=== PATIENT | male | born 1980 | race Caucasian/White ===

== ENCOUNTER 2022-09-17 13:19 | Outpatient (OUT) | payer OTHER, SELFPAY ==
--- NOTE | 2022-09-17 13:37 | MR_ITS ---
The [place] [id number] Patient Name: ROWENA TORIBIO MRN: [id number] date: 1980 Sex: M Assigned Patient Location: MRI Current Patient Location: MRI Accession/Order Number: [id number] Exam Date: 09/17/2022 13:50 Report Date: 09/17/2022 16:08 At the request of: RAFFY NAVARRETE Procedure: MR knee LT wo con EXAMINATION: MR knee LT wo con HISTORY: Pain In Left Knee M25.562 , swelling COMPARISON: No relevant comparison available. TECHNIQUE: A complete multi-planar MRI was performed. FINDINGS: MEDIAL COMPARTMENT MEDIAL MENISCUS: No visible tear or significant degeneration. CARTILAGE: No visible defect. BONES: No marrow pathology, fracture, or significant arthropathy. MCL AND MEDIAL CAPSULE: Normal medial collateral ligament and medial capsule. LATERAL COMPARTMENT LATERAL MENISCUS: No visible tear or significant degeneration. CARTILAGE: No visible defect. BONES: No marrow pathology, fracture, or significant arthropathy. LCL/POSTEROLAT COMPLEX: Normal lateral collateral ligament, fascicles, lateral capsule and ligaments. ANTERIOR COMPARTMENT PATELLA: No marrow pathology, fracture, or significant arthropathy. CARTILAGE: No visible defect. TENDONS: Normal. EFFUSION: None. No synovitis or loose bodies. ACL: Normal appearing ligament. PCL: Normal appearing ligament. MENISCOFEMORAL: Normal meniscofemoral ligaments. OTHER: Fluid collection anterior to the patella 5.4 x 5.4 cm in diameter by 1.1 cm in thickness. IMPRESSION: 1. Prepatellar bursitis. 2. Otherwise unremarkable knee. Electronically authenticated by: JOSE FERRELL Date: 09/17/2022 16:08
== END 2022-09-17 13:20 ==
LOC: MRI 13:21
PROVIDERS: PCP Family Medicine; Visit Provider Family Medicine
DX: M25.562 Pain in left knee (principal); M70.42 Prepatellar bursitis, left knee
CPT/HCPCS: 73721

== ENCOUNTER 2023-08-05 07:44 | Emergency (ER) | payer OTHER, SELFPAY ==
[2023-08-05 07:48] VITALS: BP 148/89; PULSE 82; TEMP 36.5; O2SAT 97; BMI 52.6
--- NOTE | 2023-08-05 08:08 | XR_ITS ---
The [address] [address] Patient Name: ROWENA TORIBIO MRN: [id number] date: 1980 Sex: M Assigned Patient Location: ER Current Patient Location: ED.MAIN Accession/Order Number: [id number] Exam Date: 08/05/2023 08:19 Report Date: 08/05/2023 08:40 At the request of: JENS PLATT Procedure: XR lumbar spine 2-3V EXAMINATION: XR lumbar spine 2-3V HISTORY: fall, low back pain COMPARISON: XR L-spine 07/07/2021 FINDINGS: BONES: Mechanical fusion L5-S1 via bilateral pedicle screws and rods; no appreciable hardware fracture or loosening. Multilevel mild degenerative facet arthropathy. No fracture or significant spondylolisthesis. DISC SPACES: Multilevel mild narrowing. Intervertebral disc spacer L5-S1. PARASPINOUS: Negative. No paraspinous abnormality is seen. OTHER: Negative. XR/XR lumbar spine 2-3V IMPRESSION: 1. No appreciable acute abnormality. 2. Stable surgical changes and multilevel mild degenerative changes. Electronically authenticated by: JOSE FERRELL Date: 08/05/2023 08:40
--- NOTE | 2023-08-05 08:09 | ED.BACK1 ---
HPI HPI - Back Pain/Injury General Chief Complaint: Back Pain/Injury Stated Complaint: BACK PAIN/ FALL Time Seen by Provider: 08/05/23 07:55 Source: patient and family Mode of arrival: walk-in Limitations: no limitations History of Present Illness HPI Narrative: The patient fell yesterday, twisting and landing awkwardly and injuring the low back. he said that he felt a pop in the left lower back and pain radiated down into the left hip. He did not take anything for the pain today. No bowel or bladder dysfunction. No numbness or tingling in either leg now. No leg weakness or paralysis since the fall. He had previous low back/lumbar surgery. Related Data Home Medications ?Medication ?Instructions ?Recorded ?Confirmed cetirizine 10 mg tablet 10 mg PO DAILY 08/05/23 08/05/23 doxycycline monohydrate 100 mg 100 mg PO BID 08/05/23 08/05/23 capsule etodolac 500 mg tablet 500 mg PO TID 08/05/23 08/05/23 lisinopril 40 mg tablet 40 mg PO DAILY 08/05/23 08/05/23 metoprolol tartrate 50 mg tablet 50 mg PO BID 08/05/23 08/05/23 tizanidine 4 mg tablet 8 mg PO BEDTIME 08/05/23 08/05/23 Previous Rx's ?Medication ?Instructions ?Recorded methocarbamol 750 mg tablet 750 mg PO Q6H PRN pain #30 tabs 08/05/23 nabumetone 750 mg tablet 750 mg PO BID PRN pain #14 tabs 08/05/23 Allergies Allergy/AdvReac Type Severity Reaction Status Date / Time No Known Drug Allergies Allergy Verified 08/05/23 07:48 Opioid HPI Opioid Management Most Recent Opioid Data: Last Pain Scale 10 08/05/23 08:30 Last MAR Pain Assessment 08/05/23 08:30 Exam Narrative Exam Narrative: General: Alert, no acute distress, patient resting comfortably Skin: warm, intact, no pallor noted Head: Normocephalic, atraumatic Eye: Normal conjunctiva Respiratory: No acute distress Back: inspection of the back shows no obvious deformity, no swelling, no ecchymosis, contusion, abrasion, swelling, erythema, fluctuance or induration. Prior surgical incision without dehiscence or sign of infection. Tenderness noted throughout the lumbar region. Straight leg raise on left is positive. Straight leg raise on right is negative. No CVA tenderness noted bilaterally. Musculoskeletal: No deformity noted to bilateral lower extremities. no cyanosis or mottling noted. normal pulses at DP and PT 2+ bilaterally and symmetrically. Normal 5/5 strength at ankles with dorsiflexion and plantar flexion. Patient is able to ambulate. Normal sensation noted to both lower extremities. Neurological: AAOx4, normal sensory and motor observed. L5-S1 reflexes intact symmetrically. DTR 2+ at patellar bilaterally. Psychiatric: Cooperative and interactive. Constitutional Vital Signs, click to edit/add: Last Vital Signs Temp 97.7 F 08/05/23 07:48 Pulse 82 08/05/23 07:48 Resp 18 08/05/23 07:48 BP 148/89 H 08/05/23 07:48 Pulse Ox 97 08/05/23 07:48 O2 Del Method Room Air 08/05/23 07:48 Course Vital Signs Vital signs: Vital Signs Temperature 97.7 F 08/05/23 07:48 Pulse Rate 82 08/05/23 07:48 Respiratory Rate 18 08/05/23 07:48 Blood Pressure 148/89 H 08/05/23 07:48 Pulse Oximetry 97 08/05/23 07:48 Oxygen Delivery Method Room Air 08/05/23 07:48 Temperature 97.7 F 08/05/23 07:48 Pulse Rate 82 08/05/23 07:48 Respiratory Rate 18 08/05/23 07:48 Blood Pressure 148/89 H 08/05/23 07:48 Pulse Oximetry 97 08/05/23 07:48 Oxygen Delivery Method Room Air 08/05/23 07:48 MDM - Back Pain/Injury MDM Narrative Medical decision making narrative: Patient given ibuprofen and xrays of the lumbar spine, left hip and pelvis obtained. Xrays showed degenerative changes and stable surgical hardware but no subluxation or fracture. Patient informed of results and was discharged home with prescriptions for Relafen and Robaxin. PCP follow up recommended. Imaging Data xr lumbar, xr hip/pelvis: Radiologist's impression: ITS Impressions Lumbar Spine X-Ray 08/05/23 08:08 IMPRESSION: 1. No appreciable acute abnormality. 2. Stable surgical changes and multilevel mild degenerative changes. Electronically authenticated by: JOSE FERRELL Date: 08/05/2023 08:40 Hip/Pelvis X-Ray 08/05/23 08:10 IMPRESSION: 1. Mild degenerative joint disease of the hips, left greater than right. 2. No convincing acute bone abnormality. Electronically authenticated by: JOSE FERRELL Date: 08/05/2023 08:43 Discharge Plan Discharge Stand Alone Forms: Portal Instructions Chief Complaint: Back Pain/Injury Clinical Impression: Lumbar radiculopathy, Strain of lumbar region Patient Disposition: Home, Self-Care Time of Disposition Decision: 08:58 Prescriptions / Home Meds: New nabumetone 750 mg tablet 750 mg PO BID PRN (Reason: pain) Qty: 14 0RF methocarbamol 750 mg tablet 750 mg PO Q6H PRN (Reason: pain) Qty: 30 0RF No Action lisinopril 40 mg tablet 40 mg PO DAILY etodolac 500 mg tablet 500 mg PO TID metoprolol tartrate 50 mg tablet 50 mg PO BID cetirizine 10 mg tablet 10 mg PO DAILY tizanidine 4 mg tablet 8 mg PO BEDTIME doxycycline monohydrate 100 mg capsule 100 mg PO BID Print Language: Guatemalan Instructions: Low Back Strain (ED), Lumbar Radiculopathy (ED) Referrals: Shashi Talley MD [Primary Care Provider] - 1 week
--- NOTE | 2023-08-05 08:10 | XR_ITS ---
The [address] [address] Patient Name: ROWENA TORIBIO MRN: [id number] date: 1980 Sex: M Assigned Patient Location: ER Current Patient Location: ER Accession/Order Number: [id number] Exam Date: 08/05/2023 08:19 Report Date: 08/05/2023 08:43 At the request of: JENS PLATT Procedure: XR hip LT 2V w/ pelvis PROCEDURE: XR hip LT 2V w/ pelvis HISTORY: fall, left hip pain COMPARISON: XR L-spine 07/07/2021 FINDINGS: BONES:Slight narrowing of the superior aspect of the hip joint spaces bilaterally. Small degenerative osteophytes along the articular margin of the left femoral head and superior rim of the acetabulum. SOFT TISSUES:No visible soft tissue swelling. EFFUSION:None visible. OTHER: Prior mechanical fusion of L5-S1. XR/XR hip LT 2V w/ pelvis IMPRESSION: 1. Mild degenerative joint disease of the hips, left greater than right. 2. No convincing acute bone abnormality. Electronically authenticated by: JOSE FERRELL Date: 08/05/2023 08:43
[2023-08-05] MEDS: IBUPROFEN 400 MG TABLET 800 MG PO (08:30)
== END 2023-08-05 09:10 | disposition home or self-care (01) ==
PROVIDERS: Emergency Provider Emergency Medicine; PCP Family Medicine
DX: S39.012A Strain of muscle, fascia and tendon of lower back, initial encounter (principal); M54.16 Radiculopathy, lumbar region; W19.XXXA Unspecified fall, initial encounter; Z79.899 Other long term (current) drug therapy
CPT/HCPCS: 72100; 73502; 99284

== ENCOUNTER 2023-08-18 11:25 | Emergency (ER) | payer OTHER, SELFPAY ==
[2023-08-18 11:30] VITALS: BP 139/94; PULSE 94; TEMP 36.6; O2SAT 97; BMI 51.4
--- NOTE | 2023-08-18 11:59 | XR_ITS ---
The [address] [address] Patient Name: ROWENA TORIBIO MRN: [id number] date: 1980 Sex: M Assigned Patient Location: ER Current Patient Location: ER Accession/Order Number: [id number] Exam Date: 08/18/2023 11:50 Report Date: 08/18/2023 12:13 At the request of: RAMON PEREZ Procedure: XR foot RT min 3V PROCEDURE: XR ankle RT min 3V, XR foot RT min 3V HISTORY: pain ; acute right foot and ankle pain after falling COMPARISON: XR ankle bilateral 09/22/2018 XR foot right 06/09/2008 FINDINGS: BONES:Stable small corticated ossifications distal to the medial malleolus favoring sequela of remote injury. Irregular ossification at base of 5th metatarsal; nonspecific. Mild degenerative changes the midfoot. SOFT TISSUES:Moderate soft tissue swelling surrounding the ankle and proximal foot. EFFUSION:None visible. OTHER: Negative. XR/XR foot RT min 3V IMPRESSION: 1. Osseous changes at base of 5th metatarsal are suspected represent sequela of remote injury, however, acute avulsion fracture cannot be completely excluded. Finding is new since May 2008. 2. Degenerative changes the midfoot and ankle. No dislocation. Electronically authenticated by: JOSE FERRELL Date: 08/18/2023 12:13
--- NOTE | 2023-08-18 11:59 | XR_ITS ---
The [address] [address] Patient Name: ROWENA TORIBIO MRN: [id number] date: 1980 Sex: M Assigned Patient Location: ER Current Patient Location: ER Accession/Order Number: [id number] Exam Date: 08/18/2023 11:50 Report Date: 08/18/2023 12:13 At the request of: RAMON PEREZ Procedure: XR ankle RT min 3V PROCEDURE: XR ankle RT min 3V, XR foot RT min 3V HISTORY: pain ; acute right foot and ankle pain after falling COMPARISON: XR ankle bilateral 09/22/2018 XR foot right 06/09/2008 FINDINGS: BONES:Stable small corticated ossifications distal to the medial malleolus favoring sequela of remote injury. Irregular ossification at base of 5th metatarsal; nonspecific. Mild degenerative changes the midfoot. SOFT TISSUES:Moderate soft tissue swelling surrounding the ankle and proximal foot. EFFUSION:None visible. OTHER: Negative. XR/XR ankle RT min 3V IMPRESSION: 1. Osseous changes at base of 5th metatarsal are suspected represent sequela of remote injury, however, acute avulsion fracture cannot be completely excluded. Finding is new since May 2008. 2. Degenerative changes the midfoot and ankle. No dislocation. Electronically authenticated by: JOSE FERRELL Date: 08/18/2023 12:13
--- OUTSIDE RECORDS SUMMARY | 2023-08-18 12:03 | XMS_ITS | CCD ---
Author Organization [facility] Care Team Providers Care Vp Training Name Role Phone Cece Perera Unavailable [phone] ZHOU, DEAN H. Unavailable Unavailable RAFFY NAVARRETE M Unavailable Unavailable ZHOU, DEAN H. Unavailable Unavailable RAFFY NAVARRETE M Unavailable Unavailable HORAFFY Garduno M Unavailable Unavailable ZHOU, DEAN H. Unavailable Unavailable ZHOU, DEAN H. Unavailable Unavailable Fanello, Travon K Unavailable Unavailable Fanello Travon K Unavailable Unavailable JOJORHONDAI JORDANA Unavailable Unavailabl e ADRIANA TRAVON YAKOV Unavailable Unavailable JOJOAMBER MCLAUGHLINE Unavailable Unavailabl e CECE PERERA Unavailable Unavailab le FANTRAVON MCKINLEY YAKOV Unavailable Unavailable CECE PERERA Unavailable Unavailab le TRAVON WRIGHT Unavailable Unavailable CECE PERERA Unavailable Unavailab CECE Palma Unavailable Unavailable CECE PERERA Unavailable Unavailab le Unavailable Primary Care Provider UnavailCasper Alexandre Unavailable DR RAFFY FAROOQ Primary Care Unavailable MERVIN VIDAL Admitting Unavailable MERVIN VIDAL Attending Unavailable MERVIN VIDAL Consulting Unavailable LANDON ., DR AKBAR Admitting Unavailable LANDON ., DR AKBAR Attending Unavailable LANDON ., DR AKBAR Primary Care Unavailable DR RAFFY FAROOQ Consulting Unavailable LANDON ., DR AKBAR Admitting Unavailable LANDON ., DR AKBAR Attending Unavailable LANDON ., DR AKBAR Primary Care Unavailable LANDON Franco, DR AKBAR Consulting Unavailable Allergies Allergy Classification Reported Allergen(s) Allergy Type Date of Onset Reaction(s) Facility (10 sources) acetaminophen / HYDROcodone; Translations: [HYDROCODONE-ACET AMINOPHEN] Propensity to adverse reactions to drug 7 GI Intolerance [facility] Work Phone: (1 source) Acetaminophen / HYDROcodone Drug Allergy 5 [facility] Repository Medications Current Medications Medication Drug Class(es) Dates Sig (Normalized) Sig (Original) acetaminophen 300 mg / codeine phosphate 30 mg oral tablet (1 source) Opioid Agonist Start: 11-18-2016 End: 11-23-2016 take 1 tablet by mouth every six hours as needed for pain acetaminophen-cod eine (TYLENOL #3) 300-30 mg per tablet Indications: DDD (degenerative disc disease), lumbar Take 1 (one) tablet by mouth every 6 (six) hours as needed for pain. 15 tablet 0 11/18/2016 11/23/2016 Active amoxicillin 500 mg oral capsule (1 source) Penicillin-class Antibacterial Start: 08-16-2021 take 1 capsule by mouth every eight hours Amoxicillin 500 MG 1 capsule Orally every 8 hrs for 7 day(s) August, Active baclofen 10 mg oral tablet (4 sources) gamma-Aminobutyric Acid-ergic Agonist Start: 07-01-2017 baclofen (LIORESAL) 10 MG tablet Start: 11-20-2016 End: 02-19-2017 take 1 tablet by mouth three times daily as needed baclofen (LIORESAL) 20 MG tablet Take 1 (one) tablet (20 mg total) by mouth 3 (three) times a day as needed. 30 tablet 0 11/20/2016 02/19/2017 Discontinued Start: 11-05-2016 take 1 tablet by shavonne three times daily as needed baclofen (LIORESAL) 20 MG tablet Take 20 mg by mouth 3 (three) times a day as needed. 0 11/05/2016 Active diflunisal 500 mg oral tablet (8 sources) Nonsteroidal Anti-inflammatory Drug take 1 tablet by mouth twice daily as needed diflunisal (DOLOBID) 500 mg Tab Take 500 mg by mouth 2 (two) times a day as needed. Active gabapentin 300 mg oral capsule (3 sources) Anti-epileptic Agent Start: 07-02-19 18 gabapentin (NEURONTIN) 300 MG capsule Start: 11-07-2016 End: 11-22-2016 take 1 capsule by mouth every eight hours gabapentin (NEURONTIN) 100 MG capsule Indications: Acute back pain, unspecified back location, unspecified back pain laterality Take 1 (one) capsule (100 mg total) by mouth every 8 (eight) hours for 15 days. 45 capsule 0 11/07/2016 11/22/2016 Active ibuprofen 800 mg oral tablet (1 source) Nonsteroidal Anti-inflammatory Drug Start: 08-16-2021 take 1 tablet by mouth every eight hours at mealtime as needed Ibuprofen 800 MG 1 tablet with food or milk as needed Orally every 8 hrs for 5 days August, Active lidocaine hydrochloride 20 mg/ml mucous membrane topical solution (1 source) Antiarrhythmic, Amide Local Anesthetic Start: 08-16-2021 take 15 mL by mouth every three hours Lidocaine Viscous 2% 15 ml swish in mouth, gargle, and spit. DO NOT swallow every 3 hrs for 2 days August, Active Lisinopril (1 source) Angiotensin Converting Enzyme Inhibitor Lisinopril Active Metoprolol (1 source) beta-Adrenergic Leia Metoprol ol Succinate Active Omeprazole (1 source) Proton Pump Inhibitor Omeprazole Active Sertraline (1 source) Serotonin Reuptake Inhibitor Sertraline HCl Active tiZANidine 4 mg oral tablet (2 sources) Central alpha-2 Adrenergic Agonist Start: 07-11-2017 tiZANidine (ZANAFLEX) 4 MG tablet Completed/Discontinued Medications Medication Drug Class(es) Dates Sig (Normalized) Sig (Original) acetaminophen 325 mg / oxyCODONE hydrochloride 5 mg oral tablet (2 sources) Opioid Agonist Start: 11-12-2016 End: 02-19-2017 take 1-2 tablets by mouth every four hours oxyCODONE-acetamino phen (PERCOCET) 5-325 mg per tablet Take 1-2 tablets by mouth every 4 to 6 hours as needed for pain. 0 11/12/2016 02/19/2017 Discontinued methocarbamol 750 mg oral tablet (7 sources) Muscle Relaxant End: 07-22-2017 take 1 tablet by mouth every eight hours methocarbamol (ROBAXIN) 750 MG tablet Take 750 mg by mouth every 8 (eight) hours. 07/22/2017 Discontinued predniSONE 10 mg oral tablet (1 source) Corticosteroid Start: 11-24-2016 End: 02-19-2017 predniSONE (DELTASONE) 10 MG tablet Indications: Chronic midline low back pain without sciatica Take 4 tablets PO X 5 days then take 2 tablets PO X 5 days. 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] Onset: 07-22-2017 07-22-2017 Chronic Other nervous system disorders (1 source) Chronic pain; Translations: [Other chronic pain] Chronic Other screening for suspected conditions (not mental disorders or infectious disease) (1 source) Encounter for screening for malignant neoplasm of prostate; Translations: [ENC SCREEN MALIG NEOPLASM PROSTATE] Onset: 07-28-2022 Episodic Spondylosis; intervertebral disc disorders; other back problems (5 sources) Lumbar spondylosis; Translations: [Spondylosis without myelopathy or radiculopathy, lumbar region] Onset: 09-11-2017 Chronic Spondylosis; intervertebral disc disorders; other back problems (16 sources) Backache; Translations: [Lumbosacral radiculopathy] Onset: 02-19-2017 02-19-2017 Episodic Substance-related disorders (1 source) Nicotine dependence, cigarettes, uncomplicated; Translations: [NICOTINE DEPEND CIGARETTES UNCOMP] Onset: 09-25-2021 Chronic Unclassified (1 source) Unknown / UNK(Unknown) Onset: 03-18-2017 Past or Other Problems Problem Classification Problem Date Documented Da te Episodic/Chronic Disorders of teeth and jaw (5 sources) Periapical abscess without sinus; Translations: [Other specified disorders of teeth and supporting structures] Onset: 08-16-2021 Resolved: 08-16-2021 Episodic Unclassified (1 source) Results Onset: 03-18-2017 Results Test Name Value Interpretation Reference Range Facility OCC BLD IMMUNO SCREENon 07-12 OCCULT BLOOD Negative Normal NEGATIVE [facility] Comment on above: Performed By: #### O BSCRN #### [facility] [address] [place] [address] Dr. Isamar Betancourt INSULINon 07-23-2022 Insulin 42.3 uIU/mL Critically high 2.6-24.9 [facility] Comment on above: Performed By: #### I NSULIN #### [facility] [address] [address] [address] Isamar Betancourt CBC AUTO DIFFon 07-22-2022 BASO # 0.1 103/ul Normal 0.0-0.1 [facility] Comment on above: Performed By: #### C BC #### [facility] [address] [address] [address] Isamar Betancourt Basophils/100 WBC (Bld) 1.1 % Normal 0.2-2.0 [facility] Comment on above: Performed By: #### C BC #### [facility] [address] [place] [address] Dr. Isamar Betancourt EO # 0.2 103/ul Normal 0.0-0.7 [facility] Comment on above: Performed By: #### C BC #### [facility] [address] [place] [address] Dr. Isamar Betancourt Eosinophils/100 WBC (Bld) 2.5 % Normal 0.9-7.0 [facility] Comment on above: Performed By: #### C BC #### [facility] [address] [place] [address] Dr. Isamar Betancourt Erythrocyte distribution width (RBC) [Ratio] 14.4 % Normal 11.0-15.0 [facility] Comment on above: Performed By: #### C BC #### [facility] [address] [place] [address] Dr. Isamar Betancourt Hematocrit (Bld) [Volume fraction] 44.5 % Normal 42.0-54.0 [facility] Comment on above: Performed By: #### C BC #### [facility] [address] [place] [address] Dr. Isamar Betancourt Hemoglobin (Bld) [Mass/Vol] 15.0 g/dL Normal 14.0-18.0 [facility] Comment on above: Performed By: #### C BC #### [facility] [address] [place] [address] Dr. Isamar Betancourt IG # 0.14 10e3/ul Critically high 0.00-0.03 [facility] Comment on above: Performed By: #### C BC #### [facility] [address] [place] [address] Dr. Isamar Betancourt IG % 1.5 % Critically high 0.0-0.5 [facility] Comment on above: Performed By: #### C BC #### [facility] [address] [place] [address] Dr. Isamar Betancourt LYMPH # 3.0 103/ul Normal 1.2-3.8 [facility] Comment on above: Performed By: #### C BC #### [facility] [address] [place] [address] Dr. Isamar Betancourt Lymphocytes/100 WBC (Bld) 33.1 % Normal 20.5-60.0 [facility] Comment on above: Performed By: #### C BC #### [facility] [address] [place] [address] Dr. Isamar Betancourt MANUAL DIFF REQ NO Normal [facility] Comment on above: Performed By: #### C BC #### [facility] [address] [place] [address] Dr. Isamar Betancourt MCH (RBC) [Entitic mass] 29.7 pg Normal 25.9-34.0 [facility] Comment on above: Performed By: #### C BC #### [facility] [address] [place] [address] Dr. Isamar Betancourt MCHC (RBC) [Mass/Vol] 33.7 g/dL Normal 29.9-35.2 [facility] Comment on above: Performed By: #### C BC #### [facility] [address] [place] [address] Dr. Isamar Betancourt MCV (RBC) [Entitic vol] 88.1 fL Normal 80.0-94.0 [facility] Comment on above: Performed By: #### C BC #### [facility] [address] [place] [address] Dr. Isamar Betancourt MONO # 0.9 103/ul Critically high 0.3-0.8 [facility] Comment on above: Performed By: #### C BC #### [facility] [address] [place] [address] Dr. Isamar Betancourt Monocytes/100 WBC (Bld) 9.3 % Normal 1.7-12.0 [facility] Comment on above: Performed By: #### C BC #### [facility] [address] [place] [address] Dr. Isamar Betancourt NEUT # 4.8 103/ul Normal 1.4-6.5 [facility] Comment on above: Performed By: #### C BC #### [facility] [address] [place] [address] Dr. Isamar Betancourt Neutrophils/100 WBC (Bld) 52.5 % Normal 43.0-75.0 [facility] Comment on above: Performed By: #### C BC #### [facility] [address] [place] [address] Dr. Isamar Betancourt Platelet mean volume (Bld) [Entitic vol] 10.3 fL Normal 9.5-13.5 [facility] Comment on above: Performed By: #### C BC #### [facility] [address] [place] [address] Dr. Isamar Betancourt PLT 317 103/ul Normal 150-450 [facility] Comment on above: Performed By: #### C BC #### [facility] [address] [place] [address] Dr. Isamar Betancourt RBC 5.05 106/ul Normal 4.70-6.10 [facility] Comment on above: Performed By: #### C BC #### [facility] [address] [place] [address] Dr. Isamar Betancourt WBC 9.2 103/ul Normal 4.0-11.0 [facility] Comment on above: Performed By: #### C BC #### [facility] [address] [place] [address] Dr. Isamar Betancourt FREE THYROXINE INDEX T7on FTI 2.40 Normal 1.30-4.50 [facility] Comment on above: Performed By: #### V ITAD, PSASC #### [facility] [address] [place], [place] [id number] Dr. Isamar Betancourt T3U 30.0 % Critically low 33.0-40.0 [facility] [place] [facility] Comment on above: Performed By: #### V MYRTLE PSAFRANCOIS #### [facility] [address] [place] [address] Dr. Isamar Betancourt T4 [Mass/Vol] 8.00 ug/dL Normal 4.50-12.[address] [facility] Comment on above: Performed By: #### V MYRTLE PSASC #### [facility] [address] [place] [address] Dr. Isamar Betancourt GLYCOHEMOGLOBIN A1Con 2022 ADA RECOMMENDATION SEE BELOW Normal [facility] Comment on above: Result Comment: ADA RECOMMENDED LIMIT 4.0 - 6.0 ADA THERAPEUTIC TARGET < 7.0 ACTION SUGGESTED > 7.0 Performed By: #### A 1C #### [facility] [address] [place] [address] Dr. Isamar Betancourt Glucose [Mass/Vol] 103 mg/dL Normal [facility] Comment on above: Performed By: #### A 1C #### [facility] [address] [place] [address] Dr. Isamar Betancourt HbA1c (Bld) [Mass fraction] 5.2 % Normal 4.5-6.2 [facility] Comment on above: Performed By: #### A 1C #### [facility] [address] [place] [address] Dr. Isamar Betancourt LIPID PROFILEon 07-22-2022 CHOL-HDL RATIO NORM SEE BELOW Normal [facility] Comment on above: Result Comment: 3.3 - 4.4 LOW RISK 4.4 - 7.1 AVERAGE RISK 7.1 - 11.0 MODERATE RISK >11.0 HIGH RISK Performed By: #### T 7, CMP, LIPID, TSH, URIC #### [facility] [address] [place] [address] Dr. Isamar Betancourt Cholesterol [Mass/Vol] 208 mg/dL Critically high <=200 [facility] Comment on above: Performed By: #### T 7, CMP, LIPID, TSH, URIC #### [facility] [address] [address] [address] Isamar Betancourt Cholesterol in HDL [Mass/Vol] 28 mg/dL Critically low 40-60 [facility] Comment on above: Performed By: #### T 7, CMP, LIPID, TSH, URIC #### [facility] [address] [address] [address] Isamar Betancourt Cholesterol in LDL [Mass/Vol] 153.8 mg/dL Normal [facility] Comment on above: Performed By: #### T 7, CMP, LIPID, TSH, URIC #### [facility] [address] [address] [address] Isamar Betancourt Cholesterol.total/C holesterol in HDL [Mass ratio] 7.4 {ratio} Normal [facility] Comment on above: Performed By: #### T 7, CMP, LIPID, TSH, URIC #### [facility] [address] [address] [address] Isamar Betancourt HDL NORMAL > or = 60 mg/dl - LO W CARDIOVASCULAR RISK <40 mg/dl - HIGH CARDIOVASCULAR RISK Normal [facility] Comment on above: Performed By: #### T 7, CMP, LIPID, TSH, URIC #### [facility] [address] [address] [address] Isamar Betancourt LDL CALC NORMAL SEE BELOW Normal [facility] Comment on above: Result Comment: <100 mg/dl OPTIMAL 100 - 129 mg/dl NEAR OR ABOVE OPTIMAL 130 - 159 mg/dl BORDERLINE HIGH 160 - 189 mg/dl HIGH >190 mg/dl VERY HIGH Performed By: #### T 7, CMP, LIPID, TSH, URIC #### [facility] [address] [address] [address] Isamar Betancourt Triglyceride [Mass/Vol] 131 mg/dL Normal <=150 [facility] Comment on above: Performed By: #### T 7, CMP, LIPID, TSH, URIC #### [facility] [address] [address] [address] Isamar Betancourt VLDL CALC 26.2 mg/dL Normal [facility] Comment on above: Performed By: #### T 7, CMP, LIPID, TSH, URIC #### [facility] [address] [place] [address] Dr. Isamar Betancourt PROF 14(COMP METB)on 023 Albumin [Mass/Vol] 2.8 g/dL Critically low 3.4-5.0 [facility] Comment on above: Performed By: #### T 7, CMP, LIPID, TSH, URIC #### [facility] [address] [place] [address] Dr. Isamar Betancourt Albumin/Globulin [Mass ratio] 0.6 {ratio} Normal [facility] Comment on above: Performed By: #### T 7, CMP, LIPID, TSH, URIC #### [facility] [address] [place] [address] Dr. Isamar Betancourt ALP [Catalytic activity/Vol] 105 U/L Normal 46-116 [facility] Comment on above: Performed By: #### T 7, CMP, LIPID, TSH, URIC #### [facility] [address] [place] [address] Dr. Isamar Betancourt ALT [Catalytic activity/Vol] 23 U/L Normal 16-63 [facility] Comment on above: Performed By: #### T 7, CMP, LIPID, TSH, URIC #### [facility] [address] [place] [address] Dr. sIamar Betancourt Anion gap [Moles/Vol] 9.6 mmol/L Normal [facility] Comment on above: Performed By: #### T 7, CMP, LIPID, TSH, URIC #### [facility] [address] [place] [address] Dr. Isamar Betancourt AST [Catalytic activity/Vol] 15 U/L Normal 15-37 [facility] Comment on above: Performed By: #### T 7, CMP, LIPID, TSH, URIC #### [facility] [address] [place] [address] Dr. Isamar Betancourt Bilirubin [Mass/Vol] 0.5 mg/dL Normal 0.2-1.0 [facility] Comment on above: Performed By: #### T 7, CMP, LIPID, TSH, URIC #### [facility] [address] [place] [address] Dr. Isamar Betancourt Calcium [Mass/Vol] 8.9 mg/dL Normal 8.5-10.1 [facility] Comment on above: Performed By: #### T 7, CMP, LIPID, TSH, URIC #### [facility] [address] [address] [address] Isamar Betancourt Chloride [Moles/Vol] 106 mmol/L Normal 98-107 [facility] Comment on above: Performed By: #### T 7, CMP, LIPID, TSH, URIC #### [facility] [address] [address] [address] Isamar Betancourt CO2 [Moles/Vol] 30.7 mmol/L Normal 21.0-32.0 [facility] Comment on above: Performed By: #### T 7, CMP, LIPID, TSH, URIC #### [facility] [address] [address] [address] Isamar Betancourt Creatinine [Mass/Vol] 0.82 mg/dL Normal 0.70-1.30 [facility] Comment on above: Performed By: #### T 7, CMP, LIPID, TSH, URIC #### [facility] [address] [address] [address] Isamar Betancourt EGFR-AF ENGLISH >60 Normal >=60 [facility] Comment on above: Performed By: #### T 7, CMP, LIPID, TSH, URIC #### [facility] [address] [address] [address] Isamar Betancourt EGFR-NON AF ENGLISH >60 Normal >=60 [facility] Comment on above: Performed By: #### T 7, CMP, LIPID, TSH, URIC #### [facility] [address] [address] [address] Isamar Betancourt Globulin (S) [Mass/Vol] 4.4 g/dL Normal [facility] Comment on above: Performed By: #### T 7, CMP, LIPID, TSH, URIC #### [facility] [address] [address] [address] Isamar Betancourt Glucose [Mass/Vol] 89 mg/dL Normal 74-106 [facility] Comment on above: Performed By: #### T 7, CMP, LIPID, TSH, URIC #### [facility] [address] [place] [address] Dr. Isamar Betancourt Potassium [Moles/Vol] 4.3 mmol/L Normal 3.5-5.1 [facility] Comment on above: Performed By: #### T 7, CMP, LIPID, TSH, URIC #### [facility] [address] [place] [address] Dr. Isamar Betancourt Protein [Mass/Vol] 7.2 g/dL Normal 6.4-8.2 [facility] Comment on above: Performed By: #### T 7, CMP, LIPID, TSH, URIC #### [facility] [address] [place] [address] Dr. Isamar Betancourt Sodium [Moles/Vol] 142 mmol/L Normal 136-145 [facility] Comment on above: Performed By: #### T 7, CMP, LIPID, TSH, URIC #### [facility] [address] [place] [address] Dr. Isamar Betancourt Urea nitrogen [Mass/Vol] 13.0 mg/dL Normal 7.0-18.0 [facility] Comment on above: Performed By: #### T 7, CMP, LIPID, TSH, URIC #### [facility] [address] [place] [address] Dr. Isamar Betancourt Urea nitrogen/Creatinine [Mass ratio] 15.9 mg/mg Normal [facility] Comment on above: Performed By: #### T 7, CMP, LIPID, TSH, URIC #### [facility] [address] [place] [address] Dr. Isamar Betancourt TSHon 07-22-2022 TSH 1.732 uIU/mL Normal 0.358-3.740 [facility] Comment on above: Performed By: #### T 7, CMP, LIPID, TSH, URIC #### [facility] [address] [place] [address] Dr. Isamar Betancourt URIC ACID SERUMon 07-22-2022 Urate [Mass/Vol] 3.6 mg/dL Normal 3.5-7.2 [facility] Comment on above: Performed By: #### T 7, CMP, LIPID, TSH, URIC #### [facility] [address] [address] [address] Isamar Betancourt VITAMIN D 25 OHon 07-22-2022 VIT D 25-OH 8.0 ng/mL Normal [facility] Comment on above: Performed By: #### V ITAD, PSASC #### [facility] [address] [address] [address] Isamar Betancourt VIT D RANGES SEE BELOW Normal [facility] [facility] Comment on above: Result Comment: <20 ng/mL Vit D deficient 20 - <30 ng/mL Vit D insufficient 30 - 100 ng/mL Vit D sufficient >100 ng/mL Potential Toxicity Performed By: #### V ITAD, PSASC #### [facility] [address] LUMBAR SP WO CONon 2020 CT LUMBAR SP WO CON STUDY: CT LUMBAR SP WO CON 01/09/2021 12:44 pm INDICATION: NONUNION OF SPINAL FUSION COMPARISON: None. ACCESSION NUMBER(S): [id number] ORDERING CLINICIAN: Vic Pearson TECHNIQUE: Axial CT images of the lumbar spine are obtained. Axial, coronal and sagittal reconstructions are provided for review. FINDINGS: Exam is limited due to body habitus. There is also some motion artifact as well as beam hardening artifact from fusion hardware. Findings may be obscured. No definite fracture or subluxation of the lumbar spine. There is posterior metallic fusion hardware with incorporated interbody graft at L5-S1. Pedicle screws and interconnecting rods appear intact without periprosthetic lucency or fracture. Mild multilevel degenerative disc height loss with scattered endplate osteophytes. Multilevel facet arthropathy. No spondylolisthesis or spondylolysis identified. L1-2: Grossly patent canal and foramina. L2-3: Disc bulge may cause mild canal stenosis. Disc bulge causes mild left and mild right foraminal stenosis. L3-4: Disc bulge suspected. Canal stenosis difficult to quantitate. Osteophytes cause at least mild bilateral foraminal stenosis. L4-5: Probable canal stenosis difficult to quantitate. Osteophytes cause at least moderate left and left right foraminal stenosis. L5-S1: Fused level. Canal difficult to evaluate. Osteophytes cause at least mild left and mild right foraminal stenosis No abdominal aortic aneurysm is identified. IMPRESSION: Limited exam. Posterior L5-S1 fusion. No definite hardware complication. Mild degenerative changes of the lumbar spine. Normal [facility] LUMBAR SPINE 2 OR 3 VIEWSon 12-21-2020 LUMBAR SPINE 2 OR 3 VIEWS STUDY: LUMBAR SPINE 2 OR 3 VIEWS; 12/21/2020 10:38 am INDICATION: STENOSIS OF LATERAL RECESS OF LUMBAR SPINE. COMPARISON: No available comparisons. ACCESSION NUMBER(S): [id number] ORDERING CLINICIAN: Vic Pearson TECHNIQUE: 4 views of the lumbar spine. FINDINGS: No acute fracture dislocation. Status post posterior lumbar spine fusion at L5-S1 level with decompression laminectomy. The vertebral alignment is normal. The vertebral body heights and intervertebral disc spaces are maintained. Nonspecific bowel gas pattern. IMPRESSION: Stable postsurgical changes of lumbar spine. Normal [facility] OPERATIVE REPORTon OPERATIVE REPORT NAME: ROWENA PATRICIA MR#: [id number] SURGEON: Vic Pearson MD DATE OF SURGERY: 11/30/2020 OPERATIVE REPORT PREOPERATIVE DIAGNOSIS: Lateral recess stenosis, lumbar. POSTOPERATIVE DIAGNOSIS: Lateral recess stenosis, lumbar. OPERATIVE PROCEDURE: L4-L5 translaminar epidural injection with 80 mg of Depo- Medrol. DETAILS OF PROCEDURE: The patient was placed prone on the x-ray table and MAC anesthesia administered. The back was prepped and draped in usual fashion. Local anesthesia was infiltrated with 1% plain Xylocaine. Under C-arm guidance, a 20-gauge Tuohy epidural needle was placed down to the ligamentum flavum at L4-L5 and a glass syringe was fixed. Insufflation was performed, as the needle was advanced through the ligamentum flavum. With the loss of resistance, aspiration yielded no CSF or blood. The epidural space was injected with 8 mL of 1% plain Xylocaine and 80 mg of Depo-Medrol. The needle was withdrawn. Dressing applied. The patient awakened and taken to recovery room in excellent condition. There were no complications. MD AL SOLIZ/DIPTIL/[id number] E/S: Vic Pearson MD 01/07/21 0936 Electronically Signed [facility] PT NAME: ROWENA PATRICIA MR#: [id number] [address] [place] [address] ACCT: [id number] : 82 OPERATIVE REPORT Normal [facility] CORONAVIRUSon 11-28-2020 SARS-CoV-2 (COVID-19) RNA ONESIMO+probe Ql (Unsp spec) Methodology: PCR Negative results do not preclude SARS-CoV-2 infection and should not be used as the sole basis for patient management decisions. Negative results must be combined with clinical observations, patient history, and epidemiological information. False-negative results may occur if the viruses are present at a level that is below the analytical sensitivity of the assay or if the virus has genomic mutations, insertions, deletions, or rearrangements or if performed very early in the course of illness. Results may be affected by the quality of the sample collected. [employer] COVID-19 Direct is only for use under the Food and Drug Administration's Emergency Use Authorization. The [employer] COVID-19 Direct Letter of Authorization, along with the authorized Fact Sheet for Healthcare Providers, the authorized Fact Sheet for Patients, and authorized labeling are available on the FDA website: https://www.fda.gov/Medic alDevices/Safety/ EmergencySituations/ucm16 1496.htm COVID-19 Negative for COVID-19 (SARS-CoV-2 RNA) Normal [facility] Comment on above: Order Comment: CBN: YES Anton: MAIN COVID Testing: PRE-OP/PROCEDURE SCREEN Comment: 11/30 AGE at Spec EUGENIA 40 Report age at specimen EUGENIA? Y First test: UNKNOWN Employed in Healthcare: NO Symptomatic as defined by CDC: NO Hospitalized for COVID-19? NO ICU: NO Resident in a Congregated Care Setting: NO Order Date: 11/28/20 : Not Performed By: #### M [phone] #### Test performed at: [place] [address] [address] LUMB SP COMP W FLEX/EXT 6 VW S>on 10-12-2020 LUMB SP COMP W FLEX/EXT 6 VWS> STUDY: LUMB SP COMP W FLEX/EXT 6 VWS>; 10/12/2020 9:48 am INDICATION: LOW BACK PAIN. COMPARISON: None. ACCESSION NUMBER(S): [id number] ORDERING CLINICIAN: Vic Pearson TECHNIQUE: Standing AP, lateral, oblique and flexion and extension images of the spine were obtained. FINDINGS: The alignment of spine is unremarkable. The patient is status post fusion of L5-S1. A disc space graft is present. The hardware appears intact. There is no obvious spondylolisthesis or spondylolysis. There is mild vertebral body endplate spurring. There is no obvious fracture. COMPARISON OF FINDINGS: IMPRESSION: Post posterior spine fusion. No acute abnormalities. Normal [facility] RAD - Ultrasound Reporton RAD - Ultrasound Report [id number]:127 Normal [facility] Physician Referralon 020 Physician Referral [id number]:12 7 Normal [facility] Ambulatory Clinical Summaryo n 09-22-2019 Ambulatory Clinical Summary {[id number] Normal [facility] CBC With Platelet and Differ entialon 10-09-2017 Basophils Auto #/vol (Bld) 0.1 10*3/uL Normal 0.0-0.2 [facility] Basophils/100 WBC Auto (Bld) 1.0 % Normal [facility] Eosinophils 0.5 10*3/uL Normal 0.0-0.7 [facility] Eosinophils/100 leukocytes 8.5 % Normal [facility] Erythrocyte distribution width Auto Ratio (RBC) 12.5 % Normal 11.5-14.5 [facility] Erythrocytes (RBC) 5.00 10*6/uL Normal 4.70-6.10 [facility] Hematocrit (HCT) 45.4 % Normal 42.0-52.0 [facility] Hemoglobin mass conc (Bld) 14.5 g/dL Normal 14.0-18.0 [facility] Lymphocytes 1.5 10*3/uL Normal 1.0-4.8 [facility] Lymphocytes/100 leukocytes 28.4 % Normal [facility] MCH 28.9 pg Normal 27.0-31.3 [facility] MCHC mass conc (RBC) 31.8 % Low 33.0-37.0 [facility] MCV 90.8 fL Normal 80.0-100.0 [facility] Monocytes 0.5 10*3/uL Normal 0.2-0.8 [facility] Monocytes/100 leukocytes 8.4 % Normal [facility] Neutrophils 2.9 10*3/uL Normal 1.4-6.5 [facility] Neutrophils/100 leukocytes 53.7 % Normal [facility] Platelets 246 10*3/uL Normal 130-400 [facility] WBC (Leukocytes) 5.4 10*3/uL Normal 4.8-10.8 [facility] Comprehensive Metabolic Pane jesus 10-09-2017 Alanine aminotransferase (ALT) 12 U/L Normal 0-41 [facility] Albumin 4.4 g/dL Normal 3.9-4.9 [facility] Alkaline phosphatase (ALP) 66 U/L Normal 35-104 [facility] Anion gap 12 mmol/L Normal 7-13 [facility] Aspartate aminotransferase (AST) 20 U/L Normal 0-40 [facility] Bilirubin (total) 0.5 mg/dL Normal 0.0-1.2 [facility] Calcium 9.3 mg/dL Normal 8.6-10.2 [facility] Chloride 101 mmol/L Normal 98-107 [facility] CO2 28 mmol/L Normal 22-29 [facility] Creatinine 0.91 mg/dL Normal 0.70-1.20 [facility] eGFR (black) mL/min/{1.73_m2} Normal >60 [facility] Comment on above: Result Comment: >60 mL/min/1.73m2 EGFR, calc. for ages 18 and older using theMDRD formula (not corrected for weight), is valid for stablerenal function. eGFR (MDRD) mL/min/{1.73_m2} Normal >60 [facility] Comment on above: Result Comment: >60 mL/min/1.73m2 EGFR, calc. for ages 18 and older using theMDRD formula (not corrected for weight), is valid for stablerenal function. Globulin 2.9 g/dL Normal 2.3-3.5 [facility] Glucose mass conc 82 mg/dL Normal 74-109 [facility] Potassium molar conc 4.3 mmol/L Normal 3.5-5.1 [facility] Protein 7.3 g/dL Normal 6.4-8.1 [facility] Sodium 141 mmol/L Normal 132-144 [facility] Urea nitrogen 15 mg/dL Normal 6-20 [facility] Lipid Panelon 10-09-2017 Cholesterol 185 mg/dL Normal 0-199 [facility] Comment on above: Result Comment: ATP III Cholesterol classification is Desirable. HDL Cholesterol 47 mg/dL Normal 40-59 [facility] Comment on above: Result Comment: ATP III HDL Cholesterol Classification is Desirable.Expected Values:Males: >55 = No Risk 35-55 = Moderate Risk <35 = High RiskFemales: >65 = No Risk 45-65 = Moderate Risk <45 = High RiskNCEP Guidelines: Third Report August 2000>59 = negative risk factor for CHD<40 = major risk factor for CHD LDL Cholesterol 123 mg/dL Normal 0-129 [facility] Comment on above: Result Comment: ATP III LDL Classification is Near Optimal. Triglyceride 73 mg/dL Normal 0-200 [facility] Comment on above: Result Comment: ATP III Triglycerides Classification is Normal. Basic Metabolic Panel Reflex Mgon 09-16-2017 Anion gap 12 mmol/L Normal 7-13 [facility] Calcium 8.4 mg/dL Low 8.6-10.2 [facility] Chloride 99 mmol/L Normal 98-107 [facility] CO2 23 mmol/L Normal 22-29 [facility] Creatinine 0.64 mg/dL Low 0.70-1.20 [facility] eGFR (black) mL/min/{1.73_m2} Normal >60 [facility] Comment on above: Result Comment: >60 mL/min/1.73m2 EGFR, calc. for ages 18 and older using theMDRD formula (not corrected for weight), is valid for stablerenal function. eGFR (MDRD) mL/min/{1.73_m2} Normal >60 [facility] Comment on above: Result Comment: >60 mL/min/1.73m2 EGFR, calc. for ages 18 and older using theMDRD formula (not corrected for weight), is valid for stablerenal function. Glucose mass conc 115 mg/dL Critically high 74-109 [facility] Potassium molar conc 4.0 mmol/L Normal 3.5-5.1 [facility] Sodium 134 mmol/L Normal 132-144 [facility] Urea nitrogen 7 mg/dL Normal 6-20 [facility] CBC With Platelet and Differ entialon 09-16-2017 Slide Review see below Normal [facility] Comment on above: Result Comment: Slid e review agrees with reported results Basophils Auto #/vol (Bld) 0.1 10*3/uL Normal 0.0-0.2 [facility] Basophils/100 WBC Auto (Bld) 0.5 % Normal [facility] Eosinophils 0.0 10*3/uL Normal 0.0-0.7 [facility] Eosinophils/100 leukocytes 0.1 % Normal [facility] Erythrocyte distribution width Auto Ratio (RBC) 14.2 % Normal 11.5-14.5 [facility] Erythrocytes (RBC) 4.38 10*6/uL Low 4.70-6.10 [facility] Hematocrit (HCT) 39.9 % Low 42.0-52.0 [facility] Hemoglobin mass conc (Bld) 11.0 g/dL Low 14.0-18.0 [facility] Lymphocytes 0.7 10*3/uL Low 1.0-4.8 [facility] Lymphocytes/100 leukocytes 4.6 % Normal [facility] MCH 25.2 pg Low 27.0-31.3 [facility] MCHC mass conc (RBC) 27.6 % Low 33.0-37.0 [facility] MCV 91.2 fL Normal 80.0-100.0 [facility] Monocytes 0.4 10*3/uL Normal 0.2-0.8 [facility] Monocytes/100 leukocytes 3.0 % Normal [facility] Neutrophils 13.1 10*3/uL Critically high 1.4-6.5 [facility] Neutrophils/100 leukocytes 91.8 % Normal [facility] Platelets 313 10*3/uL Normal 130-400 [facility] WBC (Leukocytes) 14.3 10*3/uL Critically high 4.8-10.8 [facility] XR LUMBAR SPINE (2-3 VIEWS)o n 09-16-2017 XR LUMBAR SPINE (2-3 VIEWS) XR LUMBAR SPINE (2-3 VIEWS) : 09/16/2017CLINICAL HISTORY: post op L5-S1 fusion.COMPARISON: Complete spinal angiogram 09/11/2017, outside lumbar spine MRI 02/26/2017, and interoperative fluoroscopy 09/15/2017.TECHNIQUE: AP, lateral, and coned-down lateral radiographs of the lumbar spine were obtained.FINDINGS: Bilateral transpedicular screws, posterior fusion rods and intervertebral disc implants are noted at the L5-S1 level, which are otherwise unremarkable.There is no compression, fracture, subluxation, or other radiodense foreign bodies, worrisome bone destruction, or pathologic calcifications identified. Mild degenerative endplate changes are noted throughout; especially of the lower thoracic and upper lumbar levels. The sacroiliac joints are intact.IMPRESSION: EXPECTED POSTOPERATIVE CHANGES IN RELATION TO L5-S1 FUSION.SPONDYLOSIS.Interp reted by:NEELAM Knappigned by:Celestino Izaguirre MD09/16/18Final result Normal [facility] FLUORO FOR SURGICAL PROCEDUR ESon 09-15-2017 FLUORO FOR SURGICAL PROCEDURES EXAMINATION: FLUORO FOR SURGICAL PROCEDURESCLINICAL HISTORY: Lumbar Fusion COMPARISONS: None available.FINDINGS: Liver fluoroscopic images in series were saved before during and after intervertebral fusion with posterior stabilization at L4-5.X-RAY DOSE SUMMARY: 11 FLUOROSCOPIC IMAGES SAVED TO PACS. 0SPOT FILM WAS EXPOSED. 0:13 minutes FLUOROSCOPY TIME. 87.6MGY CUMULATIVE X-RAY DOSE.CONCLUSION: UNREMARKABLE INTERVERTEBRAL FUSION AT L4-5Interpreted by:NEELAM Crossigned by:Naveen Moctezuma MD6/18Final result Normal [facility] Basic Metabolic Panelon 06-0 Anion gap 16 mmol/L Critically high 7-13 [facility] Calcium 9.7 mg/dL Normal 8.6-10.2 [facility] Chloride 101 mmol/L Normal 98-107 [facility] CO2 26 mmol/L Normal 22-29 [facility] Creatinine 0.59 mg/dL Low 0.70-1.20 [facility] eGFR (black) mL/min/{1.73_m2} Normal >60 [facility] Comment on above: Result Comment: >60 mL/min/1.73m2 EGFR, calc. for ages 18 and older using theMDRD formula (not corrected for weight), is valid for stablerenal function. eGFR (MDRD) mL/min/{1.73_m2} Normal >60 [facility] Comment on above: Result Comment: >60 mL/min/1.73m2 EGFR, calc. for ages 18 and older using theMDRD formula (not corrected for weight), is valid for stablerenal function. Glucose mass conc 88 mg/dL Normal 74-109 [facility] Potassium molar conc 4.2 mmol/L Normal 3.5-5.1 [facility] Sodium 143 mmol/L Normal 132-144 [facility] Urea nitrogen 9 mg/dL Normal 6-20 [facility] CBC With Platelet No Differe ntialon 09-11-2017 Erythrocyte distribution width Auto Ratio (RBC) 14.5 % Normal 11.5-14.5 [facility] Erythrocytes (RBC) 4.84 10*6/uL Normal 4.70-6.10 [facility] Hematocrit (HCT) 44.1 % Normal 42.0-52.0 [facility] Hemoglobin mass conc (Bld) 15.0 g/dL Normal 14.0-18.0 [facility] MCH 31.1 pg Normal 27.0-31.3 [facility] MCHC mass conc (RBC) 34.1 % Normal 33.0-37.0 [facility] MCV 91.2 fL Normal 80.0-100.0 [facility] Platelets 308 10*3/uL Normal 130-400 [facility] WBC (Leukocytes) 9.4 10*3/uL Normal 4.8-10.8 [facility] Culture, MRSA Screenon 09-11 Culture, MRSA Screen ORDERED BY: RAFAEL HIGGINS: Nares Nose COLLECTED: 09/11/17 17:10ANTIBIOTICS AT EUGENIA.: RECEIVED : 09/11/17 17:10Culture, MRSA Screen FINAL 09/12/17 12:52 No MRSA isolated Normal [facility] Partial Thromboplastin Timeo n 09-11-2017 aPTT 27.1 s Normal 21.6-35.4 [facility] Comment on above: Result Comment: Hepa rin Therapeutic Range: 38.8 - 54.6 seconds. Prothrombin Timeon 8 INR Coag RelTime (PPP) 1.0 {INR} Normal [facility] Comment on above: Result Comment: Shane mmended INR therapeutic ranges for oral anticoagulanttherapyProphylaxis/treatment of: INR Venous Thrombosis, Pulmonary Embolism 2.0-3Prevention of Systemic Embolism from: Atrial Fibrillation 2.0-3.0 Myocardial Infarction 2.0-3.0 Mechanical Prosthetics Heart Valves 2.5-3.5 Recurrent Systemic Embolism 2.5-3.5Guidelines for patients with coagulopathy, e.g. liver disease:Use the Protime resulted in seconds. Mild 12.9-17.0 sec Moderate 17.1-22.6 sec Severe G.T. 22.6 sec Prothrombin time (PT) Coag time (PPP) 10.2 s Normal 9.6-12.3 [facility] Type and Screen Capture 3 sc rn cellon 09-11-2017 Bilirubin (total) PATIENT: MALU MCCORMICK LOC: [facility] BILL# : [id number] : 1980 SEX: MORDERED BY: GISELA PETERSEN ORDERED : 09/11/2017 16:39 COLLECTED: 09/11/2017 17:13ORDER : [id number] RECEIVED : 09/11/2017 17:13 --------TEST NAME RESULT UNITS RANGES ABN FL STABORH Capture B POS FAntibody 3 Cell Scrn Captu NEG F --- Normal [facility] Urinalysis, reflex to cultur alma 09-11-2017 Bilirubin Ql (U) MODERATE Abnormal Negative [facility] Urine Reflexed to Culture Not Indicated Normal [facility] Urine, clarity Clear Normal Clear [facility] Urine, color Yellow Normal Straw/[place] [facility] Urine, glucose presence Negative Normal Negative [facility] Urine, hemoglobin presence Negative Normal Negative [facility] Urine, ketones presence Negative Normal Negative [facility] Urine, leukocyte esterase presence Negative Normal Negative [facility] Urine, nitrite presence Negative Normal Negative [facility] Urine, pH 6.5 [pH] Normal 5.0-9.0 [facility] Urine, protein presence Negative Normal Negative [facility] Urine, specific gravity 1.013 Normal 1.005-1.03 [facility] Urine, urobilinogen 1.0 {Tanna'U}/dL Normal < 2.0 [facility] XR SPINE ENTIRE (2-3 VIEWS)o n 09-11-2017 XR SPINE ENTIRE (2-3 VIEWS) XR SPINE ENTIRE (2-3 VIEWS) : 09/11/2017CLINICAL HISTORY: Z01.818 Pre-op evaluation ICD10.COMPARISON: None available.TECHNIQUE: Standing AP and lateral radiographs of the entire spine were obtained.FINDINGS: There is no significant curvature, subluxation, compression fractures, worrisome bone destruction, or paraspinous soft tissue abnormalities identified.Mild to moderate degenerative endplate changes of the mid to lower thoracic, lumbosacral spine and to a lesser extent lower cervical spine are noted.IMPRESSION: SPONDYLOSIS.Interpreted by:NEELAM Knappigned by:Celestino Izaguirre MD6//18Final result Normal [facility] MRI LUMBAR SPINE W/O CONTon 02-26-2017 MRI LUMBAR SPINE W/O CONT Final ReportAccession No: [id number] Performed: Feb 26 2017 8:57AMExamination: MRI LUMBAR SPINE W/O [id number] male with low back and bilateral lower extremity pain.NONCONTRAST MRI LUMBAR SPINE 02/26/2017 8:57 AMCOMPARISON: None.TECHNIQUE: Following a three plane gradient echo localizer sequence,conventional spin echo T1 and FSE T2 sagittal along with gradient echoT2* and conventional spin echo T1 axial images were obtained through thelumbar spine. In addition, sagittal STIR images were obtained.FINDINGS: For the purposes of this dictation, five lumbar vertebralbodies are assumed. The lowest axial images were obtained through thepresumed L5-S1 disc space.The vertebral bodies are normal height and alignment. There are anteriormarginal osteophytes at the vertebral endplates. There are degenerativeendplate changes at T12-L1 and L5-S1.At L5-S1, there is moderate disc space narrowing. There iscircumferential disc bulge with small right paracentral disc protrusion.This abuts the right S1 nerve root which is mildly displaced posteriorly.There is mild narrowing of the lateral recesses and neural foramina.At L4-5, there is no disc herniation. The neuroforamina are widely patentbilaterally. No significant facet hypertrophy.At L3-4, there is moderate disc space narrowing with minimalcircumferential disc bulge. There is no significant narrowing of theneural foramina.There is mild disc space narrowing at T10-11, T11-12 and T12-L1 but nodisc herniation at those levels. The neuroforamina are widely patent atall visualized levels of the lower thoracic spine. Conus medullaris is atthe T12 level. There are no cord masses.IMPRESSION:1. Mild lumbar spondylosis with multilevel mild to moderate lowerthoracic and lumbar disc disease. There is a small right paracentral discprotrusion at L5-S1 as described.2. No significant facet arthropathy and no spinal stenosis.Interpreting Physician: ZA NUNEZ M.D.Trans: : cc: Normal [facility] Vital Signs Date Time Vital Sign Value Performing Clinician Facility 08-16-2021 13:45-0400 Body height 185.42 cm Casper Bellamy Other [email or web address] Other 08-16-2021 13:45-0400 Body mass index (BMI) [Ratio] 42.48 kg/m2 Casper Bellamy Other [email or web address] Other 08-16-2021 13:45-0400 Body temperature 98.9 [degF] Casper Bellamy Other [email or web address] Other 08-16-2021 13:45-0400 Body weight 146.06 kg Casper Bellamy Other [email or web address] Other 08-16-2021 13:45-0400 Diastolic blood pressure 90 mm[Hg] Casper Bellamy Other [email or web address] Other 08-16-2021 13:45-0400 Respiratory rate 18 /min Casper Bellamy Other [email or web address] Other 08-16-2021 13:45-0400 SaO2% (BldA) [Mass fraction] 99 % Casper Bellamy Other [email or web address] Other 08-16-2021 13:45-0400 Systolic blood pressure 147 mm[Hg] Casper Bellamy Other [email or web address] Other 07-22-2017 15:00-0400 BMI (Body Mass Index) 47.36 kg/m2 [facility] 07-22-2017 15:00-0400 Height 185.4 cm [facility] 07-22-2017 15:00-0400 Weight 162.84 kg [facility] 03-18-2017 08:20-0500 BMI (Body Mass Index) 47.36 kg/m2 [facility] Work Phone: 03-18-2017 08:20-0500 BP Diastolic 104 mm[Hg] Travon Wright [facility] Work Phone: 03-18-2017 08:20-0500 BP Systolic 151 mm[Hg] Travon Wright [facility] Work Phone: 03-18-2017 08:20-0500 Height 185.4 cm Travon Wright [facility] Work Phone: 03-18-2017 08:20-0500 Pulse (Heart Rate) 78 /min Travon Wright [facility] Work Phone: 03-18-2017 08:20-0500 Weight 162.84 kg Travon Wright [facility] Work Phone: 02-19-2017 14:24-0500 BMI (Body Mass Index) 43.93 kg/m2 Travon Wright [facility] Work Phone: 02-19-2017 14:24-0500 BP Diastolic 106 mm[Hg] Travon Wright [facility] Work Phone: 02-19-2017 14:24-0500 BP Systolic 148 mm[Hg] Travon Wright [facility] Work Phone: 02-19-2017 14:24-0500 Height 185.4 cm Travon Wright [facility] Work Phone: 02-19-2017 14:24-0500 Pulse (Heart Rate) 101 /min Travon Wright [facility] Work Phone: 02-19-2017 14:24-0500 Weight 151.05 kg Travon Wright [facility] Work Phone: 11-18-2016 14:46-0400 BMI (Body Mass Index) 44.01 kg/m2 Amber Uribe [facility] Work Phone: 11-18-2016 14:46-0400 Body Temperature 98.1 [degF] Amber Uribe [facility] Work Phone: 11-18-2016 14:46-0400 BP Diastolic 86 mm[Hg] Amber [facility] Work Phone: 11-18-2016 14:46-0400 BP Systolic 136 mm[Hg] Amber Uribe [facility] Work Phone: 11-18-2016 14:46-0400 Height 185.[address] [facility] Work Phone: 11-18-2016 14:46-0400 Pulse (Heart Rate) 78 /min [facility] Work Phone: 11-18-2016 14:46-0400 Weight 151.[address] [facility] Work Phone: Encounters Encounter Date Encounter Type Care Provider Facility Start: 07-28-2022 Encounter for genera l adult medical examination without abnormal findings DR RAFFY NAVARRETE . [facility] Start: 07-24-2022 End: 07-24-[address] RAFFY NAVARRETE . Facility: Start: 07-22-2022 End: 07-23-[address] RAFFY NAVARRETE . Facility:[facility] Start: 07-22-2022 End: 07-23-2022 Encounter for general adult medical examination without abnormal findings DR RAFFY NAVARRETE . Facility:[facility] Start: 09-23-2021 End: 09-24-[address] RAFFY NAVARRETE . Facility: Start: 08-16-2021 End: 08-16-2021 ambulatory Casper Bellamy Other [email or web address] Other Start: 08-16-2021 Office outpatient vi sit 15 minutes Casper Bellamy [facility] Start: 12-17-2017 Patient encounter CECE SCHAFER [facility] Amb[facility] Start: 09-15-2017 End: 09-17-2017 Evaluation and management of inpatient RAFFY NAVARRETE [facility] Start: 09-11-2017 End: 09-14-2017 Ambulatory [facility] [place] Start: 09-11-2017 End: 09-16-2017 Ambulatory [facility] Start: 07-22-2017 Office/outpatient visit, est, level 3 Travon Wright Work Phone: [facility] Start: 07-22-2017 End: 07-22-2017 Ambulatory Carly Hong [facility] Start: 03-24-2017 Ambulatory Sonia Young [facility] Start: 03-18-2017 Patient encounter TRAVON JOHNSONHumaira WRIGHT [facility] Ambulatory Start: 03-18-2017 Office outpatient vi sit 15 minutes Travon Wright Work Phone: [facility] Start: 02-26-2017 Ambulatory Travon Vazquez [facility] y[facility] Start: 02-26-2017 End: 02-26-2017 Ambulatory Travonkathya Wright Work Phone: [facility] Start: 02-20-2017 Ambulatory Carly Alexis [facility] Orthopedic and Sports Medicine Start: 02-19-2017 End: 02-19-2017 Patient encounter AMBER URIBE [facility] Ambul[facility]y Start: 02-19-2017 Office outpatient vi sit 15 minutes Amber Uribe Work Phone: [facility] Medicine Physicians Start: 11-18-2016 End: 11-18-2016 Office outpatient visit 15 minutes Amber Uribe Work Phone: [facility] Primary Care Physicians Comment on above: DDD (degenerative di sc disease), lumbar (Primary Dx) Procedures Date Procedure Procedure Detail Performing Clinician Start: 07-22-[address] ROMEO NAVARRETE . Comment on above: Performed By: #### V ITAD, PSASC #### [facility] [address] [place] [address] Dr. Isamar Betancourt Start: 09-17-2017 INCENTIVE SPIROMETRY RT DEAN ZHOU Start: 09-17-2017 END TIDAL CO2 CONTINUOUS DEAN ZHOU Start: 09-17-2017 INCENTIVE SPIROMETRY RT DEAN ZHOU Start: 09-17-2017 PULSE OXIMETRY, CONTINUOUS DEAN ZHOU Start: 09-17-2017 INCENTIVE SPIROMETRY RT DEAN ZHOU Start: 09-17-2017 END TIDAL CO2 CONTINUOUS DEAN ZHOU Start: 09-17-2017 INCENTIVE SPIROMETRY RT DEAN ZHOU Start: 09-17-2017 INITIATE OXYGEN THER APY PROTOCOL DENA ZHOU Start: 09-17-2017 PULSE OXIMETRY, CONTINUOUS DEAN ZHOU Start: 09-17-2017 INCENTIVE SPIROMETRY RT DEAN ZHOU Start: 09-17-2017 END TIDAL CO2 CONTINUOUS DEAN ZHOU Start: 09-17-2017 PULSE OXIMETRY, CONTINUOUS DEAN ZHOU Start: 09-17-2017 INTAKE AND OUTPUT DEAN YO O Start: 09-17-2017 END TIDAL CO2 CONTINUOUS DEAN ZHOU Start: 09-17-2017 PULSE OXIMETRY, CONTINUOUS DEAN ZHOU Start: 09-17-2017 INCENTIVE SPIROMETRY RT DEAN ZHOU Start: 09-16-2017 END TIDAL CO2 CONTINUOUS DEAN ZHOU Start: 09-16-2017 INCENTIVE SPIROMETRY RT DEAN ZHOU Start: 09-16-2017 PULSE OXIMETRY, CONTINUOUS DEAN ZHOU Start: 09-16-2017 INCENTIVE SPIROMETRY RT DEAN ZHOU Start: 09-16-2017 END TIDAL CO2 CONTINUOUS DEAN ZHOU Start: 09-16-2017 INCENTIVE SPIROMETRY RT DEAN ZHOU Start: 09-16-2017 PULSE OXIMETRY, CONTINUOUS DEAN ZHOU Start: 09-16-2017 DISCHARGE PATIENT DEAN YO O Start: 09-16-2017 ORDER WITH SMART PHRASE DEAN ZHOU Start: 09-16-2017 DME ORDER FOR WALKER OP DEAN ZHOU Start: 09-16-2017 INCENTIVE SPIROMETRY RT DEAN ZHOU Start: 09-16-2017 END TIDAL CO2 CONTINUOUS DEAN ZHOU Start: 09-16-2017 INCENTIVE SPIROMETRY RT DEAN ZHOU Start: 09-16-2017 PULSE OXIMETRY, CONTINUOUS DEAN ZHOU Start: 09-16-2017 INCENTIVE SPIROMETRY RT DEAN ZHOU Start: 09-16-2017 Radex spine lumbosac ral 2/3 views DEAN ZHOU Start: 09-16-2017 END TIDAL CO2 CONTINUOUS DEAN ZHOU Start: 09-16-2017 PULSE OXIMETRY, CONTINUOUS DEAN ZHOU Start: 09-16-2017 INCENTIVE SPIROMETRY RT DEAN ZHOU Start: 09-16-2017 INITIATE OXYGEN THER APY PROTOCOL DEAN ZHOU Start: 09-16-2017 INCENTIVE SPIROMETRY RT DEAN ZHOU Start: 09-16-2017 Blood count complete auto&auto difrntl wbc DEAN ZHOU Start: 09-16-2017 END TIDAL CO2 CONTINUOUS DEAN ZHOU Start: 09-16-2017 PULSE OXIMETRY, CONTINUOUS DEAN ZHOU Start: 09-16-2017 ELEVATE HEELS OFF OF BED DEAN ZHOU Start: 09-16-2017 HEAD OF BED 60 DEGRE ES OR LESS DEAN ZHOU Start: 09-16-2017 NURSING COMMUNICATION B O ZHOU Start: 09-16-2017 TURN PATIENT DEAN ZHOU Start: 09-16-2017 PT EVAL AND TREAT DEAN YO O Start: 09-16-2017 ACTIVITY TOLERATED B O ZHOU Start: 09-16-2017 AMBULATE PATIENT DEAN ZHOU Start: 09-16-2017 CATHETER REMOVAL DEAN ZHOU Start: 09-16-2017 DAILY WEIGHTS DEAN ZHOU Start: 09-16-2017 INTAKE AND OUTPUT DEAN YO O Start: 09-16-2017 OT EVAL AND TREAT DEAN YO O Start: 09-16-2017 END TIDAL CO2 CONTINUOUS DEAN ZHOU Start: 09-16-2017 PULSE OXIMETRY, CONTINUOUS DEAN ZHOU Start: 09-16-2017 BASIC METABOLIC PANE L W/ REFLEX TO MG FOR LOW K DEAN ZHOU Start: 09-16-2017 INCENTIVE SPIROMETRY RT DEAN ZHOU Start: 09-15-2017 END TIDAL CO2 CONTINUOUS DEAN ZHOU Start: 09-15-2017 INCENTIVE SPIROMETRY RT DEAN ZHOU Start: 09-15-2017 PULSE OXIMETRY, CONTINUOUS EDAN ZHOU Start: 09-15-2017 INCENTIVE SPIROMETRY RT DEAN ZHOU Start: 09-15-2017 END TIDAL CO2 CONTINUOUS DEAN ZHOU Start: 09-15-2017 INCENTIVE SPIROMETRY RT DEAN ZHOU Start: 09-15-2017 PULSE OXIMETRY, CONTINUOUS DEAN ZHOU Start: 09-15-2017 INCENTIVE SPIROMETRY RT DEAN ZHOU Start: 09-15-2017 ASSESS DEAN ZHOU Start: 09-15-2017 END TIDAL CO2 CONTINUOUS DEAN ZHOU Start: 09-15-2017 IP CONSULT TO SOCIAL WORK DEAN ZHOU Start: 09-15-2017 MAINTAIN IV ACCESS DEAN Y OO Start: 09-15-2017 NURSING COMMUNICATION B O ZHOU Start: 09-15-2017 PLACE INTERMITTENT P NEUMATIC COMPRESSION DEVICE DEAN ZHOU Start: 09-15-2017 ADVANCE DIET TOLE RATED (NURSING COMMUNICATION) DEAN ZHOU Start: 09-15-2017 CONTINUE INDWELLING CATHETHER DEAN ZHOU Start: 09-15-2017 ELEVATE HOB DEAN ZHOU Start: 09-15-2017 FULL CODE DEAN ZHOU Start: 09-15-2017 INCENTIVE SPIROMETRY RT DEAN ZHOU Start: 09-15-2017 INITIATE OXYGEN THER APY PROTOCOL DEAN ZHOU Start: 09-15-2017 INTAKE AND OUTPUT DEAN YO O Start: 09-15-2017 NEURO/VASCULAR CHECKS B O ZHOU Start: 09-15-2017 NOTIFY PHYSICIAN (SPECIFY) DEAN ZHOU Start: 09-15-2017 PULSE OXIMETRY, CONTINUOUS DEAN ZHOU Start: 09-15-2017 TELEMETRY MONITORING DEAN ZHOU Start: 09-15-2017 TOBACCO CESSATION EDUCATION DEAN ZHOU Start: 09-15-2017 VITAL SIGNS DEAN ZHOU Start: 09-15-2017 WOUND CARE DEAN ZHOU Start: 09-15-2017 DIET GENERAL DEAN ZHOU Start: 09-15-2017 FLUORO FOR SURGICAL PROCEDURES DEAN ZHOU Start: 09-15-2017 PATIENT STATUS (FROM ED OR OR/PROCEDURAL) DEAN ZHOU Start: 09-15-2017 TRANSFER PATIENT DEAN ZHOU Start: 09-11-2017 Radex entir thrc lmb r crv sac spi w/skull 2/3 vw DEAN ZHOU Start: 09-11-2017 Basic metabolic pane l calcium total DEAN ZHOU Start: 09-11-2017 URINE RT REFLEX TO CULTURE DEAN ZHOU Start: 09-11-2017 Blood count complete automated DEAN ZHOU Start: 09-11-2017 Prothrombin time DEAN ZHOU Start: 09-11-2017 Thromboplastin time partial plasma/whole blood DEAN ZHOU Start: 09-11-2017 TYPE AND SCREEN DEAN ZHOU Start: 09-11-2017 Cul prsmptv pthgnc o rganism scrn w/colony estimj DEAN ZHOU Start: 09-11-2017 Urnls dip stick/tabl et reagent auto microscopy DEAN ZHOU Start: 09-11-2017 EKG 12-LEAD DEAN ZHOU Plan of Treatment Date Care Activity Detail Author Start: 11-14-2021 Tetanus vaccination TETANUS EVERY 10 YR [facility] Work Phone: Start: 04-02-2017 Ambulatory 04/02/2017 Cli nical Support Orthopedic Surgery Viau, Cece Schafer MD [address] [place] [address] [facility] Start: 12-12-2016 Influenza vaccination SEQUENTI AL INFLUENZA VACCINE (#1) [facility] Work Phone: Start: 12-12-2016 SEQUENTIAL INFLUENZA VACCINE (#1) SEQUENTIAL INFLUENZA VACCINE (#1) [facility] Work Phone: Start: 1980 TETANUS EVERY 10 YR TETANUS EVERY 10 YR [facility] Work Phone: End: 02-19-2018 MR Lumbar Spine Without Contrast MR Lumbar Spine Without Contrast Routine Acute back pain, unspecified back location, unspecified back pain laterality 1 Occurrences starting 02/19/2017 until 02/19/2018 [facility] Work Phone: Payers Date Payer Category Payer Unknown [id number] 1980 Unknown [id number] 1980 Unknown [id number] 1980 Unknown [id number] 1958 Medicaid [id number] 2.1 [id number] 1958 Medicaid [id number] 2. [id number] Medicaid xxxxxxxxxxx 2.1 [id number] Social History Date Type Detail Facility Start: 11-18-2016 End: 07-22-2017 Tobacco smoking status IDIS Current every day smoker [facility] Work Phone: History of tobacco use Cigarette Smoker [facility] Work Phone: Start: 11-18-2016 End: 07-22-2017 Cigarettes smoked current (pack per day) - Reported [facility] Work Phone: History of tobacco use Snuff User [facility] Work Phone: Sex Assigned At Not on file [facility] Work Phone: History of tobacco use Chews Tobacco [facility] Work Phone: Sex Assigned At Sex Assigned At [facility] [email or web address] Other Evaluation note 08-16-2021 Note Date & Type Note Facility 08-16-2021 Evaluation note Encounter Date Diagnosis Assessment Notes August, Tooth infection (ICD-10 - K04.7) Take tylenol 1000mg every 8 hours for pain. Call the dentist to make an appointment. I considered more ominous diagnoses such as retropharyngeal abscess, [employer], Raheem's angina, and Lemierre's syndrome. However, pt does not have trismus, neck is supple, there is no pain on extension, and no neck swelling or erythema. It is also reassuring that is afebrile, not tachycardic, and sitting comfortably in the exam room. Thus these other ominous diagnoses are unlikely. Will treat iwth amoxicillin and will prescribe ibuprofen and lidocaine for his pain. Pt educated about red flag symptoms and if he does develop red flag symptoms, he is advised to go to the ER. Also advised to call dentist to schedule an appointment. He agrees with the plan. [email or web address] Other History general Narrative - Reported Note Date & Type Note Facility History general Narrative - Reported Type Hospitalization History cyst [email or web address] Other Assessments Diagnosis Pars defect of lumbar spine - Primary Radiculopathy of lumbosacral region Diagnosis Acute back pain, unspecified back location, unspecified back pain laterality - Primary Osteoarthritis of spine with radiculopathy, lumbar region Diagnosis Acute back pain, unspecified back location, unspecified back pain laterality Diagnosis DDD (degenerative disc disea se), lumbar - Primary Degeneration of lumbar or lumbosacral intervertebral disc Summary Purpose Family History No Family History Records FoundNo Family History Records FoundNo Family History Records FoundNo Family History Records FoundNo Family History Records FoundNo Family History Records FoundNo Family History Records Found Advance Directives No Advanced Directives Records FoundNo Advanced Directives Records FoundNo Advanced Directives Records FoundNo Advanced Directives Records FoundNo Advanced Directives Records FoundNo Advanced Directives Records FoundNo Advanced Directives Records Found Reason for Referral Status Reason Specialty Diagnoses / Procedures Referred By Contact Referred To Contact Pending Review Orthopedic Surgery Diagnoses DDD (degenerative disc disease), lumbar Amber Uribe, [employer]USEUM LIB[employer]ARIAN [address] [place] [address] Scheduling Instructions Pt would like to see Dr Almodovar in [place] Status Reason Specialty Diagnoses / Procedures Referred By Contact Referred To Contact Authorized Rehabilitation Diagnoses DDD (degenerative disc disease), lumbar Amber Uribe, MG [address] [place] [address] History of Present Illness * Amber Uribe, MG - 11/18/2016 2:53 PM EDT Formatting of this note may be different from the original. Subjective: Rowena Patricia is a 36 y.o. male here for Follow-up ([facility] for low back pain. PT states that DDD and is having so much pain that he is unable to sleep.) Pt states that he did have a fall from scaffolding 7 years ago but did not have his back evaluated at that time. He states that he will occasionally have flairs but this oe caused him to seek treat,ent at the on 11/07. He was given Prednisone & Baclofen 7 states that these are not helping. [place] Percocet & Neurontin does help as he was given this at the ED once. He does complain of f oot numbness occasionally. He states that he does have occasional foot numbness. His most recent UCfilms showed moderate disc space narrowing at L3-L4 & moderate-severe at L5-S1 The following portions of the patient's history were reviewed and updated as appropriate: allergies, current medications, past surgical history and problem list. Review of Systems Constitutional: Negative for fever. Respiratory: Negative for shortness of breath. Cardiovascular: Negative for chest pain. Genitourinary: Negative for difficulty urinating. Musculoskeletal: Positive for back pain. Negative for arthralgias, joint swelling and myalgias. Skin: Negative for rash and wound. Neurological: Negative for tremors, weakness, numbness and headaches. Psychiatric/Behavioral: Negative for agitation and confusion. Objective: BP 136/86 Pulse 78 Temp 98.1 F (36.7 C) Ht 6' 1 Wt (!) 151.3 kg (333 lb 9.6 oz) BMI 44.01 kg/m2 Physical Exam Constitutional: He is oriented to person, place, and time. He appears well- developed and well-nourished. Cardiovascular: Normal rate, regular rhythm and normal heart sounds. Pulmonary/Chest: Effort normal and breath sounds normal. Musculoskeletal: Lumbar back: He exhibits decreased range of motion, tenderness and pain. Neurological: He is alert and oriented to person, place, and time. Reflex Scores: Patellar reflexes are 2+ on the right side and 2+ on the left side. Skin: Skin is warm and dry. Psychiatric: He has a normal mood and affect. Judgment normal. Assessment/Plan: SNOMED CT(R) 1. DDD (degenerative disc disease), lumbar DEGENERATION OF LUMBAR INTERVERTEBRAL DISC acetaminophen-codeine (TYLENOL #3) 300-30 mg per tablet Ambulatory ref to Therapy (PT/OT/ST) Ambulatory referral to Orthopedic Surgery Plan as discussed w/ pt is to use Tylenol #3 as RX'd, start PT, referral t Dr Almodovar as discussed. [facility] verified Amber Uribe CNP 11/18/2016 in this encounter Additional Source Comments (unrecognized sect ion and content) No Status Records FoundNo Status Records FoundNo Status Records FoundNo Status Records FoundNo Status Records FoundNo Status Records FoundNo Status Records Found INFORMATION SOURCE (unrecogn ized section and content) DATE CREATED AUTHOR 09/29/2017 [facility] DATE CREATED AUTHOR AUTHOR'S ORGANIZ ATION 10/06/2017 [facility] DATE CREATED AUTHOR AUTHOR'S ORGANIZ ATION 10/09/2017 [facility] DATE CREATED AUTHOR AUTHOR'S ORGANIZ ATION 12/26/2017 [facility] DATE CREATED AUTHOR AUTHOR'S ORGANIZ ATION 09/07/2020 [facility] DATE CREATED AUTHOR AUTHOR'S ORGANIZ ATION 05/27/2021 [facility] DATE CREATED AUTHOR AUTHOR'S ORGANIZ ATION 07/28/2022 [facility] Reason for Visit (unrecogniz ed section and content) Reason Comments Follow-up [facility] for low back pain. PT states that DDD and is having so much pain that he is unable to sleep. FOR RECORDS PERTAINING TO PATIENTS WHO ARE OR HAVE BEEN ENROLLED IN A CHEMICAL DEPENDENCY/SUBSTANCEABUSE PROGRAM, SOME INFORMATION MAY BE OMITTED. This clinical summary was aggregated from multiple sources. Caution should be exercised in using it in the provision of clinical care. This summary normalizes information from multiple sources, and as a consequence, information in this document may materially change the coding, format and clinical context of patient data. In addition, data may be omitted in some cases. CLINICAL DECISIONS SHOULD BE BASED ON THE PRIMARY CLINICAL RECORDS. [facility]. provides no warranty or guarantee of the accuracy or completeness of information in this document.
--- NOTE | 2023-08-18 12:29 | ED_ITS ---
HPI HPI - Extremity Injury (Lower) General Chief Complaint: Extremity Injury, Lower Stated Complaint: LOWER EXTREMITY INJURY Time Seen by Provider: 08/18/23 11:39 Source: patient Mode of arrival: walk-in History of Present Illness HPI Narrative: The patient is coming to the ER after he has been having some right ankle pain. Should that he have a injury in his right foot before but this pain started after he rolled his ankle yesterday while he was walking, he has not been able to put any weight on it today because of the pain and the swelling Related Data Home Medications ?Medication ?Instructions ?Recorded ?Confirmed cetirizine 10 mg tablet 10 mg PO DAILY 08/05/23 08/05/23 doxycycline monohydrate 100 mg 100 mg PO BID 08/05/23 08/05/23 capsule etodolac 500 mg tablet 500 mg PO TID 08/05/23 08/05/23 lisinopril 40 mg tablet 40 mg PO DAILY 08/05/23 08/05/23 metoprolol tartrate 50 mg tablet 50 mg PO BID 08/05/23 08/05/23 tizanidine 4 mg tablet 8 mg PO BEDTIME 08/05/23 08/05/23 Previous Rx's ?Medication ?Instructions ?Recorded methocarbamol 750 mg tablet 750 mg PO Q6H PRN pain #30 tabs 08/05/23 nabumetone 750 mg tablet 750 mg PO BID PRN pain #14 tabs 08/05/23 Allergies Allergy/AdvReac Type Severity Reaction Status Date / Time No Known Drug Allergies Allergy Verified 08/05/23 07:48 Opioid HPI Opioid Management Most Recent Pain and Opioid Data: Last Pain Scale 10 08/05/23 08:30 Review of Systems ROS Status of ROS 10 or more systems reviewed and unremark able except as noted in history and below Exam Narrative Exam Narrative: Nurses notes and vital signs reviewed and patient is not hypoxic. General: Well-appearing and in no apparent distress. Skin: Warm, dry, no pallor noted. No rash. Head: Normocephalic, atraumatic. Neck: Supple, non-tender. Eye: Pupils are equal, round and EOMI. No scleral icterus. Ears, Nose, Mouth, and Throat: TM are clear, no nasal mucosal hypertrophy. Oral mucosa is moist, no posterior oropharynx erythema, uvula is mid-line Cardiovascular: Regular Rate and Rhythm without murmur, gallop or rub. Respiratory: No accessory muscle use or respiratory distress. Lungs are clear to auscultation, no wheezing, rales or rhonchi Chest Wall: no tenderness Back: No midline thoracic or lumbar vertebral tenderness. No CVA tenderness Musculoskeletal: normal ROM, no calf or popliteal tenderness, the patient have edema of the right ankle the tenderness is mostly toward the right lateral malleolus mildly going down the foot, GI: Abdomen is soft, non-distended. Normal bowel sounds. No masses appreciated. No tenderness to palpation. No rebound, guarding, or rigidity noted. Neurological: A&O x4. No cranial nerve dysfunction observed. No truncal ataxia. Moves all extremities. Sensation intact. Psychiatric: Cooperative and interactive. Normal mood and affect. Constitutional Vital Signs, click to edit/add: Last Vital Signs Temp 97.9 F 08/18/23 11:30 Pulse 94 H 08/18/23 11:30 Resp 16 08/18/23 11:30 BP 139/94 H 08/18/23 11:30 Pulse Ox 97 08/18/23 11:30 O2 Del Method Room Air 08/18/23 11:30 Course Vital Signs Vital signs: Vital Signs Temperature 97.9 F 08/18/23 11:30 Pulse Rate 94 H 08/18/23 11:30 Respiratory Rate 16 08/18/23 11:30 Blood Pressure 139/94 H 08/18/23 11:30 Pulse Oximetry 97 08/18/23 11:30 Oxygen Delivery Method Room Air 08/18/23 11:30 Temperature 97.9 F 08/18/23 11:30 Pulse Rate 94 H 08/18/23 11:30 Respiratory Rate 16 08/18/23 11:30 Blood Pressure 139/94 H 08/18/23 11:30 Pulse Oximetry 97 08/18/23 11:30 Oxygen Delivery Method Room Air 08/18/23 11:30 MDM - Extremity Injury (Lower) MDM Narrative Medical decision making narrative: The patient x-ray showed no acute significant pathology but there is a possibility of a mild avulsion fracture with a history of the patient previous injury but that is in the foot and the patient pain is in the ankle, right now will apply Johnny wrap and the patient will elevate and rest the ankle with the crutches. The patient referred to podiatry The patient is to follow up with primary care physician in next 2-3 days or to return to the emergency department should any of the signs or symptoms worsen or new symptoms develop. The patient agrees with the following Diagnosis and Treatment plan and the patient will be discharged home. Discharge Plan Discharge Stand Alone Forms: Portal Instructions Chief Complaint: Extremity Injury, Lower Clinical Impression: Ankle sprain and strain Patient Disposition: Home, Self-Care Time of Disposition Decision: 12:28 Condition: Good Prescriptions / Home Meds: No Action lisinopril 40 mg tablet 40 mg PO DAILY etodolac 500 mg tablet 500 mg PO TID metoprolol tartrate 50 mg tablet 50 mg PO BID cetirizine 10 mg tablet 10 mg PO DAILY tizanidine 4 mg tablet 8 mg PO BEDTIME doxycycline monohydrate 100 mg capsule 100 mg PO BID nabumetone 750 mg tablet 750 mg PO BID PRN (Reason: pain) Qty: 14 0RF methocarbamol 750 mg tablet 750 mg PO Q6H PRN (Reason: pain) Qty: 30 0RF Print Language: Czech Instructions: Ankle Sprain (DC), Swollen Joint (ED) Referrals: Shashi Talley MD [Primary Care Provider] - 1 week Raulito De Santiago DPM [Physician] - 1 week
[2023-08-18] MEDS: KETOROLAC TROMETHAMINE 60 MG/2 ML VIAL IM (12:39)
== END 2023-08-18 12:52 | disposition home or self-care (01) ==
PROVIDERS: Emergency Provider Emergency Medicine; PCP Family Medicine
DX: S93.401A Sprain of unspecified ligament of right ankle, initial encounter (principal); S96.911A Strain of unspecified muscle and tendon at ankle and foot level, right foot, initial encounter; X50.1XXA Overexertion from prolonged static or awkward postures, initial encounter
CPT/HCPCS: 73610; 73630; 96372; 99284

== ENCOUNTER 2023-08-20 08:04 | Outpatient (OUT) | payer OTHER, SELFPAY ==
--- NOTE | 2023-08-20 | XR_ITS ---
[address] [address] Patient Name: ROWENA TORIBIO MRN: [id number] date: 1980 Sex: M Assigned Patient Location: Current Patient Location: Accession/Order Number: [id number] Exam Date: 08/20/2023 11:40 Report Date: 08/23/2023 04:50 At the request of: SIENNA FRANKLIN Procedure: XR ankle RT min 3V PROCEDURE: XR ankle RT min 3V HISTORY: RIGHT ANKLE PAIN ; follow-up lateral ankle pain since injury COMPARISON: XR ankle right 08/18/2023 XR ankle bilateral 09/22/2018 FINDINGS: BONES:Stable separate corticated ossification distal to medial malleolus favoring sequela of remote injury. Subtle cortical irregularity at tip of lateral malleolus, unchanged since at least 2018. SOFT TISSUES:No visible soft tissue swelling. EFFUSION:Mild soft tissue swelling. OTHER: Negative. XR/XR ankle RT min 3V IMPRESSION: 1. No acute bone abnormality. Stable chronic changes. 2. Mild swelling suggesting soft tissue injury. Electronically authenticated by: JOSE FERRELL Date: 08/23/2023 04:50
--- OUTSIDE RECORDS SUMMARY | 2023-08-20 08:28 | XMS_ITS | CCD ---
Author Organization [facility] Care Team Providers Care Landscaping Specialist Name Role Phone Cece Perera Unavailable ZHOU, DEAN H. Unavailable Unavailable RAFFY [...] adverse reactions to drug 7 GI Intolerance [facility] Work Phone: (1 source) Acetaminophen / HYDROcodone Drug Allergy 5 [facility] Rep[facility] Medications Current Medications Medication Drug Class(es) [...] 07-12 OCCULT BLOOD Negative Normal NEGATIVE [facility] Comment on above: Performed By: #### O BSCRN #### [facility] [address] [place] [address] Dr. Isamar Betancourt INSULINon 07-23-2022 Insulin 42.3 uIU/mL Critically high 2.6-24.9 [facility] Comment on above: Performed By: #### I NSULIN #### [facility] [address] [address] [address] Isamar Betancourt CBC AUTO DIFFon 07-22-2022 BASO # 0.1 103/ul Normal 0.0-0.1 [facility] Comment on above: Performed By: #### C BC #### [facility] [address] [address] [address] Isamar Betancourt Basophils/100 WBC (Bld) 1.1 % Normal 0.2-2.0 [facility] Comment on above: Performed By: #### C BC #### [facility] [address] [place] [address] Dr. Isamar Betancourt EO # 0.2 103/ul Normal 0.0-0.7 [facility] Comment on above: Performed By: #### C BC #### [facility] [address] [place] [address] Dr. Isamar Betancourt Eosinophils/100 WBC (Bld) 2.5 % Normal 0.9-7.0 [facility] Comment on above: Performed By: #### C BC #### [facility] [address] [place] [address] Dr. Isamar Betancourt Erythrocyte distribution width (RBC) [Ratio] 14.4 % Normal 11.0-15.0 [facility] Comment on above: Performed By: #### C BC #### [facility] [address] [place] [address] Dr. Isamar Betancourt Hematocrit (Bld) [Volume fraction] 44.5 % Normal 42.0-54.0 [facility] Comment on above: Performed By: #### C BC #### [facility] [address] [place] [address] Dr. Isamar Betancourt Hemoglobin (Bld) [Mass/Vol] 15.0 g/dL Normal 14.0-18.0 [facility] Comment on above: Performed By: #### C BC #### [facility] [address] [place] [address] Dr. Isamar Betancourt IG # 0.14 10e3/ul Critically high 0.00-0.03 [facility] Comment on above: Performed By: #### C BC #### [facility] [address] [place] [address] Dr. Isamar Betancourt IG % 1.5 % Critically high 0.0-0.5 [facility] Comment on above: Performed By: #### C BC #### [facility] [address] [place] [address] Dr. Isamar Betancourt LYMPH # 3.0 103/ul Normal 1.2-3.8 [facility] Comment on above: Performed By: #### C BC #### [facility] [address] [place] [address] Dr. Isamar Betancourt Lymphocytes/100 WBC (Bld) 33.1 % Normal 20.5-60.0 [facility] Comment on above: Performed By: #### C BC #### [facility] [address] [place] [address] Dr. Isamar Betancourt MANUAL DIFF REQ NO Normal [facility] Comment on above: Performed By: #### C BC #### [facility] [address] [place] [address] Dr. Isamar Betancourt MCH (RBC) [Entitic mass] 29.7 pg Normal 25.9-34.0 [facility] Comment on above: Performed By: #### C BC #### [facility] [address] [place] [address] Dr. Isamar Betancourt MCHC (RBC) [Mass/Vol] 33.7 g/dL Normal 29.9-35.2 [facility] Comment on above: Performed By: #### C BC #### [facility] [address] [place] [address] Dr. Isamar Betancourt MCV (RBC) [Entitic vol] 88.1 fL Normal 80.0-94.0 [facility] Comment on above: Performed By: #### C BC #### [facility] [address] [place] [address] Dr. Isamar Betancourt MONO # 0.9 103/ul Critically high 0.3-0.8 [facility] Comment on above: Performed By: #### C BC #### [facility] [address] [place] [address] Dr. Isamar Betancourt Monocytes/100 WBC (Bld) 9.3 % Normal 1.7-12.0 [facility] Comment on above: Performed By: #### C BC #### [facility] [address] [place] [address] Dr. Isamar Betancourt NEUT # 4.8 103/ul Normal 1.4-6.5 [facility] Comment on above: Performed By: #### C BC #### [facility] [address] [place] [address] Dr. Isamar Betancourt Neutrophils/100 WBC (Bld) 52.5 % Normal 43.0-75.0 [facility] Comment on above: Performed By: #### C BC #### [facility] [address] [place] [address] Dr. Isamar Betancourt Platelet mean volume (Bld) [Entitic vol] 10.3 fL Normal 9.5-13.5 [facility] Comment on above: Performed By: #### C BC #### [facility] [address] [place] [address] Dr. Isamar Betancourt PLT 317 103/ul Normal 150-450 [facility] Comment on above: Performed By: #### C BC #### [facility] [address] [place] [address] Dr. Isamar Betancourt RBC 5.05 106/ul Normal 4.70-6.10 [facility] Comment on above: Performed By: #### C BC #### [facility] [address] [place] [address] Dr. Isamar Betancourt WBC 9.2 103/ul Normal 4.0-11.0 [facility] Comment on above: Performed By: #### C BC #### [facility] [address] [place] [address] Dr. Isamar Betancourt FREE THYROXINE INDEX T7on FTI 2.40 Normal 1.30-4.50 [facility] Comment on above: Performed By: #### V ITAD, PSASC #### [facility] [address] [place], [place] [id number] Dr. Isamar Betancourt T3U 30.0 % Critically low 33.0-40.0 [facility] Comment on above: Performed By: #### V MYRTLE PSAFRANCOIS #### [facility] [address] [place] [address] Dr. Isamar Betancourt T4 [Mass/Vol] 8.00 ug/dL Normal 4.50-12.10 [facility] Comment on above: Performed By: #### V MYRTLE PSASC #### [facility] [address] [place] [address] Dr. Isamar Betancourt GLYCOHEMOGLOBIN A1Con 2022 ADA RECOMMENDATION SEE BELOW Normal [facility] Comment on above: Result Comment: ADA RECOMMENDED LIMIT 4.0 - 6.0 ADA THERAPEUTIC TARGET < 7.0 ACTION SUGGESTED > 7.0 Performed By: #### A 1C #### [facility] [address] [place] [address] Dr. Isamar Betancourt Glucose [Mass/Vol] 103 mg/dL Normal [facility] Comment on above: Performed By: #### A 1C #### [facility] [address] [place] [address] Dr. Isamar Betancourt HbA1c (Bld) [Mass fraction] 5.2 % Normal 4.5-6.2 [facility] Comment on above: Performed By: #### A 1C #### [facility] [address] [place] [address] Dr. Isamar Betancourt LIPID PROFILEon 07-22-2022 CHOL-HDL RATIO NORM SEE BELOW Normal [facility] Comment on above: Result Comment: 3.3 - 4.4 LOW RISK 4.4 - 7.1 AVERAGE RISK 7.1 - 11.0 MODERATE RISK >11.0 HIGH RISK Performed By: #### T 7, CMP, LIPID, TSH, URIC #### [facility] [address] [place] [address] Dr. Isamar Betancourt Cholesterol [Mass/Vol] 208 mg/dL Critically high <=200 [facility] Comment on above: Performed By: #### T 7, CMP, LIPID, TSH, URIC #### [facility] [address] [address] [address] Isamar Betancourt Cholesterol in HDL [Mass/Vol] 28 mg/dL Critically low 40-60 [facility] Comment on above: Performed By: #### T 7, CMP, LIPID, TSH, URIC #### [facility] [address] [address] [address] Isamar Betancourt Cholesterol in LDL [Mass/Vol] 153.8 mg/dL Normal [facility] Comment on above: Performed By: #### T 7, CMP, LIPID, TSH, URIC #### [facility] [address] [address] [address] Isamar Betancourt Cholesterol.total/C holesterol in HDL [Mass ratio] 7.4 {ratio} Normal [facility] Comment on above: Performed By: #### T 7, CMP, LIPID, TSH, URIC #### [facility] [address] [address] [address] Isamar Betancourt HDL NORMAL > or = 60 mg/dl - LO W CARDIOVASCULAR RISK <40 mg/dl - HIGH CARDIOVASCULAR RISK Normal [facility] Comment on above: Performed By: #### T 7, CMP, LIPID, TSH, URIC #### [facility] [address] [address] [address] Isamar Betancourt LDL CALC NORMAL SEE BELOW Normal [facility] Comment on above: Result Comment: <100 mg/dl OPTIMAL 100 - 129 mg/dl NEAR OR ABOVE OPTIMAL 130 - 159 mg/dl BORDERLINE HIGH 160 - 189 mg/dl HIGH >190 mg/dl VERY HIGH Performed By: #### T 7, CMP, LIPID, TSH, URIC #### [facility] [address] [address] [address] Isamar Betancourt Triglyceride [Mass/Vol] 131 mg/dL Normal <=150 [facility] Comment on above: Performed By: #### T 7, CMP, LIPID, TSH, URIC #### [facility] [address] [address] [address] Isamar Betancourt VLDL CALC 26.2 mg/dL Normal [facility] Comment on above: Performed By: #### T 7, CMP, LIPID, TSH, URIC #### [facility] [address] [place] [address] Dr. Isamar Betancourt PROF 14(COMP METB)on 023 Albumin [Mass/Vol] 2.8 g/dL Critically low 3.4-5.0 [facility] Comment on above: Performed By: #### T 7, CMP, LIPID, TSH, URIC #### [facility] [address] [place] [address] Dr. Isamar Betancourt Albumin/Globulin [Mass ratio] 0.6 {ratio} Normal [facility] Comment on above: Performed By: #### T 7, CMP, LIPID, TSH, URIC #### [facility] [address] [place] [address] Dr. Isamar Betancourt ALP [Catalytic activity/Vol] 105 U/L Normal 46-116 [facility] Comment on above: Performed By: #### T 7, CMP, LIPID, TSH, URIC #### [facility] [address] [place] [address] Dr. Isamar Betancourt ALT [Catalytic activity/Vol] 23 U/L Normal 16-63 [facility] Comment on above: Performed By: #### T 7, CMP, LIPID, TSH, URIC #### [facility] [address] [place] [address] Dr. Isamar Betancourt Anion gap [Moles/Vol] 9.6 mmol/L Normal [facility] Comment on above: Performed By: #### T 7, CMP, LIPID, TSH, URIC #### [facility] [address] [place] [address] Dr. Isamar Betancourt AST [Catalytic activity/Vol] 15 U/L Normal 15-37 [facility] Comment on above: Performed By: #### T 7, CMP, LIPID, TSH, URIC #### [facility] [address] [place] [address] Dr. Isamar Betancourt Bilirubin [Mass/Vol] 0.5 mg/dL Normal 0.2-1.0 [facility] Comment on above: Performed By: #### T 7, CMP, LIPID, TSH, URIC #### [facility] [address] [place] [address] Dr. Isamar Betancourt Calcium [Mass/Vol] 8.9 mg/dL Normal 8.5-10.1 [facility] Comment on above: Performed By: #### T 7, CMP, LIPID, TSH, URIC #### [facility] [address] [address] [address] Isamar Betancourt Chloride [Moles/Vol] 106 mmol/L Normal 98-107 [facility] Comment on above: Performed By: #### T 7, CMP, LIPID, TSH, URIC #### [facility] [address] [address] [address] Isamar Betancourt CO2 [Moles/Vol] 30.7 mmol/L Normal 21.0-32.0 [facility] Comment on above: Performed By: #### T 7, CMP, LIPID, TSH, URIC #### [facility] [address] [address] [address] Isamar Betancourt Creatinine [Mass/Vol] 0.82 mg/dL Normal 0.70-1.30 [facility] Comment on above: Performed By: #### T 7, CMP, LIPID, TSH, URIC #### [facility] [address] [address] [address] Isamar Betancourt EGFR-AF ANGUILLAN >60 Normal >=60 [facility] Comment on above: Performed By: #### T 7, CMP, LIPID, TSH, URIC #### [facility] [address] [address] [address] Isamar Betancourt EGFR-NON AF ANGUILLAN >60 Normal >=60 [facility] Comment on above: Performed By: #### T 7, CMP, LIPID, TSH, URIC #### [facility] [address] [address] [address] Isamar Betancourt Globulin (S) [Mass/Vol] 4.4 g/dL Normal [facility] Comment on above: Performed By: #### T 7, CMP, LIPID, TSH, URIC #### [facility] [address] [address] [address] Isamar Betancourt Glucose [Mass/Vol] 89 mg/dL Normal 74-106 [facility] Comment on above: Performed By: #### T 7, CMP, LIPID, TSH, URIC #### [facility] [address] [place] [address] Dr. Isamar Betancourt Potassium [Moles/Vol] 4.3 mmol/L Normal 3.5-5.1 [facility] Comment on above: Performed By: #### T 7, CMP, LIPID, TSH, URIC #### [facility] [address] [place] [address] Dr. Isamar Betancourt Protein [Mass/Vol] 7.2 g/dL Normal 6.4-8.2 [facility] Comment on above: Performed By: #### T 7, CMP, LIPID, TSH, URIC #### [facility] [address] [place] [address] Dr. Isamar Betancourt Sodium [Moles/Vol] 142 mmol/L Normal 136-145 [facility] Comment on above: Performed By: #### T 7, CMP, LIPID, TSH, URIC #### [facility] [address] [place] [address] Dr. Isamar Betancourt Urea nitrogen [Mass/Vol] 13.0 mg/dL Normal 7.0-18.0 [facility] Comment on above: Performed By: #### T 7, CMP, LIPID, TSH, URIC #### [facility] [address] [place] [address] Dr. Isamar Betancourt Urea nitrogen/Creatinine [Mass ratio] 15.9 mg/mg Normal [facility] Comment on above: Performed By: #### T 7, CMP, LIPID, TSH, URIC #### [facility] [address] [place] [address] Dr. Isamar Betancourt TSHon 07-22-2022 TSH 1.732 uIU/mL Normal 0.358-3.740 [facility] Comment on above: Performed By: #### T 7, CMP, LIPID, TSH, URIC #### [facility] [address] [place] [address] Dr. Isamar Betancourt URIC ACID SERUMon 07-22-2022 Urate [Mass/Vol] 3.6 mg/dL Normal 3.5-7.2 [facility] Comment on above: Performed By: #### T 7, CMP, LIPID, TSH, URIC #### [facility] [address] [address] [address] Isamar Betancourt VITAMIN D 25 OHon 07-22-2022 VIT D 25-OH 8.0 ng/mL Normal [facility] Comment on above: Performed By: #### V ITAD, PSASC #### [facility] [address] [address] [address] Isamar Betancourt VIT D RANGES SEE BELOW Normal [facility] Comment on above: Result Comment: <20 ng/mL Vit D deficient 20 - <30 ng/mL Vit D insufficient 30 - 100 ng/mL Vit D sufficient >100 ng/mL Potential Toxicity Performed By: #### V ITAD, PSASC #### [facility] [address] [address] [address] LUMBAR SP WO CONon 2020 CT LUMBAR SP WO CON STUDY: CT LUMBAR SP WO CON 01/09/2021 12:44 pm INDICATION: NONUNION OF SPINAL FUSION COMPARISON: None. ACCESSION NUMBER(S): [id number] ORDERING CLINICIAN: Vic Pearson TECHNIQUE: Axial CT [...] degenerative changes of the lumbar spine. Normal [facility] LUMBAR SPINE 2 OR 3 VIEWSon 12-21-2020 LUMBAR SPINE 2 OR 3 VIEWS STUDY: LUMBAR SPINE 2 OR 3 VIEWS; 12/21/2020 10:38 am INDICATION: STENOSIS OF LATERAL RECESS OF LUMBAR SPINE. COMPARISON: No available comparisons. ACCESSION NUMBER(S): [id number] ORDERING CLINICIAN: Vic Pearson TECHNIQUE: 4 views of the lumbar spine. FINDINGS: No acute fracture dislocation. Status post posterior lumbar spine fusion at L5-S1 level with decompression laminectomy. The vertebral alignment is normal. The vertebral body heights and intervertebral disc spaces are maintained. Nonspecific bowel gas pattern. IMPRESSION: Stable postsurgical changes of lumbar spine. Normal [facility] OPERATIVE REPORTon OPERATIVE REPORT NAME: ORWENA PATRICIA MR#: [id number] SURGEON: Vic Pearson MD DATE OF SURGERY: [...] condition. There were no complications. MD AL SOLIZ/DIPTIL/[id number] E/S: Vic Pearson MD 01/07/21 0936 Electronically Signed [facility] PT NAME: ROWENA PATRICIA MR#: [id number] [address] [place] [address] ACCT: [id number] : 82 OPERATIVE REPORT Normal [facility] CORONAVIRUSon 11-28-2020 SARS-CoV-2 (COVID-19) RNA ONESIMO+probe Ql [...] COVID-19 Negative for COVID-19 (SARS-CoV-2 RNA) Normal [facility] Comment on above: Order Comment: CBN: YES [place]: MAIN COVID Testing: PRE-OP/PROCEDURE SCREEN Comment: 11/30 AGE at Spec EUGENIA 40 Report age at specimen EUGENIA? Y First test: UNKNOWN Employed in Healthcare: NO Symptomatic as defined by CDC: NO Hospitalized for COVID-19? NO ICU: NO Resident in a Congregated Care Setting: NO Order Date: 11/28/20 : Not Performed By: #### M [phone] #### Test performed at: [facility] [address] [address] LUMB SP COMP W FLEX/EXT 6 VW S>on 10-12-2020 LUMB SP COMP W FLEX/EXT 6 VWS> STUDY: LUMB SP COMP W FLEX/EXT 6 VWS>; 10/12/2020 9:48 am INDICATION: LOW BACK PAIN. COMPARISON: None. ACCESSION NUMBER(S): [id number] ORDERING CLINICIAN: Vic Pearson TECHNIQUE: Standing AP, [...] posterior spine fusion. No acute abnormalities. Normal [facility] RAD - Ultrasound Reporton RAD - Ultrasound Report [id number]:127 Normal [facility] Physician Referralon 020 Physician Referral [id number]:12 [id number] Normal [facility] Ambulatory Clinical Summaryo n 09-22-2019 Ambulatory Clinical Summary {[id number] Normal [facility] CBC With Platelet and Differ entialon 10-09-2017 Basophils Auto #/vol (Bld) 0.1 10*3/uL Normal 0.0-0.2 [facility] Basophils/100 WBC Auto (Bld) 1.0 % Normal [facility] Eosinophils 0.5 10*3/uL Normal 0.0-0.7 [facility] Eosinophils/100 leukocytes 8.5 % Normal [facility] Erythrocyte distribution width Auto Ratio (RBC) 12.5 % Normal 11.5-14.5 [facility] Erythrocytes (RBC) 5.00 10*6/uL Normal 4.70-6.10 [facility] Hematocrit (HCT) 45.4 % Normal 42.0-52.0 [facility] Hemoglobin mass conc (Bld) 14.5 g/dL Normal 14.0-18.0 [facility] Lymphocytes 1.5 10*3/uL Normal 1.0-4.8 [facility] Lymphocytes/100 leukocytes 28.4 % Normal [facility] MCH 28.9 pg Normal 27.0-31.3 [facility] MCHC mass conc (RBC) 31.8 % Low 33.0-37.0 [facility] MCV 90.8 fL Normal 80.0-100.0 [facility] Monocytes 0.5 10*3/uL Normal 0.2-0.8 [facility] Monocytes/100 leukocytes 8.4 % Normal [facility] Neutrophils 2.9 10*3/uL Normal 1.4-6.5 [facility] Neutrophils/100 leukocytes 53.7 % Normal [facility] Platelets 246 10*3/uL Normal 130-400 [facility] WBC (Leukocytes) 5.4 10*3/uL Normal 4.8-10.8 [facility] Comprehensive Metabolic Pane jesus 10-09-2017 Alanine aminotransferase (ALT) 12 U/L Normal 0-41 [facility] Albumin 4.4 g/dL Normal 3.9-4.9 [facility] Alkaline phosphatase (ALP) 66 U/L Normal 35-104 [facility] Anion gap 12 mmol/L Normal 7-13 [facility] Aspartate aminotransferase (AST) 20 U/L Normal 0-40 [facility] Bilirubin (total) 0.5 mg/dL Normal 0.0-1.2 [facility] Calcium 9.3 mg/dL Normal 8.6-10.2 [facility] Chloride 101 mmol/L Normal 98-107 [facility] CO2 28 mmol/L Normal 22-29 [facility] Creatinine 0.91 mg/dL Normal 0.70-1.20 [facility] eGFR (black) mL/min/{1.73_m2} Normal >60 [facility] Comment on above: Result Comment: >60 mL/min/1.73m2 EGFR, calc. for ages 18 and older using theMDRD formula (not corrected for weight), is valid for stablerenal function. eGFR (MDRD) mL/min/{1.73_m2} Normal >60 [facility] Comment on above: Result Comment: >60 mL/min/1.73m2 EGFR, calc. for ages 18 and older using theMDRD formula (not corrected for weight), is valid for stablerenal function. Globulin 2.9 g/dL Normal 2.3-3.5 [facility] Glucose mass conc 82 mg/dL Normal 74-109 [facility] Potassium molar conc 4.3 mmol/L Normal 3.5-5.1 [facility] Protein 7.3 g/dL Normal 6.4-8.1 [facility] Sodium 141 mmol/L Normal 132-144 [facility] Urea nitrogen 15 mg/dL Normal 6-20 [facility] Lipid Panelon 10-09-2017 Cholesterol 185 mg/dL Normal 0-199 [facility] Comment on above: Result Comment: ATP III Cholesterol classification is Desirable. HDL Cholesterol 47 mg/dL Normal 40-[address] [facility] Comment on above: Result Comment: ATP III HDL Cholesterol Classification is Desirable.Expected Values:Males: >55 = No Risk 35-55 = Moderate Risk <35 = High RiskFemales: >65 = No Risk 45-65 = Moderate Risk <45 = High RiskNCEP Guidelines: Third Report August 2000>59 = negative risk factor for CHD<40 = major risk factor for CHD LDL Cholesterol 123 mg/dL Normal 0-[address] [facility] Comment on above: Result Comment: ATP III LDL Classification is Near Optimal. Triglyceride 73 mg/dL Normal 0-200 [facility] Comment on above: Result Comment: ATP III Triglycerides Classification is Normal. Basic Metabolic Panel Reflex Mgon 09-16-2017 Anion gap 12 mmol/L Normal 7-13 [facility] Calcium 8.4 mg/dL Low 8.6-10.2 [facility] Chloride 99 mmol/L Normal 98-107 [facility] CO2 23 mmol/L Normal 22-29 [facility] Creatinine 0.64 mg/dL Low 0.70-1.20 [facility] eGFR (black) mL/min/{1.73_m2} Normal >60 [facility] Comment on above: Result Comment: >60 mL/min/1.73m2 EGFR, calc. for ages 18 and older using theMDRD formula (not corrected for weight), is valid for stablerenal function. eGFR (MDRD) mL/min/{1.73_m2} Normal >60 [facility] Comment on above: Result Comment: >60 mL/min/1.73m2 EGFR, calc. for ages 18 and older using theMDRD formula (not corrected for weight), is valid for stablerenal function. Glucose mass conc 115 mg/dL Critically high 74-109 [facility] Potassium molar conc 4.0 mmol/L Normal 3.5-5.1 [facility] Sodium 134 mmol/L Normal 132-144 [facility] Urea nitrogen 7 mg/dL Normal 6-20 [facility] CBC With Platelet and Differ entialon 09-16-2017 Slide Review see below Normal [facility] Comment on above: Result Comment: Slid e review agrees with reported results Basophils Auto #/vol (Bld) 0.1 10*3/uL Normal 0.0-0.2 [facility] Basophils/100 WBC Auto (Bld) 0.5 % Normal [facility] Eosinophils 0.0 10*3/uL Normal 0.0-0.7 [facility] Eosinophils/100 leukocytes 0.1 % Normal [facility] Erythrocyte distribution width Auto Ratio (RBC) 14.2 % Normal 11.5-14.5 [facility] Erythrocytes (RBC) 4.38 10*6/uL Low 4.70-6.10 [facility] Hematocrit (HCT) 39.9 % Low 42.0-52.0 [facility] Hemoglobin mass conc (Bld) 11.0 g/dL Low 14.0-18.0 [facility] Lymphocytes 0.7 10*3/uL Low 1.0-4.8 [facility] Lymphocytes/100 leukocytes 4.6 % Normal [facility] MCH 25.2 pg Low 27.0-31.3 [facility] MCHC mass conc (RBC) 27.6 % Low 33.0-37.0 [facility] MCV 91.2 fL Normal 80.0-100.0 [facility] Monocytes 0.4 10*3/uL Normal 0.2-0.8 [facility] Monocytes/100 leukocytes 3.0 % Normal [facility] Neutrophils 13.1 10*3/uL Critically high 1.4-6.5 [facility] Neutrophils/100 leukocytes 91.8 % Normal [facility] Platelets 313 10*3/uL Normal 130-400 [facility] WBC (Leukocytes) 14.3 10*3/uL Critically high 4.8-10.8 [facility] XR LUMBAR SPINE (2-3 VIEWS)o n [...] by:NEELAM Knappigned by:Celestino Izaguirre MD09/16/18Final result [facility] FLUORO FOR SURGICAL PROCEDUR ESon 09-15-2017 FLUORO [...] by:NEELAM Crossigned by:Naveen [place] MD6/18Final result [facility] Basic Metabolic Panelon 06-0 Anion gap 16 mmol/L Critically high 7-13 [facility] Calcium 9.7 mg/dL Normal 8.6-10.2 [facility] Chloride 101 mmol/L Normal 98-107 [facility] CO2 26 mmol/L Normal 22-29 [facility] Creatinine 0.59 mg/dL Low 0.70-1.20 [facility] eGFR (black) mL/min/{1.73_m2} Normal >60 [facility] Comment on above: Result Comment: >60 mL/min/1.73m2 EGFR, calc. for ages 18 and older using theMDRD formula (not corrected for weight), is valid for stablerenal function. eGFR (MDRD) mL/min/{1.73_m2} Normal >60 [facility] Comment on above: Result Comment: >60 mL/min/1.73m2 EGFR, calc. for ages 18 and older using theMDRD formula (not corrected for weight), is valid for stablerenal function. Glucose mass conc 88 mg/dL Normal 74-109 [facility] Potassium molar conc 4.2 mmol/L Normal 3.5-5.1 [facility] Sodium 143 mmol/L Normal 132-144 [facility] Urea nitrogen 9 mg/dL Normal 6-20 [facility] CBC With Platelet No Differe ntialon 09-11-2017 Erythrocyte distribution width Auto Ratio (RBC) 14.5 % Normal 11.5-14.5 [facility] Erythrocytes (RBC) 4.84 10*6/uL Normal 4.70-6.10 [place] Hematocrit (HCT) 44.1 % Normal 42.0-52.0 [facility] Hemoglobin mass conc (Bld) 15.0 g/dL Normal 14.0-18.0 [facility] MCH 31.1 pg Normal 27.0-31.3 [facility] MCHC mass conc (RBC) 34.1 % Normal 33.0-37.0 [facility] MCV 91.2 fL Normal 80.0-100.0 [facility] Platelets 308 10*3/uL Normal 130-400 [facility] WBC (Leukocytes) 9.4 10*3/uL Normal 4.8-10.8 [facility] Culture, MRSA Screenon 09-11 Culture, MRSA Screen ORDERED BY: RAFAEL HIGGINS: Nares Nose COLLECTED: 09/11/17 17:10ANTIBIOTICS AT EUGENIA.: RECEIVED : 09/11/17 17:10Culture, MRSA Screen FINAL 09/12/17 12:52 No MRSA isolated [facility] Partial Thromboplastin Timeo n 09-11-2017 aPTT 27.1 s Normal 21.6-35.4 [facility] Comment on above: Result Comment: Hepa rin Therapeutic Range: 38.8 - 54.6 seconds. Prothrombin Timeon 8 INR Coag RelTime (PPP) 1.0 {INR} [facility] Comment on above: Result Comment: Shane mmended [...] Coag time (PPP) 10.2 s Normal 9.6-12.3 [facility] Type and Screen Capture 3 sc rn cellon 09-11-2017 Bilirubin (total) PATIENT: MALU MCCORMICK LOC: [facility] BILL# : [id number] : 1980 SEX: MORDERED BY: GISELA PETERSEN ORDERED : 09/11/2017 16:39 COLLECTED: 09/11/2017 17:13ORDER : [id number] RECEIVED : 09/11/2017 17:13 --------TEST NAME RESULT UNITS RANGES ABN FL STABORH Capture B POS FAntibody 3 Cell Scrn Captu NEG F --- [facility] Urinalysis, reflex to cultur alma 09-11-2017 Bilirubin Ql (U) MODERATE Abnormal Negative [facility] Urine Reflexed to Culture Not Indicated [facility] Urine, clarity Clear Normal Clear [facility] Urine, color Yellow Normal [facility] Urine, glucose presence Negative Normal Negative [facility] Urine, hemoglobin presence Negative Normal Negative [facility] Urine, ketones presence Negative Normal Negative [facility] Urine, leukocyte esterase presence Negative Normal Negative [facility] Urine, nitrite presence Negative Normal Negative [facility] Urine, pH 6.5 [pH] Normal 5.0-9.0 [facility] Urine, protein presence Negative Normal Negative [facility] Urine, specific gravity 1.013 Normal 1.005-1.03 [facility] Urine, urobilinogen 1.0 {Tanna'U}/dL Normal < 2.0 [facility] XR SPINE ENTIRE (2-3 VIEWS)o n 09-11-2017 [...] by:NEELAM Knappigned by:Celestino Izaguirre [id number]//[id number] result [facility] MRI LUMBAR SPINE W/O CONTon 02-26-2017 MRI LUMBAR SPINE W/O CONT Final ReportAccession No: [id number] Performed: Feb 26 2017 8:57AMExamination: MRI LUMBAR SPINE W/O [id number] male with low back and bilateral lower [...] Physician: ZA NUNEZ M.D.Trans: : cc: Normal [facility] Vital Signs Date Time Vital Sign Value Performing Clinician Facility 08-16-2021 13:45-0400 Body height 185.42 cm Casper Bellamy Other [facility] Other 08-16-2021 13:45-0400 Body mass index (BMI) [Ratio] 42.48 kg/m2 Casper Bellamy Other [facility] Other 08-16-2021 13:45-0400 Body temperature 98.9 [degF] Casper Bellamy Other [facility] Other 08-16-2021 13:45-0400 Body weight 146.06 kg Casper Bellamy Other [facility] Other 08-16-2021 13:45-0400 Diastolic blood pressure 90 mm[Hg] Casper Bellamy Other [facility] Other 08-16-2021 13:45-0400 Respiratory rate 18 /min Casper Bellamy Other [facility] Other 08-16-2021 13:45-0400 SaO2% (BldA) [Mass fraction] 99 % Casper Bellamy Other [facility] Other 08-16-2021 13:45-0400 Systolic blood pressure 147 mm[Hg] Casper Bellamy Other [facility] Other 07-22-2017 15:00-0400 BMI (Body Mass Index) 47.36 kg/m2 [facility] 07-22-2017 15:00-0400 Height 185.[address] [facility] 07-22-2017 15:00-0400 Weight 162.[address] [facility] 03-18-2017 08:20-0500 BMI (Body Mass Index) 47.36 kg/m2 [facility] Work Phone: 03-18-2017 08:20-0500 BP Diastolic 104 mm[Hg] Travon Wright [facility] Work Phone: 03-18-2017 08:20-0500 BP Systolic 151 mm[Hg] Travon Wright [facility] Work Phone: 03-18-2017 08:20-0500 Height 185.4 cm Travon Wright [facility] Work Phone: 03-18-2017 08:20-0500 Pulse (Heart Rate) 78 /min Travon Wright [facility] Work Phone: 03-18-2017 08:20-0500 Weight 162.84 kg Travon Wright [facility] Work Phone: 02-19-2017 14:24-0500 BMI (Body Mass Index) 43.93 kg/m2 Travon Wright [facility] Work Phone: 02-19-2017 14:24-0500 BP Diastolic 106 mm[Hg] Travon Wright [facility] Work Phone: 02-19-2017 14:24-0500 BP Systolic 148 mm[Hg] Travon Wright [facility] Work Phone: 02-19-2017 14:24-0500 Height 185.4 cm Travon Wright [facility] Work Phone: 02-19-2017 14:24-0500 Pulse (Heart Rate) 101 /min Travon Wright [facility] Work Phone: 02-19-2017 14:24-0500 Weight 151.05 kg Travon Wright [facility] Work Phone: 11-18-2016 14:46-0400 BMI (Body Mass Index) 44.01 kg/m2 Amber Uribe [facility] Work Phone: 11-18-2016 14:46-0400 Body Temperature 98.1 [degF] Amber Uribe [facility] Work Phone: 11-18-2016 14:46-0400 BP Diastolic 86 mm[Hg] Amber [facility] Work Phone: 11-18-2016 14:46-0400 BP Systolic 136 mm[Hg] Amber Uribe [facility] Work Phone: 11-18-2016 14:46-0400 Height 185.4 cm [facility] Work Phone: 11-18-2016 14:46-0400 Pulse (Heart Rate) 78 /min [facility] Work Phone: 11-18-2016 14:46-0400 Weight 151.32 kg [facility] Work Phone: Encounters Encounter Date Encounter Type Care Provider Facility Start: 07-28-2022 Encounter for genera l adult medical examination without abnormal findings DR RAFFY NAVARRETE . [facility] Start: 07-24-2022 End: 07-24-[address] RAFFY NAVARRETE . Facility: Start: 07-22-2022 End: 07-23-[address] RAFFY NAVARRETE . Facility:[facility] Start: 07-22-2022 End: 07-23-2022 Encounter for general adult medical examination without abnormal findings DR RAFFY NAVARRETE . Facility:[facility] Start: 09-23-2021 End: 09-24-[address] RAFFY NAVARRETE . Facility: Start: 08-16-2021 End: 08-16-2021 ambulatory Casper Bellamy Other [facility] Other Start: 08-16-2021 Office outpatient vi sit 15 minutes Casper Bellamy [facility] Start: 12-17-2017 Patient encounter CECE SCHAFER [facility] Start: 09-15-2017 End: 09-17-2017 Evaluation and management of inpatient RAFFY NAVAR[facility] Start: 09-11-2017 End: 09-14-2017 Ambulatory [facility] [place] Start: 09-11-2017 End: 09-16-2017 Ambulatory [facility] Start: 07-22-2017 Office/outpatient visit, est, level 3 Travon Wright Work Phone: [facility] Start: 07-22-2017 End: 07-22-2017 Ambulatory Carly Hong [facility] Start: 03-24-2017 Ambulatory Sonia Young [facility] Start: 03-18-2017 Patient encounter TRAVON JOHNSONHumaira WRIGHT [facility] Start: 03-18-2017 Office outpatient vi sit 15 minutes Travon Wright Work Phone: [facility] Start: 02-26-2017 Ambulatory Travon Vazquez [facility] [place] Start: 02-26-2017 End: 02-26-2017 Ambulatory Travonkathya Wright Work Phone: [facility] Start: 02-20-2017 Ambulatory Carly Alexis [facility] Start: 02-19-2017 End: 02-19-2017 Patient encounter AMBER URIBE [facility] Start: 02-19-2017 Office outpatient vi sit 15 minutes Amber Uribe Work Phone: [facility] Start: 11-18-2016 End: 11-18-2016 Office outpatient visit 15 minutes Amber Uribe Work Phone: [facility] Comment on above: DDD (degenerative di sc disease), lumbar (Primary Dx) Procedures Date Procedure Procedure Detail Performing Clinician Start: 07-22-[address] ROMEO NAVARRETE . Comment on above: Performed By: #### V ITAD, PSASC #### [facility] [address] [place] [address] Dr. Isamar Betancourt Start: 09-17-2017 INCENTIVE SPIROMETRY RT DEAN ZHOU Start: 09-17-2017 END TIDAL CO2 CONTINUOUS DEAN ZHOU Start: 09-17-2017 INCENTIVE SPIROMETRY RT DEAN ZHOU Start: 09-17-2017 PULSE OXIMETRY, CONTINUOUS DEAN ZHOU Start: 09-17-2017 INCENTIVE SPIROMETRY RT DEAN ZHOU Start: 09-17-2017 END TIDAL CO2 CONTINUOUS DEAN ZHOU Start: 09-17-2017 INCENTIVE SPIROMETRY RT DEAN ZHOU Start: 09-17-2017 INITIATE OXYGEN THER APY PROTOCOL DEAN ZHOU Start: 09-17-2017 PULSE OXIMETRY, CONTINUOUS [...] 11-14-2021 Tetanus vaccination TETANUS EVERY 10 YR [facility] Work Phone: Start: 04-02-2017 Ambulatory 04/02/2017 Cli nical Support Orthopedic Surgery Via[facility], Cece Schafer MD [address] [place] [address] [facility] Start: 12-12-2016 Influenza vaccination SEQUENTI AL INFLUENZA VACCINE (#1) [facility] Work Phone: Start: 12-12-2016 SEQUENTIAL INFLUENZA VACCINE (#1) SEQUENTIAL INFLUENZA VACCINE (#1) [facility] Work Phone: Start: 1980 TETANUS EVERY 10 YR TETANUS EVERY 10 YR [facility] Work Phone: End: 02-19-2018 MR Lumbar Spine Without Contrast MR Lumbar Spine Without Contrast Routine Acute back pain, unspecified back location, unspecified back pain laterality 1 Occurrences starting 02/19/2017 until 02/19/2018 [facility] Work Phone: Payers Date Payer Category Payer Unknown [id number] 1980 Unknown [id number] 1980 Unknown [id number] 1980 Unknown [id number] 1958 Medicaid [id number] 2.1 [id number] 1958 Medicaid [id number] 2. [id number] Medicaid xxxxxxxxxxx 2.1 [id number] Social History Date Type Detail Facility Start: 11-18-2016 End: 07-22-2017 Tobacco smoking status FLIS Current every day smoker [facility] Work Phone: History of tobacco use Cigarette Smoker [facility] Work Phone: Start: 11-18-2016 End: 07-22-2017 Cigarettes smoked current (pack per day) - Reported [facility] Work Phone: History of tobacco use Snuff User [facility] Work Phone: Sex Assigned At Not on file [facility] Work Phone: History of tobacco use Chews Tobacco [facility] Work Phone: Sex Assigned At Sex Assigned At [facility] Other Evaluation note 08-16-2021 Note Date & Type Note Facility 08-16-2021 Evaluation note Encounter Date Diagnosis Assessment Notes August, Tooth infection (ICD-10 - K04.7) Take tylenol 1000mg every 8 hours for pain. Call the dentist to make an appointment. I considered more ominous diagnoses such as retropharyngeal abscess, [employer], Raheem's angina, and Lemierre's syndrome. However, pt [...] an appointment. He agrees with the plan. [facility] Other History general Narrative - Reported Note Date & Type Note Facility History general Narrative - Reported Type Hospitalization History cyst [facility] Other Assessments Diagnosis Pars defect of lumbar [...] DDD (degenerative disc disease), lumbar Amber Uribe, LEATHER TOOLER [address] [place] [address] Scheduling Instructions Pt would like to see Dr Almodovar in [place] Status Reason Specialty Diagnoses / Procedures Referred By Contact Referred To Contact Authorized Rehabilitation Diagnoses DDD (degenerative disc disease), lumbar Amber Uribe, MG [address] [place] [address] History of Present Illness * Amber Uribe, MG - 11/18/2016 2:53 PM EDT Formatting of this note may be different from the original. Subjective: Rowena Patricia is a 36 y.o. male here for Follow-up ([facility] for low back pain. PT [...] section and content) DATE CREATED AUTHOR 09/29/2017 [facility] DATE CREATED AUTHOR AUTHOR'S ORGANIZ ATION 10/06/2017 [facility] DATE CREATED AUTHOR AUTHOR'S ORGANIZ ATION 10/09/2017 [facility] DATE CREATED AUTHOR AUTHOR'S ORGANIZ ATION 12/26/2017 [facility] DATE CREATED AUTHOR AUTHOR'S ORGANIZ ATION 09/07/2020 [facility] DATE CREATED AUTHOR AUTHOR'S ORGANIZ ATION 05/27/2021 [facility] DATE CREATED AUTHOR AUTHOR'S ORGANIZ ATION 07/28/2022 [facility] Reason for Visit (unrecogniz ed section and content) Reason Comments Follow-up [facility] for low back pain. [...] BE BASED ON THE PRIMARY CLINICAL RECORDS. [employer] [facility]. provides no warranty or guarantee of the accuracy or completeness of information in this document.
== END 2023-08-20 08:05 | disposition home or self-care (01) ==
LOC: EC 08:05
PROVIDERS: PCP Family Medicine; Visit Provider Physician Assistant
DX: M25.571 Pain in right ankle and joints of right foot (principal)
CPT/HCPCS: 73610

== ENCOUNTER 2023-09-23 13:47 | Outpatient (OUT) | payer OTHER, SELFPAY ==
--- OUTSIDE RECORDS SUMMARY | 2023-09-23 14:07 | XMS_ITS | CCD ---
Author Organization [facility] Care Team Providers Care Global Director Air And Climate Change Name Role Phone Cece Perera Unavailable ZHOU, DEAN H. Unavailable Unavailable RAFFY NAVARRETE M Unavailable Unavailable ZHOU, DEAN H. Unavailable Unavailable RAFFY NAVARRETE Unavailable Unavailable RAFFY NAVARRETE Unavailable Unavailable ZHOU, DEAN H. Unavailable Unavailable ZHOU, DEAN H. Unavailable Unavailable Fanello Travon K Unavailable Unavailable Fanisis Travon K Unavailable Unavailable RHONDA URIBEI JORDANA Unavailable Unavailabl e TRAVON WRIGHTY Unavailable Unavailable JOJOAMBER MCLAUGHLINE Unavailable Unavailabl CECE Noonan Unavailable Unavailab le TRAVON WRIGHT Unavailable Unavailable CECE PERERA Unavailable Unavailab TRAVON Cuellar Unavailable Unavailable CECE PERERA Unavailable Unavailab CECE Palma Unavailable Unavailable CECE PERERA Unavailable Unavailab le Unavailable Primary Care Provider UnavailCasper Alexandre Unavailable DR RAFFY FAROOQ Primary Care Unavailable MERVIN VIDAL Admitting Unavailable MERVIN VIDAL Attending Unavailable MERVIN VIDAL Consulting Unavailable LANDON ., DR AKBAR Admitting Unavailable LANDON ., DR AKBAR Attending Unavailable LANDON ., DR AKBAR Primary Care Unavailable LANDON ., DR AKBAR Consulting Unavailable LANDON ., DR AKBAR Admitting Unavailable LANDON ., DR AKBAR Attending Unavailable LANDON ., DR AKBAR Primary Care Unavailable LANDON Franco, DR AKBAR Consulting Unavailable Allergies Allergy Classification Reported Allergen(s) Allergy Type Date of Onset Reaction(s) Facility (10 sources) acetaminophen / HYDROcodone; Translations: [HYDROCODONE-ACET AMINOPHEN] Propensity to adverse reactions to drug 7 GI Intolerance [facility] Work Phone: (1 source) Acetaminophen / HYDROcodone Drug Allergy 5 [facility] Medications Current Medications Medication Drug [...] 07-12 OCCULT BLOOD Negative Normal NEGATIVE [facility] Comment on above: Performed By: #### O BSCRN #### [facility] [address] [address] [address] Isamar Betancourt INSULINon 07-23-2022 Insulin 42.3 uIU/mL Critically high 2.6-24.9 [facility] Comment on above: Performed By: #### I NSULIN #### [facility] [address] [address] [address] Isamar Betancourt CBC AUTO DIFFon 07-22-2022 BASO # 0.1 103/ul Normal 0.0-0.1 [facility] Comment on above: Performed By: #### C BC #### [facility] [address] [address] [address] Isamar Betancourt Basophils/100 WBC (Bld) 1.1 % Normal 0.2-2.0 [facility] Comment on above: Performed By: #### C BC #### [facility] [address] [place] [address] Dr. Isamar Betancourt EO # 0.2 103/ul Normal 0.0-0.7 [facility] Comment on above: Performed By: #### C BC #### [facility] [address] [place] [address] Dr. Isamar Betancourt Eosinophils/100 WBC (Bld) 2.5 % Normal 0.9-7.0 [facility] Comment on above: Performed By: #### C BC #### [facility] [address] [place] [address] Dr. Isamar Betancourt Erythrocyte distribution width (RBC) [Ratio] 14.4 % Normal 11.0-15.0 [facility] Comment on above: Performed By: #### C BC #### [facility] [address] [place] [address] Dr. Isamar Betancourt Hematocrit (Bld) [Volume fraction] 44.5 % Normal 42.0-54.0 [facility] Comment on above: Performed By: #### C BC #### [facility] [address] [place] [address] Dr. Isamar Betancourt Hemoglobin (Bld) [Mass/Vol] 15.0 g/dL Normal 14.0-18.0 [facility] Comment on above: Performed By: #### C BC #### [facility] [address] [place] [address] Dr. Isamar Betancourt IG # 0.14 10e3/ul Critically high 0.00-0.03 [facility] Comment on above: Performed By: #### C BC #### [facility] [address] [address] [address] Isamar Betancourt IG % 1.5 % Critically high 0.0-0.5 [facility] Comment on above: Performed By: #### C BC #### [facility] [address] [place] [address] Dr. Isamar Betancourt LYMPH # 3.0 103/ul Normal 1.2-3.8 [facility] Comment on above: Performed By: #### C BC #### [facility] [address] [place] [address] Dr. Isamar Betancourt Lymphocytes/100 WBC (Bld) 33.1 % Normal 20.5-60.0 [facility] Comment on above: Performed By: #### C BC #### [facility] [address] [place] [address] Dr. Isamar Betancourt MANUAL DIFF REQ NO Normal [facility] Comment on above: Performed By: #### C BC #### [facility] [address] [place] [address] Dr. Isamar Betancourt MCH (RBC) [Entitic mass] 29.7 pg Normal 25.9-34.0 [facility] Comment on above: Performed By: #### C BC #### [facility] [address] [place] [address] Dr. Isamar Betancourt MCHC (RBC) [Mass/Vol] 33.7 g/dL Normal 29.9-35.2 [facility] Comment on above: Performed By: #### C BC #### [facility] [address] [place] [address] Dr. Isamar Betancourt MCV (RBC) [Entitic vol] 88.1 fL Normal 80.0-94.0 [facility] Comment on above: Performed By: #### C BC #### [facility] [address] [place] [address] Dr. Isamar Betancourt MONO # 0.9 103/ul Critically high 0.3-0.8 [facility] Comment on above: Performed By: #### C BC #### [facility] [address] [place] [address] Dr. Isamar Betancourt Monocytes/100 WBC (Bld) 9.3 % Normal 1.7-12.0 [facility] Comment on above: Performed By: #### C BC #### [facility] [address] [place] [address] Dr. Isamar Betancourt NEUT # 4.8 103/ul Normal 1.4-6.5 [facility] Comment on above: Performed By: #### C BC #### [facility] [address] [place] [address] Dr. Isamar Betancourt Neutrophils/100 WBC (Bld) 52.5 % Normal 43.0-75.0 [facility] Comment on above: Performed By: #### C BC #### [facility] [address] [place] [address] Dr. Isamar Betancourt Platelet mean volume (Bld) [Entitic vol] 10.3 fL Normal 9.5-13.5 [facility] Comment on above: Performed By: #### C BC #### [facility] [address] [place] [address] Dr. Isamar Betancourt PLT 317 103/ul Normal 150-450 [facility] Comment on above: Performed By: #### C BC #### [facility] [address] [place] [address] Dr. Isamar Betancourt RBC 5.05 106/ul Normal 4.70-6.10 [facility] Comment on above: Performed By: #### C BC #### [facility] [address] [place] [address] Dr. Isamar Betancourt WBC 9.2 103/ul Normal 4.0-11.0 [facility] Comment on above: Performed By: #### C BC #### [facility] [address] [place] [address] Dr. Isamar Betancourt FREE THYROXINE INDEX T7on FTI 2.40 Normal 1.30-4.50 [facility] Comment on above: Performed By: #### V ITAD, PSASC #### [facility] [address] [address] [address] Isamar Betancourt T3U 30.0 % Critically low 33.0-40.0 [facility] Comment on above: Performed By: #### V MYRTLE, PSASC #### [facility] [address] [address] [address] Isamar Betancourt T4 [Mass/Vol] 8.00 ug/dL Normal 4.50-12.10 [facility] Comment on above: Performed By: #### V MYRTLE, PSASC #### [facility] [address] [address] [address] Isamar Betancourt GLYCOHEMOGLOBIN A1Con 2022 ADA RECOMMENDATION SEE BELOW Normal [facility] Comment on above: Result Comment: ADA RECOMMENDED LIMIT 4.0 - 6.0 ADA THERAPEUTIC TARGET < 7.0 ACTION SUGGESTED > 7.0 Performed By: #### A 1C #### [facility] [address] [place] [address] Dr. Isamar Betancourt Glucose [Mass/Vol] 103 mg/dL Normal [facility] Comment on above: Performed By: #### A 1C #### [facility] [address] [address] [address] Isamar Betancourt HbA1c (Bld) [Mass fraction] 5.2 % Normal 4.5-6.2 [facility] Comment on above: Performed By: #### A 1C #### [facility] [address] [address] [address] Isamar Betancourt LIPID PROFILEon 07-22-2022 CHOL-HDL RATIO NORM SEE BELOW Normal [facility] Comment on above: Result Comment: 3.3 - 4.4 LOW RISK 4.4 - 7.1 AVERAGE RISK 7.1 - 11.0 MODERATE RISK >11.0 HIGH RISK Performed By: #### T 7, CMP, LIPID, TSH, URIC #### [facility] [address] [place] [address] Dr. Isamar Betancourt Cholesterol [Mass/Vol] 208 mg/dL Critically high <=200 [facility] Comment on above: Performed By: #### T 7, CMP, LIPID, TSH, URIC #### [facility] [address] [address] [address] Isamar Betancourt Cholesterol in HDL [Mass/Vol] 28 mg/dL Critically low 40-60 [facility] Comment on above: Performed By: #### T 7, CMP, LIPID, TSH, URIC #### [facility] [address] [address] [address] Isamar Betancourt Cholesterol in LDL [Mass/Vol] 153.8 mg/dL Normal [facility] Comment on above: Performed By: #### T 7, CMP, LIPID, TSH, URIC #### [facility] [address] [address] [address] Isamar Betancourt Cholesterol.total/C holesterol in HDL [Mass ratio] 7.4 {ratio} Normal [facility] Comment on above: Performed By: #### T 7, CMP, LIPID, TSH, URIC #### [facility] [address] [address] [address] Isamar Betancourt HDL NORMAL > or = 60 mg/dl - LO W CARDIOVASCULAR RISK <40 mg/dl - HIGH CARDIOVASCULAR RISK Normal [facility] Comment on above: Performed By: #### T 7, CMP, LIPID, TSH, URIC #### [facility] [address] [address] [address] Isamar Betancourt LDL CALC NORMAL SEE BELOW Normal [facility] Comment on above: Result Comment: <100 mg/dl OPTIMAL 100 - 129 mg/dl NEAR OR ABOVE OPTIMAL 130 - 159 mg/dl BORDERLINE HIGH 160 - 189 mg/dl HIGH >190 mg/dl VERY HIGH Performed By: #### T 7, CMP, LIPID, TSH, URIC #### [facility] [address] [address] [address] Isamar Betancourt Triglyceride [Mass/Vol] 131 mg/dL Normal <=150 [facility] Comment on above: Performed By: #### T 7, CMP, LIPID, TSH, URIC #### [facility] [address] [address] [address] Isamar Betancourt VLDL CALC 26.2 mg/dL Normal [facility] Comment on above: Performed By: #### T 7, CMP, LIPID, TSH, URIC #### [facility] [address] [place] [address] Dr. Isamar Betancourt PROF 14(COMP METB)on 023 Albumin [Mass/Vol] 2.8 g/dL Critically low 3.4-5.0 [facility] Comment on above: Performed By: #### T 7, CMP, LIPID, TSH, URIC #### [facility] [address] [place] [address] Dr. Isamar Betancourt Albumin/Globulin [Mass ratio] 0.6 {ratio} Normal [facility] Comment on above: Performed By: #### T 7, CMP, LIPID, TSH, URIC #### [facility] [address] [place] [address] Dr. Isamar Betancourt ALP [Catalytic activity/Vol] 105 U/L Normal 46-116 [facility] Comment on above: Performed By: #### T 7, CMP, LIPID, TSH, URIC #### [facility] [address] [place] [address] Dr. Isamar Betancourt ALT [Catalytic activity/Vol] 23 U/L Normal 16-63 [facility] Comment on above: Performed By: #### T 7, CMP, LIPID, TSH, URIC #### [facility] [address] [place] [address] Dr. Isamar Betancourt Anion gap [Moles/Vol] 9.6 mmol/L Normal [facility] Comment on above: Performed By: #### T 7, CMP, LIPID, TSH, URIC #### [facility] [address] [place] [address] Dr. Isamar Betancourt AST [Catalytic activity/Vol] 15 U/L Normal 15-37 [facility] Comment on above: Performed By: #### T 7, CMP, LIPID, TSH, URIC #### [facility] [address] [place] [address] Dr. Isamar Betancourt Bilirubin [Mass/Vol] 0.5 mg/dL Normal 0.2-1.0 [facility] Comment on above: Performed By: #### T 7, CMP, LIPID, TSH, URIC #### [facility] [address] [address] [address] Isamar Betancourt Calcium [Mass/Vol] 8.9 mg/dL Normal 8.5-10.1 [facility] Comment on above: Performed By: #### T 7, CMP, LIPID, TSH, URIC #### [facility] [address] [address] [address] Isamar Betancourt Chloride [Moles/Vol] 106 mmol/L Normal 98-107 [facility] Comment on above: Performed By: #### T 7, CMP, LIPID, TSH, URIC #### [facility] [address] [address] [address] Isamar Betancourt CO2 [Moles/Vol] 30.7 mmol/L Normal 21.0-32.0 [facility] Comment on above: Performed By: #### T 7, CMP, LIPID, TSH, URIC #### [facility] [address] [address] [address] Isamar Betancourt Creatinine [Mass/Vol] 0.82 mg/dL Normal 0.70-1.30 [facility] Comment on above: Performed By: #### T 7, CMP, LIPID, TSH, URIC #### [facility] [address] [address] [address] Isamar Betancourt EGFR-AF HAITIAN >60 Normal >=60 [facility] Comment on above: Performed By: #### T 7, CMP, LIPID, TSH, URIC #### [facility] [address] [address] [address] Isamar Betancourt EGFR-NON AF HAITIAN >60 Normal >=60 [facility] Comment on above: Performed By: #### T 7, CMP, LIPID, TSH, URIC #### [facility] [address] [address] [address] Isamar Betancourt Globulin (S) [Mass/Vol] 4.4 g/dL Normal [facility] Comment on above: Performed By: #### T 7, CMP, LIPID, TSH, URIC #### [facility] [address] [address] [address] Isamar Betancourt Glucose [Mass/Vol] 89 mg/dL Normal 74-106 [facility] Comment on above: Performed By: #### T 7, CMP, LIPID, TSH, URIC #### [facility] [address] [place] [address] Dr. Isamar Betancourt Potassium [Moles/Vol] 4.3 mmol/L Normal 3.5-5.1 [facility] Comment on above: Performed By: #### T 7, CMP, LIPID, TSH, URIC #### [facility] [address] [place] [address] Dr. Isamar Betancourt Protein [Mass/Vol] 7.2 g/dL Normal 6.4-8.2 [facility] Comment on above: Performed By: #### T 7, CMP, LIPID, TSH, URIC #### [facility] [address] [place] [address] Dr. Isamar Betancourt Sodium [Moles/Vol] 142 mmol/L Normal 136-145 [facility] Comment on above: Performed By: #### T 7, CMP, LIPID, TSH, URIC #### [facility] [address] [place] [address] Dr. Isamar Betancourt Urea nitrogen [Mass/Vol] 13.0 mg/dL Normal 7.0-18.0 [facility] Comment on above: Performed By: #### T 7, CMP, LIPID, TSH, URIC #### [facility] [address] [place] [address] Dr. Isamar Betancourt Urea nitrogen/Creatinine [Mass ratio] 15.9 mg/mg Normal [facility] Comment on above: Performed By: #### T 7, CMP, LIPID, TSH, URIC #### [facility] [address] [place] [address] Dr. Isamar Betancourt TSHon 07-22-2022 TSH 1.732 uIU/mL Normal 0.358-3.740 [facility] Comment on above: Performed By: #### T 7, CMP, LIPID, TSH, URIC #### [facility] [address] [place] [address] Dr. Isamar Betancourt URIC ACID SERUMon 07-22-2022 Urate [Mass/Vol] 3.6 mg/dL Normal 3.5-7.2 [facility] Comment on above: Performed By: #### T 7, CMP, LIPID, TSH, URIC #### [facility] [address] [place], [place] [address] Dr. Isamar Betancourt VITAMIN D 25 OHon 07-22-2022 VIT D 25-OH 8.0 ng/mL Normal [facility] Comment on above: Performed By: #### V ITAD, PSASC #### [facility] [address] [place], [place] [address] Dr. Isamar Betancourt VIT D RANGES SEE BELOW Normal [facility] Comment on above: Result Comment: <20 ng/mL Vit D deficient 20 - <30 ng/mL Vit D insufficient 30 - 100 ng/mL Vit D sufficient >100 ng/mL Potential Toxicity Performed By: #### V ITAD, PSASC #### [facility] [address] [address] [address] LUMBAR SP WO CONon 2020 CT LUMBAR SP WO CON STUDY: CT LUMBAR SP WO CON 01/09/2021 12:44 pm INDICATION: NONUNION OF SPINAL FUSION COMPARISON: None. ACCESSION NUMBER(S): [id number] ORDERING CLINICIAN: Hugo Mckeon TECHNIQUE: Axial CT images of the lumbar [...] degenerative changes of the lumbar spine. Normal [facility] LUMBAR SPINE 2 OR 3 VIEWSon 12-21-2020 LUMBAR SPINE 2 OR 3 VIEWS STUDY: LUMBAR SPINE 2 OR 3 VIEWS; 12/21/2020 10:38 am INDICATION: STENOSIS OF LATERAL RECESS OF LUMBAR SPINE. COMPARISON: No available comparisons. ACCESSION NUMBER(S): [id number] ORDERING CLINICIAN: Hugo Mckeon TECHNIQUE: 4 views of the lumbar spine. FINDINGS: No acute fracture dislocation. Status post posterior lumbar spine fusion at L5-S1 level with decompression laminectomy. The vertebral alignment is normal. The vertebral body heights and intervertebral disc spaces are maintained. Nonspecific bowel gas pattern. IMPRESSION: Stable postsurgical changes of lumbar spine. Normal [facility] OPERATIVE REPORTon OPERATIVE REPORT NAME: ROWENA PATRICIA MR#: [id number] SURGEON: Hugo Mckeon MD DATE OF SURGERY: 11/30/2020 OPERATIVE REPORT [...] in excellent condition. There were no complications. HUGO MCKEON MD JFS/MODL/[id number] E/S: Hugo Mckeon MD 01/07/21 0936 Electronically Signed [facility] PT NAME: ROWENA PATRICIA MR#: [id number] [address] [place] [address] ACCT: [id number] : 82 OPERATIVE REPORT Normal [facility] CORONAVIRUSon 11-28-2020 SARS-CoV-2 (COVID-19) RNA ONESIMO+probe Ql [...] COVID-19 Negative for COVID-19 (SARS-CoV-2 RNA) Normal [facility] Comment on above: Order Comment: CBN: YES [place]: MAIN COVID Testing: PRE-OP/PROCEDURE SCREEN Comment: 11/30 AGE at Spec EUGENIA 40 Report age at specimen EUGENIA? Y First test: UNKNOWN Employed in Healthcare: NO Symptomatic as defined by CDC: NO Hospitalized for COVID-19? NO ICU: NO Resident in a Congregated Care Setting: NO Order Date: 11/28/20 : Not Performed By: #### M [phone] #### Test performed at: [facility] [address] [address] LUMB SP COMP W FLEX/EXT 6 VW S>on 10-12-2020 LUMB SP COMP W FLEX/EXT 6 VWS> STUDY: LUMB SP COMP W FLEX/EXT 6 VWS>; 10/12/2020 9:48 am INDICATION: LOW BACK PAIN. COMPARISON: None. ACCESSION NUMBER(S): [id number] ORDERING CLINICIAN: Hugo Mckeon TECHNIQUE: Standing AP, lateral, oblique and flexion [...] posterior spine fusion. No acute abnormalities. Normal [facility] RAD - Ultrasound Reporton RAD - Ultrasound Report [id number]:[id number] Normal [facility] Physician Referralon 020 Physician Referral [id number]:[id number] Normal [facility] Ambulatory Clinical Summaryo n 09-22-2019 Ambulatory Clinical Summary {[id number] Normal [facility] CBC With Platelet and Differ entialon 10-09-2017 Basophils Auto #/vol (Bld) 0.1 10*3/uL Normal 0.0-0.2 [facility] Basophils/100 WBC Auto (Bld) 1.0 % Normal [facility] Eosinophils 0.5 10*3/uL Normal 0.0-0.7 [facility] Eosinophils/100 leukocytes 8.5 % Normal [facility] Erythrocyte distribution width Auto Ratio (RBC) 12.5 % Normal 11.5-14.5 [facility] Erythrocytes (RBC) 5.00 10*6/uL Normal 4.70-6.10 [facility] Hematocrit (HCT) 45.4 % Normal 42.0-52.0 [facility] Hemoglobin mass conc (Bld) 14.5 g/dL Normal 14.0-18.0 [facility] Lymphocytes 1.5 10*3/uL Normal 1.0-4.8 [facility] Lymphocytes/100 leukocytes 28.4 % Normal [facility] MCH 28.9 pg Normal 27.0-31.3 [facility] MCHC mass conc (RBC) 31.8 % Low 33.0-37.0 [facility] MCV 90.8 fL Normal 80.0-100.0 [facility] Monocytes 0.5 10*3/uL Normal 0.2-0.8 [facility] Monocytes/100 leukocytes 8.4 % Normal [facility] Neutrophils 2.9 10*3/uL Normal 1.4-6.5 [facility] Neutrophils/100 leukocytes 53.7 % Normal [facility] Platelets 246 10*3/uL Normal 130-400 [facility] WBC (Leukocytes) 5.4 10*3/uL Normal 4.8-10.8 [facility] Comprehensive Metabolic Pane jesus 10-09-2017 Alanine aminotransferase (ALT) 12 U/L Normal 0-41 [facility] Albumin 4.4 g/dL Normal 3.9-4.9 [facility] Alkaline phosphatase (ALP) 66 U/L Normal 35-104 [facility] Anion gap 12 mmol/L Normal 7-13 [facility] Aspartate aminotransferase (AST) 20 U/L Normal 0-40 [facility] Bilirubin (total) 0.5 mg/dL Normal 0.0-1.2 [facility] Calcium 9.3 mg/dL Normal 8.6-10.2 [facility] Chloride 101 mmol/L Normal 98-107 [facility] CO2 28 mmol/L Normal 22-29 [facility] Creatinine 0.91 mg/dL Normal 0.70-1.20 [facility] eGFR (black) mL/min/{1.73_m2} Normal >60 [facility] Comment on above: Result Comment: >60 mL/min/1.73m2 EGFR, calc. for ages 18 and older using theMDRD formula (not corrected for weight), is valid for stablerenal function. eGFR (MDRD) mL/min/{1.73_m2} Normal >60 [facility] Comment on above: Result Comment: >60 mL/min/1.73m2 EGFR, calc. for ages 18 and older using theMDRD formula (not corrected for weight), is valid for stablerenal function. Globulin 2.9 g/dL Normal 2.3-3.5 [facility] Glucose mass conc 82 mg/dL Normal 74-109 [facility] Potassium molar conc 4.3 mmol/L Normal 3.5-5.1 [facility] Protein 7.3 g/dL Normal 6.4-8.1 [facility] Sodium 141 mmol/L Normal 132-144 [facility] Urea nitrogen 15 mg/dL Normal 6-20 [facility] Lipid Panelon 10-09-2017 Cholesterol 185 mg/dL Normal 0-199 [facility] Comment on above: Result Comment: ATP III Cholesterol classification is Desirable. HDL Cholesterol 47 mg/dL Normal 40-59 [facility] Comment on above: Result Comment: ATP III HDL Cholesterol Classification is Desirable.Expected Values:Males: >55 = No Risk 35-55 = Moderate Risk <35 = High RiskFemales: >65 = No Risk 45-65 = Moderate Risk <45 = High RiskNCEP Guidelines: Third Report August 2000>59 = negative risk factor for CHD<40 = major risk factor for CHD LDL Cholesterol 123 mg/dL Normal 0-129 [facility] Comment on above: Result Comment: ATP III LDL Classification is Near Optimal. Triglyceride 73 mg/dL Normal 0-200 [facility] Comment on above: Result Comment: ATP III Triglycerides Classification is Normal. Basic Metabolic Panel Reflex Mgon 09-16-2017 Anion gap 12 mmol/L Normal 7-13 [facility] Calcium 8.4 mg/dL Low 8.6-10.2 [facility] Chloride 99 mmol/L Normal 98-107 [facility] CO2 23 mmol/L Normal 22-29 [facility] Creatinine 0.64 mg/dL Low 0.70-1.20 [facility] eGFR (black) mL/min/{1.73_m2} Normal >60 [facility] Comment on above: Result Comment: >60 mL/min/1.73m2 EGFR, calc. for ages 18 and older using theMDRD formula (not corrected for weight), is valid for stablerenal function. eGFR (MDRD) mL/min/{1.73_m2} Normal >60 [facility] Comment on above: Result Comment: >60 mL/min/1.73m2 EGFR, calc. for ages 18 and older using theMDRD formula (not corrected for weight), is valid for stablerenal function. Glucose mass conc 115 mg/dL Critically high 74-109 [facility] Potassium molar conc 4.0 mmol/L Normal 3.5-5.1 [facility] Sodium 134 mmol/L Normal 132-144 [facility] Urea nitrogen 7 mg/dL Normal 6-20 [facility] CBC With Platelet and Differ entialon 09-16-2017 Slide Review see below Normal [facility] Comment on above: Result Comment: Slid e review agrees with reported results Basophils Auto #/vol (Bld) 0.1 10*3/uL Normal 0.0-0.2 [facility] Basophils/100 WBC Auto (Bld) 0.5 % Normal [facility] Eosinophils 0.0 10*3/uL Normal 0.0-0.7 [facility] Eosinophils/100 leukocytes 0.1 % Normal [facility] Erythrocyte distribution width Auto Ratio (RBC) 14.2 % Normal 11.5-14.5 [facility] Erythrocytes (RBC) 4.38 10*6/uL Low 4.70-6.10 [facility] Hematocrit (HCT) 39.9 % Low 42.0-52.0 [facility] Hemoglobin mass conc (Bld) 11.0 g/dL Low 14.0-18.0 [facility] Lymphocytes 0.7 10*3/uL Low 1.0-4.8 [facility] Lymphocytes/100 leukocytes 4.6 % Normal [facility] MCH 25.2 pg Low 27.0-31.3 [facility] MCHC mass conc (RBC) 27.6 % Low 33.0-37.0 [facility] MCV 91.2 fL Normal 80.0-100.0 [facility] Monocytes 0.4 10*3/uL Normal 0.2-0.8 [facility] Monocytes/100 leukocytes 3.0 % Normal [facility] Neutrophils 13.1 10*3/uL Critically high 1.4-6.5 [facility] Neutrophils/100 leukocytes 91.8 % Normal [facility] Platelets 313 10*3/uL Normal 130-400 [facility] WBC (Leukocytes) 14.3 10*3/uL Critically high 4.8-10.8 [facility] XR LUMBAR SPINE (2-3 VIEWS)o n 09-16-2017 [...] by:NEELAM Knappigned by:Celestino Izaguirre MD09/16/18Final result Normal [facility] FLUORO FOR SURGICAL PROCEDUR ESon [...] FUSION AT L4-5Interpreted by:NEELAM Crossigned by:Naveen Moctezuma [id number] result Normal [facility] Basic Metabolic Panelon 06-0 Anion gap 16 mmol/L Critically high 7-13 [facility] Calcium 9.7 mg/dL Normal 8.6-10.2 [facility] Chloride 101 mmol/L Normal 98-107 [facility] CO2 26 mmol/L Normal 22-29 [facility] Creatinine 0.59 mg/dL Low 0.70-1.20 [facility] eGFR (black) mL/min/{1.73_m2} Normal >60 [facility] Comment on above: Result Comment: >60 mL/min/1.73m2 EGFR, calc. for ages 18 and older using theMDRD formula (not corrected for weight), is valid for stablerenal function. eGFR (MDRD) mL/min/{1.73_m2} Normal >60 [facility] Comment on above: Result Comment: >60 mL/min/1.73m2 EGFR, calc. for ages 18 and older using theMDRD formula (not corrected for weight), is valid for stablerenal function. Glucose mass conc 88 mg/dL Normal 74-109 [facility] Potassium molar conc 4.2 mmol/L Normal 3.5-5.1 [facility] Sodium 143 mmol/L Normal 132-144 [facility] Urea nitrogen 9 mg/dL Normal 6-20 [facility] CBC With Platelet No Differe ntialon 09-11-2017 Erythrocyte distribution width Auto Ratio (RBC) 14.5 % Normal 11.5-14.5 [facility] Erythrocytes (RBC) 4.84 10*6/uL Normal 4.70-6.10 [facility] Hematocrit (HCT) 44.1 % Normal 42.0-52.0 [facility] Hemoglobin mass conc (Bld) 15.0 g/dL Normal 14.0-18.0 [facility] MCH 31.1 pg Normal 27.0-31.3 [facility] MCHC mass conc (RBC) 34.1 % Normal 33.0-37.0 [facility] MCV 91.2 fL Normal 80.0-100.0 [facility] Platelets 308 10*3/uL Normal 130-400 [facility] WBC (Leukocytes) 9.4 10*3/uL Normal 4.8-10.8 [facility] Culture, MRSA Screenon 09-11 Culture, MRSA Screen ORDERED BY: RAFAEL HIGGINS: Nares Nose COLLECTED: 09/11/17 17:10ANTIBIOTICS AT EUGENIA.: RECEIVED : 09/11/17 17:10Culture, MRSA Screen FINAL 09/12/17 12:[address] No MRSA isolated Normal [facility] Partial Thromboplastin Timeo n 09-11-2017 aPTT 27.1 s Normal 21.6-35.4 [facility] Comment on above: Result Comment: Hepa rin Therapeutic Range: 38.8 - 54.6 seconds. Prothrombin Timeon 8 INR Coag RelTime (PPP) 1.0 {INR} Normal [facility] Comment on above: Result Comment: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
== END 2023-09-23 13:48 | disposition home or self-care (01) ==
LOC: MRI 13:47
PROVIDERS: PCP Family Medicine; Visit Provider Physician Assistant
DX: M25.371 Other instability, right ankle (principal); M76.71 Peroneal tendinitis, right leg
CPT/HCPCS: 73721

== ENCOUNTER 2024-02-25 16:21 | Emergency (ER) | payer OTHER, SELFPAY ==
[2024-02-25 16:23] VITALS: BP 158/100; PULSE 74; TEMP 37.3; O2SAT 95; BMI 51.5
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
--- OUTSIDE RECORDS SUMMARY | 2024-02-25 16:40 | XMS_ITS | CCD ---
Author Organization [facility] Care Team Providers Care Apparatus Engineering Technologist Name Role Phone Cece Perera Unavailable [phone] ZHOU, DEAN H. Unavailable Unavailable RAFFY NAVARRETE M Unavailable Unavailable ZHOU, DEAN H. Unavailable Unavailable RAFFY NAVARRETE M Unavailable Unavailable RAFFY NAVARRETE M Unavailable Unavailable ZHOU, EDAN H. Unavailable Unavailable ZHOU, DEAN H. Unavailable [...] adverse reactions to drug 7 GI Intolerance [facility] Work Phone: (1 source) Acetaminophen / HYDROcodone Drug Allergy 5 [facility] Repository Medications Current Medications Medication Drug [...] 07-12 OCCULT BLOOD Negative Normal NEGATIVE [facility] Comment on above: Performed By: #### O BSCRN #### [facility] [address] [address] [address] Isamar Betancourt INSULINon 07-23-2022 Insulin 42.3 uIU/mL Critically high 2.6-24.9 [facility] Comment on above: Performed By: #### I NSULIN #### [facility] [address] [address] [address] Isamar Betancourt CBC AUTO DIFFon 07-22-2022 BASO # 0.1 103/ul Normal 0.0-0.1 [facility] Comment on above: Performed By: #### C BC #### [facility] [address] [address] [address] Isamar Betancourt Basophils/100 WBC (Bld) 1.1 % Normal 0.2-2.0 [facility] Comment on above: Performed By: #### C BC #### [facility] [address] [place] [address] Dr. Isamar Betancourt EO # 0.2 103/ul Normal 0.0-0.7 [facility] Comment on above: Performed By: #### C BC #### [facility] [address] [place] [address] Dr. Isamar Betancourt Eosinophils/100 WBC (Bld) 2.5 % Normal 0.9-7.0 [facility] Comment on above: Performed By: #### C BC #### [facility] [address] [place] [address] Dr. Isamar Betancourt Erythrocyte distribution width (RBC) [Ratio] 14.4 % Normal 11.0-15.0 [facility] Comment on above: Performed By: #### C BC #### [facility] [address] [place] [address] Dr. Isamar Betancourt Hematocrit (Bld) [Volume fraction] 44.5 % Normal 42.0-54.0 [facility] Comment on above: Performed By: #### C BC #### [facility] [address] [place] [address] Dr. Isamar Betancourt Hemoglobin (Bld) [Mass/Vol] 15.0 g/dL Normal 14.0-18.0 [facility] Comment on above: Performed By: #### C BC #### [facility] [address] [place] [address] Dr. Isamar eBtancourt IG # 0.14 10e3/ul Critically high 0.00-0.03 [facility] Comment on above: Performed By: #### C BC #### [facility] [address] [address] [address] Isamar Betancourt IG % 1.5 % Critically high 0.0-0.5 [facility] Comment on above: Performed By: #### C BC #### [facility] [address] [place] [address] Dr. Isamar Betancourt LYMPH # 3.0 103/ul Normal 1.2-3.8 [facility] Comment on above: Performed By: #### C BC #### [facility] [address] [place] [address] Dr. Isamar Betancourt Lymphocytes/100 WBC (Bld) 33.1 % Normal 20.5-60.0 [facility] Comment on above: Performed By: #### C BC #### [facility] [address] [place] [address] Dr. Isamar Betancourt MANUAL DIFF REQ NO Normal [facility] Comment on above: Performed By: #### C BC #### [facility] [address] [place] [address] Dr. Isamar Betancourt MCH (RBC) [Entitic mass] 29.7 pg Normal 25.9-34.0 [facility] Comment on above: Performed By: #### C BC #### [facility] [address] [place] [address] Dr. Isamar Betancourt MCHC (RBC) [Mass/Vol] 33.7 g/dL Normal 29.9-35.2 [facility] Comment on above: Performed By: #### C BC #### [facility] [address] [place] [address] Dr. Isamar Betancourt MCV (RBC) [Entitic vol] 88.1 fL Normal 80.0-94.0 [facility] Comment on above: Performed By: #### C BC #### [facility] [address] [place] [address] Dr. Isamar Betancourt MONO # 0.9 103/ul Critically high 0.3-0.8 [facility] Comment on above: Performed By: #### C BC #### [facility] [address] [place] [address] Dr. Isamar Betancourt Monocytes/100 WBC (Bld) 9.3 % Normal 1.7-12.0 [facility] Comment on above: Performed By: #### C BC #### [facility] [address] [place] [address] Dr. Isamar Betancourt NEUT # 4.8 103/ul Normal 1.4-6.5 [facility] Comment on above: Performed By: #### C BC #### [facility] [address] [place] [address] Dr. Isamar Betancourt Neutrophils/100 WBC (Bld) 52.5 % Normal 43.0-75.0 [facility] Comment on above: Performed By: #### C BC #### [facility] [address] [place] [address] Dr. Isamar Betancourt Platelet mean volume (Bld) [Entitic vol] 10.3 fL Normal 9.5-13.5 [facility] Comment on above: Performed By: #### C BC #### [facility] [address] [place] [address] Dr. Isamar Betancourt PLT 317 103/ul Normal 150-450 [facility] Comment on above: Performed By: #### C BC #### [facility] [address] [place] [address] Dr. Isamar Betancourt RBC 5.05 106/ul Normal 4.70-6.10 [facility] Comment on above: Performed By: #### C BC #### [facility] [address] [place] [address] Dr. Isamar Betancourt WBC 9.2 103/ul Normal 4.0-11.0 [facility] Comment on above: Performed By: #### C BC #### [facility] [address] [place] [address] Dr. Isamar Betancourt FREE THYROXINE INDEX T7on FTI 2.40 Normal 1.30-4.50 [facility] Comment on above: Performed By: #### V ITAD, PSASC #### [facility] [address] [address] [address] Isamar Betancourt T3U 30.0 % Critically low 33.0-40.0 [facility] Comment on above: Performed By: #### V MYRTLE, PSASC #### [facility] [address] [address] [address] Isamar Betancourt T4 [Mass/Vol] 8.00 ug/dL Normal 4.50-12.10 [facility] Comment on above: Performed By: #### V MYRTLE, PSASC #### [facility] [address] [address] [address] Isamar Betancourt GLYCOHEMOGLOBIN A1Con 2022 ADA RECOMMENDATION SEE BELOW Normal [facility] Comment on above: Result Comment: ADA RECOMMENDED LIMIT 4.0 - 6.0 ADA THERAPEUTIC TARGET < 7.0 ACTION SUGGESTED > 7.0 Performed By: #### A 1C #### [facility] [address] [place] [address] Dr. Isamar Betancourt Glucose [Mass/Vol] 103 mg/dL Normal [facility] Comment on above: Performed By: #### A 1C #### [facility] [address] [address] [address] Isamar Betancourt HbA1c (Bld) [Mass fraction] 5.2 % Normal 4.5-6.2 [facility] Comment on above: Performed By: #### A 1C #### [facility] [address] [address] [address] Isamar Betancourt LIPID PROFILEon 07-22-2022 CHOL-HDL RATIO NORM SEE BELOW Normal [facility] Comment on above: Result Comment: 3.3 - 4.4 LOW RISK 4.4 - 7.1 AVERAGE RISK 7.1 - 11.0 MODERATE RISK >11.0 HIGH RISK Performed By: #### T 7, CMP, LIPID, TSH, URIC #### [facility] [address] [place] [address] Dr. Isamar Betancourt Cholesterol [Mass/Vol] 208 mg/dL Critically high <=200 [facility] Comment on above: Performed By: #### T 7, CMP, LIPID, TSH, URIC #### [facility] [address] [address] [address] Isamar Betancourt Cholesterol in HDL [Mass/Vol] 28 mg/dL Critically low 40-60 [facility] Comment on above: Performed By: #### T 7, CMP, LIPID, TSH, URIC #### [facility] [address] [address] [address] Isamar Betancourt Cholesterol in LDL [Mass/Vol] 153.8 mg/dL Normal [facility] Comment on above: Performed By: #### T 7, CMP, LIPID, TSH, URIC #### [facility] [address] [address] [address] Isamar Betancourt Cholesterol.total/C holesterol in HDL [Mass ratio] 7.4 {ratio} Normal [facility] Comment on above: Performed By: #### T 7, CMP, LIPID, TSH, URIC #### [facility] [address] [address] [address] Isamar Betancourt HDL NORMAL > or = 60 mg/dl - LO W CARDIOVASCULAR RISK <40 mg/dl - HIGH CARDIOVASCULAR RISK Normal [facility] Comment on above: Performed By: #### T 7, CMP, LIPID, TSH, URIC #### [facility] [address] [address] [address] Isamar Betancourt LDL CALC NORMAL SEE BELOW Normal [facility] Comment on above: Result Comment: <100 mg/dl OPTIMAL 100 - 129 mg/dl NEAR OR ABOVE OPTIMAL 130 - 159 mg/dl BORDERLINE HIGH 160 - 189 mg/dl HIGH >190 mg/dl VERY HIGH Performed By: #### T 7, CMP, LIPID, TSH, URIC #### [facility] [address] [address] [address] Isamar Betancourt Triglyceride [Mass/Vol] 131 mg/dL Normal <=150 [facility] Comment on above: Performed By: #### T 7, CMP, LIPID, TSH, URIC #### [facility] [address] [address] [address] Isamar Betancourt VLDL CALC 26.2 mg/dL Normal [facility] Comment on above: Performed By: #### T 7, CMP, LIPID, TSH, URIC #### [facility] [address] [place] [address] Dr. Isamar Betancourt PROF 14(COMP METB)on 023 Albumin [Mass/Vol] 2.8 g/dL Critically low 3.4-5.0 [facility] Comment on above: Performed By: #### T 7, CMP, LIPID, TSH, URIC #### [facility] [address] [place] [address] Dr. Isamra Betancourt Albumin/Globulin [Mass ratio] 0.6 {ratio} Normal [facility] Comment on above: Performed By: #### T 7, CMP, LIPID, TSH, URIC #### [facility] [address] [place] [address] Dr. Isamar Betancourt ALP [Catalytic activity/Vol] 105 U/L Normal 46-116 [facility] Comment on above: Performed By: #### T 7, CMP, LIPID, TSH, URIC #### [facility] [address] [place] [address] Dr. Isamar Betancourt ALT [Catalytic activity/Vol] 23 U/L Normal 16-63 [facility] Comment on above: Performed By: #### T 7, CMP, LIPID, TSH, URIC #### [facility] [address] [place] [address] Dr. Isamar Betancourt Anion gap [Moles/Vol] 9.6 mmol/L Normal [facility] Comment on above: Performed By: #### T 7, CMP, LIPID, TSH, URIC #### [facility] [address] [place] [address] Dr. Isamar Betancourt AST [Catalytic activity/Vol] 15 U/L Normal 15-37 [facility] Comment on above: Performed By: #### T 7, CMP, LIPID, TSH, URIC #### [facility] [address] [place] [address] Dr. Isamar Betancourt Bilirubin [Mass/Vol] 0.5 mg/dL Normal 0.2-1.0 [facility] Comment on above: Performed By: #### T 7, CMP, LIPID, TSH, URIC #### [facility] [address] [address] [address] Isamar Betancourt Calcium [Mass/Vol] 8.9 mg/dL Normal 8.5-10.1 [facility] Comment on above: Performed By: #### T 7, CMP, LIPID, TSH, URIC #### [facility] [address] [address] [address] Isamar Betancourt Chloride [Moles/Vol] 106 mmol/L Normal 98-107 [facility] Comment on above: Performed By: #### T 7, CMP, LIPID, TSH, URIC #### [facility] [address] [address] [address] Isamar Betancourt CO2 [Moles/Vol] 30.7 mmol/L Normal 21.0-32.0 [facility] Comment on above: Performed By: #### T 7, CMP, LIPID, TSH, URIC #### [facility] [address] [address] [address] Isamar Betancourt Creatinine [Mass/Vol] 0.82 mg/dL Normal 0.70-1.30 [facility] Comment on above: Performed By: #### T 7, CMP, LIPID, TSH, URIC #### [facility] [address] [address] [address] Isamar Betancourt EGFR-AF URUGUAYAN >60 Normal >=60 [facility] Comment on above: Performed By: #### T 7, CMP, LIPID, TSH, URIC #### [facility] [address] [address] [address] Isamar Betancourt EGFR-NON AF URUGUAYAN >60 Normal >=60 [facility] Comment on above: Performed By: #### T 7, CMP, LIPID, TSH, URIC #### [facility] [address] [address] [address] Isamar Betancourt Globulin (S) [Mass/Vol] 4.4 g/dL Normal [facility] Comment on above: Performed By: #### T 7, CMP, LIPID, TSH, URIC #### [facility] [address] [address] [address] Isamar Betancourt Glucose [Mass/Vol] 89 mg/dL Normal 74-106 [facility] Comment on above: Performed By: #### T 7, CMP, LIPID, TSH, URIC #### [facility] [address] [place] [address] Dr. Isamar Betancourt Potassium [Moles/Vol] 4.3 mmol/L Normal 3.5-5.1 [facility] Comment on above: Performed By: #### T 7, CMP, LIPID, TSH, URIC #### [facility] [address] [place] [address] Dr. Isamar Betancourt Protein [Mass/Vol] 7.2 g/dL Normal 6.4-8.2 [facility] Comment on above: Performed By: #### T 7, CMP, LIPID, TSH, URIC #### [facility] [address] [place] [address] Dr. Isamar Betancourt Sodium [Moles/Vol] 142 mmol/L Normal 136-145 [facility] Comment on above: Performed By: #### T 7, CMP, LIPID, TSH, URIC #### [facility] [address] [place] [address] Dr. Isamar Betancourt Urea nitrogen [Mass/Vol] 13.0 mg/dL Normal 7.0-18.0 [facility] Comment on above: Performed By: #### T 7, CMP, LIPID, TSH, URIC #### [facility] [address] [place] [address] Dr. Isamar Betancourt Urea nitrogen/Creatinine [Mass ratio] 15.9 mg/mg Normal [facility] Comment on above: Performed By: #### T 7, CMP, LIPID, TSH, URIC #### [facility] [address] [place] [address] Dr. Isamar Betancourt TSHon 07-22-2022 TSH 1.732 uIU/mL Normal 0.358-3.740 [facility] [place] [facility] Comment on above: Performed By: #### T 7, CMP, LIPID, TSH, URIC #### [facility] [address] [place] [address] Dr. Isamar Betancourt URIC ACID SERUMon 07-22-2022 Urate [Mass/Vol] 3.6 mg/dL Normal 3.5-7.2 [facility] Comment on above: Performed By: #### T 7, CMP, LIPID, TSH, URIC #### [facility] [address] [place], [place] [address] Dr. Isamar Betancourt VITAMIN D 25 OHon 07-22-2022 VIT D 25-OH 8.0 ng/mL Normal [facility] Comment on above: Performed By: #### V ITAD, PSASC #### [facility] [address] [place], [place] [address] Dr. Isamar Betancourt VIT D RANGES SEE BELOW Normal [facility] Comment on above: Result Comment: <20 ng/mL Vit D deficient 20 - <30 ng/mL Vit D insufficient 30 - 100 ng/mL Vit D sufficient >100 ng/mL Potential Toxicity Performed By: #### V ITAD, PSASC #### [facility] [address] [address] LUMBAR SP WO CONon 2020 CT LUMBAR SP WO CON STUDY: CT LUMBAR SP WO CON 01/09/2021 12:44 pm INDICATION: NONUNION OF SPINAL FUSION COMPARISON: None. ACCESSION NUMBER(S): [id number] ORDERING CLINICIAN: Hugo Mckeon TECHNIQUE: Axial CT [...] degenerative changes of the lumbar spine. Normal [facility] LUMBAR SPINE 2 OR 3 VIEWSon 12-21-2020 LUMBAR SPINE 2 OR 3 VIEWS STUDY: LUMBAR SPINE 2 OR 3 VIEWS; 12/21/2020 10:38 am INDICATION: STENOSIS OF LATERAL RECESS OF LUMBAR SPINE. COMPARISON: No available comparisons. ACCESSION NUMBER(S): [id number] ORDERING CLINICIAN: Hugo Mckeon TECHNIQUE: 4 views of the lumbar spine. FINDINGS: No acute fracture dislocation. Status post posterior lumbar spine fusion at L5-S1 level with decompression laminectomy. The vertebral alignment is normal. The vertebral body heights and intervertebral disc spaces are maintained. Nonspecific bowel gas pattern. IMPRESSION: Stable postsurgical changes of lumbar spine. Normal [facility] OPERATIVE REPORTon OPERATIVE REPORT NAME: ROWENA PATRICIA MR#: [id number] SURGEON: Hugo Mckeon MD DATE OF SURGERY: [...] There were no complications. HUGO MCKEON MD JFS/[id number] E/S: Hugo Mckeon MD 01/07/[address] [facility] PT NAME: ROWENA PATRICIA MR#: [id number] [address] [place] [address] ACCT: [id number] : 81 OPERATIVE REPORT Normal [facility] CORONAVIRUSon 11-28-2020 SARS-CoV-2 (COVID-19) RNA ONESIMO+probe Ql [...] COVID-19 Negative for COVID-19 (SARS-CoV-2 RNA) Normal [facility] Comment on above: Order Comment: CBN: YES [place]: MAIN COVID Testing: PRE-OP/PROCEDURE SCREEN Comment: 11/30 AGE at Spec EUGENIA 40 Report age at specimen EUGENIA? Y First test: UNKNOWN Employed in Healthcare: NO Symptomatic as defined by CDC: NO Hospitalized for COVID-19? NO ICU: NO Resident in a Congregated Care Setting: NO Order Date: 11/28/20 : Not Performed By: #### M [phone] #### Test performed at: [facility] [address] [address] LUMB SP COMP W FLEX/EXT 6 VW S>on 10-12-2020 LUMB SP COMP W FLEX/EXT 6 VWS> STUDY: LUMB SP COMP W FLEX/EXT 6 VWS>; 10/12/2020 9:48 am INDICATION: LOW BACK PAIN. COMPARISON: None. ACCESSION NUMBER(S): [id number] ORDERING CLINICIAN: Hugo Mckeon TECHNIQUE: Standing AP, [...] posterior spine fusion. No acute abnormalities. Normal [facility] RAD - Ultrasound Reporton RAD - Ultrasound Report [id number]:[id number] Normal [facility] Physician Referralon 020 Physician Referral [id number]:12 [id number] Normal [facility] Ambulatory Clinical Summaryo n 09-22-2019 Ambulatory Clinical Summary {[id number] Normal [facility] CBC With Platelet and Differ entialon 10-09-2017 Basophils Auto #/vol (Bld) 0.1 10*3/uL Normal 0.0-0.2 [facility] Basophils/100 WBC Auto (Bld) 1.0 % Normal [facility] Eosinophils 0.5 10*3/uL Normal 0.0-0.7 [facility] Eosinophils/100 leukocytes 8.5 % Normal [facility] Erythrocyte distribution width Auto Ratio (RBC) 12.5 % Normal 11.5-14.5 [facility] Erythrocytes (RBC) 5.00 10*6/uL Normal 4.70-6.[address] [facility] Hematocrit (HCT) 45.4 % Normal 42.0-52.0 [facility] Hemoglobin mass conc (Bld) 14.5 g/dL Normal 14.0-18.0 [facility] Lymphocytes 1.5 10*3/uL Normal 1.0-4.8 [facility] Lymphocytes/100 leukocytes 28.4 % Normal [facility] MCH 28.9 pg Normal 27.0-31.3 [facility] MCHC mass conc (RBC) 31.8 % Low 33.0-37.0 [facility] MCV 90.8 fL Normal 80.0-100.0 [facility] Monocytes 0.5 10*3/uL Normal 0.2-0.8 [facility] Monocytes/100 leukocytes 8.4 % Normal [facility] Neutrophils 2.9 10*3/uL Normal 1.4-6.5 [facility] Neutrophils/100 leukocytes 53.7 % Normal [facility] Platelets 246 10*3/uL Normal 130-400 [facility] WBC (Leukocytes) 5.4 10*3/uL Normal 4.8-10.8 [facility] Comprehensive Metabolic Pane jesus 10-09-2017 Alanine aminotransferase (ALT) 12 U/L Normal 0-41 [facility] Albumin 4.4 g/dL Normal 3.9-4.9 [facility] Alkaline phosphatase (ALP) 66 U/L Normal 35-104 [facility] Anion gap 12 mmol/L Normal 7-13 [facility] Aspartate aminotransferase (AST) 20 U/L Normal 0-40 [facility] Bilirubin (total) 0.5 mg/dL Normal 0.0-1.2 [facility] Calcium 9.3 mg/dL Normal 8.6-10.2 [facility] Chloride 101 mmol/L Normal 98-107 [facility] CO2 28 mmol/L Normal 22-29 [facility] Creatinine 0.91 mg/dL Normal 0.70-1.20 [facility] eGFR (black) mL/min/{1.73_m2} Normal >60 [facility] Comment on above: Result Comment: >60 mL/min/1.73m2 EGFR, calc. for ages 18 and older using theMDRD formula (not corrected for weight), is valid for stablerenal function. eGFR (MDRD) mL/min/{1.73_m2} Normal >60 [facility] Comment on above: Result Comment: >60 mL/min/1.73m2 EGFR, calc. for ages 18 and older using theMDRD formula (not corrected for weight), is valid for stablerenal function. Globulin 2.9 g/dL Normal 2.3-3.5 [facility] Glucose mass conc 82 mg/dL Normal 74-109 [facility] Potassium molar conc 4.3 mmol/L Normal 3.5-5.1 [facility] Protein 7.3 g/dL Normal 6.4-8.1 [facility] Sodium 141 mmol/L Normal 132-144 [facility] Urea nitrogen 15 mg/dL Normal 6-20 [facility] Lipid Panelon 10-09-2017 Cholesterol 185 mg/dL Normal 0-199 [facility] Comment on above: Result Comment: ATP III Cholesterol classification is Desirable. HDL Cholesterol 47 mg/dL Normal 40-59 [facility] Comment on above: Result Comment: ATP III HDL Cholesterol Classification is Desirable.Expected Values:Males: >55 = No Risk 35-55 = Moderate Risk <35 = High RiskFemales: >65 = No Risk 45-65 = Moderate Risk <45 = High RiskNCEP Guidelines: Third Report August 2000>59 = negative risk factor for CHD<40 = major risk factor for CHD LDL Cholesterol 123 mg/dL Normal 0-129 [facility] Comment on above: Result Comment: ATP III LDL Classification is Near Optimal. Triglyceride 73 mg/dL Normal 0-200 [facility] Comment on above: Result Comment: ATP III Triglycerides Classification is Normal. Basic Metabolic Panel Reflex Mgon 09-16-2017 Anion gap 12 mmol/L Normal 7-13 [facility] Calcium 8.4 mg/dL Low 8.6-10.2 [facility] Chloride 99 mmol/L Normal 98-107 [facility] CO2 23 mmol/L Normal 22-29 [facility] Creatinine 0.64 mg/dL Low 0.70-1.20 [facility] eGFR (black) mL/min/{1.73_m2} Normal >60 [facility] Comment on above: Result Comment: >60 mL/min/1.73m2 EGFR, calc. for ages 18 and older using theMDRD formula (not corrected for weight), is valid for stablerenal function. eGFR (MDRD) mL/min/{1.73_m2} Normal >60 [facility] Comment on above: Result Comment: >60 mL/min/1.73m2 EGFR, calc. for ages 18 and older using theMDRD formula (not corrected for weight), is valid for stablerenal function. Glucose mass conc 115 mg/dL Critically high 74-109 [facility] Potassium molar conc 4.0 mmol/L Normal 3.5-5.1 [facility] Sodium 134 mmol/L Normal 132-144 [facility] Urea nitrogen 7 mg/dL Normal 6-20 [facility] CBC With Platelet and Differ entialon 09-16-2017 Slide Review see below Normal [facility] Comment on above: Result Comment: Slid e review agrees with reported results Basophils Auto #/vol (Bld) 0.1 10*3/uL Normal 0.0-0.2 [facility] Basophils/100 WBC Auto (Bld) 0.5 % Normal [facility] Eosinophils 0.0 10*3/uL Normal 0.0-0.7 [facility] Eosinophils/100 leukocytes 0.1 % Normal [facility] Erythrocyte distribution width Auto Ratio (RBC) 14.2 % Normal 11.5-14.5 [facility] Erythrocytes (RBC) 4.38 10*6/uL Low 4.70-6.10 [facility] Hematocrit (HCT) 39.9 % Low 42.0-52.0 [facility] Hemoglobin mass conc (Bld) 11.0 g/dL Low 14.0-18.0 [facility] Lymphocytes 0.7 10*3/uL Low 1.0-4.8 [facility] Lymphocytes/100 leukocytes 4.6 % Normal [facility] MCH 25.2 pg Low 27.0-31.3 [facility] MCHC mass conc (RBC) 27.6 % Low 33.0-37.0 [facility] MCV 91.2 fL Normal 80.0-100.0 [facility] Monocytes 0.4 10*3/uL Normal 0.2-0.8 [facility] Monocytes/100 leukocytes 3.0 % Normal [facility] Neutrophils 13.1 10*3/uL Critically high 1.4-6.5 [facility] Neutrophils/100 leukocytes 91.8 % Normal [facility] Platelets 313 10*3/uL Normal 130-400 [facility] WBC (Leukocytes) 14.3 10*3/uL Critically high 4.8-10.8 [facility] XR LUMBAR SPINE (2-3 VIEWS)o n 09-16-2017 [...] by:NEELAM Knappigned by:Celestino Izaguirre MD09/16/18Final result Normal [facility] FLUORO FOR SURGICAL PROCEDUR ESon 09-15-2017 FLUORO [...] by:NEELAM Crossigned by:Naveen Moctezuma [id number] result Normal [facility] Basic Metabolic Panelon 06-0 Anion gap 16 mmol/L Critically high 7-13 [facility] Calcium 9.7 mg/dL Normal 8.6-10.2 [facility] Chloride 101 mmol/L Normal 98-107 [facility] CO2 26 mmol/L Normal 22-29 [facility] Creatinine 0.59 mg/dL Low 0.70-1.20 [facility] eGFR (black) mL/min/{1.73_m2} Normal >60 [facility] Comment on above: Result Comment: >60 mL/min/1.73m2 EGFR, calc. for ages 18 and older using theMDRD formula (not corrected for weight), is valid for stablerenal function. eGFR (MDRD) mL/min/{1.73_m2} Normal >60 [facility] Comment on above: Result Comment: >60 mL/min/1.73m2 EGFR, calc. for ages 18 and older using theMDRD formula (not corrected for weight), is valid for stablerenal function. Glucose mass conc 88 mg/dL Normal 74-109 [facility] Potassium molar conc 4.2 mmol/L Normal 3.5-5.1 [facility] Sodium 143 mmol/L Normal 132-144 [facility] Urea nitrogen 9 mg/dL Normal 6-20 [facility] CBC With Platelet No Differe ntialon 09-11-2017 Erythrocyte distribution width Auto Ratio (RBC) 14.5 % Normal 11.5-14.5 [facility] Erythrocytes (RBC) 4.84 10*6/uL Normal 4.70-6.10 [facility] Hematocrit (HCT) 44.1 % Normal 42.0-52.0 [facility] Hemoglobin mass conc (Bld) 15.0 g/dL Normal 14.0-18.0 [facility] MCH 31.1 pg Normal 27.0-31.3 [facility] MCHC mass conc (RBC) 34.1 % Normal 33.0-37.0 [facility] MCV 91.2 fL Normal 80.0-100.0 [facility] Platelets 308 10*3/uL Normal 130-400 [facility] WBC (Leukocytes) 9.4 10*3/uL Normal 4.8-10.8 [facility] Culture, MRSA Screenon 09-11 Culture, MRSA Screen ORDERED BY: RAFAEL HIGGINS: Nares Nose COLLECTED: 09/11/17 17:10ANTIBIOTICS AT EUGENIA.: RECEIVED : 09/11/17 17:10Culture, MRSA Screen FINAL 09/12/17 12:52 No MRSA isolated Normal [facility] Partial Thromboplastin Timeo n 09-11-2017 aPTT 27.1 s Normal 21.6-35.4 [facility] Comment on above: Result Comment: Hepa rin Therapeutic Range: 38.8 - 54.6 seconds. Prothrombin Timeon 8 INR Coag RelTime (PPP) 1.0 {INR} Normal [facility] Comment on above: Result Comment: Shane mmended [...] Coag time (PPP) 10.2 s Normal 9.6-12.3 [facility] Type and Screen Capture 3 sc rn cellon 09-11-2017 Bilirubin (total) PATIENT: MALU MCCORMICK LOC: [facility] BILL# : [id number] : 1980 SEX: MORDERED BY: GISELA PETERSEN ORDERED : 09/11/2017 16:39 COLLECTED: 09/11/2017 17:13ORDER : [id number] RECEIVED : 09/11/2017 17:13 --------TEST NAME RESULT UNITS RANGES ABN FL STABORH Capture B POS FAntibody 3 Cell Scrn Captu NEG F --- Normal [facility] Urinalysis, reflex to cultur [place] 09-11-2017 Bilirubin Ql (U) MODERATE Abnormal Negative [facility] Urine Reflexed to Culture Not Indicated Normal [facility] Urine, clarity Clear Normal Clear [facility] Urine, color Yellow Normal Straw/Oceana [facility] Urine, glucose presence Negative Normal Negative [facility] Urine, hemoglobin presence Negative Normal Negative [facility] Urine, ketones presence Negative Normal Negative [facility] Urine, leukocyte esterase presence Negative Normal Negative [facility] Urine, nitrite presence Negative Normal Negative [facility] Urine, pH 6.5 [pH] Normal 5.0-9.0 [facility] Urine, protein presence Negative Normal Negative [facility] Urine, specific gravity 1.013 Normal 1.005-1.03 [facility] Urine, urobilinogen 1.0 {Tanna'U}/dL Normal < 2.0 [facility] XR SPINE ENTIRE (2-3 VIEWS)o n 09-11-2017 [...] by:NEELAM Knappigned by:Celestino Izaguirre MD//18Final result Normal [facility] MRI LUMBAR SPINE W/O CONTon 02-26-2017 MRI LUMBAR SPINE W/O CONT Final ReportAccession No: [id number] Performed: Feb 26 2017 8:57AMExamination: MRI LUMBAR SPINE W/O [id number] male with low back and bilateral lower [...] Physician: ZA NUNEZ M.D.Trans: : cc: Normal [facility] Vital Signs Date Time Vital Sign Value Performing Clinician Facility 08-16-2021 13:45-0400 Body height 185.42 cm Casper Bellamy Other [facility] Other 08-16-2021 13:45-0400 Body mass index (BMI) [Ratio] 42.48 kg/m2 Casper Bellamy Other [facility] Other 08-16-2021 13:45-0400 Body temperature 98.9 [degF] Casper Bellamy Other [facility] Other 08-16-2021 13:45-0400 Body weight 146.06 kg Casper Bellamy Other [facility] Other 08-16-2021 13:45-0400 Diastolic blood pressure 90 mm[Hg] Casper Bellamy Other [facility] Other 08-16-2021 13:45-0400 Respiratory rate 18 /min Casper Bellamy Other [facility] Other 08-16-2021 13:45-0400 SaO2% (BldA) [Mass fraction] 99 % Casper Bellamy Other [facility] Other 08-16-2021 13:45-0400 Systolic blood pressure 147 mm[Hg] Casper Bellamy Other [facility] Other 07-22-2017 15:00-0400 BMI (Body Mass Index) 47.36 kg/m2 [facility]-2017 15:00-0400 Height 185.4 [facility] 07-22-2017 15:00-0400 Weight 162.84 kg [facility] 03-18-2017 08:20-0500 BMI (Body Mass Index) 47.36 kg/m2 [facility] Work Phone: 03-18-2017 08:20-0500 BP Diastolic 104 mm[Hg] Travon Wright [facility] Work Phone: 03-18-2017 08:20-0500 BP Systolic 151 mm[Hg] [facility]: 03-18-2017 08:20-0500 Height 185.4 cm Travon Wright [facility] Work Phone: 03-18-2017 08:20-0500 Pulse (Heart Rate) 78 /min Travon Wright [employer] Work Phone: 03-18-2017 08:20-0500 Weight 162.84 kg Travon Wright [employer] Work Phone: 02-19-2017 14:24-0500 BMI (Body Mass Index) 43.93 kg/m2 Travon Wright [facility] Work Phone: 02-19-2017 14:24-0500 BP Diastolic 106 mm[Hg] Travon Wright [facility] Work Phone: 02-19-2017 14:24-0500 BP Systolic 148 mm[Hg] Travon Wright [facility] Work Phone: 02-19-2017 14:24-0500 Height 185.4 cm Travon Wright [employer] Work Phone: 02-19-2017 14:24-0500 Pulse (Heart Rate) 101 /min Travon Wright [facility] Work Phone: 02-19-2017 14:24-0500 Weight 151.05 kg Travon Wright [facility] Work Phone: 11-18-2016 14:46-0400 BMI (Body Mass Index) 44.01 kg/m2 Amber Uribe [employer] Work Phone: 11-18-2016 14:46-0400 Body Temperature 98.1 [degF] Amber Uribe [facility] Work Phone: 11-18-2016 14:46-0400 BP Diastolic 86 mm[Hg] [facility] Work Phone: 11-18-2016 14:46-0400 BP Systolic 136 mm[Hg] Amber [facility] Work Phone: 11-18-2016 14:46-0400 Height 185.4 cm [facility] Work Phone: 11-18-2016 14:46-0400 Pulse (Heart Rate) 78 /min [facility] Work Phone: 11-18-2016 14:46-0400 Weight 151.32 kg [facility] Work Phone: Encounters Encounter Date Encounter Type Care Provider Facility Start: 07-28-2022 Encounter for genera l adult medical examination without abnormal findings DR RAFFY NAVARRETE . [facility] Start: 07-24-2022 End: 07-24-[address] RAFFY NAVARRETE . Facility:[facility] Start: 07-22-2022 End: 07-23-[address] RAFFY NAVARRETE . Facility:[facility] Start: 07-22-2022 End: 07-23-2022 Encounter for general adult medical examination without abnormal findings DR RAFFY NAVARRETE . Facility:[facility] Start: 09-23-2021 End: 09-24-[address] RAFFY NAVARRETE . Facility:[facility] Start: 08-16-2021 End: 08-16-2021 ambulatory Casper Bellamy Other [facility] Other Start: 08-16-2021 Office outpatient vi sit 15 minutes Casper Bellamy [facility] Start: 12-17-2017 Patient encounter CECE SCHAFER [facility] Start: 09-15-2017 End: 09-17-2017 Evaluation and management of inpatient RAFFY NAVARRETE [facility] Start: 09-11-2017 End: 09-14-2017 Ambulatory [facility] Start: 09-11-2017 End: 09-16-2017 Ambulatory [facility] Start: 07-22-2017 Office/outpatient visit, est, level 3 Travon Wright Work Phone: [facility] Start: 07-22-2017 End: 07-22-2017 Ambulatory Carly Hong [facility] Start: 03-24-2017 Ambulatory Sonia Young [facility] Start: 03-18-2017 Patient encounter TRAVON WRIGHT [facility] Start: 03-18-2017 Office outpatient vi sit 15 minutes Travon Wright Work Phone: [facility] Start: 02-26-2017 Ambulatory Travon Wright [facility] y:[place] Start: 02-26-2017 End: 02-26-2017 Ambulatory Travon Wright Work Phone: [facility] Start: 02-20-2017 Ambulatory Carly Alexis [facility] Start: 02-19-2017 End: 02-19-2017 Patient encounter AMBER URIBE [facility] Start: 02-19-2017 Office outpatient vi sit 15 minutes Amber Uribe Work Phone: [facility] Start: 11-18-2016 End: 11-18-2016 Office outpatient visit 15 minutes Amber Uribe Work Phone: [facility] Comment on above: DDD (degenerative di sc disease), lumbar (Primary Dx) Procedures Date Procedure Procedure Detail Performing Clinician Start: 07-22-[address] ROMEO NAVARRETE . Comment on above: Performed By: #### V ITAD, PSASC #### [facility] [address] [place] [address] Dr. Isamar Betancourt Start: 09-17-2017 INCENTIVE SPIROMETRY [...] 11-14-2021 Tetanus vaccination TETANUS EVERY 10 YR [facility] Work Phone: Start: 04-02-2017 Ambulatory 04/02/2017 Cli nical Support Orthopedic Surgery Viau, Cece Schafer MD [address] [place] [id number] [facility] Start: 12-12-2016 Influenza vaccination SEQUENTI AL INFLUENZA VACCINE (#1) [facility] Work Phone: Start: 12-12-2016 SEQUENTIAL INFLUENZA VACCINE (#1) SEQUENTIAL INFLUENZA VACCINE (#1) [facility] Work Phone: Start: 1980 TETANUS EVERY 10 YR TETANUS EVERY 10 YR [facility] Work Phone: End: 02-19-2018 MR Lumbar Spine Without Contrast MR Lumbar Spine Without Contrast Routine Acute back pain, unspecified back location, unspecified back pain laterality 1 Occurrences starting 02/19/2017 until 02/19/2018 [facility] Work Phone: Payers Date Payer Category Payer Unknown [id number] [id number] 1980 Unknown [id number] [id number] 1980 Unknown [id number] 1980 Unknown [id number] 1958 Medicaid [id number] 2.1 [id number] 1958 Medicaid [id number] 2. [id number] Medicaid xxxxxxxxxxx 2.1 [id number] Social History Date Type Detail Facility Start: 11-18-2016 End: 07-22-2017 Tobacco smoking status [facility] Current every day smoker [facility] Work Phone: History of tobacco use Cigarette Smoker [facility] Work Phone: Start: 11-18-2016 End: 07-22-2017 Cigarettes smoked current (pack per day) - Reported [facility] Work Phone: History of tobacco use Snuff User [facility] Work Phone: Sex Assigned At Not on file [facility] Work Phone: History of tobacco use Chews Tobacco [facility] Work Phone: Sex Assigned At Sex Assigned At Bir th [facility] Other Evaluation note 08-16-2021 Note Date & Type Note Facility 08-16-2021 Evaluation note Encounter Date Diagnosis Assessment Notes August, Tooth infection (ICD-10 - K04.7) Take tylenol 1000mg every 8 hours for pain. Call the dentist to make an appointment. I considered more ominous diagnoses such as retropharyngeal abscess, API ARCHITECT, Raheem's angina, and Lemierre's syndrome. However, pt [...] an appointment. He agrees with the plan. [facility] Other History general Narrative - Reported Note Date & Type Note Facility History general Narrative - Reported Type Hospitalization History cyst [facility] Other Assessments Diagnosis Pars defect of lumbar [...] DDD (degenerative disc disease), lumbar Amber Uribe, [employer] OPERATOR [address] [place] [id number] Scheduling Instructions Pt would like to see Dr Almodovar in [place] Status Reason Specialty Diagnoses / Procedures Referred By Contact Referred To Contact Authorized Rehabilitation Diagnoses DDD (degenerative disc disease), lumbar Amber Uribe, MG [address] [place] [address] History of Present Illness * Amber Uribe, MG - 11/18/2016 2:53 PM EDT Formatting of this note may be different from the original. Subjective: Rowena Patricia is a 36 y.o. male here for Follow-up ([facility] for [facility]. PT [...] section and content) DATE CREATED AUTHOR 09/29/2017 [facility] DATE CREATED AUTHOR AUTHOR'S ORGANIZ ATION 10/06/2017 [facility] DATE CREATED AUTHOR AUTHOR'S ORGANIZ ATION 10/09/2017 [facility] DATE CREATED AUTHOR AUTHOR'S ORGANIZ ATION 12/26/2017 [facility] DATE CREATED AUTHOR AUTHOR'S ORGANIZ ATION 09/07/2020 [facility] DATE CREATED AUTHOR AUTHOR'S ORGANIZ ATION 05/27/2021 [facility] DATE CREATED AUTHOR AUTHOR'S ORGANIZ ATION 07/28/2022 [facility] Reason for Visit (unrecogniz ed section and content) Reason Comments Follow-up [facility]. [...] BE BASED ON THE PRIMARY CLINICAL RECORDS. [facility] [employer] [facility]. provides no warranty or guarantee of the accuracy or completeness of information in this document.
[2024-02-25 16:47] LABS: Basophils Absolute Auto 0.1 10^3/uL (0.0-0.1); Basophils Percent Auto 0.9 % (0.2-2.0); Eosinophils Absolute Auto 0.3 10^3/uL (0.0-0.7); Eosinophils Percent Auto 2.1 % (0.9-7.0); Hematocrit 45.3 % (42.0-54.0); Immature Granulocytes Pct Auto 1.6 % (0.0-0.5); Lymphocytes Absolute Auto 5.2 10^3/uL (1.2-3.8); Lymphocytes Percent Auto 42.3 % (20.5-60.0); Mean Corpuscular HGB Conc 35.3 g/dL (29.9-35.2); Mean Corpuscular Hemoglobin 31.6 pg (25.9-34.0); Mean Corpuscular Volume 89.3 fL (80.0-94.0); Mean Platelet Volume 10.2 fL (9.5-13.5); Monocytes Percent Auto 8.4 % (1.7-12.0); Neutrophils Absolute Auto 5.5 10^3/uL (1.4-6.5); Neutrophils Percent Auto 44.7 % (43.0-75.0); Platelet Count 340 10^3/uL (150-450); Red Blood Count 5.07 10^6/uL (4.70-6.10); Red Cell Distribution Width 13.7 % (11.0-15.0); White Blood Count 12.4 10^3/uL (4.0-11.0)
[2024-02-25 17:00] LABS: Amphetamine Screen Urine NEGATIVE (NEGATIVE); Barbiturates Screen Urine NEGATIVE (NEGATIVE); Benzodiazepines Screen Urine NEGATIVE (NEGATIVE); Buprenorphine Screen Urine NEGATIVE (NEGATIVE); Cannabinoid Screen Urine POSITIVE (NEGATIVE); Cocaine Screen Urine NEGATIVE (NEGATIVE); Methadone Screen Urine NEGATIVE (NEGATIVE); Methamphetamines Screen Urine NEGATIVE (NEGATIVE); Opiate Screen Urine NEGATIVE (NEGATIVE); Oxycodone Screen Urine NEGATIVE (NEGATIVE); Phencyclidine Screen Urine NEGATIVE (NEGATIVE); Tricyclic Antidepressant Urine POSITIVE (NEGATIVE)
[2024-02-25 17:04] LABS: Alanine Aminotransferase 31 U/L (16-63); Albumin Globulin Ratio 0.7; Albumin Level 3.2 g/dL (3.4-5.0); Alkaline Phosphatase 112 U/L (46-116); Anion Gap 17.1; Aspartate Amino Transferase 24 U/L (15-37); BUN Creatinine Ratio 10.8; Bilirubin Total 0.6 mg/dL (0.2-1.0); Calcium 9.3 mg/dL (8.5-10.1); Carbon Dioxide 22.7 mmol/L (21.0-32.0); Chloride 104 mmol/L (98-107); Estimated GFR (African America >60 (>=60 mL/min/1.73m^2); Estimated GFR (Non-African Ame >60 (>=60 mL/min/1.73m^2); Globulin 4.6 g/dL; Glucose 98 mg/dL (74-106); Potassium 3.8 mmol/L (3.5-5.1); Salicylate <2.8 mg/dL (<=19.9); Sodium 140 mmol/L (136-145); Total Protein 7.8 g/dL (6.4-8.2)
[2024-02-25 17:05] LABS: Acetaminophen <2.0 ug/mL (10.0-30.0)
[2024-02-25 17:06] LABS: Ethanol <3 mg/dL
--- NOTE | 2024-02-25 17:08 | ECG_ITS ---
[facility] Test Date: 2024-02-25 Pat Name: ROWENA TORIBIO Department: Room: - Gender: Male Co Founder And Director: : 1980 Requested By: RAFFY NAVARRETE Order Number: [id number] Reading MD: RAFFY NAVARRETE Measurements Intervals [place] Rate: 83 P: 43 TN: 150 QRS: 38 QRSD: 88 T: 21 QT: 370 QTc: 410 Interpretive Statements 1100 Sinus rhythm Non-Specific T wave inversion in III 8102 Low QRS voltage in chest leads 9130 borderline ECG Compared to ECG 01/10/2019 07:07:02 ST (T wave) deviation now present Low QRS voltage now present Electronically Signed On 02-26-2024 5:03:02 EST by RAFFY NAVARRETE
[2024-02-25] MEDS: LORAZEPAM 0.5 MG TABLET 1 MG PO (19:25)
--- NOTE | 2024-02-25 21:07 | ED_ITS ---
HPI - Psych General Chief Complaint: Psychiatric Symptoms Stated Complaint: SI Time Seen by Provider: 02/25/24 16:22 Source: Reports patient and other Source comment: ems Mode of arrival: ambulance Limitations: Reports no limitations History of Present Illness HPI Narrative: 43-year-old male presented to the emergency department and was initially seen by Dr. Cheng and signed out to me after discussing the case with him thoroughly. Please see his full history and physical exam. Related Data Home Medications ?Medication ?Instructions ?Recorded ?Confirmed cetirizine 10 mg tablet 10 mg PO DAILY 08/05/23 08/05/23 doxycycline monohydrate 100 mg 100 mg PO BID 08/05/23 08/05/23 capsule etodolac 500 mg tablet 500 mg PO TID 08/05/23 08/05/23 lisinopril 40 mg tablet 40 mg PO DAILY 08/05/23 08/05/23 metoprolol tartrate 50 mg tablet 50 mg PO BID 08/05/23 08/05/23 tizanidine 4 mg tablet 8 mg PO BEDTIME 08/05/23 08/05/23 Previous Rx's ?Medication ?Instructions ?Recorded methocarbamol 750 mg tablet 750 mg PO Q6H PRN pain #30 tabs 08/05/23 nabumetone 750 mg tablet 750 mg PO BID PRN pain #14 tabs 08/05/23 Allergies Allergy/AdvReac Type Severity Reaction Status Date / Time No Known Drug Allergies Allergy Verified 02/25/24 16:23 PFSH PFSH Social History Little interest or pleasure in doing things: nearly every day Feeling down, depressed, or hopeless: nearly every day Exam Constitutional Vital Signs, click to edit/add: Last Vital Signs Temp 99.1 F 02/25/24 16:23 Pulse 74 02/25/24 16:23 Resp 20 02/25/24 16:23 BP 158/100 H 02/25/24 16:23 Pulse Ox 95 02/25/24 16:23 O2 Del Method Room Air 02/25/24 16:23 Course Vital Signs Vital signs: Vital Signs Temperature 99.1 F 02/25/24 16:23 Pulse Rate 74 02/25/24 16:23 Respiratory Rate 20 02/25/24 16:23 Blood Pressure 158/100 H 02/25/24 16:23 Pulse Oximetry 95 02/25/24 16:23 Oxygen Delivery Method Room Air 02/25/24 16:23 Temperature 99.1 F 02/25/24 16:23 Pulse Rate 74 02/25/24 16:23 Respiratory Rate 20 02/25/24 16:23 Blood Pressure 158/100 H 02/25/24 16:23 Pulse Oximetry 95 02/25/24 16:23 Oxygen Delivery Method Room Air 02/25/24 16:23 MDM - Psych MDM Narrative Medical decision making narrative: The patient is medically cleared. He has been seen by mental health services and will go home with a safety plan. Differential Diagnosis Differential diagnosis: Likely suicidal ideation, depression and acute anxiety Lab Data Attestation: I reviewed the patient's lab results. Labs: Lab Results 02/25/24 02/25/24 Range/Units 16:30 16:39 WBC 12.4 H (4.0-11.0) 10^3/uL RBC 5.07 (4.70-6.10) 10^6/uL Hgb 16.0 (14.0-18.0) g/dL Hct 45.3 (42.0-54.0) % MCV 89.3 (80.0-94.0) fL MCH 31.6 (25.9-34.0) pg MCHC 35.3 H (29.9-35.2) g/dL RDW 13.7 (11.0-15.0) % Plt Count 340 (150-450) 10^3/uL MPV 10.2 (9.5-13.5) fL Neut % (Auto) 44.7 (43.0-75.0) % Lymph % (Auto) 42.3 (20.5-60.0) % [place] % (Auto) 8.4 (1.7-12.0) % Eos % (Auto) 2.1 (0.9-7.0) % Baso % (Auto) 0.9 (0.2-2.0) % Neut # (Auto) 5.5 (1.4-6.5) 10^3/uL Lymph # (Auto) 5.2 H (1.2-3.8) 10^3/uL [place] # (Auto) 1.0 H (0.3-0.8) 10^3/uL Eos # (Auto) 0.3 (0.0-0.7) 10^3/uL Baso # (Auto) 0.1 (0.0-0.1) 10^3/uL Abs Immat Gran (auto) 0.20 H (0.00-0.03) 10^3/uL Imm/Tot Granulo (auto) 1.6 H (0.0-0.5) % Sodium 140 (136-145) mmol/L Potassium 3.8 (3.5-5.1) mmol/L Chloride 104 (98-107) mmol/L Carbon Dioxide 22.7 (21.0-32.0) mmol/L Anion Gap 17.1 BUN 12.0 (7.0-18.0) mg/dL Creatinine 1.11 (0.70-1.30) mg/dL Est GFR ( Amer) >60 (>=60 mL/min/1.73m^2) Est GFR (Non-Af Amer) >60 (>=60 mL/min/1.73m^2) BUN/Creatinine Ratio 10.8 Glucose 98 (74-106) mg/dL Calcium 9.3 (8.5-10.1) mg/dL Magnesium 2.0 (1.8-2.4) mg/dL Total Bilirubin 0.6 (0.2-1.0) mg/dL AST 24 (15-37) U/L ALT 31 (16-63) U/L Alkaline Phosphatase 112 (46-116) U/L Total Protein 7.8 (6.4-8.2) g/dL Albumin 3.2 L (3.4-5.0) g/dL Globulin 4.6 g/dL Albumin/Globulin Ratio 0.7 Salicylates <2.8 (<=19.9) mg/dL Urine Opiates Screen Negative (NEGATIVE) Ur Buprenorphine Scrn Negative (NEGATIVE) Ur Oxycodone Screen Negative (NEGATIVE) Urine Methadone Screen Negative (NEGATIVE) Acetaminophen <2.0 L (10.0-30.0) ug/mL Ur Barbiturates Screen Negative (NEGATIVE) U Tricyclic Antidepress Positive A (NEGATIVE) Ur Phencyclidine Scrn Negative (NEGATIVE) Ur Amphetamines Screen Negative (NEGATIVE) U Methamphetamines Scrn Negative (NEGATIVE) U Benzodiazepines Scrn Negative (NEGATIVE) Urine Cocaine Screen Negative (NEGATIVE) U Cannabinoids Screen Positive A (NEGATIVE) Ethanol Quant <3 mg/dL Discharge Plan Discharge Chief Complaint: Psychiatric Symptoms Clinical Impression: Depression Patient Disposition: Home, Self-Care Time of Disposition Decision: 21:07 Condition: Good Mode of Transportation: Private Vehicle Prescriptions / Home Meds: No Action lisinopril 40 mg tablet 40 mg PO DAILY etodolac 500 mg tablet 500 mg PO TID metoprolol tartrate 50 mg tablet 50 mg PO BID cetirizine 10 mg tablet 10 mg PO DAILY tizanidine 4 mg tablet 8 mg PO BEDTIME doxycycline monohydrate 100 mg capsule 100 mg PO BID nabumetone 750 mg tablet 750 mg PO BID PRN (Reason: pain) Qty: 14 0RF methocarbamol 750 mg tablet 750 mg PO Q6H PRN (Reason: pain) Qty: 30 0RF Print Language: Peruvian Instructions: Depression (ED) Referrals: Shashi Talley MD [Primary Care Provider] - 1 week
== END 2024-02-25 21:27 | disposition home or self-care (01) ==
PROVIDERS: Emergency Medicine; Emergency Provider Emergency Medicine; PCP Family Medicine
DX: F32.A Depression, unspecified (principal); Z62.810 Personal history of physical and sexual abuse in childhood
CPT/HCPCS: 36415; 80053; 80179; 80307; 80320; 80329; 83735; 85025; 93005; 99285

== ENCOUNTER 2024-08-02 20:52 | Emergency (ER) | payer OTHER, SELFPAY ==
[2024-08-02 21:02] VITALS: BP 127/89; PULSE 78; TEMP 36.7; O2SAT 99; BMI 51.5
--- NOTE | 2024-08-02 21:16 | PC.NURSE ---
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
--- NOTE | 2024-08-02 21:24 | ED_ITS ---
HPI HPI - Extremity Injury (Upper) General Chief Complaint: Extremity Injury, Upper Stated Complaint: Extremity Injury, Upper Time Seen by Provider: 08/02/24 21:19 Source: patient Mode of arrival: walk-in Limitations: no limitations History of Present Illness HPI narrative: right shoulder injury earlier today. states he was mowing the lawn. Was pouring gasoline into the mower when his shoulder popped. Burning pain ever since. No weakness or numbness. has pain with use of the shoulder. Related Data Home Medications ?Medication ?Instructions ?Recorded ?Confirmed cetirizine 10 mg tablet 10 mg PO DAILY 08/05/23 08/02/24 etodolac 500 mg tablet 500 mg PO TID 08/05/23 08/02/24 lisinopril 40 mg tablet 40 mg PO DAILY 08/05/23 08/02/24 metoprolol tartrate 50 mg tablet 50 mg PO BID 08/05/23 08/02/24 omeprazole 40 mg capsule,delayed mg 08/02/24 release quetiapine 50 mg tablet mg 08/02/24 venlafaxine 75 mg capsule,extended mg PO 08/02/24 release 24 hr Allergies Allergy/AdvReac Type Severity Reaction Status Date / Time No Known Drug Allergies Allergy Verified 08/02/24 21:06 Opioid HPI Opioid Management Most Recent Pain and Opioid Data: Last Pain Scale 10 08/05/23 08:30 08/05/23 Ur Phencyclidine Scrn Negative (NEGATIVE) 02/25/24 16:30 02/11 08/04 Review of Systems ROS Status of ROS 10 or more systems reviewed and unremark able except as noted in history and below PFSH PFSH Social History Little interest or pleasure in doing things: nearly every day Feeling down, depressed, or hopeless: nearly every day Exam Constitutional Vital Signs, click to edit/add: Last Vital Signs Temp 98.0 F 08/02/24 21:02 Pulse 78 08/02/24 21:02 Resp 18 08/02/24 21:02 BP 127/89 08/02/24 21:02 Pulse Ox 99 08/02/24 21:02 O2 Del Method Room Air 08/02/24 21:02 Common normals: no apparent distress, oriented x3, no limitations, healthy appearing, alert and well nourished [facility] Common normals: normocephalic and head/scalp atraumatic Eye Common normals: PERRL, EOMs intact bilaterally and conjunctivae normal Respiratory Common normals: normal respiratory effort, no retractions, no use of accessory muscles and clear to auscultation bilaterally Cardio Common normals: regular rate, regular rhythm, S1 normal heart sound and S2 normal heart sound Extremity Other: right clavicle nontender has focal tenderness at the shoulder nathalie. glenoid humeral joint Passive ROM shoulder WNL Neuro Common normals: oriented x3, CN's II-XII intact bilaterally, moves all extremities, no focal motor deficits and no sensory deficits noted Psych Appearance: grossly normal Course Vital Signs Vital signs: Vital Signs Temperature 98.0 F 08/02/24 21:02 Pulse Rate 78 08/02/24 21:02 Respiratory Rate 18 08/02/24 21:02 Blood Pressure 127/89 08/02/24 21:02 Pulse Oximetry 99 08/02/24 21:02 Oxygen Delivery Method Room Air 08/02/24 21:02 Temperature 98.0 F 08/02/24 21:02 Pulse Rate 78 08/02/24 21:02 Respiratory Rate 18 08/02/24 21:02 Blood Pressure 127/89 08/02/24 21:02 Pulse Oximetry 99 08/02/24 21:02 Oxygen Delivery Method Room Air 08/02/24 21:02 MDM - Extremity Injury (Upper) MDM Narrative Medical decision making narrative: patient presents with right shoulder pain. [place] a pop right shoulder while pouring gasoline into the lawnmower. Has focal tenderness right shoulder that is mild. No deformity. xray unremarkable per my preliminary review. patient advised of diagnosis of strain. Shoulder may have subluxed . Patient advised to use NSAIDs for pain and to follow up with the family doctor Discharge Plan Discharge Chief Complaint: Extremity Injury, Upper Clinical Impression: Right shoulder strain Patient Disposition: Home, Self-Care Prescriptions / Home Meds: No Action lisinopril 40 mg tablet 40 mg PO DAILY etodolac 500 mg tablet 500 mg PO TID metoprolol tartrate 50 mg tablet 50 mg PO BID cetirizine 10 mg tablet 10 mg PO DAILY venlafaxine 75 mg capsule,extended release 24hr PO omeprazole 40 mg capsule,delayed release(DR/EC) quetiapine 50 mg tablet Print Language: Icelandic Instructions: Muscle Strain (ED) Additional Instructions: use motrin or similar for pain and followup with Dr Talley this week for recheck Referrals: Shashi Talley MD [Primary Care Provider] - 1 week
[2024-08-02] MEDS: IBUPROFEN 400 MG TABLET 800 MG PO (22:05)
--- NOTE | 2024-08-02 22:08 | PC.NURSE ---
i gave this patient verbal and written discharge orders and this patient voices yes to understanding these. at time of discharge this patient voices no concerns and shows no signs of distress
== END 2024-08-02 22:08 | disposition home or self-care (01) ==
PROVIDERS: Emergency Provider Internal Medicine; PCP Family Medicine
DX: S46.911A Strain of unspecified muscle, fascia and tendon at shoulder and upper arm level, right arm, initial encounter (principal); X58.XXXA Exposure to other specified factors, initial encounter
CPT/HCPCS: 73030; 99283

== ENCOUNTER 2024-12-14 14:54 | Outpatient (OUT) | payer OTHER, SELFPAY ==
[2024-12-14 16:00] LABS: Hematocrit 42.9 % (42.0-54.0); Hemoglobin 14.7 g/dL (14.0-18.0); Mean Corpuscular HGB Conc 34.3 g/dL (29.9-35.2); Mean Corpuscular Hemoglobin 32.3 pg (25.9-34.0); Mean Corpuscular Volume 94.3 fL (80.0-94.0); Platelet Count 308 10^3/uL (150-450); Red Blood Count 4.55 10^6/uL (4.70-6.10); White Blood Count 10.3 10^3/uL (4.0-11.0)
[2024-12-14 16:21] LABS: Alanine Aminotransferase 34 U/L (16-63); Albumin Globulin Ratio 0.7; Albumin Level 3.2 g/dL (3.4-5.0); Alkaline Phosphatase 95 U/L (46-116); Anion Gap 12.5; Aspartate Amino Transferase 18 U/L (15-37); Blood Urea Nitrogen 12.0 mg/dL (7.0-18.0); Calcium 8.8 mg/dL (8.5-10.1); Carbon Dioxide 27.5 mmol/L (21.0-32.0); Chloride 104 mmol/L (98-107); Cholesterol 190 mg/dL (<=200); Estimated GFR (African America >60 (>=60 mL/min/1.73m^2); Estimated GFR (Non-African Ame >60 (>=60 mL/min/1.73m^2); Free T3 2.78 pg/mL (2.18-3.98); Globulin 4.5 g/dL; Glucose 81 mg/dL (74-106); HDL Cholesterol 18 mg/dL (40-60); Potassium 4.0 mmol/L (3.5-5.1); Sodium 140 mmol/L (136-145); Thyroid Stimulating Hormone 0.383 uIU/mL (0.358-3.740); Total Protein 7.7 g/dL (6.4-8.2); Triglycerides 271 mg/dL (<=150); VLDL CHOLESTEROL 54.2 mg/dL
[2024-12-14 17:45] LABS: Atypical Lymphocytes % Manual 2.0 %; Atypical Lymphocytes Abs Man 0.20; Basophils Abs Manual 0.00 10^3/uL (0.00-0.10); Basophils Percent Manual 0.0 % (0.2-2.0); Eosinophils Absolute Manual 0.00 10^3/uL (0.00-0.70); Eosinophils Percent Manual 0.0 % (0.9-7.0); Lymphocytes Absolute Manual 6.79 10^3/uL (1.20-3.80); Lymphocytes Percent Manual 66.0 % (20.5-60.0); Monocytes Absolute Manual 0.72 10^3/uL (0.30-0.80); Monocytes Percent Manual 7.0 % (1.7-12.0); Segmented Neut Absolute Manual 2.57 10^3/uL (1.4-6.5); Segmented Neutrophils % Manual 25.0 (43.0-75.0)
--- OUTSIDE RECORDS SUMMARY | 2024-12-14 19:00 | XMS_ITS | CCD ---
Demographics Address [address] [place] [address] Home Phone Home Phone [phone] Preferred Language en Marital Status Single Sabianist Affiliation Unknown Race Unknown Ethnic Group Not or Lati no Author Organization [facility] Care Team Providers Care Pot Maker Name Role Phone Cece Perera Unavailable ZHOU, DEAN H. Unavailable Unavailable RAFFY NAVARRETE Unavailable Unavailable ZHOU, DEAN H. Unavailable Unavailable RAFFY NAVARRETE Unavailable Unavailable RAFFY NAVARRETE Unavailable Unavailable ZHOU, DEAN H. Unavailable Unavailable ZHOU, DEAN H. Unavailable Unavailable Fanello Travon K Unavailable Unavailable Fanisis Travon K Unavailable Unavailable RHONDA URIBEI JORDANA Unavailable Unavailabl e SAJAN TRAVON YAKOV Unavailable Unavailable JOJORHONDA MCLAUGHLINI JORDANA Unavailable Unavailabl CECE Noonan Unavailable Unavailab TRAVON Cuellar Unavailable Unavailable CECE PERERA Unavailable Unavailab TRAVON [...] Unavailable LANDON ., DR AKBAR Consulting Unavailable Wing Norris Admitting Unavailab Wing Coulter Attending Unavailab R[facility] Unavailable Allergies Allergy Classification Reported Allergen(s) Allergy Type Date of Onset Reaction(s) Facility (10 sources) acetaminophen / HYDROcodone; Translations: [HYDROCODONE-ACET AMINOPHEN] Propensity to adverse reactions to drug 7 GI Intolerance [facility] Work Phone: (1 source) Acetaminophen / HYDROcodone Drug Allergy 5 [facility] Repository (1 source) Acetaminophen Drug Allergy 3 [facility] Repository (1 source) HYDROcodone Drug Allergy 3 [facility] Repository Medications Current Medications Medication [...] Test Name Value Interpretation Reference Range Facility [facility] BLD IMMUNO SCREENon 07-12 OCCULT BLOOD Negative Normal NEGATIVE [facility] Comment on above: Performed By: #### O BSCRN #### [facility] [address] [place] [address] Dr. Isamar Betancourt INSULINon 07-23-2022 Insulin 42.3 uIU/mL Critically high 2.6-24.9 [facility] Comment on above: Performed By: #### I NSULIN #### [facility] [address] [place] [address] Dr. Isamar Betancourt CBC AUTO DIFFon 07-22-2022 BASO # 0.1 103/ul Normal 0.0-0.1 [facility] Comment on above: Performed By: #### C BC #### [facility] [address] [place] [address] Dr. Isamar Betancourt Basophils/100 WBC (Bld) 1.1 % Normal 0.2-2.0 [facility] Comment on above: Performed By: #### C BC #### [facility] [address] [place] [address] Dr. Isamar Betancourt EO # 0.2 103/ul Normal 0.0-0.7 [facility] Comment on above: Performed By: #### C BC #### [facility] [address] [place] [address] Dr. Isamar Betancourt Eosinophils/100 WBC (Bld) 2.5 % Normal 0.9-7.0 [facility] Comment on above: Performed By: #### C BC #### [facility] [address] [place] [address] Dr. Isamar Betancourt Erythrocyte distribution width (RBC) [Ratio] 14.4 % Normal 11.0-15.0 [facility] Comment on above: Performed By: #### C BC #### [facility] [address] [place] [address] Dr. Isamar Betancourt Hematocrit (Bld) [Volume fraction] 44.5 % Normal 42.0-54.0 [facility] Comment on above: Performed By: #### C BC #### [facility] [address] [place] [address] Dr. Isamar Betancourt Hemoglobin (Bld) [Mass/Vol] 15.0 g/dL Normal 14.0-18.0 [facility] Comment on above: Performed By: #### C BC #### [facility] [address] [place] [address] Dr. Isamar Betancourt IG # 0.14 10e3/ul Critically high 0.00-0.03 [facility] Comment on above: Performed By: #### C BC #### [facility] [address] [place] [address] Dr. Isamar Betancourt IG % 1.5 % Critically high 0.0-0.5 [facility] Comment on above: Performed By: #### C BC #### [facility] [address] [place] [address] Dr. Isamar Betancourt LYMPH # 3.0 103/ul Normal 1.2-3.8 [facility] Comment on above: Performed By: #### C BC #### [facility] [address] [place] [address] Dr. Isamar Betancourt Lymphocytes/100 WBC (Bld) 33.1 % Normal 20.5-60.0 [facility] Comment on above: Performed By: #### C BC #### [facility] [address] [place] [address] Dr. Isamar Betancourt MANUAL DIFF REQ NO Normal [facility] Comment on above: Performed By: #### C BC #### [facility] [address] [place] [address] Dr. Isamar Betancourt MCH (RBC) [Entitic mass] 29.7 pg Normal 25.9-34.0 [facility] Comment on above: Performed By: #### C BC #### [facility] [address] [place] [address] Dr. Isamar Betancourt MCHC (RBC) [Mass/Vol] 33.7 g/dL Normal 29.9-35.2 [facility] Comment on above: Performed By: #### C BC #### [facility] [address] [place] [address] Dr. Isamar Betancourt MCV (RBC) [Entitic vol] 88.1 fL Normal 80.0-94.0 [facility] Comment on above: Performed By: #### C BC #### [facility] [address] [address] [address] Isamar Betancourt MONO # 0.9 103/ul Critically high 0.3-0.8 [facility] Comment on above: Performed By: #### C BC #### [facility] [address] [address] [address] Isamar Betancourt Monocytes/100 WBC (Bld) 9.3 % Normal 1.7-12.0 [facility] Comment on above: Performed By: #### C BC #### [facility] [address] [place] [address] Dr. Isamar Betancourt NEUT # 4.8 103/ul Normal 1.4-6.5 [facility] Comment on above: Performed By: #### C BC #### [facility] [address] [place] [address] Dr. Isamar Betancourt Neutrophils/100 WBC (Bld) 52.5 % Normal 43.0-75.0 [facility] Comment on above: Performed By: #### C BC #### [facility] [address] [place] [address] Dr. Isamar Betancourt Platelet mean volume (Bld) [Entitic vol] 10.3 fL Normal 9.5-13.5 [facility] Comment on above: Performed By: #### C BC #### [facility] [address] [place] [address] Dr. Isamar Betancourt PLT 317 103/ul Normal 150-450 [facility] Comment on above: Performed By: #### C BC #### [facility] [address] [place] [address] Dr. Isamar Betancourt RBC 5.05 106/ul Normal 4.70-6.10 [facility] Comment on above: Performed By: #### C BC #### [facility] [address] [place] [address] Dr. Isamar Betancourt WBC 9.2 103/ul Normal 4.0-11.0 [facility] Comment on above: Performed By: #### C BC #### [facility] [address] [address] [address] Isamar Betancourt FREE THYROXINE INDEX T7on FTI 2.40 Normal 1.30-4.50 [facility] Comment on above: Performed By: #### V ITAD, PSASC #### [facility] [address] [place] [address] Dr. Isamar Betancourt T3U 30.0 % Critically low 33.0-40.0 [facility] Comment on above: Performed By: #### V ITAD, PSASC #### [facility] [address] [place] [address] Dr. Isamar Betancourt T4 [Mass/Vol] 8.00 ug/dL Normal 4.50-12.10 [facility] Comment on above: Performed By: #### V ITDEVAN, PSASC #### [facility] [address] [place] [address] Dr. Isamar Betancourt GLYCOHEMOGLOBIN A1Con 2022 ADA RECOMMENDATION SEE BELOW Normal [facility] Comment on above: Result Comment: ADA RECOMMENDED LIMIT 4.0 - 6.0 ADA THERAPEUTIC TARGET < 7.0 ACTION SUGGESTED > 7.0 Performed By: #### A 1C #### [facility] [address] [place] [address] Dr. Isamar Betancourt Glucose [Mass/Vol] 103 mg/dL Normal [facility] Comment on above: Performed By: #### A 1C #### [facility] [address] [place] [address] Dr. Isamar Betancourt HbA1c (Bld) [Mass fraction] 5.2 % Normal 4.5-6.2 [facility] Comment on above: Performed By: #### A 1C #### [facility] [address] [place] [address] Dr. Isamar Betancourt LIPID PROFILEon 07-22-2022 CHOL-HDL RATIO NORM SEE BELOW Normal [facility] Comment on above: Result Comment: 3.3 - 4.4 LOW RISK 4.4 - 7.1 AVERAGE RISK 7.1 - 11.0 MODERATE RISK >11.0 HIGH RISK Performed By: #### T 7, CMP, LIPID, TSH, URIC #### [facility] [address] [address] [address] Isamar Betancourt Cholesterol [Mass/Vol] 208 mg/dL Critically high <=200 [facility] Comment on above: Performed By: #### T 7, CMP, LIPID, TSH, URIC #### [facility] [address] [address] [address] Isamar Betancourt Cholesterol in HDL [Mass/Vol] 28 mg/dL Critically low 40-60 [facility] Comment on above: Performed By: #### T 7, CMP, LIPID, TSH, URIC #### [facility] [address] [address] [address] Isamar Betancourt Cholesterol in LDL [Mass/Vol] 153.8 mg/dL Normal [facility] Comment on above: Performed By: #### T 7, CMP, LIPID, TSH, URIC #### [facility] [address] [address] [address] Isamar Betancourt Cholesterol.total/C holesterol in HDL [Mass ratio] 7.4 {ratio} Normal [facility] Comment on above: Performed By: #### T 7, CMP, LIPID, TSH, URIC #### [facility] [address] [address] [address] Isamar Betancourt HDL NORMAL > or = 60 mg/dl - LO W CARDIOVASCULAR RISK <40 mg/dl - HIGH CARDIOVASCULAR RISK Normal [facility] Comment on above: Performed By: #### T 7, CMP, LIPID, TSH, URIC #### [facility] [address] [address] [address] Isamar Betancourt LDL CALC NORMAL SEE BELOW Normal [facility] Comment on above: Result Comment: <100 mg/dl OPTIMAL 100 - 129 mg/dl NEAR OR ABOVE OPTIMAL 130 - 159 mg/dl BORDERLINE HIGH 160 - 189 mg/dl HIGH >190 mg/dl VERY HIGH Performed By: #### T 7, CMP, LIPID, TSH, URIC #### [facility] [address] [address] [address] Isamar Betancourt Triglyceride [Mass/Vol] 131 mg/dL Normal <=150 [facility] Comment on above: Performed By: #### T 7, CMP, LIPID, TSH, URIC #### [facility] [address] [address] [address] Isamar Betancourt VLDL CALC 26.2 mg/dL Normal [facility] Comment on above: Performed By: #### T 7, CMP, LIPID, TSH, URIC #### [facility] [address] [address] [address] Isamar Betancourt PROF 14(COMP METB)on 023 Albumin [Mass/Vol] 2.8 g/dL Critically low 3.4-5.0 [facility] Comment on above: Performed By: #### T 7, CMP, LIPID, TSH, URIC #### [facility] [address] [place] [address] Dr. Isamar Betancourt Albumin/Globulin [Mass ratio] 0.6 {ratio} Normal [facility] Comment on above: Performed By: #### T 7, CMP, LIPID, TSH, URIC #### [facility] [address] [place] [address] Dr. Isamar Betancourt ALP [Catalytic activity/Vol] 105 U/L Normal 46-116 [facility] Comment on above: Performed By: #### T 7, CMP, LIPID, TSH, URIC #### [facility] [address] [place] [address] Dr. Isamar Betancourt ALT [Catalytic activity/Vol] 23 U/L Normal 16-63 [facility] Comment on above: Performed By: #### T 7, CMP, LIPID, TSH, URIC #### [facility] [address] [place] [address] Dr. Ismaar Betancourt Anion gap [Moles/Vol] 9.6 mmol/L Normal [facility] Comment on above: Performed By: #### T 7, CMP, LIPID, TSH, URIC #### [facility] [address] [place] [address] Dr. Isamar Betancourt AST [Catalytic activity/Vol] 15 U/L Normal 15-37 [facility] Comment on above: Performed By: #### T 7, CMP, LIPID, TSH, URIC #### [facility] [address] [address] [address] Isamar Betancourt Bilirubin [Mass/Vol] 0.5 mg/dL Normal 0.2-1.0 [facility] Comment on above: Performed By: #### T 7, CMP, LIPID, TSH, URIC #### [facility] [address] [place] [address] Dr. Isamar Betancourt Calcium [Mass/Vol] 8.9 mg/dL Normal 8.5-10.1 [facility] Comment on above: Performed By: #### T 7, CMP, LIPID, TSH, URIC #### [facility] [address] [place] [address] Dr. Isamar Betancourt Chloride [Moles/Vol] 106 mmol/L Normal 98-107 [facility] Comment on above: Performed By: #### T 7, CMP, LIPID, TSH, URIC #### [facility] [address] [place] [address] Dr. Isamar Betancourt CO2 [Moles/Vol] 30.7 mmol/L Normal 21.0-32.0 [facility] Comment on above: Performed By: #### T 7, CMP, LIPID, TSH, URIC #### [facility] [address] [place] [address] Dr. Isamar Betancourt Creatinine [Mass/Vol] 0.82 mg/dL Normal 0.70-1.30 [facility] Comment on above: Performed By: #### T 7, CMP, LIPID, TSH, URIC #### [facility] [address] [place] [address] Dr. Isamar Betancourt EGFR-AF SAO TOMEAN >60 Normal >=60 [facility] Comment on above: Performed By: #### T 7, CMP, LIPID, TSH, URIC #### [facility] [address] [place] [address] Dr. Isamar Betancourt EGFR-NON AF SAO TOMEAN >60 Normal >=60 [facility] Comment on above: Performed By: #### T 7, CMP, LIPID, TSH, URIC #### [facility] [address] [place] [address] Dr. Isamar Betancourt Globulin (S) [Mass/Vol] 4.4 g/dL Normal [facility] Comment on above: Performed By: #### T 7, CMP, LIPID, TSH, URIC #### [facility] [address] [address] [address] Isamar Betancourt Glucose [Mass/Vol] 89 mg/dL Normal 74-106 [facility] Comment on above: Performed By: #### T 7, CMP, LIPID, TSH, URIC #### [facility] [address] [address] [address] Isamar Betancourt Potassium [Moles/Vol] 4.3 mmol/L Normal 3.5-5.1 [facility] Comment on above: Performed By: #### T 7, CMP, LIPID, TSH, URIC #### [facility] [address] [place] [address] Dr. Isamar Betancourt Protein [Mass/Vol] 7.2 g/dL Normal 6.4-8.2 [facility] Comment on above: Performed By: #### T 7, CMP, LIPID, TSH, URIC #### [facility] [address] [place] [address] Dr. Isamar Betancourt Sodium [Moles/Vol] 142 mmol/L Normal 136-145 [facility] Comment on above: Performed By: #### T 7, CMP, LIPID, TSH, URIC #### [facility] [address] [place] [address] Dr. Isamar Betancourt Urea nitrogen [Mass/Vol] 13.0 mg/dL Normal 7.0-18.0 [facility] Comment on above: Performed By: #### T 7, CMP, LIPID, TSH, URIC #### [facility] [address] [address] [address] Isamar Betancourt Urea nitrogen/Creatinine [Mass ratio] 15.9 mg/mg Normal [facility] Comment on above: Performed By: #### T 7, CMP, LIPID, TSH, URIC #### [facility] [address] [place] [address] Dr. Isamar Betancourt TSHon 07-22-2022 TSH 1.732 uIU/mL Normal 0.358-3.[address] [facility] Comment on above: Performed By: #### T 7, CMP, LIPID, TSH, URIC #### [facility] [address] [place] [address] Dr. Isamar Betancourt URIC ACID SERUMon 07-22-2022 Urate [Mass/Vol] 3.6 mg/dL Normal 3.5-7.2 [facility] Comment on above: Performed By: #### T 7, CMP, LIPID, TSH, URIC #### [facility] [address] [address] [address] Isamar Betancourt VITAMIN D 25 OHon 07-22-2022 VIT D 25-OH 8.0 ng/mL Normal [facility] Comment on above: Performed By: #### V ITAD, PSASC #### [facility] [address] [place] [address] Dr. Isamar Betancourt VIT D RANGES SEE BELOW Normal [facility] Comment on above: Result Comment: <20 ng/mL Vit D deficient 20 - <30 ng/mL Vit D insufficient 30 - 100 ng/mL Vit D sufficient >100 ng/mL Potential Toxicity Performed By: #### V ITAD, PSASC #### [facility] [address] [place] [address] LUMBAR SP WO CONon 2020 CT LUMBAR SP WO CON STUDY: CT LUMBAR SP WO CON 01/09/2021 12:44 pm INDICATION: NONUNION OF SPINAL FUSION COMPARISON: None. ACCESSION NUMBER(S): [id number] ORDERING CLINICIAN: Hugo Mckeon TECHNIQUE: Axial CT [...] degenerative changes of the lumbar spine. Normal [facility] LUMBAR SPINE 2 OR 3 VIEWSon 12-21-2020 LUMBAR SPINE 2 OR 3 VIEWS STUDY: LUMBAR SPINE 2 OR 3 VIEWS; 12/21/2020 10:38 am INDICATION: STENOSIS OF LATERAL RECESS OF LUMBAR SPINE. COMPARISON: No available comparisons. ACCESSION NUMBER(S): [id number] ORDERING CLINICIAN: Hugo Mckeon TECHNIQUE: 4 views of the lumbar spine. FINDINGS: No acute fracture dislocation. Status post posterior lumbar spine fusion at L5-S1 level with decompression laminectomy. The vertebral alignment is normal. The vertebral body heights and intervertebral disc spaces are maintained. Nonspecific bowel gas pattern. IMPRESSION: Stable postsurgical changes of lumbar spine. Normal [facility] OPERATIVE REPORTon OPERATIVE REPORT NAME: ROWENA PATRICIA MR#: [id number] SURGEON: Hugo Mckeon MD DATE OF SURGERY: [...] There were no complications. HUGO MCKEON MD JFMunir/[id number] E/S: Hugo Mckeon MD 01/07/21 0936 Electronically Signed [facility] PT NAME: ROWENA PATRICIA MR#: [id number] [address] [place] [address] ACCT: [id number] : 82 OPERATIVE REPORT Normal [facility] CORONAVIRUSon 11-28-2020 SARS-CoV-2 (COVID-19) RNA ONESIMO+probe [...] COVID-19 Negative for COVID-19 (SARS-CoV-2 RNA) Normal [facility] Comment on above: Order Comment: CBN: YES [place]: MAIN COVID Testing: PRE-OP/PROCEDURE SCREEN Comment: 8/20 AGE at Spec EUGENIA 40 Report age at specimen EUGENIA? Y First test: UNKNOWN Employed in Healthcare: NO Symptomatic as defined by CDC: NO Hospitalized for COVID-19? NO ICU: NO Resident in a Congregated Care Setting: NO Order Date: 11/28/20 : Not Performed By: #### M [id number] #### Test performed at: [place] [address] LUMB SP COMP W FLEX/EXT 6 VW S>on 10-12-2020 LUMB SP COMP W FLEX/EXT 6 VWS> STUDY: LUMB SP COMP W FLEX/EXT 6 VWS>; 10/12/2020 9:48 am INDICATION: LOW BACK PAIN. COMPARISON: None. ACCESSION NUMBER(S): [id number] ORDERING CLINICIAN: Hugo Mckeon TECHNIQUE: Standing AP, [...] posterior spine fusion. No acute abnormalities. Normal [facility] RAD - Ultrasound Reporton RAD - Ultrasound Report [id number]:127 Normal [facility] Physician Referralon 020 Physician Referral [id number]:12 7 Normal [facility] Ambulatory Clinical Summaryo n 09-22-2019 Ambulatory Clinical Summary {[id number] Normal [facility] CBC With Platelet and Differ entialon 10-09-2017 Basophils Auto #/vol (Bld) 0.1 10*3/uL Normal 0.0-0.2 [facility] Basophils/100 WBC Auto (Bld) 1.0 % Normal [facility] Eosinophils 0.5 10*3/uL Normal 0.0-0.7 [facility] Eosinophils/100 leukocytes 8.5 % Normal [facility] Erythrocyte distribution width Auto Ratio (RBC) 12.5 % Normal 11.5-14.5 [facility] Erythrocytes (RBC) 5.00 10*6/uL Normal 4.70-6.10 [facility] Hematocrit (HCT) 45.4 % Normal 42.0-52.0 [facility] Hemoglobin mass conc (Bld) 14.5 g/dL Normal 14.0-18.0 [facility] Lymphocytes 1.5 10*3/uL Normal 1.0-4.8 [facility] Lymphocytes/100 leukocytes 28.4 % Normal [facility] MCH 28.9 pg Normal 27.0-31.3 [facility] MCHC mass conc (RBC) 31.8 % Low 33.0-37.0 [facility] MCV 90.8 fL Normal 80.0-100.0 [facility] Monocytes 0.5 10*3/uL Normal 0.2-0.8 [facility] Monocytes/100 leukocytes 8.4 % Normal [facility] Neutrophils 2.9 10*3/uL Normal 1.4-6.5 [facility] Neutrophils/100 leukocytes 53.7 % Normal [facility] Platelets 246 10*3/uL Normal 130-400 [facility] WBC (Leukocytes) 5.4 10*3/uL Normal 4.8-10.8 [facility] Comprehensive Metabolic Pane jesus 10-09-2017 Alanine aminotransferase (ALT) 12 U/L Normal 0-41 [facility] Albumin 4.4 g/dL Normal 3.9-4.9 [facility] Alkaline phosphatase (ALP) 66 U/L Normal 35-104 [facility] Anion gap 12 mmol/L Normal 7-13 [facility] Aspartate aminotransferase (AST) 20 U/L Normal 0-40 [facility] Bilirubin (total) 0.5 mg/dL Normal 0.0-1.2 [facility] Calcium 9.3 mg/dL Normal 8.6-10.2 [facility] Chloride 101 mmol/L Normal 98-107 [facility] CO2 28 mmol/L Normal 22-29 [facility] Creatinine 0.91 mg/dL Normal 0.70-1.20 [facility] eGFR (black) mL/min/{1.73_m2} Normal >60 [facility] Comment on above: Result Comment: >60 mL/min/1.73m2 EGFR, calc. for ages 18 and older using theMDRD formula (not corrected for weight), is valid for stablerenal function. eGFR (MDRD) mL/min/{1.73_m2} Normal >60 [facility] Comment on above: Result Comment: >60 mL/min/1.73m2 EGFR, calc. for ages 18 and older using theMDRD formula (not corrected for weight), is valid for stablerenal function. Globulin 2.9 g/dL Normal 2.3-3.5 [facility] Glucose mass conc 82 mg/dL Normal 74-109 [facility] Potassium molar conc 4.3 mmol/L Normal 3.5-5.1 [facility] Protein 7.3 g/dL Normal 6.4-8.1 [facility] Sodium 141 mmol/L Normal 132-144 [facility] Urea nitrogen 15 mg/dL Normal 6-20 [facility] Lipid Panelon 10-09-2017 Cholesterol 185 mg/dL Normal 0-199 [facility] Comment on above: Result Comment: ATP III Cholesterol classification is Desirable. HDL Cholesterol 47 mg/dL Normal 40-59 [facility] Comment on above: Result Comment: ATP III HDL Cholesterol Classification is Desirable.Expected Values:Males: >55 = No Risk 35-55 = Moderate Risk <35 = High RiskFemales: >65 = No Risk 45-65 = Moderate Risk <45 = High RiskNCEP Guidelines: Third Report August 2000>59 = negative risk factor for CHD<40 = major risk factor for CHD LDL Cholesterol 123 mg/dL Normal 0-129 [facility] Comment on above: Result Comment: ATP III LDL Classification is Near Optimal. Triglyceride 73 mg/dL Normal 0-200 [facility] Comment on above: Result Comment: ATP III Triglycerides Classification is Normal. Basic Metabolic Panel Reflex Mgon 09-16-2017 Anion gap 12 mmol/L Normal 7-13 [facility] Calcium 8.4 mg/dL Low 8.6-10.2 [facility] Chloride 99 mmol/L Normal 98-107 [facility] CO2 23 mmol/L Normal 22-29 [facility] Creatinine 0.64 mg/dL Low 0.70-1.20 [facility] eGFR (black) mL/min/{1.73_m2} Normal >60 [facility] Comment on above: Result Comment: >60 mL/min/1.73m2 EGFR, calc. for ages 18 and older using theMDRD formula (not corrected for weight), is valid for stablerenal function. eGFR (MDRD) mL/min/{1.73_m2} Normal >60 [facility] Comment on above: Result Comment: >60 mL/min/1.73m2 EGFR, calc. for ages 18 and older using theMDRD formula (not corrected for weight), is valid for stablerenal function. Glucose mass conc 115 mg/dL Critically high 74-109 [facility] Potassium molar conc 4.0 mmol/L Normal 3.5-5.1 [facility] Sodium 134 mmol/L Normal 132-144 [facility] Urea nitrogen 7 mg/dL Normal 6-20 [facility] CBC With Platelet and Differ entialon 09-16-2017 Slide Review see below Normal [facility] Comment on above: Result Comment: Slid e review agrees with reported results Basophils Auto #/vol (Bld) 0.1 10*3/uL Normal 0.0-0.2 [facility] Basophils/100 WBC Auto (Bld) 0.5 % Normal [facility] Eosinophils 0.0 10*3/uL Normal 0.0-0.7 [facility] Eosinophils/100 leukocytes 0.1 % Normal [facility] Erythrocyte distribution width Auto Ratio (RBC) 14.2 % Normal 11.5-14.5 [facility] Erythrocytes (RBC) 4.38 10*6/uL Low 4.70-6.10 [facility] Hematocrit (HCT) 39.9 % Low 42.0-52.0 [facility] Hemoglobin mass conc (Bld) 11.0 g/dL Low 14.0-18.0 [facility] Lymphocytes 0.7 10*3/uL Low 1.0-4.8 [facility] Lymphocytes/100 leukocytes 4.6 % Normal [facility] MCH 25.2 pg Low 27.0-31.3 [facility] MCHC mass conc (RBC) 27.6 % Low 33.0-37.0 [facility] MCV 91.2 fL Normal 80.0-100.0 [facility] Monocytes 0.4 10*3/uL Normal 0.2-0.8 [facility] Monocytes/100 leukocytes 3.0 % Normal [facility] Neutrophils 13.1 10*3/uL Critically high 1.4-6.5 [facility] Neutrophils/100 leukocytes 91.8 % Normal [facility] Platelets 313 10*3/uL Normal 130-400 [facility] WBC (Leukocytes) 14.3 10*3/uL Critically high 4.8-10.8 [facility] XR LUMBAR SPINE (2-3 VIEWS)o n 09-16-2017 [...] L5-S1 FUSION.SPONDYLOSIS.Interp reted by:NEELAM Knappigned by:Celestino Izaguirre MD09/16/17inal result Normal [facility] FLUORO FOR SURGICAL PROCEDUR ESon 09-15-2017 [...] FUSION AT L4-5Interpreted by:NEELAM Crossigned by:Naveen Moctezuma MD//18Final result Normal [facility] Basic Metabolic Panelon 06- Anion gap 16 mmol/L Critically high 7-13 [facility] Calcium 9.7 mg/dL Normal 8.6-10.2 [facility] Chloride 101 mmol/L Normal 98-107 [facility] CO2 26 mmol/L Normal 22-29 [facility] Creatinine 0.59 mg/dL Low 0.70-1.20 [facility] eGFR (black) mL/min/{1.73_m2} Normal >60 [facility] Comment on above: Result Comment: >60 mL/min/1.73m2 EGFR, calc. for ages 18 and older using theMDRD formula (not corrected for weight), is valid for stablerenal function. eGFR (MDRD) mL/min/{1.73_m2} Normal >60 [facility] Comment on above: Result Comment: >60 mL/min/1.73m2 EGFR, calc. for ages 18 and older using theMDRD formula (not corrected for weight), is valid for stablerenal function. Glucose mass conc 88 mg/dL Normal 74-109 [facility] Potassium molar conc 4.2 mmol/L Normal 3.5-5.1 [facility] Sodium 143 mmol/L Normal 132-144 [facility] Urea nitrogen 9 mg/dL Normal 6-20 [facility] CBC With Platelet No Differe ntialon 09-11-2017 Erythrocyte distribution width Auto Ratio (RBC) 14.5 % Normal 11.5-14.5 [facility] Erythrocytes (RBC) 4.84 10*6/uL Normal 4.70-6.10 [facility] Hematocrit (HCT) 44.1 % Normal 42.0-52.0 [facility] Hemoglobin mass conc (Bld) 15.0 g/dL Normal 14.0-18.0 [facility] MCH 31.1 pg Normal 27.0-31.3 [facility] MCHC mass conc (RBC) 34.1 % Normal 33.0-37.0 [facility] MCV 91.2 fL Normal 80.0-100.0 [facility] Platelets 308 10*3/uL Normal 130-400 [facility] WBC (Leukocytes) 9.4 10*3/uL Normal 4.8-10.8 [facility] Culture, MRSA Screenon 09-11 Culture, MRSA Screen ORDERED BY: RAFAEL HIGGINS: Nares Nose COLLECTED: 09/11/17 17:10ANTIBIOTICS AT EUGENIA.: RECEIVED : 09/11/17 17:10Culture, MRSA Screen FINAL 09/12/17 12:52 No MRSA isolated Normal [facility] Partial Thromboplastin Timeo n 09-11-2017 aPTT 27.1 s Normal 21.6-35.4 [facility] Comment on above: Result Comment: Hepa rin Therapeutic Range: 38.8 - 54.6 seconds. Prothrombin Timeon 8 INR Coag RelTime (PPP) 1.0 {INR} Normal [facility] Comment on above: Result Comment: Shane [...] Coag time (PPP) 10.2 s Normal 9.6-12.3 [facility] Type and Screen Capture 3 sc rn cellon 09-11-2017 Bilirubin (total) PATIENT: MALU MCCORMICK LOC: [facility] BILL# : [id number] : 1980 SEX: MORDERED BY: GISELA PETERSEN ORDERED : 09/11/2017 16:39 COLLECTED: 09/11/2017 17:13ORDER : [id number] RECEIVED : 09/11/2017 17:13 --------TEST NAME RESULT UNITS RANGES ABN FL STABORH Capture B POS FAntibody 3 Cell Scrn Captu NEG F --- Normal [facility] Urinalysis, reflex to cultur alma 09-11-2017 Bilirubin Ql (U) MODERATE Abnormal Negative [facility] Urine Reflexed to Culture Not Indicated Normal [facility] Urine, clarity Clear Normal Clear [facility] Urine, color Yellow Normal Straw/[place] [facility] Urine, glucose presence Negative Normal Negative [facility] Urine, hemoglobin presence Negative Normal Negative [facility] Urine, ketones presence Negative Normal Negative [facility] Urine, leukocyte esterase presence Negative Normal Negative [facility] Urine, nitrite presence Negative Normal Negative [facility] Urine, pH 6.5 [pH] Normal 5.0-9.0 [facility] Urine, protein presence Negative Normal Negative [facility] Urine, specific gravity 1.013 Normal 1.005-1.03 [facility] Urine, urobilinogen 1.0 {Tanna'U}/dL Normal < 2.0 [facility] XR SPINE ENTIRE (2-3 VIEWS)o n [...] are noted.IMPRESSION: SPONDYLOSIS.Interpreted by:NEELAM Knappigned by:Celestino Izaguirre MD09/14/18Final result Normal [facility] MRI LUMBAR SPINE W/O CONTon 02-26-2017 MRI LUMBAR SPINE W/O CONT Final ReportAccession No: [id number] Performed: Feb 26 2017 8:57AMExamination: MRI LUMBAR SPINE W/O [id number] male with low back and bilateral lower [...] Physician: ZA NUNEZ M.D.Trans: : cc: Normal [facility] Vital Signs Date Time Vital Sign Value Performing Clinician Facility 08-16-2021 13:45-0400 Body height 185.42 cm Casper Bellamy Other [facility] Other 08-16-2021 13:45-0400 Body mass index (BMI) [Ratio] 42.48 kg/m2 Casper Bellamy Other [facility] Other 08-16-2021 13:45-0400 Body temperature 98.9 [degF] Casper Bellamy Other [facility] Other 08-16-2021 13:45-0400 Body weight 146.06 kg Casper Bellamy Other [facility] Other 08-16-2021 13:45-0400 Diastolic blood pressure 90 mm[Hg] Casper Bellamy Other [facility] Other 08-16-2021 13:45-0400 Respiratory rate 18 /min Casper Bellamy Other [facility] Other 08-16-2021 13:45-0400 SaO2% (BldA) [Mass fraction] 99 % Casper Bellamy Other [facility] Other 08-16-2021 13:45-0400 Systolic blood pressure 147 mm[Hg] Casper Bellamy Other [facility] Other 07-22-2017 15:00-0400 BMI (Body Mass Index) 47.36 kg/m2 Travon Wright [facility] 07-22-2017 15:00-0400 Height 185.4 cm Travon Wright [facility] 07-22-2017 15:00-0400 [facility] 08:20-0500 BMI (Body Mass Index) 47.36 kg/m2 Travon Wright [facility] Work Phone: 03-18-2017 08:20-0500 BP Diastolic 104 mm[Hg] Travon Wright [facility] Work Phone: 03-18-2017 08:20-0500 BP Systolic 151 mm[Hg] Travon Wright [facility] Work Phone: 03-18-2017 08:20-0500 Height 185.4 cm Travon Wright [facility] Work Phone: 03-18-2017 08:20-0500 Pulse (Heart Rate) 78 /min Travon Wright [facility] Work Phone: 03-18-2017 08:20-0500 Weight 162.84 kg Travon Wright [facility] Work Phone: 02-19-2017 14:24-0500 BMI (Body Mass Index) 43.93 kg/m2 Travon Wright [facility] Work Phone: 02-19-2017 14:24-0500 BP Diastolic 106 mm[Hg] Travon Wright [facility] Work Phone: 02-19-2017 14:24-0500 BP Systolic 148 mm[Hg] Travon Wright [facility] Work Phone: 02-19-2017 14:24-0500 Height 185.4 cm Travon Wright [facility] Work Phone: 02-19-2017 14:24-0500 Pulse (Heart Rate) 101 /min Travon Wright [facility] Work Phone: 02-19-2017 14:24-0500 Weight 151.05 kg Travon Wright [facility] Work Phone: 11-18-2016 14:46-0400 BMI (Body Mass Index) 44.01 kg/m2 Amber Jojo [facility] Work Phone: 11-18-2016 14:46-0400 Body Temperature 98.1 [degF] Amber Jojo [facility] Work Phone: 11-18-2016 14:46-0400 BP Diastolic 86 mm[Hg] Amber Jojo [facility] Work Phone: 11-18-2016 14:46-0400 BP Systolic 136 mm[Hg] Amber Jojo [facility] Work Phone: 11-18-2016 14:46-0400 Height 185.4 cm Amber Jojo [facility] Work Phone: 11-18-2016 14:46-0400 Pulse (Heart Rate) 78 /min Amber Jojo [facility] Work Phone: 11-18-2016 14:46-0400 Weight 151.32 kg Amber Jojo [facility] Work Phone: Encounters Encounter Date Encounter Type Care Provider Facility Start: 02-26-2024 ambulatory Wing Joe acility:[facility] Start: 07-28-2022 Encounter for genera l adult medical examination without abnormal findings DR RAFFY NAVARRETE . [facility] Start: 07-24-2022 End: 07-24-[address] RAFFY NAVARRETE . Facility:[facility] Start: 07-22-2022 End: 07-23-[address] RAFFY NAVARRETE . Facility:[facility] Start: 07-22-2022 End: 07-23-2022 Encounter for general adult medical examination without abnormal findings DR RAFFY NAVARRETE . Facility:[facility] Start: 09-23-2021 End: 09-24-[address] RAFFY NAVARRETE . Facility:[facility] Start: 08-16-2021 End: 08-16-2021 ambulatory Casper Bellamy Other [facility] Other Start: 08-16-2021 Office outpatient visit 15 minutes Casper Bellamy [facility] Start: 12-17-2017 Patient encounter CECE ZAVALA [facility] Ambulatory Start: 09-15-2017 End: 09-17-2017 Evaluation and management of inpatient RAFFY Alexis Laureen [facility] Start: 09-11-2017 End: 09-14-2017 Ambulatory [facility] Start: 09-11-2017 End: 09-16-2017 Ambulatory [facility] Start: 07-22-2017 Office/outpatient visit, est, level 3 Travon Wright Work Phone: [facility] Start: 07-22-2017 End: 07-22-2017 Ambulatory Carly Reuben Hong [facility] Start: 03-24-2017 Ambulatory Sonia Young [facility] Start: 03-18-2017 Patient encounter TRAVON WRIGHT [facility] Ambulatory Start: 03-18-2017 Office outpatient visit 15 minutes Travon Wright Work Phone: [facility] Start: 02-26-2017 Ambulatory Travon Wright Facilit y:[place] Start: 02-26-2017 End: 02-26-2017 Ambulatory Travon Wright Work Phone: [facility] Start: 02-20-2017 [facility] Start: 02-19-2017 End: 02-19-2017 Patient encounter AMBER URIBE [facility] Ambul[facility]y Start: 02-19-2017 Office outpatient visit 15 minutes Amber Uribe Work Phone: [facility] Start: 11-18-2016 End: 11-18-2016 Office outpatient visit 15 minutes Amber Uribe Work Phone: [facility] Comment on above: DDD (degenerative di sc disease), lumbar (Primary Dx) Procedures Date Procedure Procedure Detail Performing Clinician Start: 07-22-[address] ROMEO NAVARRETE . Comment on above: Performed By: #### V ITAD, PSASC #### [facility] [address] [place] [address] Dr. Isamar Betancourt Start: 09-17-2017 INCENTIVE SPIROMETRY [...] 11-14-2021 Tetanus vaccination TETANUS EVERY 10 YR [facility] Work Phone: Start: 04-02-2017 Ambulatory 04/02/2017 Cli nical Support Orthopedic Surgery ViauCece MD [address] [place] [address] [phone] [facility] Start: 12-12-2016 Influenza vaccination SEQUENTI AL INFLUENZA VACCINE (#1) [facility] Work Phone: Start: 12-12-2016 SEQUENTIAL INFLUENZA VACCINE (#1) SEQUENTIAL INFLUENZA VACCINE (#1) [facility] Work Phone: Start: 1980 TETANUS EVERY 10 YR TETANUS EVERY 10 YR [facility] Work Phone: End: 02-19-2018 MR Lumbar Spine Without Contrast MR Lumbar Spine Without Contrast Routine Acute back pain, unspecified back location, unspecified back pain laterality 1 Occurrences starting 02/19/2017 until 02/19/2018 [facility] Work Phone: Payers Date Payer Category Payer Self-pay 2016 Unknown [id number] [id number] 1980 Unknown [id number] [id number] 1980 Unknown [id number] [id number] [id number] 1980 Unknown [id number] [id number] [id number] 1958 Medicaid [id number] 2.1 [id number] 1958 Medicaid [id number] 2. [id number] Medicaid xxxxxxxxxxx 2.1 [id number] Unknown [id number] 2.16.8 [id number] Social History Date Type Detail Facility Start: 11-18-2016 End: 07-22-2017 Tobacco smoking status NHIS Current every day smoker [facility] Work Phone: History of tobacco use Cigarette Smoker [facility] Work Phone: Start: 11-18-2016 End: 07-22-2017 Cigarettes smoked current (pack per day) - Reported [facility] Work Phone: History of tobacco use Snuff User [facility] Work Phone: Sex Assigned At Not on file [facility] Work Phone: History of tobacco use Chews Tobacco [facility] Work Phone: Sex Assigned At Sex Assigned At Bir [facility] Other Evaluation note 08-16-2021 Note Date & Type Note Facility 08-16-2021 Evaluation note Encounter Date Diagnosis Assessment Notes August, Tooth infection (ICD-10 - K04.7) Take tylenol 1000mg every 8 hours for pain. Call the dentist to make an appointment. I considered more ominous diagnoses such as retropharyngeal abscess, HEALTH UNIT CLERK, Raheem's angina, and Lemierre's syndrome. However, pt [...] an appointment. He agrees with the plan. [facility] Other History general Narrative - Reported Note Date & Type Note Facility History general Narrative - Reported Type Hospitalization History cyst [facility] Other Assessments Diagnosis Pars defect of lumbar [...] DDD (degenerative disc disease), lumbar Amber Uribe, CERAMICS TEST ENGINEER [address] [place] [address] Scheduling Instructions Pt would like to see Dr Almodovar in [place] Status Reason Specialty Diagnoses / Procedures Referred By Contact Referred To Contact Authorized Rehabilitation Diagnoses DDD (degenerative disc disease), lumbar Amber Uribe, CERAMICS TEST ENGINEER [address] [place] [address] History of Present Illness * Amber Uribe, CERAMICS TEST ENGINEER - 11/18/2016 2:53 PM EDT Formatting of this note may be different from the original. Subjective: Rowena Patricia is a 36 y.o. male here for Follow-up ([facility] for low back [...] section and content) DATE CREATED AUTHOR 09/29/2017 [facility] DATE CREATED AUTHOR AUTHOR'S ORGANIZ ATION 10/06/2017 [facility] DATE CREATED AUTHOR AUTHOR'S ORGANIZ ATION 10/09/2017 [facility] DATE CREATED AUTHOR AUTHOR[facility]S ORGANIZ ATION [facility] DATE CREATED AUTHOR AUTHOR'S ORGANIZ ATION 09/07/2020 [facility] DATE CREATED AUTHOR AUTHOR'S ORGANIZ ATION 05/27/2021 [facility] DATE CREATED AUTHOR AUTHOR'S ORGANIZ ATION 07/28/2022 [facility] DATE CREATED AUTHOR AUTHOR'S ORGANIZ ATION 03/27/2024 [facility] Reason for Visit (unrecogniz ed section and content) Reason Comments Follow-up [facility] for low [...] BE BASED ON THE PRIMARY CLINICAL RECORDS. [email or web address] [facility]. provides no warranty or guarantee of the accuracy or completeness of information in this document.
== END 2024-12-14 14:55 | disposition home or self-care (01) ==
LOC: LAB 14:55
PROVIDERS: PCP Family Medicine; Visit Provider Family Medicine
DX: Z00.00 Encounter for general adult medical examination without abnormal findings (principal); I10 Essential (primary) hypertension; N40.0 Benign prostatic hyperplasia without lower urinary tract symptoms; N41.9 Inflammatory disease of prostate, unspecified; E78.5 Hyperlipidemia, unspecified; R73.09 Other abnormal glucose; Z12.12 Encounter for screening for malignant neoplasm of rectum; E03.9 Hypothyroidism, unspecified; Z12.5 Encounter for screening for malignant neoplasm of prostate; R53.83 Other fatigue
CPT/HCPCS: 36415; 80053; 80061; 83036; 83525; 84436; 84443; 84481; 85007; 85027; G0103; G0328

== ENCOUNTER 2024-12-18 21:31 | Emergency (ER) | payer OTHER, SELFPAY ==
--- OUTSIDE RECORDS SUMMARY | 2024-05-18 04:30 | XMS_ITS ---
Author Organization [facility] in [place] Address [address] [place] [address] Care Team Providers Care Customer Success Director Name Role Phone Jose Talley Primary Care Provider Allergies Allergen (clinical drug ingredient) Drug/Non Drug Allergy documented on EMR Reaction Allergy Type Onset Date Status Vicodin GI issues/vomiting Drug Allergy Active Results Component Value Reference Range Notes UA DIP NONAUTO WO MICRO (810 02) - IN OFFICE Reviewed date:12/14/2024 06:04:46 PM Interpretation: Performing Lab: Notes/Report: COLOR dark yellow CLARITY clear GLUCOSE neg BILIRUBIN neg KETONE neh SPECIFIC GRAVITY 1.020 BLOOD neg PH 5 PROTEIN trace UROBILINOGEN neg NITRITE neg LEUKOCYTE ESTERASE neg REASON FOR VISIT Burning when urinates, urgency, frequency, Has tried OTC meds for UTI- still feels like has more tocome out than what does when uses the restroom Medications Medication SIG (Take, Route, Frequency, Duration) Notes Start Date End Date Status Metoprolol Tartrate 50 MG 1 tablet with food Orally Twice a day for 30 days Active Omeprazole 40 MG TAKE 1 CAPSULE BY [facility] 30 MINUTES BEFORE MORNING MEAL EVERY DAY FOR 30 DAYS Orally Once a day for 30 days Active SEROquel 50 MG 1 tablet at bedtime Orally Once a day for 30 days 03/02/2024 Active Venlafaxine HCl ER 75 MG TAKE 1 CAPSULE BY MOUTH EVERY DAY WITH FOOD FOR 30 DAYS for 30 Active Ciprofloxacin HCl 500 MG 1 tablet Orally every 12 hrs for 21 days 05/18/2024 Active Lisinopril 40 MG TAKE 1 TABLET BY J[facility] EVERY DAY for 30 Active Cetirizine HCl 10 MG TAKE 1 TABLET BY [facility] EVERY DAY for 30 Active Etodolac 500 MG TAKE 1 TABLET TWO TO THREE TIMES A DAY NEEDED for 30 days Active Social History Tobacco Use: Social History Observation Description Date Details (start date - stop date) Unknown Tobacco Use/Smoking Question Answer Notes Patient is a Uses tobacco in other forms Additional Findings: Tobacco User Chews tobacco Vital Signs Weight 387.2 lbs 05/18/2024 Height 72 in 05/18/2024 Blood pressure systolic 122 mm Hg 05/18/19 25 Blood pressure diastolic 80 mm Hg 025 BMI 52.51 kg/m2 05/18/2024 Encounters Encounter Location Date Provider Diagnosis [facility] [address] [place] [address] 05/18/2024 Jose Hoy Burning with urinati on R30.0 Assessments Encounter Date Diagnosis (ICD Code) Assessment Notes Treatment Notes Treatment Clinical Notes Section Notes 05/18/2024 Burning with urination (ICD-10 - R30.0) Plan Of Treatment Medication Medication Name Sig Start Date Stop Date Notes Ciprofloxacin HCl 500 MG 1 tablet Orally every 12 hrs for 21 days 05/18/2024 Progress Notes * Fernie PATRICIA PDOB:[birth year] (43 yo M)Acc No.[id number]:05/18/2024 Progress Note Patient: Fernie HELM Provider: Dong Talley ([facility])MD :1980 A ge:43 Y S ex:Male Date:05/18/2024 Address:[facility] [address], [id number] Check In:08:12 AM ESTCheck O ut:08:48 AM EST Subjective: * Chief Complaints: * B urning when urinates, urgency, frequencyHas tried OTC meds for UTI- still feels like has more to come out than what does when uses the restroom * HPI: G eneral: uti symptoms - tried AZO - not much. * ROS: E ENT: hearing changes d enies. v isual changes d enies.?non-healing mouth sores d enies. s wollen glands or neck lumps d enies. h oarseness d enies. s ore throat d enies. d ifficulty swallowing d enies. n ose bleeds d enies. n alejandro congestion d enies. e ar ache d enies. e ar discharge?denies. r inging in ears d enies. l ight sensitivity d enies. e ye pain d enies. b lurring d enies. e ye irritation d enies. d ouble vision d enies.?vision loss d enies. G eneral/Constitutional: Sweats: D enies. F atigue d enies. S leep problems d enies. A norexia d enies. M alaise d enies. W eight loss d enies.?Fatigue or Weakness d enies. F ever or Chills d enies. C ardiovascular: Shortness of Breath w/lying flat d enies. L ightheadedness/dizziness d enies. C hest tightness/ heavy pressure d enies. S welling of legs, ankles, or feet d enies. W aking up with shortness of breath d enies. C hest pain denies. P alpitations d enies. W eight gain d enies. R espiratory: Chronic or frequent cough d enies. C oughing up blood?denies. D ifficulty breathing d enies. P roductive cough d enies. S noring?denies. S hortness of breath that awakens from sleep (PND) d enies. C hest pain d enies. S putum production d enies. W heezing d enies. M usculoskeletal: Joint pain d enies. J oint Fluid d enies. B ack pain d enies. K nee pain d enies. N lili pain d enies. J oint Stiffness d enies. M uscle cramps d enies. W eakness of muscles d enies. A rthritis d enies. M uscle aches d enies. P ain in shoulder(s) d enies. S wollen joints d enies. * Active Problem List M48.56XA Collapsed vertebra, not elsewhere classified, lumbar region, initial encounter for fracture Modified On:08/28/2022W/U Status:confirmed S22.000A Wedge compression fr acture of unspecified thoracic vertebra, initial encounter for closed fracture Modified On:08/28/2022 Status:confirmed I10 Hypertension Modified On:08/28/2022 Status:confirmed K21.9 GERD (gastroesophage al reflux disease) Modified On:08/28/2022 Status:confirmed L72.3 Sebaceous cyst Modified On:08/28/2022 Status:confirmed M54.16 Lumbar radiculopathy Modified On:08/28/2022 Status:confirmed J01.90 Acute sinusitis Modified On:08/28/2022 Status:confirmed H66.90 Otitis media Modified On:08/28/2022 Status:confirmed Z00.00 Well adult Modified On:08/28/2022 Status:confirmed L91.8 Skin tag Modified On:08/28/2022 Status:confirmed M47.816 Lumbar spondylosis Modified On:08/28/2022 Status:confirmed D22.9 Nevus Modified On:08/28/2022 Status:confirmed 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, left Modified On:08/28/2022 Status:confirmed L72.3 Inflamed sebaceous c yst Modified On:08/28/2022 Status:confirmed M51.06 Lumbar disc disorder with myelopathy Modified On:08/28/2022 Status:confirmed R93.89 Abnormal finding on ultrasound Modified On:08/28/2022 Status:confirmed U07.1 COVID-19 Modified On:08/28/2022 Status:confirmed M76.50 Patellar tendonitis Modified On:09/22/2022 Status:confirmed R07.89 Chest wall pain Modified On:04/10/2023 Status:confirmed * Medical History: * Surgical History: B ack Surgery Left Foot Surgery * Hospitalization/Major Diagno stic Procedure: D enies Past Hospitalization * Family History: F ather: , diagnosed with Unspecified essential hypertension, Unspecified heart disease. M other: alive, diagnosed with Unspecified essential hypertension, Unspecified heart disease.?Brother(s): alive. 2 brother(s) . . * Social History: T obacco Use: T obacco Use/Smoking P atient is a U ses tobacco in other forms A dditional Findings: Tobacco User C hews tobacco * Medications: T akingCetirizine HCl 10 MG Tablet TAKE 1 TABLET BY MOUTH EVERY DAY Etodolac 500 MG Tablet TAKE 1 TABLET TWO TO THREE TIMES A DAY NEEDED Lisinopril 40 MG Tablet TAKE 1 TABLET BY MOUTH EVERY DAY Metoprolol Tartrate 50 MG Tablet 1 tablet with food Orally Twice a day Omeprazole 40 MG Capsule Delayed Release TAKE 1 CAPSULE BY MOUTH 30 MINUTES BEFORE MORNING MEAL EVERY DAY FOR 30 DAYS Orally Once a day SEROquel(QUEtiapine Fumarate) 50 MG Tablet 1 tablet at bedtime Orally Once a day Venlafaxine HCl ER 75 MG Capsule Extended Release 24 Hour TAKE 1 CAPSULE BY MOUTH EVERY DAY WITH FOOD FOR 30 DAYS Medication List reviewed and reconciled with the patientTaking Cetirizine HCl 10 MG Tablet TAKE 1 TABLET BY MOUTH EVERY DAY Taking Etodolac 500 MG Tablet TAKE 1 TABLET TWO TO THREE TIMES A DAY NEEDED Taking Lisinopril 40 MG Tablet TAKE 1 TABLET BY MOUTH EVERY DAY Taking Metoprolol Tartrate 50 MG Tablet 1 tablet with food Orally Twice a day Taking Omeprazole 40 MG Capsule Delayed Release TAKE 1 CAPSULE BY MOUTH 30 MINUTES BEFORE MORNING MEAL EVERY DAY FOR 30 DAYS Orally Once a day Taking SEROquel(QUEtiapine Fumarate) 50 MG Tablet 1 tablet at bedtime Orally Once a day Taking Venlafaxine HCl ER 75 MG Capsule Extended Release 24 Hour TAKE 1 CAPSULE BY MOUTH EVERY DAY WITH FOOD FOR 30 DAYS Medication List reviewed and reconciled with the patient * Allergies: V icodin: GI issues/vomiting - Allergyno[Allergies Verified] Objective: * Vitals: W t:387.2lbs, Ht: 72 in, BP:122/80mm Hg, BMI:52.51Index, Ht-cm: 182.88 cm, Wt-k.63 kg. * Examination: P hysical Exam: GENERAL: w ell developed, well nourished, in no acute distress. HEAD: n ormocephalic/atraumatic. EYES: p upils equal, round and reactive to light, conjunctivae and sclerae normal. EARS: n o deformity or lesion of external ear, canals and TM appear normal bilaterally, TM's intact, not inflamed with normal light reflex, hearing grossly normal to conversational speech. NOSE: n o deformity, discharge, inflammation, or lesions.? MOUTH: m ucous membranes moist, normal oropharynx and posterior pharynx without lesions or exudates, tongue normal, dentition normal. NECK: n lili supple, no masses or palpable cervical nodes, trachea midline, thyroid without nodules, masses, tenderness, or enlargement. CHEST: n o chest wall deformity, no chest wall tenderness.? LUNGS: n ormal respiratory effort and clear to auscultation, no wheezes, rales, or rhonchi, good air exchange. CARDIO: r egular rate and rhythm, normal S1 and S2, nor murmur, rub, or gallop. PULSES: n ormal capillary refill. ABDOMEN: s oft, non-distended, non-tender, no masses. MUSCULOSKELETAL: n o deformity or scoliosis noted, normal range of motion, joints normal, no erythema, edema, effusion, or ecchymosis. EXTREMITY: n o clubbing, cyanosis, edema, or deformity with normal ROM in both upper and lower bilateral extremities. NEUROLOGIC: g rossly normal. SKIN: n o rashes, ulcerations, or suspicious lesions. LYMPH NODES: n o cervical adenopathy, nodes normal. MENTAL STATUS: a lert and oriented x3, normal mood and affect. Assessment: * Assessment: 1. B urning with urination - R30.0 (Primary) Plan: * Treatment: * Labs: * L ab: UA DIP NONAUTO WO MICRO (58093) - IN OFFICE (Collection Date & Time - 05/18/2024) Value Reference Range C OLOR dark yellow * C LARITY clear * G LUCOSE neg * B ILIRUBIN neg * K ETONE neh * S PECIFIC GRAVITY 1.020 * B LOOD neg * P H 5 * P ROTEIN trace * U ROBILINOGEN neg * N ITRITE neg * L EUKOCYTE ESTERASE neg * Procedure Codes: 8 1002 URINALYSIS WO MICRO * * Sign off status: Completed Visit Status: C HK (Check Out) true * Provider: Dong Talley ([facility])MD Date: 0 05/18/2024 Generated for Osmin holman/Lidia/eTransmitting on: 0 12/18/2024 09:39 PM EDT History and Physical Notes * HPI (History of Present Illness) Category Sub-Category Detail Notes Category Not es General uti symptoms - tried AZO - not much Examination Category Sub-Category Detail Notes Category Not es Physical Exam GENERAL: well developed, well nourished, in no acute distress HEAD: normocephalic/atraum atic EYES: pupils equal, round and reactive to light, conjunctivae and sclerae normal EARS: no deformity or lesi on of external ear, canals and TM appear normal bilaterally, TM's intact, not inflamed with normal light reflex, hearing grossly normal to conversational speech NOSE: no deformity, discha rge, inflammation, or lesions MOUTH: mucous membranes razia st, normal oropharynx and posterior pharynx without lesions or exudates, tongue normal, dentition normal NECK: neck supple, no mass es or palpable cervical nodes, trachea midline, thyroid without nodules, masses, tenderness, or enlargement CHEST: no chest wall deform ity, no chest wall tenderness LUNGS: normal respiratory e ffort and clear to auscultation, no wheezes, rales, or rhonchi, good air exchange CARDIO: regular rate and rhy thm, normal S1 and S2, nor murmur, rub, or gallop PULSES: normal capillary ref ill ABDOMEN: soft, non-distended, non-tender, no masses RECTAL: MUSCULOSKELETAL: no deformity or scol iosis noted, normal range of motion, joints normal, no erythema, edema, effusion, or ecchymosis EXTREMITY: no clubbing, cyanosi s, edema, or deformity with normal ROM in both upper and lower bilateral extremities NEUROLOGIC: grossly normal SKIN: no rashes, ulceratio ns, or suspicious lesions LYMPH NODES: no cervical adenopat hy, nodes normal MENTAL STATUS: alert and oriented x 3, normal mood and affect
--- OUTSIDE RECORDS SUMMARY | 2024-12-07 10:30 | XMS_ITS ---
Author Organization [facility] in [place] Address [address] [place] [address] Care Team Providers Care Mold Sprayer Name Role Phone VigneshJose gerardo Primary Care Provider Allergies Allergen (clinical drug ingredient) Drug/Non Drug Allergy documented on EMR Reaction Allergy Type Onset Date Status Vicodin GI issues/vomiting Drug Allergy Active REASON FOR VISIT congested, terrible cough, sore throat- coughing up yellow phlegm, Has taken 3 COVID tests and all negative, Was on zanaflex in the past for his back- wants to know if can get a script for that again Medications Medication SIG (Take, Route, Frequency, Duration) Notes Start Date End Date Status tiZANidine HCl 4 MG 2 tabs Orally qhs fo r 30 days 12/07/2024 Active Venlafaxine HCl ER 75 MG TAKE 1 CAPSULE BY MOUTH EVERY DAY WITH FOOD FOR 30 DAYS for 30 Active Benzonatate 200 MG 1 capsule Orally Thr ee times a day for 7 days 12/07/2024 Active Amoxicillin-Pot Clavulanate 875-125 MG 1 tablet Orally every 12 hrs for 10 days 12/07/2024 Active Cetirizine HCl 10 MG TAKE 1 TABLET BY MO UTH EVERY DAY for 30 days Active SEROquel 50 MG 1 tablet at bedtime Orally Once a day for 30 days 03/02/2024 Active Etodolac 500 MG TAKE 1 TABLET TWO TO THREE TIMES A DAY NEEDED for 30 days Active Lisinopril 40 MG TAKE 1 TABLET BY JOSH TH EVERY DAY for 30 Active Metoprolol Tartrate 50 MG TAKE 1 TABLET BY MOUTH TWICE A DAY WITH FOOD FOR 30 DAYS for 30 Active Omeprazole 40 MG TAKE 1 CAPSULE 30 AK NUTES BEFORE MORNING MEAL ONCE A DAY for 30 Active Social History Tobacco Use: Social History Observation Description Date Details (start date - stop date) Unknown Tobacco Use/Smoking Question Answer Notes Patient is a Uses tobacco in other forms Additional Findings: Tobacco User Chews tobacco Vital Signs Weight 381.4 lbs 12/07/2024 Height 72 in 12/07/2024 Blood pressure systolic 124 mm Hg 12/08/19 25 Blood pressure diastolic 90 mm Hg 025 Temperature 96.5 degrees Fahrenheit 12/08/19 25 BMI 51.72 kg/m2 12/07/2024 Encounters Encounter Location Date Provider Diagnosis [facility] [address] [place] [address] 12/07/2024 Jose Talley Acute bronchitis, unspecified organism J20.9 Assessments Encounter Date Diagnosis (ICD Code) Assessment Notes Treatment Notes Treatment Clinical Notes Section Notes 12/07/2024 Acute bronchitis, unspecified organism (ICD-10 - J20.9) Rest and drink more liquids, especially water. You may use a humidifier or vaporizer to help keep the drainage moist. Hzkr-ndq-xmnibly Nasal Saline may help the stuffy and runny nose. Use Ibuprofen and or Tylenol as needed for fever, chills, body aches or pain. Children 5 years old should not be given ueye-atu-lghchnw cough and cold medications such as guaifenesin and dextromethorphan. If you're over age 5, you may try udod-uor-szopadu cold medications such as guaifenesin and dextromethorphan, or multi-symptom cold reliever such as Dayquil to help reduce the symptoms. Antibiotics have been prescribed. You should take these until completed and follow the directions. Antibiotics can sometimes cause upset stomach, and in rare cases, serious allergic reactions or serious gastrointestinal problems. If you start having severe abdominal pain, severe vomiting, or bloody diarrhea, you should be reevaluated by your physician or urgent care immediately. Follow up with your Primary Care Provider or return to clinic if symptoms do not improve within 3-5 days. If you develop severe symptoms such as shortness of breath, repeated vomiting, coughing up blood, or chest pain you should go to the emergency room or call 911 Plan Of Treatment Medication Medication Name Sig Start Date Stop Date Notes tiZANidine HCl 4 MG 2 tabs Orally qhs fo r 30 days 12/07/2024 Benzonatate 200 MG 1 capsule Orally Thr ee times a day for 7 days 12/07/2024 Amoxicillin-Pot Clavulanate 875-125 MG 1 tablet Orally every 12 hrs for 10 days 12/07/2024 Treatment Notes Assessment Notes Acute bronchitis, unspecified organism R est and drink more liquids, especially water. You may use a humidifier or vaporizer to help keep the drainage moist. Idxs-qbb-dsgaasf Nasal Saline may help the stuffy and runny nose. Use Ibuprofen and or Tylenol as needed for fever, chills, body aches or pain. Children 5 years old should not be given erva-mgn-unotvpi cough and cold medications such as guaifenesin and dextromethorphan. If you're over age 5, you may try tkdn-ciz-dnvrayw cold medications such as guaifenesin and dextromethorphan, or multi-symptom cold reliever such as Dayquil to help reduce the symptoms. Antibiotics have been prescribed. You should take these until completed and follow the directions. Antibiotics can sometimes cause upset stomach, and in rare cases, serious allergic reactions or serious gastrointestinal problems. If you start having severe abdominal pain, severe vomiting, or bloody diarrhea, you should be reevaluated by your physician or urgent care immediately. Follow up with your Primary Care Provider or return to clinic if symptoms do not improve within 3-5 days. If you develop severe symptoms such as shortness of breath, repeated vomiting, coughing up blood, or chest pain you should go to the emergency room or call 911 Next Appt Details Follow Up: 3-5 days if not i mproving, Reason: Progress Notes * Fernie PATRICIA PDOB:[birth year] (44 yo M)Acc No.[id number]:12/07/2024 Progress Note Patient: Fernie HELM Provider: Dong Talley ([facility])MD :1980 A ge:44 Y S ex:Male Date:12/07/2024 Address:[facility] [address] [facility], [id number] Check In:02:24 PM Luis Santos ut:03:30 PM EST Subjective: * Chief Complaints: * C ongested, terrible cough, sore throat- coughing up yellow phlegmHas taken 3 COVID tests and all negativeWas on zanaflex in the past for his back- wants to know if can get a script for that again * HPI: B ronchitis: The patient complains of symptoms of bronchitis. The symptoms have been present for 1-2 days. The symptoms are moderate. The patient has not been exposed to sick contacts. Symptomatic treatment has included OTC medication. Associated symptoms include nasal congestion, postnasal drainage, congested ears, cough, fever, chills, body aches. * ROS: E NT: Ear pain d enies. H oarseness d enies. ? C ardiovascular: Edema d enies. P alpitations d enies. ? R espiratory: Comments S HPI for details. G astrointestinal: Abdominal pain d enies. D iarrhea d enies. N ausea d enies. S kin: Rash d enies. * Active Problem List M48.56XA Collapsed vertebra, not elsewhere classified, lumbar region, initial encounter for fracture Modified On:08/28/2022 Status:confirmed S22.000A Wedge compression fr acture of [...] History: F ather: , diagnosed with Unspecified heart disease, Unspecified essential hypertension. M other: alive, diagnosed with Unspecified essential [...] EVERY DAY Metoprolol Tartrate 50 MG Tablet TAKE 1 TABLET BY MOUTH TWICE A DAY WITH FOOD FOR 30 DAYS Omeprazole 40 MG Capsule Delayed Release TAKE 1 CAPSULE 30 MINUTES BEFORE MORNING MEAL ONCE A DAY SEROquel(QUEtiapine Fumarate) 50 MG Tablet 1 tablet at bedtime Orally Once a day Venlafaxine HCl ER 75 MG Capsule Extended Release 24 Hour TAKE 1 CAPSULE BY MOUTH EVERY DAY WITH FOOD FOR 30 DAYS Taking Cetirizine HCl 10 MG Tablet TAKE 1 TABLET BY MOUTH EVERY DAY Taking Etodolac 500 MG Tablet TAKE 1 TABLET TWO TO THREE TIMES A DAY NEEDED Taking Lisinopril 40 MG Tablet TAKE 1 TABLET BY MOUTH EVERY DAY Taking Metoprolol Tartrate 50 MG Tablet TAKE 1 TABLET BY MOUTH TWICE A DAY WITH FOOD FOR 30 DAYS Taking Omeprazole 40 MG Capsule Delayed Release TAKE 1 CAPSULE 30 MINUTES BEFORE MORNING MEAL ONCE A DAY Taking SEROquel(QUEtiapine Fumarate) 50 MG Tablet 1 tablet at bedtime Orally Once a day Taking Venlafaxine HCl ER 75 MG Capsule Extended Release 24 Hour TAKE 1 CAPSULE BY MOUTH EVERY DAY WITH FOOD FOR 30 DAYS DiscontinuedCiprofloxacin HCl 500 MG Tablet 1 tablet Orally every 12 hrs Medication List reviewed and reconciled with the patientDiscontinued Ciprofloxacin HCl 500 MG Tablet 1 tablet Orally every 12 hrs Medication List reviewed and reconciled with the patient * Allergies: V icodin: GI issues/vomiting - Allergyno[Allergies Verified] Objective: * Vitals: W t:381.4lbs, Ht: 72 in, BP:124/90mm Hg, Temp:96.5F, BMI:51.72Index, Ht-cm: 182.88 cm, Wt-k kg. * Examination: G eneral Examination: GENERAL APPEARANCE: in no acute distress. EYES: EOMI. EARS: auditory canal clear, middle ear effusion noted.? NOSE: clear discharge, turbinates pale and swollen. ORAL CAVITY: mucosa moist. THROAT: no erythema, post-nasal drainage noted. NECK: neck supple, no thyromegaly. LYMPH NODES: n o cervical adenopathy. LUNGS: unlabored, clear to auscultation bilaterally. CARDIO: n o murmurs, regular rate and rhythm. ABDOMEN: bowel sounds present, no organomegaly . ? Assessment: * Assessment: 1. A cute bronchitis, unspecified organism - J20.9 (Primary) Plan: * Treatment: * Procedure Codes: * Preventive Medicine: Screenings/Counseling: B AK ACTION PLAN Above Normal BMI Follow-up D ietary management education, guidance, and counseling * Follow Up: 3 -5 days if not improving * * Sign off status: Completed Visit Status: C HK (Check Out) true * Provider: Dong Talley ([facility])MD Date: 0 12/07/2024 Generated for Osmin holman/Lidia/eTransmitting on: 0 12/18/2024 09:39 PM EDT History and Physical Notes * Examination Category Sub-Category Detail Notes Category Not es General Examination GENERAL APPEARANCE: in no acute di stress EYES: EOMI EARS: auditory canal clear , middle ear effusion noted NOSE: clear discharge, tur binates pale and swollen THROAT: no erythema, post-na girma drainage noted NECK: neck supple, no thyr omegaly CARDIO: no murmurs, regular rate and rhythm LUNGS: unlabored, clear to auscultation bilaterally ABDOMEN: bowel sounds present , no organomegaly LYMPH NODES: no cervical adenopat hy ORAL CAVITY: mucosa moist
--- OUTSIDE RECORDS SUMMARY | 2024-12-14 10:00 | XMS_ITS ---
Author Organization [facility] in [place] Address [address] [place] [address] Care Team Providers Care Multigrapher Name Role Phone Jose Talley Primary Care Provider Allergies Allergen (clinical drug ingredient) Drug/Non Drug Allergy documented on EMR Reaction Allergy Type Onset Date Status Vicodin GI issues/vomiting Drug Allergy Active REASON FOR VISIT urinary issues- said he has been having trouble urinating, Also doesn't feel like his ATB and coughpills are working for that, Left hand has herlinda going numb from the wrist down into the fingers, Patient states I know how to fix it all but everyone tells me its not good to do, but it would end allthis pain - PLEASE ADDRESS Medications Medication SIG (Take, Route, Frequency, Duration) Notes Start Date End Date Status Tamsulosin HCl 0.4 MG 1 capsule Orally O nce a day for 30 day(s) 12/14/2024 Active Omeprazole 40 MG TAKE 1 CAPSULE 30 CO NUTES BEFORE MORNING MEAL ONCE A DAY for 30 Active Venlafaxine HCl ER 75 MG TAKE 1 CAPSULE BY MOUTH EVERY DAY WITH FOOD FOR 30 DAYS for 30 Active tiZANidine HCl 4 MG 2 tabs Orally qhs fo r 30 days 12/07/2024 Active SEROquel 100 MG 1 tablet at bedtime Orally Once a day for 30 days 03/02/2024 Active Metoprolol Tartrate 50 MG TAKE 1 TABLET BY MOUTH TWICE A DAY WITH FOOD FOR 30 DAYS for 30 Active Lisinopril 40 MG TAKE 1 TABLET BY JOSH TH EVERY DAY for 30 Active levoFLOXacin 750 MG 1 tablet Orally Once a day for 10 day(s) 12/14/2024 Active Etodolac 500 MG TAKE 1 TABLET TWO TO THREE TIMES A DAY NEEDED for 30 days Active Cetirizine HCl 10 MG TAKE 1 TABLET BY [facility] EVERY DAY for 30 days Active Benzonatate 200 MG 1 capsule Orally Thr ee times a day for 7 days 12/07/2024 Active Amoxicillin-Pot Clavulanate 875-125 MG 1 tablet Orally every 12 hrs for 10 days 12/07/2024 Active Social History Tobacco Use: Social History Observation Description Date Details (start date - stop date) Unknown Tobacco Use/Smoking Question Answer Notes Patient is a Uses tobacco in other forms Additional Findings: Tobacco User Chews tobacco Problems Problem Type SNOMED Code ICD Code Onset Dates Problem Status W/U Status Risk Notes Problem Benign prostatic hyperplasia (898679567) BPH (benign prostatic hyperplasia) (N40.0) Active confirmed Problem Prostatitis (7417388) Prostatitis (N41.9) Active confirmed Vital Signs Weight 384.6 lbs 12/14/2024 Height 72 in 12/14/2024 Blood pressure systolic 118 mm Hg 12/15/19 25 Blood pressure diastolic 80 mm Hg 025 BMI 52.16 kg/m2 12/14/2024 Encounters Encounter Location Date Provider Diagnosis [facility] [address] [place] [address] 12/14/2024 Jose Hoy Hypertension I10 ; B PH (benign prostatic hyperplasia) N40.0 ; Prostatitis N41.9 and Well adult Z00.00 Assessments Encounter Date Diagnosis (ICD Code) Assessment Notes Treatment Notes Treatment Clinical Notes Section Notes 12/14/2024 Hypertension (ICD-10 - I10) 12/14/2024 BPH (benign prostatic hyperplasia) (ICD-10 - N40.0) 12/14/2024 Prostatitis (ICD-10 - N41.9) 12/14/2024 Well adult (ICD-10 - Z00.00) Plan Of Treatment Medication Medication Name Sig Start Date Stop Date Notes Tamsulosin HCl 0.4 MG 1 capsule Orally O nce a day for 30 day(s) 12/14/2024 SEROquel 100 MG 1 tablet at bedtime Orally Once a day for 30 days 03/02/2024 levoFLOXacin 750 MG 1 tablet Orally Once a day for 10 day(s) 12/14/2024 Pending Test Test Name Order Date HEMOGLOBIN A1C (GLYCO) 12/14/2024 INSULIN, TOTAL 12/14/2024 LIPID PANEL (CHOL/TRIG/HDL/LDL) 12/15/19 STOOL OCCULT BLOOD 12/14/2024 THYROID PANEL (T4/TSH/FREE T3) PSA, SCREENING 12/14/2024 CMP (COMP MET BARILLAS) w/eGFR CKD-EPI 2024 CBC WITH DIFF 12/14/2024 Progress Notes * Fernie PATRICIA PDOB:[birth year] (44 yo M)Acc No.[id number]:12/14/2024 Progress Note Patient: Fernie HELM Provider: Dong Talley ([facility])MD :1980 A ge:44 Y S ex:Male Date:12/14/2024 Address:[facility] [address], [id number] Check In:01:57 PM ESTCheck O ut:02:50 PM EST Subjective: * Chief Complaints: * U rinary issues- said he has been having trouble urinatingAlso doesn't feel like his ATB and cough pills are working for thatLeft hand has herlinda going numb from the wrist down into the fingersPatient states I know how to fix it all but everyone tells me its not good to do, but it would end all this pain - PLEASE ADDRESS * HPI: G eneral: Difcultyi uriniatingt - getting starte tehn feels like not done gerd on meds - stable Anxiety an ddepresstion - needs med adjusted. * ROS: E ENT: hearing changes d [...] lumbar region, initial encounter for fracture Modified On:08/28/2022U Status:confirmed S22.000A Wedge compression fr acture of unspecified thoracic vertebra, initial encounter for closed fracture Modified On:08/28/2022U Status:confirmed I10 Hypertension Modified On:08/28/2022 Status:confirmed K21.9 GERD (gastroesophage al reflux disease) Modified On:08/28/2022U Status:confirmed L72.3 Sebaceous cyst Modified On:08/28/2022 Status:confirmed M54.16 Lumbar radiculopathy Modified On:08/28/2022 Status:confirmed J01.90 Acute sinusitis Modified On:08/28/2022 Status:confirmed H66.90 Otitis media Modified On:08/28/2022 Status:confirmed Z00.00 Well adult Modified On:08/28/2022 Status:confirmed L91.8 Skin tag Modified On:08/28/2022 Status:confirmed 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, left Modified On:08/28/2022 Status:confirmed L72.3 Inflamed sebaceous c yst Modified On:08/28/2022 Status:confirmed M47.816 Lumbar spondylosis Modified On:08/28/2022 Status:confirmed D22.9 Nevus Modified On:08/28/2022 Status:confirmed M51.06 Lumbar disc disorder with myelopathy Modified On:08/28/2022 Status:confirmed R93.89 Abnormal finding on ultrasound Modified On:08/28/2022 Status:confirmed U07.1 COVID-19 Modified On:08/28/2022 Status:confirmed M76.50 Patellar tendonitis Modified On:09/22/2022 Status:confirmed R07.89 Chest wall pain Modified On:04/10/2023 Status:confirmed N40.0 BPH (benign prostati c hyperplasia) Modified On:12/14/2024 Status:confirmed N41.9 Prostatitis Modified On:12/14/2024 Status:confirmed E78.00 Hypercholesteremia Modified On:12/15/2024 Status:confirmed R73.09 Prediabetes Modified On:12/15/2024 Status:confirmed * Medical History: * Surgical History: [...] User C hews tobacco * Medications: T akingAmoxicillin-Pot Clavulanate 875-125 MG Tablet 1 tablet Orally every 12 hrs Benzonatate 200 MG Capsule 1 capsule Orally Three times a day Cetirizine HCl 10 MG Tablet TAKE 1 [...] tablet at bedtime Orally Once a day tiZANidine HCl 4 MG Tablet 2 tabs Orally qhs Venlafaxine HCl ER 75 MG Capsule Extended Release 24 Hour TAKE 1 CAPSULE BY MOUTH EVERY DAY WITH FOOD FOR 30 DAYS Medication List reviewed and reconciled with the patientTaking Amoxicillin-Pot Clavulanate 875-125 MG Tablet 1 tablet Orally every 12 hrs Taking Benzonatate 200 MG Capsule 1 capsule Orally Three times a day Taking Cetirizine HCl 10 MG Tablet TAKE [...] at bedtime Orally Once a day Taking tiZANidine HCl 4 MG Tablet 2 tabs Orally qhs Taking Venlafaxine HCl ER 75 MG Capsule Extended Release 24 Hour TAKE 1 CAPSULE BY MOUTH EVERY DAY WITH FOOD FOR 30 DAYS Medication List reviewed and reconciled with the patient * Allergies: V icodin: GI issues/vomiting - Allergyno[Allergies Verified] Objective: * Vitals: W t:384.6lbs, Ht: 72 in, BP:118/80mm Hg, BMI:52.16Index, Ht-cm: 182.88 cm, Wt-k.45 kg. * Examination: P hysical Exam: GENERAL: [...] mood and affect. Assessment: * Assessment: 1. H ypertension - I10 (Primary) 2 . B PH (benign prostatic hyperplasia) - N40.0 3 . P rostatitis - N41.9 4 . W ell adult - Z00.00 Plan: * Treatment: 2. B PH (benign prostatic hyperplasia) L AB: HEMOGLOBIN A1C (GLYCO) L AB: INSULIN, TOTAL L AB: LIPID PANEL (CHOL/TRIG/HDL/LDL) L AB: STOOL OCCULT BLOOD L AB: THYROID PANEL (T4/TSH/FREE T3) L AB: PSA, SCREENING L AB: CMP (COMP MET BARILLAS) w/eGFR CKD-EPI L AB: CBC WITH DIFF 3. P rostatitis L AB: HEMOGLOBIN A1C (GLYCO) L AB: INSULIN, TOTAL L AB: LIPID PANEL (CHOL/TRIG/HDL/LDL) L AB: STOOL OCCULT BLOOD L AB: THYROID PANEL (T4/TSH/FREE T3) L AB: PSA, SCREENING L AB: CMP (COMP MET BARILLAS) w/eGFR CKD-EPI L AB: CBC WITH DIFF 4. W ell adult L AB: HEMOGLOBIN A1C (GLYCO) L AB: INSULIN, TOTAL L AB: LIPID PANEL (CHOL/TRIG/HDL/LDL) L AB: STOOL OCCULT BLOOD L AB: THYROID PANEL (T4/TSH/FREE T3) L AB: PSA, SCREENING L AB: CMP (COMP MET BARILLAS) w/eGFR CKD-EPI L AB: CBC WITH DIFF * Procedure Codes: * Preventive Medicine: Screenings/Counseling: B CO ACTION PLAN Above Normal BMI Follow-up D ietary management education, guidance, and counseling * * Sign off status: Completed Visit Status: C HK (Check Out) true * Provider: Dong Talley ([facility])MD Date: 0 12/14/2024 Generated for Printi ng/Faxing/eTransmitting on: 0 12/18/2024 09:39 PM EDT History and Physical Notes * HPI (History of Present Illness) Category Sub-Category Detail Notes Category Not es General Difcultyi uriniatingt - getting starte tehn feels like not done gerd on meds - stable Anxiety an ddepresstion - needs med adjusted Examination Category Sub-Category Detail Notes Category Not [...]
--- OUTSIDE RECORDS SUMMARY | 2024-12-14 14:04 | XMS_ITS ---
Author Organization [facility] in [place] Address [address] [place] [address] Care Team Providers Care Molded Frames Assembler Name Role Phone Jose Talley Primary Care Provider REASON FOR VISIT review labs- Problems Problem Type SNOMED Code ICD Code Onset Dates Problem Status W/U Status Risk Notes Problem hypercholesterolemia (disorder) (59930669) Hypercholesteremia (E78.00) Active confirmed Encounters Encounter Location Date Provider Diagnosis [facility] [address] [place] [address] 12/14/2024 Jose Talley Hypercholesteremia E 78.00 Assessments Encounter Date Diagnosis (ICD Code) Assessment Notes Treatment Notes Treatment Clinical Notes Section Notes 12/14/2024 Hypercholesteremia (ICD-10 - E78.00) Plan Of Treatment Pending Test Test Name Order Date LIPID PROFILE 12/14/2024 Progress Notes * Fernie PATRICIA PDOB:[birth year] (44 yo M)Acc No.[id number]:12/14/2024 Patient: Marcel MARTIFernie :1980 A ge:44 Y S ex:Male Address:[place] [address] Subjective: * Chief Complaints: * R eview labs- * Medical History: * Surgical History: * Hospitalization/Major Diagno stic Procedure: * Medications: Objective: * Vitals: * Physical Examination: Assessment: * Assessment: 1. H ypercholesteremia - E78.00 (Primary) Plan: * Treatment: * Procedure Codes: * true * Date: Generated for Osmin holman/Lidia/Danelle on: 0 12/18/2024 09:39 PM EDT
--- OUTSIDE RECORDS SUMMARY | 2024-12-15 08:47 | XMS_ITS ---
Author Organization [facility] in [place] Address [address] [place] [address] Care Team Providers Care Director Financial Planning Name Role Phone Jose Talley Primary Care Provider REASON FOR VISIT Lab results Problems Problem Type SNOMED Code ICD Code Onset Dates Problem Status W/U Status Risk Notes Problem Prediabetes (579511775) Prediabetes (R73.09) Active confirmed Encounters Encounter Location Date Provider Diagnosis [facility] [address] [place] [address] 12/15/2024 Jose Gerri Plan Of Treatment No Information Progress Notes * Fernie PATRICIA PDOB:[birth year] (44 yo M)Acc No.[id number]:12/15/2024 Patient: Marcel MARTIFernie :1980 A ge:44 Y S ex:Male Address:[place] [address] * true * Date: Generated for Printi ng/Fayanig/eTransmitting on: 0 12/18/2024 09:39 PM EDT
[2024-12-18 21:36] VITALS: BP 129/88; PULSE 97; TEMP 36.9; O2SAT 97; BMI 51.5
--- OUTSIDE RECORDS SUMMARY | 2024-12-18 21:39 | XMS_ITS | Patient Health Record ---
Demographics Address [address] [place] [address] Preferred Language en Marital Status Unknown Yarsani Affiliation Unknown Race White Ethnic Group Not or Lati no Author Organization [facility] [place], [facility] Address [address] [place] [address] Care Team Providers Care Gore Cutter Name Role Phone Dr Jonathan Menchaca Unavailable [phone] Vic Pearson M.D. Unavailable Reason For Referral No Information Problems Problem Type SNOMED Code ICD Code Onset Dates Problem Status W/U Status Risk Notes Problem Lumbosacral plexus lesion (9785307) Lumbosacral plexus disorders (G54.1) Active confirmed Plan Of Treatment No Information Insurance Providers Payer Name Payer Address Payer Phone Subscriber Number Group Number Insured Name Patient Relationship to Insured Coverage Start Date Coverage End Date Monie Gonzalez.[employer]alvador [address] [place] [address] [id number] Fernie Patricia Self - patient is the insured
--- OUTSIDE RECORDS SUMMARY | 2024-12-18 21:40 | XMS_ITS | CCD ---
Demographics Address [address] [place] [address] Home Phone Home Phone [phone] Preferred Language en Marital Status Single Uatsdin Affiliation Unknown Race Unknown Ethnic Group Not or Lati no Author Organization [facility] Care Team Providers Care [facility] Police Sergeant Name Role Phone Cece Perera Unavailable [phone] ZHOU, DEAN H. Unavailable Unavailable [employer] [...] adverse reactions to drug 7 GI Intolerance [facility] Work Phone: (1 source) Acetaminophen / HYDROcodone Drug Allergy 5 [facility] Repository (1 source) Acetaminophen Drug Allergy 3 [facility] Repository (1 source) HYDROcodone Drug Allergy 3 [facility] Repository Medications Current Medications Medication Drug [...] Test Name Value Interpretation Reference Range Facility [facility] BLD IMMUNO SCREENon 07-12 OCCULT BLOOD Negative Normal NEGATIVE [facility] Comment on above: Performed By: #### O BSCRN #### [facility] [address] [place] [address] Dr. Isamar Betancourt INSULINon 07-23-2022 Insulin 42.3 uIU/mL Critically high 2.6-24.9 [facility] Comment on above: Performed By: #### I NSULIN #### [facility] [address] [place] [address] Dr. Isamar Betancourt CBC AUTO DIFFon 07-22-2022 BASO # 0.1 103/ul Normal 0.0-0.1 [facility] Comment on above: Performed By: #### C BC #### [facility] [address] [place] [address] Dr. Isamar Betancourt Basophils/100 WBC (Bld) 1.1 % Normal 0.2-2.0 [facility] Comment on above: Performed By: #### C BC #### [facility] [address] [place] [address] Dr. Isamar Betancourt EO # 0.2 103/ul Normal 0.0-0.7 [facility] Comment on above: Performed By: #### C BC #### [facility] [address] [place] [address] Dr. Isamar Betancourt Eosinophils/100 WBC (Bld) 2.5 % Normal 0.9-7.0 [facility] Comment on above: Performed By: #### C BC #### [facility] [address] [place] [address] Dr. Isamar Betancourt Erythrocyte distribution width (RBC) [Ratio] 14.4 % Normal 11.0-15.0 [facility] Comment on above: Performed By: #### C BC #### [facility] [address] [place] [address] Dr. Isamar Betancourt Hematocrit (Bld) [Volume fraction] 44.5 % Normal 42.0-54.0 [facility] Comment on above: Performed By: #### C BC #### [facility] [address] [place] [address] Dr. Isamar Betancourt Hemoglobin (Bld) [Mass/Vol] 15.0 g/dL Normal 14.0-18.0 [facility] Comment on above: Performed By: #### C BC #### [facility] [address] [place] [address] Dr. Isamar Betancourt IG # 0.14 10e3/ul Critically high 0.00-0.03 [facility] Comment on above: Performed By: #### C BC #### [facility] [address] [place] [address] Dr. Isamar Betancourt IG % 1.5 % Critically high 0.0-0.5 [facility] Comment on above: Performed By: #### C BC #### [facility] [address] [place] [address] Dr. Isamar Betancourt LYMPH # 3.0 103/ul Normal 1.2-3.8 [facility] Comment on above: Performed By: #### C BC #### [facility] [address] [place] [address] Dr. Isamar Betancourt Lymphocytes/100 WBC (Bld) 33.1 % Normal 20.5-60.0 [facility] Comment on above: Performed By: #### C BC #### [facility] [address] [place] [address] Dr. Isamar Betancourt MANUAL DIFF REQ NO Normal [facility] Comment on above: Performed By: #### C BC #### [facility] [address] [place] [address] Dr. Isamar Betancourt MCH (RBC) [Entitic mass] 29.7 pg Normal 25.9-34.0 [facility] Comment on above: Performed By: #### C BC #### [facility] [address] [place] [address] Dr. Isamar Betancourt MCHC (RBC) [Mass/Vol] 33.7 g/dL Normal 29.9-35.2 [facility] Comment on above: Performed By: #### C BC #### [facility] [address] [place] [address] Dr. Isamar Betancourt MCV (RBC) [Entitic vol] 88.1 fL Normal 80.0-94.0 [facility] Comment on above: Performed By: #### C BC #### [facility] [address] [address] [address] Isamar Betancourt MONO # 0.9 103/ul Critically high 0.3-0.8 [facility] Comment on above: Performed By: #### C BC #### [facility] [address] [address] [address] Isamar Betancourt Monocytes/100 WBC (Bld) 9.3 % Normal 1.7-12.0 [facility] Comment on above: Performed By: #### C BC #### [facility] [address] [place] [address] Dr. Isamar Betancourt NEUT # 4.8 103/ul Normal 1.4-6.5 [facility] Comment on above: Performed By: #### C BC #### [facility] [address] [place] [address] Dr. Isamar Betancourt Neutrophils/100 WBC (Bld) 52.5 % Normal 43.0-75.0 [facility] Comment on above: Performed By: #### C BC #### [facility] [address] [place] [address] Dr. Isamar Betancourt Platelet mean volume (Bld) [Entitic vol] 10.3 fL Normal 9.5-13.5 [facility] Comment on above: Performed By: #### C BC #### [facility] [address] [place] [address] Dr. Isamar Betancourt PLT 317 103/ul Normal 150-450 [facility] Comment on above: Performed By: #### C BC #### [facility] [address] [place] [address] Dr. Isamar Betancourt RBC 5.05 106/ul Normal 4.70-6.10 [facility] Comment on above: Performed By: #### C BC #### [facility] [address] [place] [address] Dr. Isamar Betancourt WBC 9.2 103/ul Normal 4.0-11.0 [facility] Comment on above: Performed By: #### C BC #### [facility] [address] [address] [address] Isamar Betancourt FREE THYROXINE INDEX T7on FTI 2.40 Normal 1.30-4.50 [facility] Comment on above: Performed By: #### V ITAD, PSASC #### [facility] [address] [place] [address] Dr. Isamar Betancourt T3U 30.0 % Critically low 33.0-40.0 [facility] Comment on above: Performed By: #### V ITAD, PSASC #### [facility] [address] [place] [address] Dr. Isamar Betancourt T4 [Mass/Vol] 8.00 ug/dL Normal 4.50-12.10 [facility] Comment on above: Performed By: #### V ITDEVAN, PSASC #### [facility] [address] [place] [address] Dr. Isamar Betancourt GLYCOHEMOGLOBIN A1Con 2022 ADA RECOMMENDATION SEE BELOW Normal [facility] Comment on above: Result Comment: ADA RECOMMENDED LIMIT 4.0 - 6.0 ADA THERAPEUTIC TARGET < 7.0 ACTION SUGGESTED > 7.0 Performed By: #### A 1C #### [facility] [address] [place] [address] Dr. Isamar Betancourt Glucose [Mass/Vol] 103 mg/dL Normal [facility] Comment on above: Performed By: #### A 1C #### [facility] [address] [place] [address] Dr. Isamar Betancourt HbA1c (Bld) [Mass fraction] 5.2 % Normal 4.5-6.2 [facility] Comment on above: Performed By: #### A 1C #### [facility] [address] [place] [address] Dr. Isamar Betancourt LIPID PROFILEon 07-22-2022 CHOL-HDL RATIO NORM SEE BELOW Normal [facility] Comment on above: Result Comment: 3.3 - 4.4 LOW RISK 4.4 - 7.1 AVERAGE RISK 7.1 - 11.0 MODERATE RISK >11.0 HIGH RISK Performed By: #### T 7, CMP, LIPID, TSH, URIC #### [facility] [address] [address] [address] Isamar Betancourt Cholesterol [Mass/Vol] 208 mg/dL Critically high <=200 [facility] Comment on above: Performed By: #### T 7, CMP, LIPID, TSH, URIC #### [facility] [address] [address] [address] Isamar Betancourt Cholesterol in HDL [Mass/Vol] 28 mg/dL Critically low 40-60 [facility] Comment on above: Performed By: #### T 7, CMP, LIPID, TSH, URIC #### [facility] [address] [address] [address] Isamar Betancourt Cholesterol in LDL [Mass/Vol] 153.8 mg/dL Normal [facility] Comment on above: Performed By: #### T 7, CMP, LIPID, TSH, URIC #### [facility] [address] [address] [address] Isamar Betancourt Cholesterol.total/C holesterol in HDL [Mass ratio] 7.4 {ratio} Normal [facility] Comment on above: Performed By: #### T 7, CMP, LIPID, TSH, URIC #### [facility] [address] [address] [address] Isamar Betancourt HDL NORMAL > or = 60 mg/dl - LO W CARDIOVASCULAR RISK <40 mg/dl - HIGH CARDIOVASCULAR RISK Normal [facility] Comment on above: Performed By: #### T 7, CMP, LIPID, TSH, URIC #### [facility] [address] [address] [address] Isamar Betancourt LDL CALC NORMAL SEE BELOW Normal [facility] Comment on above: Result Comment: <100 mg/dl OPTIMAL 100 - 129 mg/dl NEAR OR ABOVE OPTIMAL 130 - 159 mg/dl BORDERLINE HIGH 160 - 189 mg/dl HIGH >190 mg/dl VERY HIGH Performed By: #### T 7, CMP, LIPID, TSH, URIC #### [facility] [address] [address] [address] Isamar Betancourt Triglyceride [Mass/Vol] 131 mg/dL Normal <=150 [facility] Comment on above: Performed By: #### T 7, CMP, LIPID, TSH, URIC #### [facility] [address] [address] [address] Isamar Betancourt VLDL CALC 26.2 mg/dL Normal [facility] Comment on above: Performed By: #### T 7, CMP, LIPID, TSH, URIC #### [facility] [address] [address] [address] Isamar Betancourt PROF 14(COMP METB)on 023 Albumin [Mass/Vol] 2.8 g/dL Critically low 3.4-5.0 [facility] Comment on above: Performed By: #### T 7, CMP, LIPID, TSH, URIC #### [facility] [address] [place] [address] Dr. Isamar Betancourt Albumin/Globulin [Mass ratio] 0.6 {ratio} Normal [facility] Comment on above: Performed By: #### T 7, CMP, LIPID, TSH, URIC #### [facility] [address] [place] [address] Dr. Isamar Betancourt ALP [Catalytic activity/Vol] 105 U/L Normal 46-116 [facility] Comment on above: Performed By: #### T 7, CMP, LIPID, TSH, URIC #### [facility] [address] [place] [address] Dr. Isamar Betancourt ALT [Catalytic activity/Vol] 23 U/L Normal 16-63 [facility] Comment on above: Performed By: #### T 7, CMP, LIPID, TSH, URIC #### [facility] [address] [place] [address] Dr. Isamar Betancourt Anion gap [Moles/Vol] 9.6 mmol/L Normal [facility] Comment on above: Performed By: #### T 7, CMP, LIPID, TSH, URIC #### [facility] [address] [place] [address] Dr. Isamar Betancourt AST [Catalytic activity/Vol] 15 U/L Normal 15-37 [facility] Comment on above: Performed By: #### T 7, CMP, LIPID, TSH, URIC #### [facility] [address] [address] [address] Isamar Betancourt Bilirubin [Mass/Vol] 0.5 mg/dL Normal 0.2-1.0 [facility] Comment on above: Performed By: #### T 7, CMP, LIPID, TSH, URIC #### [facility] [address] [place] [address] Dr. Isamar Betancourt Calcium [Mass/Vol] 8.9 mg/dL Normal 8.5-10.1 [facility] Comment on above: Performed By: #### T 7, CMP, LIPID, TSH, URIC #### [facility] [address] [place] [address] Dr. Isamar Betancourt Chloride [Moles/Vol] 106 mmol/L Normal 98-107 [facility] Comment on above: Performed By: #### T 7, CMP, LIPID, TSH, URIC #### [facility] [address] [place] [address] Dr. Isamar Betancourt CO2 [Moles/Vol] 30.7 mmol/L Normal 21.0-32.0 [facility] Comment on above: Performed By: #### T 7, CMP, LIPID, TSH, URIC #### [facility] [address] [place] [address] Dr. Isamar Betancourt Creatinine [Mass/Vol] 0.82 mg/dL Normal 0.70-1.30 [facility] Comment on above: Performed By: #### T 7, CMP, LIPID, TSH, URIC #### [facility] [address] [place] [address] Dr. Isamar Betancourt EGFR-AF SLOVAK >60 Normal >=60 [facility] Comment on above: Performed By: #### T 7, CMP, LIPID, TSH, URIC #### [facility] [address] [place] [address] Dr. Isamar Betancourt EGFR-NON AF SLOVAK >60 Normal >=60 [facility] Comment on above: Performed By: #### T 7, CMP, LIPID, TSH, URIC #### [facility] [address] [place] [address] Dr. Isamar Betancourt Globulin (S) [Mass/Vol] 4.4 g/dL Normal [facility] Comment on above: Performed By: #### T 7, CMP, LIPID, TSH, URIC #### [facility] [address] [address] [address] Isamar Betancourt Glucose [Mass/Vol] 89 mg/dL Normal 74-106 [facility] Comment on above: Performed By: #### T 7, CMP, LIPID, TSH, URIC #### [facility] [address] [address] [address] Isamar Betancourt Potassium [Moles/Vol] 4.3 mmol/L Normal 3.5-5.1 [facility] Comment on above: Performed By: #### T 7, CMP, LIPID, TSH, URIC #### [facility] [address] [place] [address] Dr. Isamar Betancourt Protein [Mass/Vol] 7.2 g/dL Normal 6.4-8.2 [facility] Comment on above: Performed By: #### T 7, CMP, LIPID, TSH, URIC #### [facility] [address] [place] [address] Dr. Isamar Betancourt Sodium [Moles/Vol] 142 mmol/L Normal 136-145 [facility] Comment on above: Performed By: #### T 7, CMP, LIPID, TSH, URIC #### [facility] [address] [place] [address] Dr. Isamar Betancourt Urea nitrogen [Mass/Vol] 13.0 mg/dL Normal 7.0-18.0 [facility] Comment on above: Performed By: #### T 7, CMP, LIPID, TSH, URIC #### [facility] [address] [address] [address] Isamar Betancourt Urea nitrogen/Creatinine [Mass ratio] 15.9 mg/mg Normal [facility] Comment on above: Performed By: #### T 7, CMP, LIPID, TSH, URIC #### [facility] [address] [place] [address] Dr. Isamar Betancourt TSHon 07-22-2022 TSH 1.732 uIU/mL Normal 0.358-3.740 [facility] Comment on above: Performed By: #### T 7, CMP, LIPID, TSH, URIC #### [facility] [address] [place] [address] Dr. Isamar Betancourt URIC ACID SERUMon 07-22-2022 Urate [Mass/Vol] 3.6 mg/dL Normal 3.5-7.2 [facility] Comment on above: Performed By: #### T 7, CMP, LIPID, TSH, URIC #### [facility] [address] [address] [address] Isamar Betancourt VITAMIN D 25 OHon 07-22-2022 VIT D 25-OH 8.0 ng/mL Normal [facility] Comment on above: Performed By: #### V ITAD, PSASC #### [facility] [address] [place] [address] Dr. Isamar Betancourt VIT D RANGES SEE BELOW Normal [facility] Comment on above: Result Comment: <20 ng/mL Vit D deficient 20 - <30 ng/mL Vit D insufficient 30 - 100 ng/mL Vit D sufficient >100 ng/mL Potential Toxicity Performed By: #### V ITAD, PSASC #### [facility] [address] [place] [address] LUMBAR SP WO CONon 2020 CT LUMBAR SP WO CON STUDY: CT LUMBAR SP WO CON 01/09/2021 12:44 pm INDICATION: NONUNION OF SPINAL FUSION COMPARISON: None. ACCESSION NUMBER(S): [id number] ORDERING CLINICIAN: Hugo Mckeon TECHNIQUE: Axial CT [...] degenerative changes of the lumbar spine. Normal [facility] LUMBAR SPINE 2 OR 3 VIEWSon 12-21-2020 LUMBAR SPINE 2 OR 3 VIEWS STUDY: LUMBAR SPINE 2 OR 3 VIEWS; 12/21/2020 10:38 am INDICATION: STENOSIS OF LATERAL RECESS OF LUMBAR SPINE. COMPARISON: No available comparisons. ACCESSION NUMBER(S): [id number] ORDERING CLINICIAN: Hugo Mckeon TECHNIQUE: 4 views of the lumbar spine. FINDINGS: No acute fracture dislocation. Status post posterior lumbar spine fusion at L5-S1 level with decompression laminectomy. The vertebral alignment is normal. The vertebral body heights and intervertebral disc spaces are maintained. Nonspecific bowel gas pattern. IMPRESSION: Stable postsurgical changes of lumbar spine. Normal [facility] OPERATIVE REPORTon OPERATIVE REPORT NAME: ROWENA PATRICIA MR#: [id number] SURGEON: Hugo Mckeon MD DATE OF SURGERY: [...] There were no complications. HUGO MCKEON MD JFMunir/[id number] E/S: Hugo Mckeon MD 01/07/[address] [facility] PT NAME: ROWENA PATRICIA MR#: [id number] [address] [place] [address] ACCT: [id number] : 82 OPERATIVE REPORT Normal [facility] CORONAVIRUSon 11-28-2020 SARS-CoV-2 (COVID-19) RNA ONESIMO+probe [...] COVID-19 Negative for COVID-19 (SARS-CoV-2 RNA) Normal [facility] Comment on above: Order Comment: CBN: YES [place]: MAIN COVID Testing: PRE-OP/PROCEDURE SCREEN Comment: 8/20 AGE at Spec EUGENIA 40 Report age at specimen EUGENIA? Y First test: UNKNOWN Employed in Healthcare: NO Symptomatic as defined by CDC: NO Hospitalized for COVID-19? NO ICU: NO Resident in a Congregated Care Setting: NO Order Date: 11/28/20 : Not Performed By: #### M [phone] #### Test performed at: [place] [address] LUMB SP COMP W FLEX/EXT 6 VW S>on 10-12-2020 LUMB SP COMP W FLEX/EXT 6 VWS> STUDY: LUMB SP COMP W FLEX/EXT 6 VWS>; 10/12/2020 9:48 am INDICATION: LOW BACK PAIN. COMPARISON: None. ACCESSION NUMBER(S): [id number] ORDERING CLINICIAN: Hugo Mckeon TECHNIQUE: Standing AP, [...] posterior spine fusion. No acute abnormalities. Normal [facility] RAD - Ultrasound Reporton RAD - Ultrasound Report [id number]:127 Normal [facility] Physician Referralon 020 Physician Referral [id number]:12 [id number] Normal [facility] Ambulatory Clinical Summaryo n 09-22-2019 Ambulatory Clinical Summary {[id number] Normal [facility] CBC With Platelet and Differ entialon 10-09-2017 Basophils Auto #/vol (Bld) 0.1 10*3/uL Normal 0.0-0.2 [facility] Basophils/100 WBC Auto (Bld) 1.0 % Normal [facility] Eosinophils 0.5 10*3/uL Normal 0.0-0.7 [facility] Eosinophils/100 leukocytes 8.5 % Normal [facility] Erythrocyte distribution width Auto Ratio (RBC) 12.5 % Normal 11.5-14.5 [facility] Erythrocytes (RBC) 5.00 10*6/uL Normal 4.70-6.10 [facility] Hematocrit (HCT) 45.4 % Normal 42.0-52.0 [facility] Hemoglobin mass conc (Bld) 14.5 g/dL Normal 14.0-18.0 [facility] Lymphocytes 1.5 10*3/uL Normal 1.0-4.8 [facility] Lymphocytes/100 leukocytes 28.4 % Normal [facility] MCH 28.9 pg Normal 27.0-31.3 [facility] MCHC mass conc (RBC) 31.8 % Low 33.0-37.0 [facility] MCV 90.8 fL Normal 80.0-100.0 [facility] Monocytes 0.5 10*3/uL Normal 0.2-0.8 [facility] Monocytes/100 leukocytes 8.4 % Normal [facility] Neutrophils 2.9 10*3/uL Normal 1.4-6.5 [facility] Neutrophils/100 leukocytes 53.7 % Normal [facility] Platelets 246 10*3/uL Normal 130-400 [facility] WBC (Leukocytes) 5.4 10*3/uL Normal 4.8-10.8 [facility] Comprehensive Metabolic Pane jesus 10-09-2017 Alanine aminotransferase (ALT) 12 U/L Normal 0-41 [facility] Albumin 4.4 g/dL Normal 3.9-4.9 [facility] Alkaline phosphatase (ALP) 66 U/L Normal 35-104 [facility] Anion gap 12 mmol/L Normal 7-13 [facility] Aspartate aminotransferase (AST) 20 U/L Normal 0-40 [facility] Bilirubin (total) 0.5 mg/dL Normal 0.0-1.2 [facility] Calcium 9.3 mg/dL Normal 8.6-10.2 [facility] Chloride 101 mmol/L Normal 98-107 [facility] CO2 28 mmol/L Normal 22-29 [facility] Creatinine 0.91 mg/dL Normal 0.70-1.20 [facility] eGFR (black) mL/min/{1.73_m2} Normal >60 [facility] Comment on above: Result Comment: >60 mL/min/1.73m2 EGFR, calc. for ages 18 and older using theMDRD formula (not corrected for weight), is valid for stablerenal function. eGFR (MDRD) mL/min/{1.73_m2} Normal >60 [facility] Comment on above: Result Comment: >60 mL/min/1.73m2 EGFR, calc. for ages 18 and older using theMDRD formula (not corrected for weight), is valid for stablerenal function. Globulin 2.9 g/dL Normal 2.3-3.5 [facility] Glucose mass conc 82 mg/dL Normal 74-109 [facility] Potassium molar conc 4.3 mmol/L Normal 3.5-5.1 [facility] Protein 7.3 g/dL Normal 6.4-8.1 [facility] Sodium 141 mmol/L Normal 132-144 [facility] Urea nitrogen 15 mg/dL Normal 6-20 [facility] Lipid Panelon 10-09-2017 Cholesterol 185 mg/dL Normal 0-199 [facility] Comment on above: Result Comment: ATP III Cholesterol classification is Desirable. HDL Cholesterol 47 mg/dL Normal 40-59 [facility] Comment on above: Result Comment: ATP III HDL Cholesterol Classification is Desirable.Expected Values:Males: >55 = No Risk 35-55 = Moderate Risk <35 = High RiskFemales: >65 = No Risk 45-65 = Moderate Risk <45 = High RiskNCEP Guidelines: Third Report August 2000>59 = negative risk factor for CHD<40 = major risk factor for CHD LDL Cholesterol 123 mg/dL Normal 0-129 [facility] Comment on above: Result Comment: ATP III LDL Classification is Near Optimal. Triglyceride 73 mg/dL Normal 0-200 [facility] Comment on above: Result Comment: ATP III Triglycerides Classification is Normal. Basic Metabolic Panel Reflex Mgon 09-16-2017 Anion gap 12 mmol/L Normal 7-13 [facility] Calcium 8.4 mg/dL Low 8.6-10.2 [facility] Chloride 99 mmol/L Normal 98-107 [facility] CO2 23 mmol/L Normal 22-29 [facility] Creatinine 0.64 mg/dL Low 0.70-1.20 [facility] eGFR (black) mL/min/{1.73_m2} Normal >60 [facility] Comment on above: Result Comment: >60 mL/min/1.73m2 EGFR, calc. for ages 18 and older using theMDRD formula (not corrected for weight), is valid for stablerenal function. eGFR (MDRD) mL/min/{1.73_m2} Normal >60 [facility] Comment on above: Result Comment: >60 mL/min/1.73m2 EGFR, calc. for ages 18 and older using theMDRD formula (not corrected for weight), is valid for stablerenal function. Glucose mass conc 115 mg/dL Critically high 74-109 [facility] Potassium molar conc 4.0 mmol/L Normal 3.5-5.1 [facility] Sodium 134 mmol/L Normal 132-144 [facility] Urea nitrogen 7 mg/dL Normal 6-20 [facility] CBC With Platelet and Differ entialon 09-16-2017 Slide Review see below Normal [facility] Comment on above: Result Comment: Slid e review agrees with reported results Basophils Auto #/vol (Bld) 0.1 10*3/uL Normal 0.0-0.2 [facility] Basophils/100 WBC Auto (Bld) 0.5 % Normal [facility] Eosinophils 0.0 10*3/uL Normal 0.0-0.7 [facility] Eosinophils/100 leukocytes 0.1 % Normal [facility] Erythrocyte distribution width Auto Ratio (RBC) 14.2 % Normal 11.5-14.5 [facility] Erythrocytes (RBC) 4.38 10*6/uL Low 4.70-6.10 [facility] Hematocrit (HCT) 39.9 % Low 42.0-52.0 [facility] Hemoglobin mass conc (Bld) 11.0 g/dL Low 14.0-18.0 [facility] Lymphocytes 0.7 10*3/uL Low 1.0-4.8 [facility] Lymphocytes/100 leukocytes 4.6 % Normal [facility] MCH 25.2 pg Low 27.0-31.3 [facility] MCHC mass conc (RBC) 27.6 % Low 33.0-37.0 [facility] MCV 91.2 fL Normal 80.0-100.0 [facility] Monocytes 0.4 10*3/uL Normal 0.2-0.8 [facility] Monocytes/100 leukocytes 3.0 % Normal [facility] Neutrophils 13.1 10*3/uL Critically high 1.4-6.5 [facility] Neutrophils/100 leukocytes 91.8 % Normal [facility] Platelets 313 10*3/uL Normal 130-400 [facility] WBC (Leukocytes) 14.3 10*3/uL Critically high 4.8-10.8 [facility] XR LUMBAR SPINE (2-3 VIEWS)o [...] by:NEELAM Knappigned by:Celestino Izaguirre MD09/16/17inal result Normal [facility] FLUORO FOR SURGICAL PROCEDUR ESon [...] by:NEELAM Crossigned by:Naveen Moctezuma MD//18Final result Normal [facility] Basic Metabolic Panelon 06- Anion gap 16 mmol/L Critically high 7-13 [facility] Calcium 9.7 mg/dL Normal 8.6-10.2 [facility] Chloride 101 mmol/L Normal 98-107 [facility] CO2 26 mmol/L Normal 22-29 [facility] Creatinine 0.59 mg/dL Low 0.70-1.20 [facility] eGFR (black) mL/min/{1.73_m2} Normal >60 [facility] Comment on above: Result Comment: >60 mL/min/1.73m2 EGFR, calc. for ages 18 and older using theMDRD formula (not corrected for weight), is valid for stablerenal function. eGFR (MDRD) mL/min/{1.73_m2} Normal >60 [facility] Comment on above: Result Comment: >60 mL/min/1.73m2 EGFR, calc. for ages 18 and older using theMDRD formula (not corrected for weight), is valid for stablerenal function. Glucose mass conc 88 mg/dL Normal 74-109 [facility] Potassium molar conc 4.2 mmol/L Normal 3.5-5.1 [facility] Sodium 143 mmol/L Normal 132-144 [facility] Urea nitrogen 9 mg/dL Normal 6-20 [facility] CBC With Platelet No Differe ntialon 09-11-2017 Erythrocyte distribution width Auto Ratio (RBC) 14.5 % Normal 11.5-14.5 [facility] Erythrocytes (RBC) 4.84 10*6/uL Normal 4.70-6.10 [facility] Hematocrit (HCT) 44.1 % Normal 42.0-52.0 [facility] Hemoglobin mass conc (Bld) 15.0 g/dL Normal 14.0-18.0 [facility] MCH 31.1 pg Normal 27.0-31.3 [facility] MCHC mass conc (RBC) 34.1 % Normal 33.0-37.0 [facility] MCV 91.2 fL Normal 80.0-100.0 [facility] Platelets 308 10*3/uL Normal 130-400 [facility] WBC (Leukocytes) 9.4 10*3/uL Normal 4.8-10.8 [facility] Culture, MRSA Screenon 09-11 Culture, MRSA Screen ORDERED BY: RAFAEL HIGGINS: Nares Nose COLLECTED: 09/11/17 17:10ANTIBIOTICS AT EUGENIA.: RECEIVED : 09/11/17 17:10Culture, MRSA Screen FINAL 09/12/17 12:52 No MRSA isolated Normal [facility] Partial Thromboplastin Timeo n 09-11-2017 aPTT 27.1 s Normal 21.6-35.4 [facility] Comment on above: Result Comment: Hepa rin Therapeutic Range: 38.8 - 54.6 seconds. Prothrombin Timeon 8 INR Coag RelTime (PPP) 1.0 {INR} Normal [facility] Comment on above: Result Comment: [...] Coag time (PPP) 10.2 s Normal 9.6-12.3 [facility] Type and Screen Capture 3 sc rn cellon 09-11-2017 Bilirubin (total) PATIENT: MALU MCCORMICK LOC: [facility] BILL# : [id number] : 1980 SEX: MORDERED BY: GISELA PETERSEN ORDERED : 09/11/2017 16:39 COLLECTED: 09/11/2017 17:13ORDER : [id number] RECEIVED : 09/11/2017 17:13 --------TEST NAME RESULT UNITS RANGES ABN FL STABORH Capture B POS FAntibody 3 Cell Scrn Captu NEG F --- Normal [facility] Urinalysis, reflex to cultur alma 09-11-2017 Bilirubin Ql (U) MODERATE Abnormal Negative [facility] Urine Reflexed to Culture Not Indicated Normal [facility] Urine, clarity Clear Normal Clear [facility] Urine, color Yellow Normal Straw/[place] [facility] Urine, glucose presence Negative Normal Negative [facility] Urine, hemoglobin presence Negative Normal Negative [facility] Urine, ketones presence Negative Normal Negative [facility] Urine, leukocyte esterase presence Negative Normal Negative [facility] Urine, nitrite presence Negative Normal Negative [facility] Urine, pH 6.5 [pH] Normal 5.0-9.0 [facility] Urine, protein presence Negative Normal Negative [facility] Urine, specific gravity 1.013 Normal 1.005-1.03 [facility] Urine, urobilinogen 1.0 {Tanna'U}/dL Normal < 2.0 [facility] XR SPINE ENTIRE (2-3 VIEWS)o [...] by:NEELAM Knappigned by:Celestino Izaguirre MD09/14/18Final result Normal [facility] MRI LUMBAR SPINE W/O CONTon 02-26-2017 MRI LUMBAR SPINE W/O CONT Final ReportAccession No: [id number] Performed: Feb 26 2017 8:57AMExamination: MRI LUMBAR SPINE W/O [id number] male with low back and bilateral lower [...] NUNEZ M.D.Trans: : cc: Normal [facility] Vital Signs Date Time Vital Sign Value Performing Clinician Facility 08-16-2021 13:45-0400 Body height 185.42 cm Casper Bellamy Other [employer] Other 08-16-2021 13:45-0400 Body mass index (BMI) [Ratio] 42.48 kg/m2 Casper Bellamy Other [employer] Other 08-16-2021 13:45-0400 Body temperature 98.9 [degF] Casper Bellamy Other [employer] Other 08-16-2021 13:45-0400 Body weight 146.06 kg Casper Bellamy Other [employer] Other 08-16-2021 13:45-0400 Diastolic blood pressure 90 mm[Hg] Casper Bellamy Other [employer] Other 08-16-2021 13:45-0400 Respiratory rate 18 /min Casper Bellamy Other [employer] Other 08-16-2021 13:45-0400 SaO2% (BldA) [Mass fraction] 99 % Casper Bellamy Other [employer] Other 08-16-2021 13:45-0400 Systolic blood pressure 147 mm[Hg] Casper Bellamy Other [employer] Other 07-22-2017 15:00-0400 BMI (Body Mass Index) 47.36 kg/m2 Travon Wright [facility] 07-22-2017 15:00-0400 Height 185.4 cm Travon Wright [facility] 07-22-2017 15:00-0400 [facility] 162.[facility] 08:20-0500 BMI (Body Mass Index) 47.36 kg/m2 Travon Wright [facility] Work Phone: 03-18-2017 08:20-0500 BP Diastolic 104 mm[Hg] Travon Wright [facility] Work Phone: 03-18-2017 08:20-0500 BP Systolic 151 mm[Hg] Travon Wright [facility] Work Phone: 03-18-2017 08:20-0500 Height 185.4 cm Travon Wright [facility] Work Phone: 03-18-2017 08:20-0500 Pulse (Heart Rate) 78 /min Travon Wright [facility] Work Phone: 03-18-2017 08:20-0500 Weight 162.84 kg Travon Wright [facility] Work Phone: 02-19-2017 14:24-0500 BMI (Body Mass Index) 43.93 kg/m2 Travon Wright [facility] Work Phone: 02-19-2017 14:24-0500 BP Diastolic 106 mm[Hg] Travon Wright [facility] Work Phone: 02-19-2017 14:24-0500 BP Systolic 148 mm[Hg] Travon Wright [facility] Work Phone: 02-19-2017 14:24-0500 Height 185.4 cm Travon Wright [facility] Work Phone: 02-19-2017 14:24-0500 Pulse (Heart Rate) 101 /min Travon Wright [facility] Work Phone: 02-19-2017 14:24-0500 Weight 151.05 kg Travon Wright [facility] Work Phone: 11-18-2016 14:46-0400 BMI (Body Mass Index) 44.01 kg/m2 Amber [facility] [employer] Work Phone: 11-18-2016 14:46-0400 Body Temperature 98.1 [degF] Amber [facility] [employer] Work Phone: 11-18-2016 14:46-0400 BP Diastolic 86 mm[Hg] Amber [facility] [employer] Work Phone: 11-18-2016 14:46-0400 BP Systolic 136 mm[Hg] Amber [facility] [employer] Work Phone: 11-18-2016 14:46-0400 Height 185.4 cm Amber [facility] [employer] Work Phone: 11-18-2016 14:46-0400 Pulse (Heart Rate) 78 /min Amber [facility] [employer] Work Phone: 11-18-2016 14:46-0400 Weight 151.32 kg Amber [facility] [employer] Work Phone: Encounters Encounter Date Encounter Type Care Provider Facility Start: 02-26-2024 ambulatory Wing Joe acility:[facility] Start: 07-28-2022 Encounter for genera l adult medical examination without abnormal findings DR RAFFY NAVARRETE . [facility] Start: 07-24-2022 End: 07-24-[address] RAFFY NAVARRETE . Facility:[facility] Start: 07-22-2022 End: 07-23-[address] RAFFY NAVARRETE . Facility:[facility] Start: 07-22-2022 End: 07-23-2022 Encounter for general adult medical examination without abnormal findings DR RAFFY NAVARRETE . Facility:[facility] Start: 09-23-2021 End: 09-24-[address] RAFFY NAVARRETE . Facility:[facility] Start: 08-16-2021 End: 08-16-2021 ambulatory Casper Bellamy Other [employer] Other Start: 08-16-2021 Office outpatient visit 15 minutes Casper Bellamy [facility] Start: 12-17-2017 Patient encounter CECE ZAVALA [facility] Start: 09-15-2017 End: 09-17-2017 Evaluation and management of inpatient RAFFY Alexis Laureen [facility] Start: 09-11-2017 End: 09-14-2017 Ambulatory [facility] Start: 09-11-2017 End: 09-16-2017 Ambulatory [facility] Start: 07-22-2017 Office/outpatient visit, est, level 3 Travon Wright Work Phone: [facility] Start: 07-22-2017 End: 07-22-2017 Ambulatory Carly Reuben Hong [facility] Start: 03-24-2017 Ambulatory Sonia Young [facility] Start: 03-18-2017 Patient encounter TRAVON WRIGHT [facility] Start: 03-18-2017 Office outpatient visit 15 minutes Travon Wright Work Phone: [facility] Start: 02-26-2017 Ambulatory Travon Wright Facilit y:[facility] Start: 02-26-2017 End: 02-26-2017 Ambulatory Travon Wright Work Phone: [facility] Start: 02-20-2017 [facility] Start: 02-19-2017 End: 02-19-2017 Patient encounter AMBER URIBE [facility] Start: 02-19-2017 Office outpatient visit 15 minutes Amber Uribe Work Phone: [facility] Start: 11-18-2016 End: 11-18-2016 Office outpatient visit 15 minutes Amber Uribe Work Phone: [facility] Comment on above: DDD (degenerative di sc disease), lumbar (Primary Dx) Procedures Date Procedure Procedure Detail Performing Clinician Start: 07-22-[address] ROMEO NAVARRETE . Comment on above: Performed By: #### V ITAD, PSASC #### [facility] [address] [place] [address] Dr. Isamar Betancourt Start: 09-17-2017 INCENTIVE SPIROMETRY [...] 11-14-2021 Tetanus vaccination TETANUS EVERY 10 YR [facility] Work Phone: Start: 04-02-2017 Ambulatory 04/02/2017 Cli nical Support Orthopedic Surgery ViauCece MD [address] [place] [address] [phone] [facility] Start: 12-12-2016 Influenza vaccination SEQUENTI AL INFLUENZA VACCINE (#1) [facility] Work Phone: Start: 12-12-2016 SEQUENTIAL INFLUENZA VACCINE (#1) SEQUENTIAL INFLUENZA VACCINE (#1) [facility] Work Phone: Start: 1980 TETANUS EVERY 10 YR TETANUS EVERY 10 YR [facility] Work Phone: End: 02-19-2018 MR Lumbar Spine Without Contrast MR Lumbar Spine Without Contrast Routine Acute back pain, unspecified back location, unspecified back pain laterality 1 Occurrences starting 02/19/2017 until 02/19/2018 [facility] Work Phone: Payers Date Payer Category Payer Self-pay 2016 Unknown [id number] [id number] 1980 Unknown [id number] [id number] 1980 Unknown [id number] [id number] [id number] 1980 Unknown [id number] [id number] [id number] 1958 Medicaid [id number] 2.1 [id number] 1958 Medicaid [id number] 2. [id number] Medicaid xxxxxxxxxxx 2.1 [id number] Unknown [id number] [id number] Social History Date Type Detail Facility Start: 11-18-2016 End: 07-22-2017 Tobacco smoking status NHIS Current every day smoker [facility] Work Phone: History of tobacco use Cigarette Smoker [facility] Work Phone: Start: 11-18-2016 End: 07-22-2017 Cigarettes smoked current (pack per day) - Reported [facility] Work Phone: History of tobacco use Snuff User [facility] Work Phone: Sex Assigned At Not on file [facility] Work Phone: History of tobacco use Chews Tobacco [facility] Work Phone: Sex Assigned At Sex Assigned At Bir [employer] Other Evaluation note 08-16-2021 Note Date & Type Note Facility 08-16-2021 Evaluation note Encounter Date Diagnosis Assessment Notes August, Tooth infection (ICD-10 - K04.7) Take tylenol 1000mg every 8 hours for pain. Call the dentist to make an appointment. I considered more ominous diagnoses such as retropharyngeal abscess, ENGINE LATHE SET UP OPERATOR, Raheem's angina, and Lemierre's syndrome. However, pt [...] an appointment. He agrees with the plan. [employer] Other History general Narrative - Reported Note Date & Type Note Facility History general Narrative - Reported Type Hospitalization History cyst [employer] Other Assessments Diagnosis Pars defect of lumbar [...] DDD (degenerative disc disease), lumbar Amber Uribe, CIVIL ENGINEERING PROJECT DESIGNER [address] [place] [address] Scheduling Instructions Pt would like to see Dr Almodovar in [place] Status Reason Specialty Diagnoses / Procedures Referred By Contact Referred To Contact Authorized Rehabilitation Diagnoses DDD (degenerative disc disease), lumbar Amber Uribe, CIVIL ENGINEERING PROJECT DESIGNER [address] [place] [address] History of Present Illness * Amber Uribe, CIVIL ENGINEERING PROJECT DESIGNER - 11/18/2016 2:53 PM EDT Formatting of this note may be different from the original. Subjective: Rowena Patricia is a 36 y.o. male here for Follow-up ([facility] for low back pain. [...] section and content) DATE CREATED AUTHOR 09/29/2017 [facility] DATE CREATED AUTHOR AUTHOR'S ORGANIZ ATION 10/06/2017 [facility] DATE CREATED AUTHOR AUTHOR'S ORGANIZ ATION 10/09/2017 [facility] DATE CREATED AUTHOR [facility] DATE CREATED AUTHOR AUTHOR'S ORGANIZ ATION 09/07/[address] [facility] DATE CREATED AUTHOR AUTHOR'S ORGANIZ ATION 05/27/2021 [facility] DATE CREATED AUTHOR AUTHOR'S ORGANIZ ATION 07/28/2022 [facility] DATE CREATED AUTHOR AUTHOR'S ORGANIZ ATION 03/27/2024 [facility] Reason for Visit (unrecogniz ed section and content) Reason Comments Follow-up [facility] for low back [...] BE BASED ON THE PRIMARY CLINICAL RECORDS. [facility]. provides no warranty or guarantee of the accuracy or completeness of information in this document.
--- OUTSIDE RECORDS SUMMARY | 2024-12-18 21:40 | XMS_ITS | Clinical Summary ---
Demographics Address [address] [place] [address] Home Phone Preferred Language Unknown Marital Status Unknown [employer] Affiliation Unknown Race Unknown Ethnic Group Unknown Author Organization [facility] Address [address] [place] [address] Phone Care Team Providers Care Engineering Scientist Name Role Phone Unavailable Primary Care Provider Unavailabl e Social History Tobacco Use Types Packs/Day Years Used Date Smoking Tobacco: Never Assessed Sex and Gender Information Value Date Recorded Sex Assigned at Not on file Legal Sex Male 3:42 PM EST Gender Identity Not on file Sexual Orientation Not on file Plan of Treatment Not on file
--- NOTE | 2024-12-18 22:47 | ECG_ITS ---
[facility] Test Date: 2024-12-18 Pat Name: ROWENA TORIBIO Department: Room: - Gender: Male Pediatric Intensive Physician: : 1980 Requested By: Yvon Freeman Order Number: [id number] Reading MD: SENTHIL BARRETO Measurements Intervals [place] Rate: 84 P: 60 MI: 156 QRS: 75 QRSD: 90 T: 25 QT: 372 QTc: 413 Interpretive Statements 1100 Sinus rhythm 8102 Low QRS voltage in chest leads 9120 atypical ECG Compared to ECG 02/25/2024 16:26:57 T-wave abnormality no longer present Electronically Signed On 12-19-2024 19:09:18 EDT by SENTHIL BARRETO
[2024-12-18 23:04] LABS: Hematocrit 46.1 % (42.0-54.0); Hemoglobin 16.2 g/dL (14.0-18.0); Immature Granulocytes Abs Auto 0.17 10^3/uL (0.00-0.03); Immature Granulocytes Pct Auto 1.4 % (0.0-0.5); Lymphocytes Absolute Auto 2.2 10^3/uL (1.2-3.8); Mean Corpuscular HGB Conc 35.1 g/dL (29.9-35.2); Mean Corpuscular Hemoglobin 32.7 pg (25.9-34.0); Mean Corpuscular Volume 93.1 fL (80.0-94.0); Platelet Count 339 10^3/uL (150-450); Red Blood Count 4.95 10^6/uL (4.70-6.10); White Blood Count 12.3 10^3/uL (4.0-11.0)
[2024-12-18 23:18] LABS: Anion Gap 14.3; Blood Urea Nitrogen 15.0 mg/dL (7.0-18.0); Calcium 9.4 mg/dL (8.5-10.1); Carbon Dioxide 27.8 mmol/L (21.0-32.0); Chloride 101 mmol/L (98-107); Estimated GFR (African America >60 (>=60 mL/min/1.73m^2); Estimated GFR (Non-African Ame >60 (>=60 mL/min/1.73m^2); Glucose 109 mg/dL (74-106); Potassium 4.1 mmol/L (3.5-5.1); Salicylate 3.1 mg/dL (<=19.9); Sodium 139 mmol/L (136-145)
[2024-12-18 23:22] LABS: Acetaminophen <2.0 ug/mL (10.0-30.0)
--- NOTE | 2024-12-18 23:22 | ED.PSYCH1 ---
HPI - Psych General Chief Complaint: Psychiatric Symptoms Stated Complaint: SUICIDAL Time Seen by Provider: 12/18/24 21:33 Source: Reports patient Mode of arrival: Wheelchair History of Present Illness HPI Narrative: cc -suicidal threat Apparently the patient was in an argument with his mother, who he was talking with by phone, and at some point he made threats about hurting himself or talking about killing himself -the exact details are unclear as the patient tells us that he has no intention of hurting himself or killing himself. Someone called 911 and the patient was brought here by ambulance for evaluation. He continues to maintain to us that he does not plan on hurting himself. He denies any recent alcohol use but admits to using cannabis tonight. He denies any self-injury, toxic ingestion or other attempt to hurt himself Related Data Home Medications ?Medication ?Instructions ?Recorded ?Confirmed cetirizine 10 mg tablet 10 mg PO DAILY 08/05/23 12/18/24 etodolac 500 mg tablet 500 mg PO TID 08/05/23 12/18/24 lisinopril 40 mg tablet 40 mg PO DAILY 08/05/23 12/18/24 metoprolol tartrate 50 mg tablet 50 mg PO BID 08/05/23 12/18/24 omeprazole 40 mg capsule,delayed 40 mg PO DAILY 08/02/24 12/18/24 release quetiapine 50 mg tablet 50 mg PO DAILY 08/02/24 12/18/24 venlafaxine 75 mg capsule,extended 75 mg PO DAILY 08/02/24 12/18/24 release 24 hr Allergies Allergy/AdvReac Type Severity Reaction Status Date / Time No Known Drug Allergies Allergy Verified 12/18/24 21:42 PFSH PFSH Social History Little interest or pleasure in doing things: not at all Feeling down, depressed, or hopeless: not at all Exam Narrative Exam Narrative: Nurses notes and vital signs reviewed and patient is not hypoxic. afebrile General: Well-appearing and in no apparent distress. Skin: Warm, dry, no pallor noted. Head: Normocephalic, atraumatic. Neck: Supple, non-tender. Eye: Pupils are equal, round and EOMI. No scleral icterus. Ears, Nose, Mouth, and Throat: Oral mucosa is moist Cardiovascular: Regular Rate and Rhythm without murmur, gallop or rub. Respiratory: No accessory muscle use or respiratory distress. Lungs are clear to auscultation, no wheezing, rales or rhonchi Back: No CVA tenderness Musculoskeletal: normal ROM, no calf or popliteal tenderness, no lower extremity edema/swelling, no sign of self-harm/cutting GI: Abdomen is soft, non-distended. Normal bowel sounds. No tenderness to palpation. No rebound, guarding, or rigidity noted. Neurological: A&O x4. No cranial nerve dysfunction observed. No truncal ataxia. Moves all extremities. Sensation intact. Psychiatric: Cooperative and interactive. Normal mood and affect. Constitutional Vital Signs, click to edit/add: Last Vital Signs Temp 98.4 F 12/18/24 21:36 Pulse 97 H 12/18/24 21:36 Resp 18 12/18/24 21:36 BP 129/88 12/18/24 21:36 Pulse Ox 97 12/18/24 21:36 O2 Del Method Room Air 12/18/24 21:36 Course Vital Signs Vital signs: Vital Signs Temperature 98.4 F 12/18/24 21:36 Pulse Rate 97 H 12/18/24 21:36 Respiratory Rate 18 12/18/24 21:36 Blood Pressure 129/88 12/18/24 21:36 Pulse Oximetry 97 12/18/24 21:36 Oxygen Delivery Method Room Air 12/18/24 21:36 Temperature 98.4 F 12/18/24 21:36 Pulse Rate 97 H 12/18/24 21:36 Respiratory Rate 18 12/18/24 21:36 Blood Pressure 129/88 12/18/24 21:36 Pulse Oximetry 97 12/18/24 21:36 Oxygen Delivery Method Room Air 12/18/24 21:36 MDM - Psych MDM Narrative Medical decision making narrative: The patient did not qualify for a sitter, based on answers to the suicidality assessment questionnaire. However we placed him in room 4 and kept the door open for closer evaluation and monitoring Call was placed to [facility] to discuss this patient's evaluation and disposition. They asked that blood and urine be sent for testing. EKG was also obtained. All results are detailed below. Blood testing and EKG were unremarkable and did not reveal any worrisome pathology. The patient is medically cleared for psychiatric evaluation. The patient's came from work to sit with him. [facility] knew this patient well and that he had previously threatened suicide, apparently holding a gun to his head. They interviewed the patient and recommended that he be admitted to a psychiatric facility for further evaluation and testing. Arrangements made for the patient to be transferred to [facility] for psychiatric admission. Psych car should come to pick him up around 7am. Lab Data Attestation: I reviewed the patient's lab results. Labs: Lab Results 12/18/24 12/18/24 Range/Units 22:50 23:00 WBC 12.3 H (4.0-11.0) 10^3/uL RBC 4.95 (4.70-6.10) 10^6/uL Hgb 16.2 (14.0-18.0) g/dL Hct 46.1 (42.0-54.0) % MCV 93.1 (80.0-94.0) fL MCH 32.7 (25.9-34.0) pg MCHC 35.1 (29.9-35.2) g/dL RDW 13.3 (11.0-15.0) % Plt Count 339 (150-450) 10^3/uL MPV 10.4 (9.5-13.5) fL Neut % (Auto) 71.7 (43.0-75.0) % Lymph % (Auto) 17.8 L (20.5-60.0) % Meigs % (Auto) 7.2 (1.7-12.0) % Eos % (Auto) 1.1 (0.9-7.0) % Baso % (Auto) 0.8 (0.2-2.0) % Neut # (Auto) 8.8 H (1.4-6.5) 10^3/uL Lymph # (Auto) 2.2 (1.2-3.8) 10^3/uL Meigs # (Auto) 0.9 H (0.3-0.8) 10^3/uL Eos # (Auto) 0.1 (0.0-0.7) 10^3/uL Baso # (Auto) 0.1 (0.0-0.1) 10^3/uL Abs Immat Gran (auto) 0.17 H (0.00-0.03) 10^3/uL Imm/Tot Granulo (auto) 1.4 H (0.0-0.5) % Sodium 139 (136-145) mmol/L Potassium 4.1 (3.5-5.1) mmol/L Chloride 101 (98-107) mmol/L Carbon Dioxide 27.8 (21.0-32.0) mmol/L Anion Gap 14.3 BUN 15.0 (7.0-18.0) mg/dL Creatinine 0.93 (0.70-1.30) mg/dL Est GFR ( Amer) >60 (>=60 mL/min/1.73m^2) Est GFR (Non-Af Amer) >60 (>=60 mL/min/1.73m^2) BUN/Creatinine Ratio 16.1 Glucose 109 H (74-106) mg/dL Calcium 9.4 (8.5-10.1) mg/dL Salicylates 3.1 (<=19.9) mg/dL Urine Opiates Screen Positive A (NEGATIVE) Ur Buprenorphine Scrn Negative (NEGATIVE) Ur Oxycodone Screen Negative (NEGATIVE) Urine Methadone Screen Negative (NEGATIVE) Acetaminophen <2.0 L (10.0-30.0) ug/mL Ur Barbiturates Screen Negative (NEGATIVE) U Tricyclic Antidepress Positive A (NEGATIVE) Ur Phencyclidine Scrn Negative (NEGATIVE) Ur Amphetamines Screen Negative (NEGATIVE) U Methamphetamines Scrn Negative (NEGATIVE) U Benzodiazepines Scrn Negative (NEGATIVE) Urine Cocaine Screen Negative (NEGATIVE) U Cannabinoids Screen Positive A (NEGATIVE) Ethanol Quant <3 mg/dL ECG Data Attestation: I personally reviewed and interpreted this ECG as follows: Interpretation: EKG interpretation: Emergency Department physician interpretation. Normal sinus rhythm at 84bpm. Normal axis, normal intervals and no ST segment elevation or depression. Discharge Plan Discharge Chief Complaint: Psychiatric Symptoms Clinical Impression: Depression, Impairing emotional outbursts Patient Disposition: [facility] Time of Disposition Decision: 02:59 Discharge location: [place] - PSYCH ADMISSION
[2024-12-18 23:23] LABS: Cannabinoid Screen Urine POSITIVE (NEGATIVE); Methamphetamines Screen Urine NEGATIVE (NEGATIVE); Tricyclic Antidepressant Urine POSITIVE (NEGATIVE)
--- NOTE | 2024-12-19 09:23 | PC.NURSE ---
pt updated on plan of care, given warm blankets for comfort, pt denies needs at this time
== END 2024-12-19 11:37 ==
PROVIDERS: Emergency Provider Emergency Medicine; PCP Family Medicine
DX: F32.9 Major depressive disorder, single episode, unspecified (principal); F34.89 Other specified persistent mood disorders
CPT/HCPCS: 36415; 80048; 80179; 80307; 80320; 80329; 85025; 93005; 99285

== ENCOUNTER 2024-12-29 13:54 | Outpatient (OUT) | payer OTHER, SELFPAY ==
--- OUTSIDE RECORDS SUMMARY | 2024-12-29 14:02 | XMS_ITS | CCD ---
Demographics Address [address] [place] [address] Home Phone Home Phone [phone] Preferred Language en Marital Status Single Faith Affiliation Unknown Race Unknown Ethnic Group Not or Lati no Author Organization [facility] Care Team Providers Care Teacher Advisor Name Role Phone Cece Perera Unavailable [phone] ZHOU DEAN H. Unavailable Unavailable RAFFY NAVARRETE Unavailable Unavailable ZHOU, DEAN H. Unavailable Unavailable RAFFY NAVARRETE Unavailable Unavailable RAFFY NAVARRETE Unavailable Unavailable ZHOU, DEAN H. Unavailable Unavailable ZHOU, DEAN H. Unavailable Unavailable Fanisis Travon K Unavailable Unavailable Fanisis Travon K Unavailable Unavailable JOJORHONDA MCLAUGHLINI JORDANA Unavailable Unavailabl e SAJAN TRAVON YAKOV Unavailable Unavailable JOJORHONDA MCLAUGHLINI JORDANA Unavailable Unavailabl e CECE PERERA Unavailable Unavailab TRAVON Cuellar Unavailable [...] ., DR AKBAR Consulting Unavailable Wing Norris Attending Unavailab Wing Coulter Admitting Unavailab [facility] Unavailable Allergies Allergy Classification Reported Allergen(s) Allergy Type Date of Onset Reaction(s) Facility (10 sources) acetaminophen / HYDROcodone; Translations: [HYDROCODONE-ACET AMINOPHEN] Propensity to adverse reactions to drug 7 GI Intolerance [facility] Work Phone: (1 source) Acetaminophen / HYDROcodone Drug Allergy 5 [facility] Repository (1 source) Acetaminophen Drug Allergy 3 [facility] Repository (1 source) HYDROcodone Drug Allergy 3 [facility] Repository Medications Current Medications Medication Drug Class(es) [...] Test Name Value Interpretation Reference Range Facility [facility] B[facility] IMMUNO SCREENon 07-12 OCCULT BLOOD Negative Normal NEGATIVE [facility] Comment on above: Performed By: #### O BSCRN #### [facility] [address] [place] [address] Dr. Isamar Betancourt INSULINon 07-23-2022 Insulin 42.3 uIU/mL Critically high 2.6-24.9 [facility] Comment on above: Performed By: #### I NSULIN #### [facility] [address] [place] [address] Dr. Isamar Betancourt CBC AUTO DIFFon 07-22-2022 BASO # 0.1 103/ul Normal 0.0-0.1 [facility] Comment on above: Performed By: #### C BC #### [facility] [address] [place] [address] Dr. Isamar Betancourt Basophils/100 WBC (Bld) 1.1 % Normal 0.2-2.0 [facility] Comment on above: Performed By: #### C BC #### [facility] [address] [place] [address] Dr. Isamar Betancourt EO # 0.2 103/ul Normal 0.0-0.7 [facility] Comment on above: Performed By: #### C BC #### [facility] [address] [place] [address] Dr. Isamar Betancourt Eosinophils/100 WBC (Bld) 2.5 % Normal 0.9-7.0 [facility] Comment on above: Performed By: #### C BC #### [facility] [address] [place] [address] Dr. Isamar Betancourt Erythrocyte distribution width (RBC) [Ratio] 14.4 % Normal 11.0-15.0 [facility] Comment on above: Performed By: #### C BC #### [facility] [address] [place] [address] Dr. Isamar Betancourt Hematocrit (Bld) [Volume fraction] 44.5 % Normal 42.0-54.0 [facility] Comment on above: Performed By: #### C BC #### [facility] [address] [place] [address] Dr. Isamar Betancourt Hemoglobin (Bld) [Mass/Vol] 15.0 g/dL Normal 14.0-18.0 [facility] Comment on above: Performed By: #### C BC #### [facility] [address] [place] [address] Dr. Isamar Betancourt IG # 0.14 10e3/ul Critically high 0.00-0.[address] [facility] Comment on above: Performed By: #### C BC #### [facility] [address] [address] [address] Isamar Betancourt IG % 1.5 % Critically high 0.0-0.5 [facility] Comment on above: Performed By: #### C BC #### [facility] [address] [place] [address] Dr. Isamar Betancourt LYMPH # 3.0 103/ul Normal 1.2-3.8 [facility] Comment on above: Performed By: #### C BC #### [facility] [address] [place] [address] Dr. Isamar Betancourt Lymphocytes/100 WBC (Bld) 33.1 % Normal 20.5-60.0 [facility] Comment on above: Performed By: #### C BC #### [facility] [address] [place] [address] Dr. Isamar Betancourt MANUAL DIFF REQ NO Normal [facility] Comment on above: Performed By: #### C BC #### [facility] [address] [place] [address] Dr. Isamar Betancourt MCH (RBC) [Entitic mass] 29.7 pg Normal 25.9-34.0 [facility] Comment on above: Performed By: #### C BC #### [facility] [address] [place] [address] Dr. Isamar Betancourt MCHC (RBC) [Mass/Vol] 33.7 g/dL Normal 29.9-35.2 [facility] Comment on above: Performed By: #### C BC #### [facility] [address] [place] [address] Dr. Isamar Betancourt MCV (RBC) [Entitic vol] 88.1 fL Normal 80.0-94.0 [facility] Comment on above: Performed By: #### C BC #### [facility] [address] [place] [address] Dr. Isamar Betancourt MONO # 0.9 103/ul Critically high 0.3-0.8 [facility] Comment on above: Performed By: #### C BC #### [facility] [address] [place] [address] Dr. Isamar Betancourt Monocytes/100 WBC (Bld) 9.3 % Normal 1.7-12.0 [facility] Comment on above: Performed By: #### C BC #### [facility] [address] [place] [address] Dr. Isamar Betancourt NEUT # 4.8 103/ul Normal 1.4-6.5 [facility] Comment on above: Performed By: #### C BC #### [facility] [address] [place] [address] Dr. Isamar Bteancourt Neutrophils/100 WBC (Bld) 52.5 % Normal 43.0-75.0 [facility] Comment on above: Performed By: #### C BC #### [facility] [address] [place] [address] Dr. Isamar Betancourt Platelet mean volume (Bld) [Entitic vol] 10.3 fL Normal 9.5-13.5 [facility] Comment on above: Performed By: #### C BC #### [facility] [address] [place] [address] Dr. Isamar Betancourt PLT 317 103/ul Normal 150-450 [facility] Comment on above: Performed By: #### C BC #### [facility] [address] [place] [address] Dr. Isamar Betancourt RBC 5.05 106/ul Normal 4.70-6.10 [facility] Comment on above: Performed By: #### C BC #### [facility] [address] [place] [address] Dr. Isamar Betancourt WBC 9.2 103/ul Normal 4.0-11.0 [facility] Comment on above: Performed By: #### C BC #### [facility] [address] [address] [address] Isamar Betancourt FREE THYROXINE INDEX T7on FTI 2.40 Normal 1.30-4.50 [facility] Comment on above: Performed By: #### V ITDEVAN, PSASC #### [facility] [address] [place] [address] Dr. Isamar Betancourt T3U 30.0 % Critically low 33.0-40.0 [facility] Comment on above: Performed By: #### V ITDEVAN, PSASC #### [facility] [address] [place] [address] Dr. Isamar Betancourt T4 [Mass/Vol] 8.00 ug/dL Normal 4.50-12.10 [facility] Comment on above: Performed By: #### V ITDEVAN, PSASC #### [facility] [address] [place] [address] Dr. Isamar Betancourt GLYCOHEMOGLOBIN A1Con 2022 ADA RECOMMENDATION SEE BELOW Normal [facility] Comment on above: Result Comment: ADA RECOMMENDED LIMIT 4.0 - 6.0 ADA THERAPEUTIC TARGET < 7.0 ACTION SUGGESTED > 7.0 Performed By: #### A 1C #### [facility] [address] [place] [address] Dr. Isamar Betancourt Glucose [Mass/Vol] 103 mg/dL Normal [facility] Comment on above: Performed By: #### A 1C #### [facility] [address] [place] [address] Dr. Isamar Betancourt HbA1c (Bld) [Mass fraction] 5.2 % Normal 4.5-6.2 [facility] Comment on above: Performed By: #### A 1C #### [facility] [address] [place] [address] Dr. Isamar Betancourt LIPID PROFILEon 07-22-2022 CHOL-HDL RATIO NORM SEE BELOW Normal [facility] Comment on above: Result Comment: 3.3 - 4.4 LOW RISK 4.4 - 7.1 AVERAGE RISK 7.1 - 11.0 MODERATE RISK >11.0 HIGH RISK Performed By: #### T 7, CMP, LIPID, TSH, URIC #### [facility] [address] [address] [address] Isamar Betancourt Cholesterol [Mass/Vol] 208 mg/dL Critically high <=200 [facility] Comment on above: Performed By: #### T 7, CMP, LIPID, TSH, URIC #### [facility] [address] [address] [address] Isamar Betancourt Cholesterol in HDL [Mass/Vol] 28 mg/dL Critically low 40-60 [facility] Comment on above: Performed By: #### T 7, CMP, LIPID, TSH, URIC #### [facility] [address] [address] [address] Isamar Betancourt Cholesterol in LDL [Mass/Vol] 153.8 mg/dL Normal [facility] Comment on above: Performed By: #### T 7, CMP, LIPID, TSH, URIC #### [facility] [address] [address] [address] Isamar Betancourt Cholesterol.total/C holesterol in HDL [Mass ratio] 7.4 {ratio} Normal [facility] Comment on above: Performed By: #### T 7, CMP, LIPID, TSH, URIC #### [facility] [address] [address] [address] Isamar Betancourt HDL NORMAL > or = 60 mg/dl - LO W CARDIOVASCULAR RISK <40 mg/dl - HIGH CARDIOVASCULAR RISK Normal [facility] Comment on above: Performed By: #### T 7, CMP, LIPID, TSH, URIC #### [facility] [address] [address] [address] Isamar Betancourt LDL CALC NORMAL SEE BELOW Normal [facility] Comment on above: Result Comment: <100 mg/dl OPTIMAL 100 - 129 mg/dl NEAR OR ABOVE OPTIMAL 130 - 159 mg/dl BORDERLINE HIGH 160 - 189 mg/dl HIGH >190 mg/dl VERY HIGH Performed By: #### T 7, CMP, LIPID, TSH, URIC #### [facility] [address] [address] [address] Isamar Betancourt Triglyceride [Mass/Vol] 131 mg/dL Normal <=150 [facility] Comment on above: Performed By: #### T 7, CMP, LIPID, TSH, URIC #### [facility] [address] [address] [address] Isamar Betancourt VLDL CALC 26.2 mg/dL Normal [facility] Comment on above: Performed By: #### T 7, CMP, LIPID, TSH, URIC #### [facility] [address] [place] [address] Dr. Isamar Betancourt PROF 14(COMP METB)on 023 Albumin [Mass/Vol] 2.8 g/dL Critically low 3.4-5.0 [facility] Comment on above: Performed By: #### T 7, CMP, LIPID, TSH, URIC #### [facility] [address] [place] [address] Dr. Isamar Betancourt Albumin/Globulin [Mass ratio] 0.6 {ratio} Normal [facility] Comment on above: Performed By: #### T 7, CMP, LIPID, TSH, URIC #### [facility] [address] [place] [address] Dr. Isamar Betancourt ALP [Catalytic activity/Vol] 105 U/L Normal 46-116 [facility] Comment on above: Performed By: #### T 7, CMP, LIPID, TSH, URIC #### [facility] [address] [place] [address] Dr. Isamar Betancourt ALT [Catalytic activity/Vol] 23 U/L Normal 16-63 [facility] Comment on above: Performed By: #### T 7, CMP, LIPID, TSH, URIC #### [facility] [address] [place] [address] Dr. Isamar Betancourt Anion gap [Moles/Vol] 9.6 mmol/L Normal [facility] Comment on above: Performed By: #### T 7, CMP, LIPID, TSH, URIC #### [facility] [address] [place] [address] Dr. Isamar Betancourt AST [Catalytic activity/Vol] 15 U/L Normal 15-37 [facility] Comment on above: Performed By: #### T 7, CMP, LIPID, TSH, URIC #### [facility] [address] [place] [address] Dr. Isamar Betancourt Bilirubin [Mass/Vol] 0.5 mg/dL Normal 0.2-1.0 [facility] Comment on above: Performed By: #### T 7, CMP, LIPID, TSH, URIC #### [facility] [address] [place] [address] Dr. Isamar Betancourt Calcium [Mass/Vol] 8.9 mg/dL Normal 8.5-10.1 [facility] Comment on above: Performed By: #### T 7, CMP, LIPID, TSH, URIC #### [facility] [address] [place] [address] Dr. Isamar Betancourt Chloride [Moles/Vol] 106 mmol/L Normal 98-107 [facility] Comment on above: Performed By: #### T 7, CMP, LIPID, TSH, URIC #### [facility] [address] [place] [address] Dr. Isamar Betancourt CO2 [Moles/Vol] 30.7 mmol/L Normal 21.0-32.[address] [facility] Comment on above: Performed By: #### T 7, CMP, LIPID, TSH, URIC #### [facility] [address] [place] [address] Dr. Isamar Betancourt Creatinine [Mass/Vol] 0.82 mg/dL Normal 0.70-1.30 [facility] Comment on above: Performed By: #### T 7, CMP, LIPID, TSH, URIC #### [facility] [address] [place] [address] Dr. Isamar Betancourt EGFR-AF ANDORRAN >60 Normal >=[address] [facility] Comment on above: Performed By: #### T 7, CMP, LIPID, TSH, URIC #### [facility] [address] [place] [address] Dr. Isamar Betancourt EGFR-NON AF ANDORRAN >60 Normal >=60 [facility] Comment on above: Performed By: #### T 7, CMP, LIPID, TSH, URIC #### [facility] [address] [place] [address] Dr. Isamar Betancourt Globulin (S) [Mass/Vol] 4.4 g/dL Normal [facility] Comment on above: Performed By: #### T 7, CMP, LIPID, TSH, URIC #### [facility] [address] [address] [address] Isamar Betancourt Glucose [Mass/Vol] 89 mg/dL Normal 74-106 [facility] Comment on above: Performed By: #### T 7, CMP, LIPID, TSH, URIC #### [facility] [address] [place] [address] Dr. Isamar Betancourt Potassium [Moles/Vol] 4.3 mmol/L Normal 3.5-5.1 [facility] Comment on above: Performed By: #### T 7, CMP, LIPID, TSH, URIC #### [facility] [address] [place] [address] Dr. Isamar Betancourt Protein [Mass/Vol] 7.2 g/dL Normal 6.4-8.2 [facility] Comment on above: Performed By: #### T 7, CMP, LIPID, TSH, URIC #### [facility] [address] [place] [address] Dr. Isamar Betancourt Sodium [Moles/Vol] 142 mmol/L Normal 136-145 [facility] Comment on above: Performed By: #### T 7, CMP, LIPID, TSH, URIC #### [facility] [address] [address] [address] Isamar Betancourt Urea nitrogen [Mass/Vol] 13.0 mg/dL Normal 7.0-18.0 [facility] Comment on above: Performed By: #### T 7, CMP, LIPID, TSH, URIC #### [facility] [address] [address] [address] Isamar Betancourt Urea nitrogen/Creatinine [Mass ratio] 15.9 mg/mg Normal [facility] Comment on above: Performed By: #### T 7, CMP, LIPID, TSH, URIC #### [facility] [address] [address] [address] Isamar Betancourt TSHon 07-22-2022 TSH 1.732 uIU/mL Normal 0.358-3.740 [facility] Comment on above: Performed By: #### T 7, CMP, LIPID, TSH, URIC #### [facility] [address] [address] [address] Isamar Betancourt URIC ACID SERUMon 07-22-2022 Urate [Mass/Vol] 3.6 mg/dL Normal 3.5-7.2 [facility] Comment on above: Performed By: #### T 7, CMP, LIPID, TSH, URIC #### [facility] [address] [address] [address] Isamar Betancourt VITAMIN D 25 OHon 07-22-2022 VIT D 25-OH 8.0 ng/mL Normal [facility] Comment on above: Performed By: #### V ITAD, PSASC #### [facility] [address] [address] [address] Isamar Betancourt VIT D RANGES SEE BELOW Normal [facility] Comment on above: Result Comment: <20 ng/mL Vit D deficient 20 - <30 ng/mL Vit D insufficient 30 - 100 ng/mL Vit D sufficient >100 ng/mL Potential Toxicity Performed By: #### V ITAD, PSASC #### [facility] [address] [address] LUMBAR SP WO CONon 2020 CT LUMBAR SP WO CON STUDY: CT LUMBAR SP WO CON 01/09/2021 12:44 pm INDICATION: NONUNION OF SPINAL FUSION COMPARISON: None. ACCESSION NUMBER(S): [id number] ORDERING CLINICIAN: Hugo Mckeon TECHNIQUE: Axial CT [...] degenerative changes of the lumbar spine. Normal [facility] LUMBAR SPINE 2 OR 3 VIEWSon 12-21-2020 LUMBAR SPINE 2 OR 3 VIEWS STUDY: LUMBAR SPINE 2 OR 3 VIEWS; 12/21/2020 10:38 am INDICATION: STENOSIS OF LATERAL RECESS OF LUMBAR SPINE. COMPARISON: No available comparisons. ACCESSION NUMBER(S): [id number] ORDERING CLINICIAN: Hugo Mckeon TECHNIQUE: 4 views of the lumbar spine. FINDINGS: No acute fracture dislocation. Status post posterior lumbar spine fusion at L5-S1 level with decompression laminectomy. The vertebral alignment is normal. The vertebral body heights and intervertebral disc spaces are maintained. Nonspecific bowel gas pattern. IMPRESSION: Stable postsurgical changes of lumbar spine. Normal [facility] OPERATIVE REPORTon OPERATIVE REPORT NAME: ROWENA PATRICIA MR#: [id number] SURGEON: Hugo Mckeon MD DATE OF SURGERY: [...] There were no complications. HUGO MCKEON MD JFMunir/MODL/[id number] E/S: Hugo Mckeon MD 01/07/21 0936 Electronically Signed [facility] PT NAME: ROWENA PATRICIA MR#: [id number] [address] [place] [address] ACCT: [id number] : 82 OPERATIVE REPORT Normal [facility] CORONAVIRUSon 11-28-2020 SARS-CoV-2 (COVID-19) RNA ONESIMO+probe Ql [...] COVID-19 Negative for COVID-19 (SARS-CoV-2 RNA) Normal [facility] Comment on above: Order Comment: CBN: YES [place]: MAIN COVID Testing: PRE-OP/PROCEDURE SCREEN Comment: 11/30 AGE at Spec EUGENIA 40 Report age at specimen EUGENIA? Y First test: UNKNOWN Employed in Healthcare: NO Symptomatic as defined by CDC: NO Hospitalized for COVID-19? NO ICU: NO Resident in a Congregated Care Setting: NO Order Date: 11/28/20 : Not Performed By: #### M [phone] #### Test performed at: [address] [address] LUMB SP COMP W FLEX/EXT 6 VW S>on 10-12-2020 LUMB SP COMP W FLEX/EXT 6 VWS> STUDY: LUMB SP COMP W FLEX/EXT 6 VWS>; 10/12/2020 9:48 am INDICATION: LOW BACK PAIN. COMPARISON: None. ACCESSION NUMBER(S): [id number] ORDERING CLINICIAN: Hugo Mckeon TECHNIQUE: Standing AP, [...] posterior spine fusion. No acute abnormalities. Normal [facility] RAD - Ultrasound Reporton RAD - Ultrasound Report [id number]:[id number] Normal [facility] Physician Referralon 020 Physician Referral [id number]:[id number] Normal [facility] Ambulatory Clinical Summaryo n 09-22-2019 Ambulatory Clinical Summary {[id number] Normal [facility] CBC With Platelet and Differ entialon 10-09-2017 Basophils Auto #/vol (Bld) 0.1 10*3/uL Normal 0.0-0.2 [facility] Basophils/100 WBC Auto (Bld) 1.0 % Normal [facility] Eosinophils 0.5 10*3/uL Normal 0.0-0.7 [facility] Eosinophils/100 leukocytes 8.5 % Normal [facility] Erythrocyte distribution width Auto Ratio (RBC) 12.5 % Normal 11.5-14.5 [facility] Erythrocytes (RBC) 5.00 10*6/uL Normal 4.70-6.10 [facility] Hematocrit (HCT) 45.4 % Normal 42.0-52.0 [facility] Hemoglobin mass conc (Bld) 14.5 g/dL Normal 14.0-18.0 [facility] Lymphocytes 1.5 10*3/uL Normal 1.0-4.8 [facility] Lymphocytes/100 leukocytes 28.4 % Normal [facility] MCH 28.9 pg Normal 27.0-31.3 [facility] MCHC mass conc (RBC) 31.8 % Low 33.0-37.0 [facility] MCV 90.8 fL Normal 80.0-100.0 [facility] Monocytes 0.5 10*3/uL Normal 0.2-0.8 [facility] Monocytes/100 leukocytes 8.4 % Normal [facility] Neutrophils 2.9 10*3/uL Normal 1.4-6.5 [facility] Neutrophils/100 leukocytes 53.7 % Normal [facility] Platelets 246 10*3/uL Normal 130-400 [facility] WBC (Leukocytes) 5.4 10*3/uL Normal 4.8-10.8 [facility] [place] [facility] Comprehensive Metabolic Pane jesus 10-09-2017 Alanine aminotransferase (ALT) 12 U/L Normal 0-41 [facility] Albumin 4.4 g/dL Normal 3.9-4.9 [facility] Alkaline phosphatase (ALP) 66 U/L Normal 35-104 [facility] Anion gap 12 mmol/L Normal 7-13 [facility] Aspartate aminotransferase (AST) 20 U/L Normal 0-40 [facility] Bilirubin (total) 0.5 mg/dL Normal 0.0-1.2 [facility] Calcium 9.3 mg/dL Normal 8.6-10.2 [facility] Chloride 101 mmol/L Normal 98-107 [facility] CO2 28 mmol/L Normal 22-29 [facility] Creatinine 0.91 mg/dL Normal 0.70-1.20 [facility] eGFR (black) mL/min/{1.73_m2} Normal >60 [facility] Comment on above: Result Comment: >60 mL/min/1.73m2 EGFR, calc. for ages 18 and older using theMDRD formula (not corrected for weight), is valid for stablerenal function. eGFR (MDRD) mL/min/{1.73_m2} Normal >60 [facility] Comment on above: Result Comment: >60 mL/min/1.73m2 EGFR, calc. for ages 18 and older using theMDRD formula (not corrected for weight), is valid for stablerenal function. Globulin 2.9 g/dL Normal 2.3-3.5 [facility] Glucose mass conc 82 mg/dL Normal 74-109 [facility] Potassium molar conc 4.3 mmol/L Normal 3.5-5.1 [facility] Protein 7.3 g/dL Normal 6.4-8.1 [facility] Sodium 141 mmol/L Normal 132-144 [facility] [facility] Urea nitrogen 15 mg/dL Normal 6-20 [facility] Lipid Panelon 10-09-2017 Cholesterol 185 mg/dL Normal 0-199 [facility] Comment on above: Result Comment: ATP III Cholesterol classification is Desirable. HDL Cholesterol 47 mg/dL Normal 40-59 [facility] Comment on above: Result Comment: ATP III HDL Cholesterol Classification is Desirable.Expected Values:Males: >55 = No Risk 35-55 = Moderate Risk <35 = High RiskFemales: >65 = No Risk 45-65 = Moderate Risk <45 = High RiskNCEP Guidelines: Third Report August 2000>59 = negative risk factor for CHD<40 = major risk factor for CHD LDL Cholesterol 123 mg/dL Normal 0-129 [facility] Comment on above: Result Comment: ATP III LDL Classification is Near Optimal. Triglyceride 73 mg/dL Normal 0-200 [facility] Comment on above: Result Comment: ATP III Triglycerides Classification is Normal. Basic Metabolic Panel Reflex Mgon 09-16-2017 Anion gap 12 mmol/L Normal 7-13 [facility] Calcium 8.4 mg/dL Low 8.6-10.2 [facility] Chloride 99 mmol/L Normal 98-107 [facility] CO2 23 mmol/L Normal 22-29 [facility] Creatinine 0.64 mg/dL Low 0.70-1.20 [facility] eGFR (black) mL/min/{1.73_m2} Normal >60 [facility] Comment on above: Result Comment: >60 mL/min/1.73m2 EGFR, calc. for ages 18 and older using theMDRD formula (not corrected for weight), is valid for stablerenal function. eGFR (MDRD) mL/min/{1.73_m2} Normal >60 [facility] Comment on above: Result Comment: >60 mL/min/1.73m2 EGFR, calc. for ages 18 and older using theMDRD formula (not corrected for weight), is valid for stablerenal function. Glucose mass conc 115 mg/dL Critically high 74-109 [facility] Potassium molar conc 4.0 mmol/L Normal 3.5-5.1 [facility] Sodium 134 mmol/L Normal 132-144 [facility] Urea nitrogen 7 mg/dL Normal 6-20 [facility] CBC With Platelet and Differ entialon 09-16-2017 Slide Review see below Normal [facility] Comment on above: Result Comment: Slid e review agrees with reported results Basophils Auto #/vol (Bld) 0.1 10*3/uL Normal 0.0-0.2 [facility] Basophils/100 WBC Auto (Bld) 0.5 % Normal [facility] Eosinophils 0.0 10*3/uL Normal 0.0-0.7 [facility] Eosinophils/100 leukocytes 0.1 % Normal [facility] Erythrocyte distribution width Auto Ratio (RBC) 14.2 % Normal 11.5-14.5 [facility] Erythrocytes (RBC) 4.38 10*6/uL Low 4.70-6.10 [facility] Hematocrit (HCT) 39.9 % Low 42.0-52.0 [facility] Hemoglobin mass conc (Bld) 11.0 g/dL Low 14.0-18.0 [facility] Lymphocytes 0.7 10*3/uL Low 1.0-4.8 [facility] Lymphocytes/100 leukocytes 4.6 % Normal [facility] MCH 25.2 pg Low 27.0-31.3 [facility] MCHC mass conc (RBC) 27.6 % Low 33.0-37.0 [facility] MCV 91.2 fL Normal 80.0-100.0 [facility] Monocytes 0.4 10*3/uL Normal 0.2-0.8 [facility] Monocytes/100 leukocytes 3.0 % Normal [facility] Neutrophils 13.1 10*3/uL Critically high 1.4-6.5 [facility] Neutrophils/100 leukocytes 91.8 % Normal [facility] Platelets 313 10*3/uL Normal 130-400 [facility] WBC (Leukocytes) 14.3 10*3/uL Critically high 4.8-10.8 [facility] XR LUMBAR SPINE (2-3 VIEWS)o n [...] by:NEELAM Knappigned by:Celestino Izaguirre MD09/16/17inal result Normal [facility] FLUORO FOR SURGICAL PROCEDUR ESon 09-15-2017 FLUORO [...] by:NEELAM Crossigned by:Naveen Moctezuma MD//[id number] result Normal [facility] Basic Metabolic Panelon 06- Anion gap 16 mmol/L Critically high 7-13 [facility] Calcium 9.7 mg/dL Normal 8.6-10.2 [facility] Chloride 101 mmol/L Normal 98-107 [facility] CO2 26 mmol/L Normal 22-29 [facility] Creatinine 0.59 mg/dL Low 0.70-1.20 [facility] eGFR (black) mL/min/{1.73_m2} Normal >60 [facility] Comment on above: Result Comment: >60 mL/min/1.73m2 EGFR, calc. for ages 18 and older using theMDRD formula (not corrected for weight), is valid for stablerenal function. eGFR (MDRD) mL/min/{1.73_m2} Normal >60 [facility] Comment on above: Result Comment: >60 mL/min/1.73m2 EGFR, calc. for ages 18 and older using theMDRD formula (not corrected for weight), is valid for stablerenal function. Glucose mass conc 88 mg/dL Normal 74-109 [facility] Potassium molar conc 4.2 mmol/L Normal 3.5-5.1 [facility] Sodium 143 mmol/L Normal 132-144 [facility] Urea nitrogen 9 mg/dL Normal 6-20 [facility] CBC With Platelet No Differe ntialon 09-11-2017 Erythrocyte distribution width Auto Ratio (RBC) 14.5 % Normal 11.5-14.5 [facility] Erythrocytes (RBC) 4.84 10*6/uL Normal 4.70-6.10 [facility] Hematocrit (HCT) 44.1 % Normal 42.0-52.0 [facility] Hemoglobin mass conc (Bld) 15.0 g/dL Normal 14.0-18.0 [facility] MCH 31.1 pg Normal 27.0-31.3 [facility] MCHC mass conc (RBC) 34.1 % Normal 33.0-37.0 [facility] MCV 91.2 fL Normal 80.0-100.0 [facility] Platelets 308 10*3/uL Normal 130-400 [facility] WBC (Leukocytes) 9.4 10*3/uL Normal 4.8-10.8 [facility] Culture, MRSA Screenon 09-11 Culture, MRSA Screen ORDERED BY: RAFAEL HIGGINS: Nares Nose COLLECTED: 09/11/17 17:10ANTIBIOTICS AT EUGENIA.: RECEIVED : 09/11/17 17:10Culture, MRSA Screen FINAL 09/12/17 12:52 No MRSA isolated Normal [facility] Partial Thromboplastin Timeo n 09-11-2017 aPTT 27.1 s Normal 21.6-35.4 [facility] Comment on above: Result Comment: Hepa rin Therapeutic Range: 38.8 - 54.6 seconds. Prothrombin Timeon 8 INR Coag RelTime (PPP) 1.0 {INR} Normal [facility] Comment on above: Result Comment: Shane mmended [...] Coag time (PPP) 10.2 s Normal 9.6-12.3 [facility] Type and Screen Capture 3 sc rn cellon 09-11-2017 Bilirubin (total) PATIENT: MALU MCCORMICK LOC: [facility] BILL# : [id number] : 1980 SEX: MORDERED BY: GISELA PETERSEN ORDERED : 09/11/2017 16:39 COLLECTED: 09/11/2017 17:13ORDER : [id number] RECEIVED : 09/11/2017 17:13 --------TEST NAME RESULT UNITS RANGES ABN FL STABORH Capture B POS FAntibody 3 Cell Scrn Captu NEG F --- Normal [facility] Urinalysis, reflex to cultur alma 09-11-2017 Bilirubin Ql (U) MODERATE Abnormal Negative [facility] Urine Reflexed to Culture Not Indicated Normal [facility] Urine, clarity Clear Normal Clear [facility] Urine, color Yellow Normal Straw/[place] [facility] Urine, glucose presence Negative Normal Negative [facility] Urine, hemoglobin presence Negative Normal Negative [facility] Urine, ketones presence Negative Normal Negative [facility] Urine, leukocyte esterase presence Negative Normal Negative [facility] Urine, nitrite presence Negative Normal Negative [facility] Urine, pH 6.5 [pH] Normal 5.0-9.0 [facility] Urine, protein presence Negative Normal Negative [facility] Urine, specific gravity 1.013 Normal 1.005-1.03 [facility] Urine, urobilinogen 1.0 {Tanna'U}/dL Normal < 2.0 [facility] XR SPINE ENTIRE (2-3 VIEWS)o n 09-11-2017 [...] by:NEELAM Knappigned by:Celestino Izaguirre [id number]//[id number] result Normal [facility] MRI LUMBAR SPINE W/O CONTon 02-26-2017 MRI LUMBAR SPINE W/O CONT Final ReportAccession No: [id number] Performed: Feb 26 2017 8:57AMExamination: MRI LUMBAR SPINE W/O [id number] male with low back and bilateral lower [...] Physician: ZA NUNEZ M.D.Trans: : cc: Normal [facility] Vital Signs Date Time Vital Sign Value Performing Clinician Facility 08-16-2021 13:45-0400 Body height 185.42 cm Casper Bellamy Other [facility] Other 08-16-2021 13:45-0400 Body mass index (BMI) [Ratio] 42.48 kg/m2 Casper Bellamy Other [facility] Other 08-16-2021 13:45-0400 Body temperature 98.9 [degF] Casper Bellamy Other [facility] Other 08-16-2021 13:45-0400 Body weight 146.06 kg Casper Bellamy Other [facility] Other 08-16-2021 13:45-0400 Diastolic blood pressure 90 mm[Hg] Casper Bellamy Other [facility] Other 08-16-2021 13:45-0400 Respiratory rate 18 /min Casper Bellamy Other [facility] Other 08-16-2021 13:45-0400 SaO2% (BldA) [Mass fraction] 99 % Casper Bellamy Other [facility] Other 08-16-2021 13:45-0400 Systolic blood pressure 147 mm[Hg] Casper Bellamy Other [facility] Other 07-22-2017 15:00-0400 BMI (Body Mass Index) 47.36 kg/m2 Travon Wright [facility] 07-22-2017 15:00-0400 Height 185.4 cm Travon Wright [facility] 07-22-2017 15:00-0400 Weight 162.84 kg Travon Wright [facility] 03-18-2017 08:20-0500 BMI (Body Mass Index) 47.36 kg/m2 Travon Wright [facility] Work Phone: 03-18-2017 08:20-0500 BP Diastolic 104 mm[Hg] Travon Wright [facility] Work Phone: 03-18-2017 08:20-0500 BP Systolic 151 mm[Hg] Travon Wright [facility] Work Phone: 03-18-2017 08:20-0500 Height 185.4 cm Travon Wright [facility] Work Phone: 03-18-2017 08:20-0500 Pulse (Heart Rate) 78 /min Travon Wright [facility] Work Phone: 03-18-2017 08:20-0500 Weight 162.84 kg Travon Wright [facility] Work Phone: 02-19-2017 14:24-0500 BMI (Body Mass Index) 43.93 kg/m2 Travon Wright [facility] Work Phone: 02-19-2017 14:24-0500 BP Diastolic 106 mm[Hg] Travon Wright [facility] Work Phone: 02-19-2017 14:24-0500 BP Systolic 148 mm[Hg] Travon Wright [facility] Work Phone: 02-19-2017 14:24-0500 Height 185.4 cm Travon Wright [facility] Work Phone: 02-19-2017 14:24-0500 Pulse (Heart Rate) 101 /min Travon Wright [facility] Work Phone: 02-19-2017 14:24-0500 Weight 151.05 kg Travon Wright [facility] Work Phone: 11-18-2016 14:46-0400 BMI (Body Mass Index) 44.01 kg/m2 Amber Uribe [facility] Work Phone: 11-18-2016 14:46-0400 Body Temperature 98.1 [degF] Amber Uribe [facility] Work Phone: 11-18-2016 14:46-0400 BP Diastolic 86 mm[Hg] Amber Jojo [facility] Work Phone: 11-18-2016 14:46-0400 BP Systolic 136 mm[Hg] Amberjeanne Uribe [facility] Work Phone: 11-18-2016 14:46-0400 Height 185.4 cm Amber Jojo [facility] Work Phone: 11-18-2016 14:46-0400 Pulse (Heart Rate) 78 /min Amber Jojo [facility] Work Phone: 11-18-2016 14:46-0400 Weight 151.32 kg Amber Uribe [facility] Work Phone: Encounters Encounter Date Encounter Type Care Provider Facility Start: 12-19-2024 ambulatory Wing Joe acility:[facility] Start: 07-28-2022 Encounter for genera l adult medical examination without abnormal findings DR RAFFY NAVARRETE . [facility] Start: 07-24-2022 End: 07-24-[address] RAFFY NAVARRETE . Facility:[facility] Start: 07-22-2022 End: 07-23-[address] RAFFY NAVARRETE . Facility:[facility] Start: 07-22-2022 End: 07-23-2022 Encounter for general adult medical examination without abnormal findings DR RAFFY NAVARRETE . Facility:[facility] Start: 09-23-2021 End: 09-24-[address] RAFFY NAVARRETE . Facility:[facility] Start: 08-16-2021 End: 08-16-2021 ambulatory Casper Bellamy Other [facility] Other Start: 08-16-2021 Office outpatient visit 15 minutes Casper Bellamy [facility] Start: 12-17-2017 Patient encounter CECE ZAVALA [facility] Start: 09-15-2017 End: 09-17-2017 Evaluation and management of inpatient RAFFY Alexis Laureen [facility] Start: 09-11-2017 End: 09-14-2017 [facility] Start: 09-11-2017 End: 09-16-2017 Ambulatory [facility] Start: 07-22-2017 Office/outpatient visit, est, level 3 Travon Wright Work Phone: [facility] Start: 07-22-2017 End: 07-22-2017 Ambulatory [facility] Start: 03-24-2017 Ambulatory Sonia Dennisonrekha [facility] Start: 03-18-2017 Patient encounter TRAVON WRIGHT [facility] Start: 03-18-2017 Office outpatient visit 15 minutes Travon Wright Work Phone: [facility] Start: 02-26-2017 Ambulatory Travon Wright Facilit y:[place] Start: 02-26-2017 End: 02-26-2017 Ambulatory Travon Wright Work Phone: [facility] Start: 02-20-2017 Ambulatory Carly Alexis [facility] Start: 02-19-2017 End: 02-19-2017 Patient encounter AMBER URIBE [facility] Start: 02-19-2017 Office outpatient visit 15 minutes Amber Uribe Work Phone: [facility] Start: 11-18-2016 End: 11-18-2016 Office outpatient visit 15 minutes Amber Uribe Work Phone: [facility] Comment on above: DDD (degenerative di sc disease), lumbar (Primary Dx) Procedures Date Procedure Procedure Detail Performing Clinician Start: 07-22-[address] ROMEO NAVARRETE . Comment on above: Performed By: #### V ITAD, PSASC #### [facility] [address] [address] [address] Isamar Betancourt Start: 09-17-2017 INCENTIVE SPIROMETRY [...] ZHOU Start: 09-17-2017 PULSE OXIMETRY, CONTINUOUS DEAN HZOU Start: 09-17-2017 INCENTIVE SPIROMETRY RT DEAN ZHOU [...] ZHOU Start: 09-16-2017 NURSING COMMUNICATION B O HZOU Start: 09-16-2017 TURN PATIENT DEAN ZHOU Start: [...] DEVICE DEAN ZHOU Start: 09-15-2017 ADVANCE DIET OZZYE RATED (NURSING COMMUNICATION) DEAN ZHOU Start: 09-15-2017 [...] Start: 09-15-2017 FLUORO FOR SURGICAL PROCEDURES DEAN ZHUO Start: 09-15-2017 PATIENT STATUS (FROM ED OR [...] 11-14-2021 Tetanus vaccination TETANUS EVERY 10 YR [facility] Work Phone: Start: 04-02-2017 Ambulatory 04/02/2017 Cli nical Support Orthopedic Surgery Cece Zavala, MD [facility] [address] [place] [id number] [phone] [facility] Start: 12-12-2016 Influenza vaccination SEQUENTI AL INFLUENZA VACCINE (#1) [facility] Work Phone: Start: 12-12-2016 SEQUENTIAL INFLUENZA VACCINE (#1) SEQUENTIAL INFLUENZA VACCINE (#1) [facility] Work Phone: Start: 1980 TETANUS EVERY 10 YR TETANUS EVERY 10 YR [facility] Work Phone: End: 02-19-2018 MR Lumbar Spine Without Contrast MR Lumbar Spine Without Contrast Routine Acute back pain, unspecified back location, unspecified back pain laterality 1 Occurrences starting 02/19/2017 until 02/19/2018 [facility] Work Phone: Payers Date Payer Category Payer Self-pay 2016 Unknown [id number] [id number] 1980 Unknown [id number] [id number] 1980 Unknown [id number] [id number] 1980 Unknown [id number] [id number] [id number] 1958 Medicaid [id number] 2.1 [id number] 1958 Medicaid [id number] 2. [id number] Medicaid xxxxxxxxxxx 2.1 [id number] Unknown [id number] [id number] Social History Date Type Detail Facility Start: 11-18-2016 End: 07-22-2017 Tobacco smoking status NHIS Current every day smoker [facility] Work Phone: History of tobacco use Cigarette Smoker [facility] Work Phone: Start: 11-18-2016 End: 07-22-2017 Cigarettes smoked current (pack per day) - Reported [facility] Work Phone: History of tobacco use Snuff User [facility] Work Phone: Sex Assigned At Not on file [facility] Work Phone: History of tobacco use Chews Tobacco [facility] Work Phone: Sex Assigned At Sex Assigned At [facility] Other Evaluation note 08-16-2021 Note Date & Type Note Facility 08-16-2021 Evaluation note Encounter Date Diagnosis Assessment Notes August, Tooth infection (ICD-10 - K04.7) Take tylenol 1000mg every 8 hours for pain. Call the dentist to make an appointment. I considered more ominous diagnoses such as retropharyngeal abscess, PROGRAM DIRECTOR SCOUTING, Raheem's angina, and Lemierre's syndrome. However, pt [...] an appointment. He agrees with the plan. [facility] Other History general Narrative - Reported Note Date & Type Note Facility History general Narrative - Reported Type Hospitalization History cyst [facility] Other Assessments Diagnosis Pars defect of lumbar [...] DDD (degenerative disc disease), lumbar Amber Uribe, CRABBING MACHINE OPERATOR [address] [place] [address] Scheduling Instructions Pt would like to see Dr Almodovar in [place] Status Reason Specialty Diagnoses / Procedures Referred By Contact Referred To Contact Authorized Rehabilitation Diagnoses DDD (degenerative disc disease), lumbar Amber Uribe, MG [address] [place] [address] History of Present Illness * Amber Uribe, MG - 11/18/2016 2:53 PM EDT Formatting of this note may be different from the original. Subjective: Rowena Patricia is a 36 y.o. male here for Follow-up ([facility] for low back pain. [...] and content) DATE CREATED AUTHOR 09/29/2017 [facility] DATE CREATED AUTHOR AUTHOR'S ORGANIZ ATION 10/06/2017 [facility] DATE CREATED AUTHOR AUTHOR'S ORGANIZ ATION 10/09/2017 [facility] DATE CREATED AUTHOR AUTHOR'S ORGANIZ ATION 12/26/2017 [facility] DATE CREATED AUTHOR AUTHOR'S ORGANIZ ATION 09/07/2020 [facility] DATE CREATED AUTHOR AUTHOR'S ORGANIZ ATION 05/27/2021 [facility] DATE CREATED AUTHOR AUTHOR'S ORGANIZ ATION 07/28/2022 [facility] DATE CREATED AUTHOR AUTHOR'S ORGANIZ ATION 12/28/2024 [facility] Reason for Visit (unrecogniz ed section and content) Reason Comments Follow-up [facility] for low back [...] BE BASED ON THE PRIMARY CLINICAL RECORDS. [facility] [employer] provides no warranty or guarantee of the accuracy or completeness of information in this document.
--- NOTE | 2024-12-29 14:04 | XR_ITS ---
The [address] [address] Patient Name: ROWENA TORIBIO MRN: [id number] date: 1980 Sex: M Assigned Patient Location: [facility] Current Patient Location: Accession/Order Number: [id number] Exam Date: 12/29/2024 14:12 Report Date: 12/29/2024 23:16 At the request of: RAFFY NAVARRETE MD Procedure: XR lumbar spine min 4V XR lumbar spine min 4V 12/29/2024 2:23 PM SIGNS AND SYMPTOMS: ^Wedge Compression Fracture Of Thoracic Vertebra PROTOCOLS: Frontal, lateral, and oblique radiographs of the lumbar spine COMPARISON: 08/05/2023 FINDINGS: The alignment, development and bony structures are normal. There is no fracture or destructive lesion. Posterior and intervertebral fusion is noted at L5-S1 without change in alignment. The left L5 screw appears to protrude superior to the superior endplate of L4 into the L3-L4 disc space. This is unchanged. Mild disc height loss is noted throughout the visualized thoracolumbar spine with anterior osteophyte formation similar to the prior study. The sacrum and sacroiliac joints are normal. XR/XR lumbar spine min 4V IMPRESSION: Posterior and intervertebral fusion is noted at L5-S1 without change in alignment. The left L5 screw appears to protrude superior to the superior endplate of L4 into the L3-L4 disc space. This is unchanged. Similar degenerative changes are noted otherwise. Impression dictated by: Mark Bucio M.D. 12/29/2024 11:16 PM Dictation Location: [place] [address] Electronically authenticated by: [id number] Y Date: 12/29/2024 23:16
== END 2024-12-29 13:55 | disposition home or self-care (01) ==
LOC: RAD 13:55
PROVIDERS: PCP Family Medicine; Visit Provider Family Medicine
DX: S22.000A Wedge compression fracture of unspecified thoracic vertebra, initial encounter for closed fracture (principal); M43.27 Fusion of spine, lumbosacral region; M51.369 Other intervertebral disc degeneration, lumbar region without mention of lumbar back pain or lower extremity pain
CPT/HCPCS: 72110

== ENCOUNTER 2024-12-30 23:41 | Emergency (ER) | payer OTHER, SELFPAY ==
[2024-12-30 23:44] VITALS: BP 106/72; PULSE 75; TEMP 36.9; O2SAT 97; BMI 50.9
--- OUTSIDE RECORDS SUMMARY | 2024-12-30 23:50 | XMS_ITS | CCD ---
Demographics Address [address] [place] [address] Home Phone Home Phone [phone] Preferred Language en Marital Status Single Jehovah'S Witness Affiliation Unknown Race Unknown Ethnic Group Not or Lati no Author Organization [facility] Care Team Providers Care School Supervisor Name Role Phone Cece Perera Unavailable [phone] ZHOU DEAN H. Unavailable Unavailable RAFFY NAVARRETE [...] Unavailabl e CECE PERERA Unavailable Unavailab TRAVON CuellarY Unavailable Unavailable CECE PERERA Unavailable Unavailab TRAVON [...] adverse reactions to drug 7 GI Intolerance [facility] Work Phone: (1 source) Acetaminophen / HYDROcodone Drug Allergy 5 [facility] Repository (1 source) Acetaminophen Drug Allergy 3 [facility] Repository (1 source) HYDROcodone Drug Allergy 3 [facility] Repository Medications Current Medications Medication Drug [...] Test Name Value Interpretation Reference Range Facility [facility] BLD IMMUNO SCREENon 07-12 OCCULT BLOOD Negative Normal NEGATIVE [facility] Comment on above: Performed By: #### O BSCRN #### [facility] [address] [place] [address] Dr. Isamar Betancourt INSULINon 07-23-2022 Insulin 42.3 uIU/mL Critically high 2.6-24.9 [facility] Comment on above: Performed By: #### I NSULIN #### [facility] [address] [place] [address] Dr. Isamar Betancourt CBC AUTO DIFFon 07-22-2022 BASO # 0.1 103/ul Normal 0.0-0.1 [facility] Comment on above: Performed By: #### C BC #### [facility] [address] [place] [address] Dr. Isamar Betancourt Basophils/100 WBC (Bld) 1.1 % Normal 0.2-2.0 [facility] Comment on above: Performed By: #### C BC #### [facility] [address] [place] [address] Dr. Isamar Betancourt EO # 0.2 103/ul Normal 0.0-0.7 [facility] Comment on above: Performed By: #### C BC #### [facility] [address] [place] [address] Dr. Isamar Betancourt Eosinophils/100 WBC (Bld) 2.5 % Normal 0.9-7.0 [facility] Comment on above: Performed By: #### C BC #### [facility] [address] [place] [address] Dr. Isamar Betancourt Erythrocyte distribution width (RBC) [Ratio] 14.4 % Normal 11.0-15.0 [facility] Comment on above: Performed By: #### C BC #### [facility] [address] [place] [address] Dr. Isamar Betancourt Hematocrit (Bld) [Volume fraction] 44.5 % Normal 42.0-54.0 [facility] Comment on above: Performed By: #### C BC #### [facility] [address] [place] [address] Dr. Isamar Betancourt Hemoglobin (Bld) [Mass/Vol] 15.0 g/dL Normal 14.0-18.0 [facility] Comment on above: Performed By: #### C BC #### [facility] [address] [place] [address] Dr. Isamar Betancourt IG # 0.14 10e3/ul Critically high 0.00-0.03 [facility] Comment on above: Performed By: #### C BC #### [facility] [address] [address] [address] Isamar Betancourt IG % 1.5 % Critically high 0.0-0.5 [facility] Comment on above: Performed By: #### C BC #### [facility] [address] [place] [address] Dr. Isamar Betancourt LYMPH # 3.0 103/ul Normal 1.2-3.8 [facility] Comment on above: Performed By: #### C BC #### [facility] [address] [place] [address] Dr. Isamar Betancourt Lymphocytes/100 WBC (Bld) 33.1 % Normal 20.5-60.0 [facility] Comment on above: Performed By: #### C BC #### [facility] [address] [place] [address] Dr. Isamar Betancourt MANUAL DIFF REQ NO Normal [facility] Comment on above: Performed By: #### C BC #### [facility] [address] [place] [address] Dr. Isamar Betancourt MCH (RBC) [Entitic mass] 29.7 pg Normal 25.9-34.0 [facility] Comment on above: Performed By: #### C BC #### [facility] [address] [place] [address] Dr. Isamar Betancourt MCHC (RBC) [Mass/Vol] 33.7 g/dL Normal 29.9-35.2 [facility] Comment on above: Performed By: #### C BC #### [facility] [address] [place] [address] Dr. Isamar Betancourt MCV (RBC) [Entitic vol] 88.1 fL Normal 80.0-94.0 [facility] Comment on above: Performed By: #### C BC #### [facility] [address] [place] [address] Dr. Isamar Betancourt MONO # 0.9 103/ul Critically high 0.3-0.8 [facility] Comment on above: Performed By: #### C BC #### [facility] [address] [place] [address] Dr. Isamar Betancourt Monocytes/100 WBC (Bld) 9.3 % Normal 1.7-12.0 [facility] Comment on above: Performed By: #### C BC #### [facility] [address] [place] [address] Dr. Isamar Betancourt NEUT # 4.8 103/ul Normal 1.4-6.5 [facility] Comment on above: Performed By: #### C BC #### [facility] [address] [place] [address] Dr. Isamar Betancourt Neutrophils/100 WBC (Bld) 52.5 % Normal 43.0-75.0 [facility] Comment on above: Performed By: #### C BC #### [facility] [address] [place] [address] Dr. Isamar Betancourt Platelet mean volume (Bld) [Entitic vol] 10.3 fL Normal 9.5-13.5 [facility] Comment on above: Performed By: #### C BC #### [facility] [address] [place] [address] Dr. Isamar Betancourt PLT 317 103/ul Normal 150-450 [facility] Comment on above: Performed By: #### C BC #### [facility] [address] [place] [address] Dr. Isamar Betancourt RBC 5.05 106/ul Normal 4.70-6.10 [facility] Comment on above: Performed By: #### C BC #### [facility] [address] [place] [address] Dr. Isamar Betancourt WBC 9.2 103/ul Normal 4.0-11.0 [facility] Comment on above: Performed By: #### C BC #### [facility] [address] [address] [address] Isamar Betancourt FREE THYROXINE INDEX T7on FTI 2.40 Normal 1.30-4.50 [facility] Comment on above: Performed By: #### V ITDEVAN, PSASC #### [facility] [address] [place] [address] Dr. Isamar Betancourt T3U 30.0 % Critically low 33.0-40.0 [facility] Comment on above: Performed By: #### V ITDEVAN, PSASC #### [facility] [address] [place] [address] Dr. Isamar Betancourt T4 [Mass/Vol] 8.00 ug/dL Normal 4.50-12.10 [facility] Comment on above: Performed By: #### V ITDEVAN, PSASC #### [facility] [address] [place] [address] Dr. Isamar Betancourt GLYCOHEMOGLOBIN A1Con 2022 ADA RECOMMENDATION SEE BELOW Normal [facility] Comment on above: Result Comment: ADA RECOMMENDED LIMIT 4.0 - 6.0 ADA THERAPEUTIC TARGET < 7.0 ACTION SUGGESTED > 7.0 Performed By: #### A 1C #### [facility] [address] [place] [address] Dr. Isamar Betancourt Glucose [Mass/Vol] 103 mg/dL Normal [facility] Comment on above: Performed By: #### A 1C #### [facility] [address] [place] [address] Dr. Isamar Betancourt HbA1c (Bld) [Mass fraction] 5.2 % Normal 4.5-6.2 [facility] Comment on above: Performed By: #### A 1C #### [facility] [address] [place] [address] Dr. Isamar Betancourt LIPID PROFILEon 07-22-2022 CHOL-HDL RATIO NORM SEE BELOW Normal [facility] Comment on above: Result Comment: 3.3 - 4.4 LOW RISK 4.4 - 7.1 AVERAGE RISK 7.1 - 11.0 MODERATE RISK >11.0 HIGH RISK Performed By: #### T 7, CMP, LIPID, TSH, URIC #### [facility] [address] [address] [address] Isamar Betancourt Cholesterol [Mass/Vol] 208 mg/dL Critically high <=200 [facility] Comment on above: Performed By: #### T 7, CMP, LIPID, TSH, URIC #### [facility] [address] [address] [address] Isamar Betancourt Cholesterol in HDL [Mass/Vol] 28 mg/dL Critically low 40-60 [facility] Comment on above: Performed By: #### T 7, CMP, LIPID, TSH, URIC #### [facility] [address] [address] [address] Isamar Betancourt Cholesterol in LDL [Mass/Vol] 153.8 mg/dL Normal [facility] Comment on above: Performed By: #### T 7, CMP, LIPID, TSH, URIC #### [facility] [address] [address] [address] Isamar Betancourt Cholesterol.total/C holesterol in HDL [Mass ratio] 7.4 {ratio} Normal [facility] Comment on above: Performed By: #### T 7, CMP, LIPID, TSH, URIC #### [facility] [address] [address] [address] sIamar Betancourt HDL NORMAL > or = 60 mg/dl - LO W CARDIOVASCULAR RISK <40 mg/dl - HIGH CARDIOVASCULAR RISK Normal [facility] Comment on above: Performed By: #### T 7, CMP, LIPID, TSH, URIC #### [facility] [address] [address] [address] Isamar Betancourt LDL CALC NORMAL SEE BELOW Normal [facility] Comment on above: Result Comment: <100 mg/dl OPTIMAL 100 - 129 mg/dl NEAR OR ABOVE OPTIMAL 130 - 159 mg/dl BORDERLINE HIGH 160 - 189 mg/dl HIGH >190 mg/dl VERY HIGH Performed By: #### T 7, CMP, LIPID, TSH, URIC #### [facility] [address] [address] [address] Isamar Betancourt Triglyceride [Mass/Vol] 131 mg/dL Normal <=150 [facility] Comment on above: Performed By: #### T 7, CMP, LIPID, TSH, URIC #### [facility] [address] [address] [address] Isamar Betancourt VLDL CALC 26.2 mg/dL Normal [facility] Comment on above: Performed By: #### T 7, CMP, LIPID, TSH, URIC #### [facility] [address] [place] [address] Dr. Isamar Betancourt PROF 14(COMP METB)on 023 Albumin [Mass/Vol] 2.8 g/dL Critically low 3.4-5.0 [facility] Comment on above: Performed By: #### T 7, CMP, LIPID, TSH, URIC #### [facility] [address] [place] [address] Dr. Isamar Betancourt Albumin/Globulin [Mass ratio] 0.6 {ratio} Normal [facility] Comment on above: Performed By: #### T 7, CMP, LIPID, TSH, URIC #### [facility] [address] [place] [address] Dr. Isamar Betancourt ALP [Catalytic activity/Vol] 105 U/L Normal 46-116 [facility] Comment on above: Performed By: #### T 7, CMP, LIPID, TSH, URIC #### [facility] [address] [place] [address] Dr. Isamar Betancourt ALT [Catalytic activity/Vol] 23 U/L Normal 16-63 [facility] Comment on above: Performed By: #### T 7, CMP, LIPID, TSH, URIC #### [facility] [address] [place] [address] Dr. Isamar Betancourt Anion gap [Moles/Vol] 9.6 mmol/L Normal [facility] Comment on above: Performed By: #### T 7, CMP, LIPID, TSH, URIC #### [facility] [address] [place] [address] Dr. Isamar Betancourt AST [Catalytic activity/Vol] 15 U/L Normal 15-37 [facility] Comment on above: Performed By: #### T 7, CMP, LIPID, TSH, URIC #### [facility] [address] [place] [address] Dr. Isamar Betancourt Bilirubin [Mass/Vol] 0.5 mg/dL Normal 0.2-1.0 [facility] Comment on above: Performed By: #### T 7, CMP, LIPID, TSH, URIC #### [facility] [address] [place] [address] Dr. Isamar Betancourt Calcium [Mass/Vol] 8.9 mg/dL Normal 8.5-10.1 [facility] Comment on above: Performed By: #### T 7, CMP, LIPID, TSH, URIC #### [facility] [address] [place] [address] Dr. Isamar Betancourt Chloride [Moles/Vol] 106 mmol/L Normal 98-107 [facility] Comment on above: Performed By: #### T 7, CMP, LIPID, TSH, URIC #### [facility] [address] [place] [address] Dr. Isamar Betancourt CO2 [Moles/Vol] 30.7 mmol/L Normal 21.0-32.[address] [facility] Comment on above: Performed By: #### T 7, CMP, LIPID, TSH, URIC #### [facility] [address] [place] [address] Dr. Isamar Betancourt Creatinine [Mass/Vol] 0.82 mg/dL Normal 0.70-1.30 [facility] Comment on above: Performed By: #### T 7, CMP, LIPID, TSH, URIC #### [facility] [address] [place] [address] Dr. Isamar Betancourt EGFR-AF [place]IZ[place] >60 Normal >=[address] [facility] Comment on above: Performed By: #### T 7, CMP, LIPID, TSH, URIC #### [facility] [address] [place] [address] Dr. Isamar Betancourt EGFR-NON AF CITIZEN OF [place] >60 Normal >=60 [facility] Comment on above: Performed By: #### T 7, CMP, LIPID, TSH, URIC #### [facility] [address] [place] [address] Dr. Isamar Betancourt Globulin (S) [Mass/Vol] 4.4 g/dL Normal [facility] Comment on above: Performed By: #### T 7, CMP, LIPID, TSH, URIC #### [facility] [address] [address] [address] Isamar Betancourt Glucose [Mass/Vol] 89 mg/dL Normal 74-106 [facility] Comment on above: Performed By: #### T 7, CMP, LIPID, TSH, URIC #### [facility] [address] [place] [address] Dr. Isamar Betancourt Potassium [Moles/Vol] 4.3 mmol/L Normal 3.5-5.1 [facility] Comment on above: Performed By: #### T 7, CMP, LIPID, TSH, URIC #### [facility] [address] [place] [address] Dr. Isamar Betancourt Protein [Mass/Vol] 7.2 g/dL Normal 6.4-8.2 [facility] Comment on above: Performed By: #### T 7, CMP, LIPID, TSH, URIC #### [facility] [address] [place] [address] Dr. Isamar Betancourt Sodium [Moles/Vol] 142 mmol/L Normal 136-145 [facility] Comment on above: Performed By: #### T 7, CMP, LIPID, TSH, URIC #### [facility] [address] [address] [address] Isamar Betancourt Urea nitrogen [Mass/Vol] 13.0 mg/dL Normal 7.0-18.0 [facility] Comment on above: Performed By: #### T 7, CMP, LIPID, TSH, URIC #### [facility] [address] [address] [address] Isamar Betancourt Urea nitrogen/Creatinine [Mass ratio] 15.9 mg/mg Normal [facility] Comment on above: Performed By: #### T 7, CMP, LIPID, TSH, URIC #### [facility] [address] [address] [address] Isamar Betancourt TSHon 07-22-2022 TSH 1.732 uIU/mL Normal 0.358-3.740 [facility] Comment on above: Performed By: #### T 7, CMP, LIPID, TSH, URIC #### [facility] [address] [address] [address] Isamar Betancourt URIC ACID SERUMon 07-22-2022 Urate [Mass/Vol] 3.6 mg/dL Normal 3.5-7.2 [facility] Comment on above: Performed By: #### T 7, CMP, LIPID, TSH, URIC #### [facility] [address] [address] [address] Isamar Betancourt VITAMIN D 25 OHon 07-22-2022 VIT D 25-OH 8.0 ng/mL Normal [facility] Comment on above: Performed By: #### V ITAD, PSASC #### [facility] [address] [address] [address] Isamar Betancourt VIT D RANGES SEE BELOW Normal [facility] Comment on above: Result Comment: <20 ng/mL Vit D deficient 20 - <30 ng/mL Vit D insufficient 30 - 100 ng/mL Vit D sufficient >100 ng/mL Potential Toxicity Performed By: #### V ITAD, PSASC #### [facility] [address] [address] [address] LUMBAR SP WO CONon 2020 CT LUMBAR SP WO CON STUDY: CT LUMBAR SP WO CON 01/09/2021 12:44 pm INDICATION: NONUNION OF SPINAL FUSION COMPARISON: None. ACCESSION NUMBER(S): [id number] ORDERING CLINICIAN: Hugo Mckeon TECHNIQUE: Axial CT [...] degenerative changes of the lumbar spine. Normal [facility] LUMBAR SPINE 2 OR 3 VIEWSon 12-21-2020 LUMBAR SPINE 2 OR 3 VIEWS STUDY: LUMBAR SPINE 2 OR 3 VIEWS; 12/21/2020 10:38 am INDICATION: STENOSIS OF LATERAL RECESS OF LUMBAR SPINE. COMPARISON: No available comparisons. ACCESSION NUMBER(S): [id number] ORDERING CLINICIAN: Hugo Mckeon TECHNIQUE: 4 views of the lumbar spine. FINDINGS: No acute fracture dislocation. Status post posterior lumbar spine fusion at L5-S1 level with decompression laminectomy. The vertebral alignment is normal. The vertebral body heights and intervertebral disc spaces are maintained. Nonspecific bowel gas pattern. IMPRESSION: Stable postsurgical changes of lumbar spine. Normal [facility] OPERATIVE REPORTon OPERATIVE REPORT NAME: ROWENA PATRICIA MR#: [id number] SURGEON: Hugo Mckeon MD DATE OF SURGERY: [...] There were no complications. HUGO MCKEON MD JFMunir/[id number] E/S: Hugo Mckeon MD 01/07/21 0936 Electronically Signed [facility] PT NAME: ROWENA PATRICIA MR#: [id number] [address] [place] [address] ACCT: [id number] : 82 OPERATIVE REPORT Normal [facility] CORONAVIRUSon 11-28-2020 SARS-CoV-2 (COVID-19) RNA ONESIMO+probe [...] COVID-19 Negative for COVID-19 (SARS-CoV-2 RNA) Normal [facility] Comment on above: Order Comment: CBN: YES [place]: MAIN COVID Testing: PRE-OP/PROCEDURE SCREEN Comment: 11/30 AGE at Spec EUGENIA 40 Report age at specimen EUGENIA? Y First test: UNKNOWN Employed in Healthcare: NO Symptomatic as defined by CDC: NO Hospitalized for COVID-19? NO ICU: NO Resident in a Congregated Care Setting: NO Order Date: 11/28/20 : Not Performed By: #### M [id number] #### Test performed at: [address] [address] LUMB SP COMP W FLEX/EXT 6 VW S>on 10-12-2020 LUMB SP COMP W FLEX/EXT 6 VWS> STUDY: LUMB SP COMP W FLEX/EXT 6 VWS>; 10/12/2020 9:48 am INDICATION: LOW BACK PAIN. COMPARISON: None. ACCESSION NUMBER(S): [id number] ORDERING CLINICIAN: Hugo Mckeon TECHNIQUE: Standing AP, [...] posterior spine fusion. No acute abnormalities. Normal [facility] RAD - Ultrasound Reporton RAD - Ultrasound Report [id number]:127 Normal [facility] Physician Referralon 020 Physician Referral [id number]:12 7 Normal [facility] Ambulatory Clinical Summaryo n 09-22-2019 Ambulatory Clinical Summary {[id number] Normal [facility] CBC With Platelet and Differ entialon 10-09-2017 Basophils Auto #/vol (Bld) 0.1 10*3/uL Normal 0.0-0.2 [facility] Basophils/100 WBC Auto (Bld) 1.0 % Normal [facility] Eosinophils 0.5 10*3/uL Normal 0.0-0.7 [facility] Eosinophils/100 leukocytes 8.5 % Normal [facility] Erythrocyte distribution width Auto Ratio (RBC) 12.5 % Normal 11.5-14.5 [facility] Erythrocytes (RBC) 5.00 10*6/uL Normal 4.70-6.10 [facility] Hematocrit (HCT) 45.4 % Normal 42.0-52.0 [facility] Hemoglobin mass conc (Bld) 14.5 g/dL [...] (Leukocytes) 5.4 10*3/uL Normal 4.8-10.8 [facility] Comprehensive Metabolic Pane jesus 10-09-2017 Alanine aminotransferase (ALT) 12 U/L Normal 0-41 [facility] Albumin 4.4 g/dL Normal 3.9-4.9 [facility] Alkaline phosphatase (ALP) 66 U/L Normal 35-104 [facility] Anion gap 12 mmol/L Normal 7-13 [facility] Aspartate aminotransferase (AST) 20 U/L Normal 0-40 [facility] Bilirubin (total) 0.5 mg/dL Normal 0.0-1.2 [facility] Calcium 9.3 mg/dL Normal 8.6-10.2 [facility] [...] eGFR (MDRD) mL/min/{1.73_m2} Normal >60 [facility] Comment on above: Result Comment: >60 mL/min/1.73m2 EGFR, calc. for ages 18 and older using theMDRD formula (not corrected for weight), is valid for stablerenal function. Globulin 2.9 g/dL Normal 2.3-3.5 [facility] Glucose mass conc 82 mg/dL Normal 74-109 [facility] Potassium molar conc 4.3 mmol/L Normal 3.5-5.1 [facility] Protein 7.3 g/dL Normal 6.4-8.1 [facility] Sodium 141 mmol/L Normal 132-144 [facility] Urea nitrogen 15 mg/dL Normal 6-20 [facility] Lipid Panelon 10-09-2017 Cholesterol 185 mg/dL Normal 0-199 [facility] Comment on above: Result Comment: ATP III Cholesterol classification is Desirable. HDL Cholesterol 47 mg/dL Normal 40-59 [facility] Comment on above: Result Comment: ATP III HDL Cholesterol Classification is Desirable.Expected Values:Males: >55 = No Risk 35-55 = Moderate Risk <35 = High RiskFemales: >65 = No Risk 45-65 = Moderate Risk <45 = High RiskNCEP Guidelines: Third Report August 2000>59 = negative risk factor for CHD<40 = major risk factor for CHD LDL Cholesterol 123 mg/dL Normal 0-129 [facility] Comment on above: Result Comment: ATP III LDL Classification is Near Optimal. Triglyceride 73 mg/dL Normal 0-200 [facility] Comment on above: Result Comment: ATP III Triglycerides Classification is Normal. Basic Metabolic Panel Reflex Mgon 09-16-2017 Anion gap 12 mmol/L Normal 7-13 [facility] Calcium 8.4 mg/dL Low 8.6-10.2 [facility] Chloride 99 mmol/L Normal 98-107 [facility] CO2 23 mmol/L Normal 22-29 [facility] Creatinine 0.64 mg/dL Low 0.70-1.20 [facility] eGFR (black) mL/min/{1.73_m2} Normal >60 [facility] Comment on above: Result Comment: >60 mL/min/1.73m2 EGFR, calc. for ages 18 and older using theMDRD formula (not corrected for weight), is valid for stablerenal function. eGFR (MDRD) mL/min/{1.73_m2} Normal >60 [facility] Comment on above: Result Comment: >60 mL/min/1.73m2 EGFR, calc. for ages 18 and older using theMDRD formula (not corrected for weight), is valid for stablerenal function. Glucose mass conc 115 mg/dL Critically high 74-109 [facility] Potassium molar conc 4.0 mmol/L Normal 3.5-5.1 [facility] Sodium 134 mmol/L Normal 132-144 [facility] Urea nitrogen 7 mg/dL Normal 6-20 [facility] CBC With Platelet and Differ entialon 09-16-2017 Slide Review see below Normal [facility] Comment on above: Result Comment: Slid e review agrees with reported results Basophils Auto #/vol (Bld) 0.1 10*3/uL Normal 0.0-0.2 [facility] Basophils/100 WBC Auto (Bld) 0.5 % Normal [facility] Eosinophils 0.0 10*3/uL Normal 0.0-0.7 [facility] Eosinophils/100 leukocytes 0.1 % Normal [facility] Erythrocyte distribution width Auto Ratio (RBC) 14.2 % Normal 11.5-14.5 [facility] Erythrocytes (RBC) 4.38 10*6/uL Low 4.70-6.10 [facility] 39.9 % Low 42.0-52.0 [facility] Hemoglobin mass conc (Bld) 11.0 g/dL Low 14.0-18.0 [facility] Lymphocytes 0.7 10*3/uL Low 1.0-4.8 [facility] Lymphocytes/100 leukocytes 4.6 % Normal [facility] MCH 25.2 pg Low 27.0-31.3 [facility] MCHC mass conc (RBC) 27.6 % Low 33.0-37.0 [facility] MCV 91.2 fL Normal 80.0-100.0 [facility] Monocytes 0.4 10*3/uL Normal 0.2-0.8 [facility] Monocytes/100 leukocytes 3.0 % Normal [facility] Neutrophils 13.1 10*3/uL Critically high 1.4-6.5 [facility] Neutrophils/100 leukocytes 91.8 % Normal [facility] Platelets 313 10*3/uL Normal 130-400 [facility] WBC (Leukocytes) 14.3 10*3/uL Critically high 4.8-10.8 [facility] XR LUMBAR SPINE (2-3 VIEWS)o n 09-16-2017 [...] by:NEELAM Knappigned by:Celestino Izaguirre MD09/16/17inal result Normal [facility] FLUORO FOR SURGICAL PROCEDUR ESon 09-15-2017 FLUORO [...] by:NEELAM Crossigned by:Naveen Moctezuma MD//[id number] result Normal [facility] Basic Metabolic Panelon 06- Anion gap 16 mmol/L Critically high 7-13 [facility] Calcium 9.7 mg/dL Normal 8.6-10.2 [facility] Chloride 101 mmol/L Normal 98-107 [facility] CO2 26 mmol/L Normal 22-29 [facility] Creatinine 0.59 mg/dL Low 0.70-1.20 [facility] eGFR (black) mL/min/{1.73_m2} Normal >60 [facility] Comment on above: Result Comment: >60 mL/min/1.73m2 EGFR, calc. for ages 18 and older using theMDRD formula (not corrected for weight), is valid for stablerenal function. eGFR (MDRD) mL/min/{1.73_m2} Normal >60 [facility] Comment on above: Result Comment: >60 mL/min/1.73m2 EGFR, calc. for ages 18 and older using theMDRD formula (not corrected for weight), is valid for stablerenal function. Glucose mass conc 88 mg/dL Normal 74-109 [facility] Potassium molar conc 4.2 mmol/L Normal 3.5-5.1 [facility] Sodium 143 mmol/L Normal 132-144 [facility] Urea nitrogen 9 mg/dL Normal 6-20 [facility] CBC With Platelet No Differe ntialon 09-11-2017 Erythrocyte distribution width Auto Ratio (RBC) 14.5 % Normal 11.5-14.5 [facility] Erythrocytes (RBC) 4.84 10*6/uL Normal 4.70-6.10 [facility] Hemat[facility]HCT[facility] 44.1 % Normal 42.0-52.0 [facility] Hemoglobin mass conc (Bld) 15.0 g/dL Normal 14.0-18.0 [facility] MCH 31.1 pg Normal 27.0-31.3 [facility] MCHC mass conc (RBC) 34.1 % Normal 33.0-37.0 [facility] MCV 91.2 fL Normal 80.0-100.0 [facility] Platelets 308 10*3/uL Normal 130-400 [facility] WBC (Leukocytes) 9.4 10*3/uL Normal 4.8-10.8 [facility] Culture, MRSA Screenon 09-11 Culture, MRSA Screen ORDERED BY: RAFAEL HIGGINS: Nares Nose COLLECTED: 09/11/17 17:10ANTIBIOTICS AT EUGENIA.: RECEIVED : 09/11/17 17:10Culture, MRSA Screen FINAL 09/12/17 12:52 No MRSA isolated Normal [facility] Partial Thromboplastin Timeo n 09-11-2017 aPTT 27.1 s Normal 21.6-35.4 [facility] Comment on above: Result Comment: Hepa rin Therapeutic Range: 38.8 - 54.6 seconds. Prothrombin Timeon 8 INR Coag RelTime (PPP) 1.0 {INR} Normal [facility] Comment on above: Result Comment: Shane mmended [...] Coag time (PPP) 10.2 s Normal 9.6-12.3 [facility] Type and Screen Capture 3 sc rn cellon 09-11-2017 Bilirubin (total) PATIENT: MALU MCCORMICK LOC: [facility] BILL# : [id number] : 1980 SEX: MORDERED BY: GISELA PETERSEN ORDERED : 09/11/2017 16:39 COLLECTED: 09/11/2017 17:13ORDER : [id number] RECEIVED : 09/11/2017 17:13 --------TEST NAME RESULT UNITS RANGES ABN FL STABORH Capture B POS FAntibody 3 Cell Scrn Captu NEG F --- Normal [facility] Urinalysis, reflex to cultur alma 09-11-2017 Bilirubin Ql (U) MODERATE Abnormal Negative [facility] Urine Reflexed to Culture Not Indicated Normal [facility] Urine, clarity Clear Normal Clear [facility] Urine, color Yellow Normal Straw/Crosby [facility] Urine, glucose presence Negative Normal Negative [facility] Urine, hemoglobin presence Negative Normal Negative [facility] Urine, ketones presence Negative Normal Negative [facility] Urine, leukocyte esterase presence Negative Normal Negative [facility] Urine, nitrite presence Negative Normal Negative [facility] Urine, pH 6.5 [pH] Normal 5.0-9.0 [facility] Urine, protein presence Negative Normal Negative [facility] Urine, specific gravity 1.013 Normal 1.005-1.03 [facility] Urine, urobilinogen 1.0 {Tanna'U}/dL Normal < 2.0 [facility] XR SPINE ENTIRE (2-3 VIEWS)o n 09-11-2017 [...] by:NEELAM Knappigned by:Celestino Izaguirre [id number]//[id number] result Normal [facility] MRI LUMBAR SPINE W/O CONTon 02-26-2017 MRI LUMBAR SPINE W/O CONT Final ReportAccession No: [id number] Performed: Feb 26 2017 8:57AMExamination: MRI LUMBAR SPINE W/O [id number] male with low back and bilateral lower [...] Physician: ZA NUNEZ M.D.Trans: : cc: Normal [facility] Vital Signs Date Time Vital Sign Value Performing Clinician Facility 08-16-2021 13:45-0400 Body height 185.42 cm Casper Bellamy Other [facility] Other 08-16-2021 13:45-0400 Body mass index (BMI) [Ratio] 42.48 kg/m2 Casper Bellamy Other [facility] Other 08-16-2021 13:45-0400 Body temperature 98.9 [degF] Casper Bellamy Other [facility] Other 08-16-2021 13:45-0400 Body weight 146.06 kg Casper Bellamy Other [facility] Other 08-16-2021 13:45-0400 Diastolic blood pressure 90 mm[Hg] Casper Bellamy Other [facility] Other 08-16-2021 13:45-0400 Respiratory rate 18 /min Casper Bellamy Other [facility] Other 08-16-2021 13:45-0400 SaO2% (BldA) [Mass fraction] 99 % Casper Bellamy Other [facility] Other 08-16-2021 13:45-0400 Systolic blood pressure 147 mm[Hg] Casper Bellamy Other [facility] Other 07-22-2017 15:00-0400 BMI (Body Mass Index) 47.36 kg/m2 Travon Wright [facility] 07-22-2017 15:00-0400 Height 185.4 cm Travon Wright [facility] 07-22-2017 15:00-0400 Weight 162.84 kg Travon Wright [facility] 03-18-2017 08:20-0500 BMI (Body Mass Index) 47.36 kg/m2 Travon Wright [facility] Work Phone: 03-18-2017 08:20-0500 BP Diastolic 104 mm[Hg] Travon Wright [facility] Work Phone: 03-18-2017 08:20-0500 BP Systolic 151 mm[Hg] Travon Wright [facility] Work Phone: 03-18-2017 08:20-0500 Height 185.4 cm Travon Wright [facility] Work Phone: 03-18-2017 08:20-0500 Pulse (Heart Rate) 78 /min Travon Wright [facility] Work Phone: 03-18-2017 08:20-0500 Weight 162.84 kg Travon Wright [facility] Work Phone: 02-19-2017 14:24-0500 BMI (Body Mass Index) 43.93 kg/m2 Travon Wright [facility] Work Phone: 02-19-2017 14:24-0500 BP Diastolic 106 mm[Hg] Travon Wright [facility] Work Phone: 02-19-2017 14:24-0500 BP Systolic 148 mm[Hg] Travon Wright [facility] Work Phone: 02-19-2017 14:24-0500 Height 185.4 cm Travon Wright [facility] Work Phone: 02-19-2017 14:24-0500 Pulse (Heart Rate) 101 /min Travon Wright [facility] Work Phone: 02-19-2017 14:24-0500 Weight 151.05 kg Travon Wright [facility] Work Phone: 11-18-2016 14:46-0400 BMI (Body Mass Index) 44.01 kg/m2 Amber Uribe [employer] Work Phone: 11-18-2016 14:46-0400 Body Temperature 98.1 [degF] Amber Uribe [employer] Work Phone: 11-18-2016 14:46-0400 BP Diastolic 86 mm[Hg] Amber Jojo [employer] Work Phone: 11-18-2016 14:46-0400 BP Systolic 136 mm[Hg] Amberjeanne Uribe [employer] Work Phone: 11-18-2016 14:46-0400 Height 185.4 cm Amber Jojo [employer] Work Phone: 11-18-2016 14:46-0400 Pulse (Heart Rate) 78 /min Amber Jojo [employer] Work Phone: 11-18-2016 14:46-0400 Weight 151.32 kg Amber Uribe [employer] Work Phone: Encounters Encounter Date Encounter Type Care Provider Facility Start: 12-19-2024 ambulatory Wing Joe acility:[facility] Start: 07-28-2022 Encounter for genera l adult medical examination without abnormal findings DR RAFFY NAVARRETE . [facility] Start: 07-24-2022 End: 07-24-[address] RAFFY NAVARRETE . Facility:[facility] Start: 07-22-2022 End: 07-23-[address] RAFFY NAVARRETE . Facility:[facility] Start: 07-22-2022 End: 07-23-2022 Encounter for general adult medical examination without abnormal findings DR RAFFY NAVARRETE . Facility:[facility] Start: 09-23-2021 End: 09-24-[address] RAFFY NAVARRETE . Facility:[facility] Start: 08-16-2021 End: 08-16-2021 ambulatory Casper Bellamy [facility] Other Start: 08-16-2021 Office outpatient visit 15 minutes Casper Bellamy [facility] Start: 12-17-2017 Patient encounter CECE ZAVALA [facility] Start: 09-15-2017 End: 09-17-2017 Evaluation and management of inpatient RAFFY Alexis Laureen [facility] Start: 09-11-2017 End: 09-14-[address] [facility] Start: 09-11-2017 End: 09-16-2017 Ambulatory [facility] Start: 07-22-2017 Office/outpatient visit, est, level 3 Travon Wright Work Phone: [facility] Start: 07-22-2017 End: 07-22-2017 Ambulatory Carly M [facility] Start: 03-24-2017 Ambulatory Sonia Dennisonrekha [facility] Start: 03-18-2017 Patient encounter TRAVON WRIGHT [facility] Start: 03-18-2017 Office outpatient visit 15 minutes Travon Wright Work Phone: [facility] Start: 02-26-2017 Ambulatory Travon Wright Facilit y:[facility] Start: 02-26-2017 End: 02-26-2017 Ambulatory Travon Wright Work Phone: [facility] Start: 02-20-2017 Ambulatory Carly Alexis [facility] Start: 02-19-2017 End: 02-19-[address]BE [facility] Start: 02-19-2017 Office outpatient visit 15 minutes Amber Uribe Work Phone: [facility] Physicians Start: 11-18-2016 End: 11-18-2016 Office outpatient visit 15 minutes Amber Uribe Work Phone: [facility] Comment on above: DDD (degenerative di sc disease), lumbar (Primary Dx) Procedures Date Procedure Procedure Detail Performing Clinician Start: 07-22-[address] ROMEO NAVARRETE . Comment on above: Performed By: #### V ITAD, PSASC #### [facility] [address] [address] [address] Isamar Betancourt Start: 09-17-2017 INCENTIVE SPIROMETRY [...] 11-14-2021 Tetanus vaccination TETANUS EVERY 10 YR [facility] Work Phone: Start: 04-02-2017 Ambulatory 04/02/2017 Cli nical Support Orthopedic Surgery Cece Zavala, MD [facility] [address] [id number] [phone] [facility] Start: 12-12-2016 Influenza vaccination SEQUENTI AL INFLUENZA VACCINE (#1) [facility] Work Phone: Start: 12-12-2016 SEQUENTIAL INFLUENZA VACCINE (#1) SEQUENTIAL INFLUENZA VACCINE (#1) [facility] Work Phone: Start: 1980 TETANUS EVERY 10 YR TETANUS EVERY 10 YR [facility] Work Phone: End: 02-19-2018 MR Lumbar Spine Without Contrast MR Lumbar Spine Without Contrast Routine Acute back pain, unspecified back location, unspecified back pain laterality 1 Occurrences starting 02/19/2017 until 02/19/2018 [facility] Work Phone: Payers Date Payer Category Payer Self-pay 2016 Unknown [id number] 1980 Unknown [id number] 1980 Unknown [id number] 1980 Unknown [id number] [id number] 1958 Medicaid [id number] 2.1 [id number] 1958 Medicaid [id number] 2. [id number] Medicaid xxxxxxxxxxx 2.1 [id number] Unknown [id number] [id number] Social History Date Type Detail Facility Start: 11-18-2016 End: 07-22-2017 Tobacco smoking status NHIS Current every day smoker [facility] Work Phone: History of tobacco use Cigarette Smoker [facility] Work Phone: Start: 11-18-2016 End: 07-22-2017 Cigarettes smoked current (pack per day) - Reported [facility] Work Phone: History of tobacco use Snuff User [facility] Work Phone: Sex Assigned At Not on file [facility] Work Phone: History of tobacco use Chews Tobacco [facility] Work Phone: Sex Assigned At Sex Assigned At [facility] Other Evaluation note 08-16-2021 Note Date & Type Note Facility 08-16-2021 Evaluation note Encounter Date Diagnosis Assessment Notes August, Tooth infection (ICD-10 - K04.7) Take tylenol 1000mg every 8 hours for pain. Call the dentist to make an appointment. I considered more ominous diagnoses such as retropharyngeal abscess, [employer], Raheem's angina, and Lemierre's syndrome. However, pt [...] an appointment. He agrees with the plan. [facility] Other History general Narrative - Reported Note Date & Type Note Facility History general Narrative - Reported Type Hospitalization History cyst [facility] Other Assessments Diagnosis Pars defect of lumbar [...] DDD (degenerative disc disease), lumbar Amber Uribe, MEMORY CARE PROGRAM RESIDENT [address] [place] [address] Scheduling Instructions Pt would like to see Dr Almodovar in [place] Status Reason Specialty Diagnoses / Procedures Referred By Contact Referred To Contact Authorized Rehabilitation Diagnoses DDD (degenerative disc disease), lumbar Amber Uribe, MG [address] [place] [address] History of Present Illness * Amber Uribe, MG - 11/18/2016 2:53 PM EDT Formatting of this note may be different from the original. Subjective: Rowena Patricia is a 36 y.o. male here for Follow-up ([facility] for low back pain. PT [...] section and content) DATE CREATED AUTHOR 09/29/2017 [facility] DATE CREATED AUTHOR AUTHOR'S ORGANIZ ATION 10/06/2017 [facility] DATE CREATED AUTHOR AUTHOR'S ORGANIZ ATION 10/09/2017 [facility] DATE CREATED AUTHOR AUTHOR'S ORGANIZ ATION 12/26/2017 [place] DATE CREATED AUTHOR AUTHOR'S ORGANIZ ATION 09/07/2020 Con Shukla [facility] DATE CREATED AUTHOR AUTHOR'S ORGANIZ ATION 05/27/2021 [facility] DATE CREATED AUTHOR AUTHOR'S ORGANIZ ATION 07/28/2022 [facility] DATE CREATED AUTHOR AUTHOR'S ORGANIZ ATION 12/28/2024 [facility] Reason for Visit (unrecogniz ed section and content) Reason Comments Follow-up [facility] for low back pain. [...] BE BASED ON THE PRIMARY CLINICAL RECORDS. [facility] [employer] provides no warranty or guarantee of the accuracy or completeness of information in this document.
--- NOTE | 2024-12-31 00:13 | ED.GENADUL1 ---
HPI HPI - General Adult General Chief complaint: Extremity Problem, Nontraumatic Stated complaint: LE EDEMA Time Seen by Provider: 12/30/24 23:52 Source: patient Mode of arrival: walk-in History of Present Illness HPI narrative: Patient is a 44-year-old male presenting to the emergency department for evaluation of bilateral feet swelling. Patient states that he noticed swelling in the bilateral feet last night. States he has never had symptoms like this before. He denies any injury to the area. He denies any other systemic symptoms such as chest pain, shortness of breath, nausea, vomiting, abdominal pain, fevers, or chills. He denies history of DVT/PE. Denies history of kidney or cardiac disease. He denies any overlying skin changes such as redness or drainage. Related Data Home Medications ?Medication ?Instructions ?Recorded ?Confirmed cetirizine 10 mg tablet 10 mg PO DAILY 08/05/23 12/30/24 lisinopril 40 mg tablet 40 mg PO DAILY 08/05/23 12/30/24 metoprolol tartrate 50 mg tablet 50 mg PO BID 08/05/23 12/30/24 omeprazole 40 mg capsule,delayed 40 mg PO DAILY 08/02/24 12/30/24 release venlafaxine 75 mg capsule,extended 75 mg PO DAILY 08/02/24 12/30/24 release 24 hr aripiprazole 5 mg tablet 5 mg PO DAILY 12/30/24 12/30/24 hydroxyzine HCl 25 mg tablet 25 mg PO Q6H PRN anxiety 12/30/24 12/30/24 meloxicam 7.5 mg tablet 15 mg PO DAILY 12/30/24 12/30/24 olanzapine 5 mg tablet 5 mg PO QID PRN agitation 12/30/24 12/30/24 prazosin 1 mg capsule 1 mg PO .QHS 12/30/24 12/30/24 quetiapine 200 mg tablet 200 mg PO DAILY 12/30/24 12/30/24 tamsulosin 0.4 mg capsule 0.4 mg PO DAILY 12/30/24 12/30/24 tizanidine 4 mg tablet 4 mg PO Q8H PRN muscle spasticity 12/30/24 12/30/24 venlafaxine 37.5 mg 37.5 mg PO DAILY 12/30/24 12/30/24 capsule,extended release 24 hr Allergies Allergy/AdvReac Type Severity Reaction Status Date / Time No Known Drug Allergies Allergy Verified 12/30/24 23:44 Opioid HPI Opioid Management Most Recent Opioid Data: Last Pain Scale 10 08/05/23, 08:30 Ur Phencyclidine Scrn, (NEGATIVE) Negative 12/18/24, 22:50 Review of Systems ROS Status of ROS 10 or more systems reviewed and unremarkable except as noted in history and below PFSH PFSH Social History Little interest or pleasure in doing things: not at all Feeling down, depressed, or hopeless: not at all Exam Narrative Exam Narrative: CONSTITUTIONAL: Well-appearing, answering questions and following commands appropriately SKIN: Was warm and dry. EYES: Sclerae white. EARS, NOSE, THROAT: Moist oral mucosa. RESPIRATORY: Clear to auscultation bilaterally, no wheezes, crackles, or stridor, no use of accessory muscles CARDIOVASCULAR: Normal rate and regular rhythm. 2+ DP pulses bilaterally. The foot is warm and well-perfused. GASTROINTESTINAL: Abdomen is nondistended. MUSCULOSKELETAL: There is mild, nonpitting edema of the bilateral feet. No overlying cellulitic changes, induration, fluctuance, or drainage. Full range of motion the bilateral feet/ankles. NEUROLOGIC: Patient is awake and alert. Good strength and sensation to light touch of the bilateral feet. Constitutional Vital Signs, click to edit/add: Last Vital Signs Temp 98.5 F 12/30/24 23:44 Pulse 75 12/30/24 23:44 Resp 20 12/30/24 23:44 BP 106/72 12/30/24 23:44 Pulse Ox 97 12/30/24 23:44 O2 Del Method Room Air 12/30/24 23:44 Course Vital Signs Vital signs: Vital Signs Temperature 98.5 F 12/30/24 23:44 Pulse Rate 75 12/30/24 23:44 Respiratory Rate 12/30/24 23:44 Blood Pressure 106/72 12/30/24 23:44 Pulse Oximetry 97 12/30/24 23:44 Oxygen Delivery Method Room Air 12/30/24 23:44 Temperature 98.5 F 12/30/24 23:44 Pulse Rate 75 12/30/24 23:44 Respiratory Rate 20 12/30/24 23:44 Blood Pressure 106/72 12/30/24 23:44 Pulse Oximetry 97 12/30/24 23:44 Oxygen Delivery Method Room Air 12/30/24 23:44 Medical Decision Making MDM Narrative Medical decision making narrative: Patient is a 44-year-old male presenting to the emergency department for evaluation of bilateral feet swelling that began last night. Vital signs on arrival are within normal limits. He is afebrile and hemodynamically stable. Examination as noted above. Patient's history and physical is consistent with dependent peripheral edema. He has no other systemic symptoms to suggest underlying etiology such as CHF. The extremities are neurovascularly intact without infectious changes. He just had outpatient laboratory studies on 12/18/2024 with his PCP that were unremarkable and within normal limits. I do not believe any further diagnostic testing is indicated at this time. I do believe the patient is stable for discharge at this time. They were instructed to follow up with his PCP for further care. Return precautions were given including any new or worsening symptoms, worsening swelling, erythema, or shortness of breath. They were instructed to use compression stockings and keep his legs elevated at night. Patient understands and agrees to the plan. FINAL IMPRESSION: #Acute dependent edema of the bilateral lower extremities. DISPOSITION: Discharged home CONDITION: Good Discharge Plan Discharge Chief Complaint: Extremity Problem, Nontraumatic Clinical Impression: Dependent edema Patient Disposition: Home, Self-Care Time of Disposition Decision: 00:00 Condition: Good Mode of Transportation: Private Vehicle Prescriptions / Home Meds: No Action aripiprazole 5 mg tablet 5 mg PO DAILY hydroxyzine HCl 25 mg tablet 25 mg PO Q6H PRN (Reason: anxiety) meloxicam 7.5 mg tablet 15 mg PO DAILY olanzapine 5 mg tablet 5 mg PO QID PRN (Reason: agitation) prazosin 1 mg capsule 1 mg PO .QHS quetiapine 200 mg tablet 200 mg PO DAILY venlafaxine 37.5 mg capsule,extended release 24hr 37.5 mg PO DAILY tamsulosin 0.4 mg capsule 0.4 mg PO DAILY tizanidine 4 mg tablet 4 mg PO Q8H PRN (Reason: muscle spasticity) lisinopril 40 mg tablet 40 mg PO DAILY metoprolol tartrate 50 mg tablet 50 mg PO BID cetirizine 10 mg tablet 10 mg PO DAILY venlafaxine 75 mg capsule,extended release 24hr 75 mg PO DAILY omeprazole 40 mg capsule,delayed release(DR/EC) 40 mg PO DAILY Print Language: Armenian Instructions: Leg Edema (ED) Referrals: Shashi Talley MD [Primary Care Provider, Family Practice] - 1 week Discharge Date/Time: 12/31/24 00:09
== END 2024-12-31 00:09 | disposition home or self-care (01) ==
PROVIDERS: Emergency Provider Student in an Organized Health Care Education/Training Program; PCP Family Medicine
DX: R60.0 Localized edema (principal)
CPT/HCPCS: 99282